=== PATIENT | female | born 1960 | race Two or more races ===

== ENCOUNTER 2020-03-11 09:07 | Outpatient (REF) | payer OTHER, SELFPAY | END 2020-03-11 09:08 | disposition home or self-care (01) | LOC: HO.XRAY 09:07 | PROVIDERS: Visit Provider Internal Medicine Gastroenterology | DX: Z13.89 Encounter for screening for other disorder (principal) ==

== ENCOUNTER 2020-03-11 10:00 | Outpatient (REF) | payer OTHER, SELFPAY | END 2020-03-11 10:01 | disposition home or self-care (01) | LOC: HO.XRAY 10:00 | PROVIDERS: Visit Provider Internal Medicine Gastroenterology | DX: Z13.89 Encounter for screening for other disorder (principal) ==

== ENCOUNTER 2020-03-17 07:59 | Outpatient (REF) | payer OTHER, SELFPAY ==
--- NOTE | 2020-03-17 08:08 | FL_ITS ---
EXAMINATION: XR UPPER GI SERIES WITH SMALL BOWEL CLINICAL INFORMATION: Abdominal pain. COMPARISON: None. TECHNIQUE: A single mate first view of the abdomen was obtained. Subsequently, thick barium and effervescent granules were administered orally in upright view and images were obtained. Patient was placed in supine and prone position and imaging of stomach and small bowel loops was obtained up to 20 minutes. Spot imaging was obtained subsequently through the abdomen. FINDINGS: Following oral administration of thick barium and effervescent granules, there is normal antegrade flow of barium from the oral cavity through the pharynx and esophagus into the stomach without any evidence of obstruction, narrowing. Spot images obtained through the abdomen reveal normal course, caliber and peristalsis in the stomach, the duodenum and the sweep. No gastroesophageal reflux. Sequential images obtained through the abdomen reveal a normal small bowel transit time of less than 20 minutes. Spot images of the ileocecal junction and the small bowel reveal no focal narrowing or mucosal irregularity. The rectum is unremarkable, as well. FLUOROSCOPY TIME: 2.5 minutes DOSE AREA PRODUCT: 27.205 uGy-m2 (microgray-meter squared) IMPRESSION: Unremarkable upper GI air-contrast study. Normal small bowel transit time. Normal-appearing small bowel loops.
== END 2020-03-17 08:00 | disposition home or self-care (01) ==
LOC: HO.XRAY 07:59
PROVIDERS: Visit Provider Internal Medicine Gastroenterology
DX: R10.9 Unspecified abdominal pain (principal)
CPT/HCPCS: 74240; 74248

== ENCOUNTER → 2020-03-25 09:44 | Outpatient (BNVA) | payer OTHER, SELFPAY | PROVIDERS: PCP Family Medicine; Visit Provider Urology | DX: N30.10 Interstitial cystitis (chronic) without hematuria (principal); R35.1 Nocturia | CPT/HCPCS: 99212 ==

== ENCOUNTER 2020-06-29 09:52 | Outpatient (REF) | payer OTHER, SELFPAY | END 2020-06-29 09:53 | disposition home or self-care (01) | LOC: HO.LAB 09:52 | PROVIDERS: Visit Provider Internal Medicine | DX: Z20.822 Contact with and (suspected) exposure to COVID-19 (principal) | CPT/HCPCS: 36415; C9803; U0003; U0005 ==

== ENCOUNTER 2020-07-09 13:46 | Outpatient (REF) | payer OTHER, SELFPAY ==
--- NOTE | ~2020-07-09 | MM_ITS ---
EXAMINATION: MM DIAGNOSTIC DIGITAL BREAST TOMOSYNTHESIS, BILATERAL TARGETED LEFT BREAST ULTRASOUND CLINICAL INFORMATION: Left breast mass at 3 to 5 o'clock. The lifetime risk of breast cancer based on the Tyrer-Cuzick Model is 5.3%. COMPARISON: Mammography: 08/06/2019 and studies dating back to 06/06/2013. TECHNIQUE: Digital breast tomosynthesis is performed in both the craniocaudal and mediolateral oblique views along with computer-aided detection (CAD). Synthesized 2D images are generated from the tomosynthesis. FINDINGS: The breasts are heterogeneously dense, which may obscure small masses (ACR BI-RADS breast composition Category c). There are no significant masses, abnormal calcifications, or other abnormalities. Targeted breast ultrasound about the lateral aspect of the left breast performed. No abnormal cystic or solid mass identified. No region of abnormal distal sound shadowing. No edema within the tissue planes identified. Results are provided to the patient at time of visit by the technologist. MM/MM tomosynthesis diagnostic BI IMPRESSION: There are no significant changes from prior study. ASSESSMENT: BI-RADS 1: Negative. RECOMMENDATION: Routine annual mammography screening due in 12 months. Clinical followup for palpable abnormality. This patient's information was entered into a reminder system with a target due date for their next mammogram.
--- NOTE | ~2020-07-09 | US_ITS ---
EXAMINATION: US DIAGNOSTIC ULTRASOUND BREAST, LEFT CLINICAL INFORMATION: Palpable abnormality upper outer aspect left breast. COMPARISON: Mammography of same day as well as studies dating back to June 06, 2013. TECHNIQUE: Ultrasound of the breast is performed with real-time schuster scale imaging and color Doppler. FINDINGS: There is no focal suspicious finding. There is no solid mass, architectural abnormality, duct ectasia, or edema in the soft tissue planes. Results are discussed with the patient at time of visit. US/US breast LT limited IMPRESSION: No specific ultrasound findings to suggest malignancy of the left breast. ASSESSMENT: BI-RADS 1: Negative RECOMMENDATION: Routine annual mammography screening due in 12 months. Clinical follow-up for palpable abnormality not imaged with ultrasound or mammography. This patient's information was entered into a reminder system with a target due date for their next mammogram.
== END 2020-07-09 13:47 | disposition home or self-care (01) ==
LOC: HO.MAMMO 13:46
PROVIDERS: Visit Provider Family Medicine
DX: N63.23 Unspecified lump in the left breast, lower outer quadrant (principal)
CPT/HCPCS: 76642; 77062; 77066

== ENCOUNTER → 2020-07-21 12:50 | Outpatient (BNVA) | payer OTHER, SELFPAY | PROVIDERS: PCP Family Medicine; Visit Provider Urology | DX: R35.1 Nocturia (principal); N30.10 Interstitial cystitis (chronic) without hematuria | CPT/HCPCS: 51798; 81002; 99212 ==

== ENCOUNTER → 2020-08-27 09:46 | Outpatient (BNVA) | payer OTHER, SELFPAY | PROVIDERS: PCP Family Medicine; Referring Provider Family Medicine; Visit Provider Student in an Organized Health Care Education/Training Program | DX: M89.49 Other hypertrophic osteoarthropathy, multiple sites (principal) | CPT/HCPCS: 99212 ==

== ENCOUNTER 2020-09-02 06:53 | Outpatient (REF) | payer OTHER, SELFPAY ==
[2020-09-02 08:28] LABS: Alanine Aminotransferase 19 U/L (0-31); Albumin Level 4.5 g/dL (3.5-5.0); Alkaline Phosphatase 89 U/L (39-117); Anion Gap 13 (12-20); Aspartate Amino Transferase 21 U/L (5-31); Bilirubin Total 0.5 mg/dL (0.0-1.0); Blood Urea Nitrogen 23 mg/dL (9-16); Calcium 9.8 mg/dL (8.4-10.2); Carbon Dioxide 28 mmol/L (22-29); Chloride 104 mmol/L (96-108); Cholesterol 197 mg/dL; Estimated Glomerular Filt Rate > 60; Glucose Fasting 101 mg/dL (60-99); HDL Cholesterol 62 mg/dL; LDL Cholesterol Calculated 117 mg/dl; Potassium 3.9 mmol/L (3.3-5.1); Sodium 141 mmol/L (135-145); Total Protein 7.9 g/dL (6.5-8.0); Triglycerides 90 mg/dL
[2020-09-02 08:29] LABS: Creatinine Urine 102.57 mg/dL; Microalbum/Creatinine Ratio Ur 17.5 ug/mg cr
[2020-09-02 08:52] LABS: Estimated Average Glucose 114 mg/dL; Hemoglobin A1c % 5.6 %; TSH reflex Free T4 1.44 uIU/mL (0.32-4.0)
== END 2020-09-02 06:54 | disposition home or self-care (01) ==
LOC: HO.LAB 06:53
PROVIDERS: PCP Family Medicine; Visit Provider Family Medicine
DX: Z00.00 Encounter for general adult medical examination without abnormal findings (principal); R73.03 Prediabetes; I10 Essential (primary) hypertension
CPT/HCPCS: 36415; 80053; 80061; 82043; 83036; 84443

== ENCOUNTER 2020-10-13 07:16 | Outpatient (REF) | payer OTHER, SELFPAY ==
[2020-10-13 08:49] LABS: Blood Urea Nitrogen 22 mg/dL (9-16); Estimated Glomerular Filt Rate > 60
== END 2020-10-13 07:17 | disposition home or self-care (01) ==
LOC: HO.LAB 07:16
PROVIDERS: PCP Family Medicine; Visit Provider Internal Medicine Gastroenterology
DX: R10.84 Generalized abdominal pain (principal)
CPT/HCPCS: 36415; 82565; 84520

== ENCOUNTER 2020-10-15 07:52 | Outpatient (REF) | payer OTHER, SELFPAY ==
--- NOTE | ~2020-10-15 | CT_ITS ---
EXAMINATION: CT ABDOMEN AND PELVIS WITH CONTRAST CLINICAL INFORMATION: Abdominal pain COMPARISON: Previous abdominal ultrasound May 2019 TECHNIQUE: Multidetector volumetric images were obtained from the superior aspect of the liver through the pubic symphysis following administration 85 mL of Omnipaque 350 intravenous contrast. Sagittal and coronal reformatted images were obtained on the technologist's workstation. Oral contrast: Yes This CT examination was performed using dose optimization techniques as appropriate, variously including the following: *Automated exposure control *Adjustment of mA and/or kV according to patient size (this includes techniques or standardized protocols for targeted exams where dose is matched to indication/reason for exam; i.e. extremities or head) *Use of iterative reconstruction technique DLP: 85 mGy-cm FINDINGS: LUNG BASES: The visualized lung bases are unremarkable. LIVER, GALLBLADDER, AND BILIARY TREE: The liver is low in attenuation suggestive of fatty infiltration. There is a small 5 mm low-attenuation lesion high in the right lobe of the liver axial image 11 series 3 probably representing a cyst. The gallbladder is unremarkable. There is no biliary duct dilatation. PANCREAS: Unremarkable. SPLEEN: Unremarkable. ADRENAL GLANDS: Unremarkable. KIDNEYS AND URETERS: The kidneys are normal in size, shape, and attenuation. No hydronephrosis, hydroureter, or calculi seen. No perinephric stranding. BLADDER: Unremarkable. GASTROINTESTINAL TRACT: There is stool throughout the colon suggestive of constipation. The small and large bowel are otherwise unremarkable. The appendix is is not seen. No inflammatory changes are seen in the right lower quadrant. ABDOMINAL WALL: No significant hernia is appreciated. LYMPH NODES: Normal. VASCULAR: Unremarkable. PELVIC VISCERA: Unremarkable. OSSEOUS STRUCTURES: Unremarkable. CT/CT abdomen pelvis w con IMPRESSION: Stool throughout the colon suggestive of constipation. Fatty liver. Probable small liver cyst.
[2020-10-15] MEDS: iohexoL 350 MG/ML 100 ML INFUS..BTL 85 ML IV (11:12)
== END 2020-10-15 07:53 | disposition home or self-care (01) ==
LOC: HO.CT 07:52
PROVIDERS: Visit Provider Internal Medicine Gastroenterology
DX: R10.84 Generalized abdominal pain (principal)
CPT/HCPCS: 74177; Q9967

== ENCOUNTER 2020-12-23 14:09 | Outpatient (REF) | payer OTHER, SELFPAY ==
--- NOTE | ~2020-12-23 | FL_ITS ---
EXAMINATION: XR BARIUM SWALLOW CLINICAL INFORMATION: Difficulty swallowing. COMPARISON: None TECHNIQUE: Modified barium swallow was performed lateral projection is a speech therapist. FINDINGS: Under lateral fluoroscopy various consistency food was administered by the speech therapist. The exam was performed on 12/15/2020. The exact findings are not very collectible at this time. Correlate with speech therapy results. FLUOROSCOPY TIME: 0.9 minutes DOSE AREA PRODUCT: 0.656 uGy-m2 (microgray-meter squared) FL/FL barium swallow modified IMPRESSION: Modified barium swallow was performed under fluoroscopy in presence of speech therapist. Correlate with speech therapy report.
--- NOTE | 2020-12-24 13:40 | MHC.SL.IMP ---
Date of Plan of Treatment: 12/23/20 Onset of Symptoms/Illness: 12/02/20 Date Treatment Started: 12/23/20 Admitting Diagnosis: Acute pain left knee Osteoarthritis Overactive bladder Urinary urgency Weak urinary stream Primary Speech & Language Diagnosis: R13.12 Oropharyngeal Phase Dysphagia Reason for Today's Visit: 96440 Modified Barium Swallow Study Pre-evaluation Dietary Consistencies: Regular Pre-evaluation Liquid Consistency: Thin Pre-evaluation Medication Administration: Whole with Liquid Medical History: Modified Barium Swallow Study Fluoroscopic Evaluation of Swallowing Function CPT Code 40913 Evaluation Year: 2020 Reason for Study: Patient reports globus sensation. Referring Physician: Cesar Driscoll M.D. Evaluating Clinician: Kat Buckley M.A., CCC-CREW CALLER Study Number: 1 Patient Name: Lakia Benson Status: Outpatient, Ambulatory Age: 60 Gender: Female MEDICAL HISTORY: Year of Onset or Diagnosis: 2020 Comorbidities: Acute pain left knee Osteoarthritis Overactive bladder Urinary urgency Weak urinary stream Current (pre-evaluation) Intake/Diet: Route: PO Diet Grade: Regular Liquid Consistencies: Thin Pre-Study Functional Oral Intake Scale (FOIS): 7- Total oral intake with no restrictions Pain: Currently present reported at time of study, Throat, rated 0 on scale 0-10 Oral Motor Exam Facial Symmetry: Symmetrical Mouth Occlusion: Normal Oral-Facial Teeth Characteristics: Intact/Normal Tongue Size: Normal Tongue Frenum Length: Normal Tongue Excursion Description: Normal Tongue Range of Movement Description: Normal Tongue Speed of Movement Description: Normal Tongue Strength of Movement (against opposing pressure): Normal Is patient able to manage secretions?: Yes Food and Liquid Trials: Oral Impairment: Lip Closure: Did not test Oral Impairment: Tongue Control During Bolus Hold: 0=Cohesive bolus between tongue to palatal seal Oral Impairment: Bolus Preparation/Mastication: 1=Slow prolonged chewing/mashing with complete re-collection Oral Impairment: Bolus Transport/Lingual Motion: 0=Brisk tongue motion Oral Impairment: Oral Residue: 1=Trace residue lining oral structures Oral Impairment:Initiation of Pharyngeal Swallow: 3=Bolus head in pyriforms Pharyngeal Impairment: Soft Palate Elevation: 0=No bolus between soft palate (SP)/pharyngeal wall (PW) Pharyngeal Impairment: Laryngeal Elevation: 1=Partial thyroid cartilage/arytenoids to epiglottic petiole movement Pharyngeal Impairment: Anterior Hyoid Excursion: 1=Partial anterior movement Pharyngeal Impairment: Epiglottic Movement: 0=Complete inversion Pharyngeal Impairment: Laryngeal Vestibular Closure:: 0=Complete: no air/contrast in laryngeal vestibule Pharyngeal Impairment: Pharyngeal Stripping Wave: 0=Present: complete Pharyngeal Impairment: Pharyngeal Contraction: Did not test Pharyngeal Impairment: Pharyngoesophageal Segment Openin=Complete distension and complete duration: no obstruction of flow Pharyngeal Impairment: Tongue Base (TB) Retraction: 2=Narrow column of contrast/air between TB and posterior PW Pharyngeal Impairment: Pharyngeal Residue: 1=Trace residue within or on pharyngeal structures Pharyngeal Impairment: Esophageal Clearance Upright Position: Did not test Impressions and Recommendations Clinical Observations: OBJECTIVE: Time-out: performed at 02:45 Evaluation Start: 02:30; Stop: 02:40 Patient Positioning: Seated 70-90 degrees Viewing Planes: LATERAL ONLY Contrast: MBSImP? Standardized Protocol using commercially prepared, standardized Barium viscosities, including: Varibar? THIN LIQUID (40% w/v, <15 cps) , 1/2 Shortbread Cookie (1 x1 x.25 ) MBSImP ID: [id number] MBSImP Results: Lip closure for intraoral bolus containment could not be assessed due to logistical reasons not related to physiologic impairment. Tongue control during bolus hold maintained a cohesive bolus held between tongue to palate seal. Bolus preparation and mastication resulted in slow, prolonged chewing/mashing but with complete re-collection. Bolus transport/lingual motion was with brisk tongue motion. Oral residue was a trace, lining oral structures. Initiation of the pharyngeal swallow occurred when the bolus head was in the pyriform sinuses. Soft palate elevation resulted in no bolus between the soft palate and the pharyngeal wall. Laryngeal elevation was decreased, with partial superior movement of the thyroid cartilage/partial approximation of the arytenoids to the epiglottic petiole. Anterior hyoid excursion demonstrated partial anterior movement. Epiglottic movement resulted in complete inversion. Laryngeal vestibular closure was complete, as indicated by no air or contrast within the laryngeal vestibule at the height of the swallow. Pharyngeal stripping wave was present and complete. Pharyngeal contraction could not be determined due to logistical reasons not related to physiologic impairment. Pharyngoesophageal segment opening was completely distended for complete duration with no obstruction of bolus flow. Tongue base retraction allowed a narrow column of contrast or air between the retracted tongue base and the posterior pharyngeal wall. Pharyngeal residue was a trace within or on pharyngeal structures. Esophageal clearance in the upright position could not be assessed due to logistical reasons not related to physiologic impairment. Oral Impairment Score: 4 (absence of score, component 1) Pharyngeal Impairment Score: 4 (absence of score, component 13) Esophageal Impairment Score: --- (absence of score, component 17) Laryngeal Penetration and Aspiration: Neither penetration nor aspiration was observed in today's study with Cookie, Thin. ASSESSMENT: Clinician Assessment: This exam was conducted by radiologist and speech language pathologist with patient seated upright at 90 degree angle in chair for lateral view only. Patient trialed the following solid and liquid consistencies: -applesauce mixed with barium paste (pureed solid) -chicken salad mixed with barium paste (ground solid) -Kely Doone cookie coated with barium paste (regular solid) -5 mL thin liquid barium -cup sip thin liquid barium No evidence of aspiration or penetration during this exam. Patient reported globus sensation after food and liquid trials. However, visualized good oral and pharyngeal clearance. Swallow function deemed within functional limits based on observations made during this exam. Recommend consult with G.I. and/or ENT for reports of throat pain, throat dryness, and ongoing globus sensation. Liquid Intake Recommendation: Thin Liquid Intake Strategies: Unrestricted Dietary Recommendations: Regular Medication Administration: Whole with Liquid Compensatory Strategies Recommended: Sitting Upright (90 deg) Small Bites and Sips Rate of Ingestion Change Supervision during eating and or drinking: None Needed Recommendation for Speech Therapy: NA:Typical Evaluation Text Comment: No evidence of aspiration or penetration during this exam. Patient reported globus sensation after food and liquid trials. However, visualized good oral and pharyngeal clearance. Swallow function deemed within functional limits based on observations made during this exam. Recommend consult with G.I. and/or ENT for reports of throat pain, throat dryness, and ongoing globus sensation. Brand Activation Manager Clinician/Clinical Fellow: No Supervisory Statement: N/A Speech Language Pathologist: Kat Buckley M.A., CCC-CREW CALLER
== END 2020-12-23 14:10 | disposition home or self-care (01) ==
LOC: HO.XRAY 14:09
PROVIDERS: Visit Provider Family Medicine
DX: R09.89 Other specified symptoms and signs involving the circulatory and respiratory systems (principal)
CPT/HCPCS: 74230; 92611

== ENCOUNTER 2021-04-28 11:36 | Outpatient (REF) | payer OTHER, SELFPAY ==
[2021-04-28 13:48] LABS: Estimated Average Glucose 117 mg/dL; Hemoglobin A1c % 5.7 %
== END 2021-04-28 11:37 | disposition home or self-care (01) ==
LOC: HO.WFDLDS 11:36
PROVIDERS: Visit Provider Family Medicine
DX: R73.01 Impaired fasting glucose (principal)
CPT/HCPCS: 36415; 83036

== ENCOUNTER → 2021-05-19 15:47 | Outpatient (BNVA) | payer OTHER, SELFPAY | PROVIDERS: PCP Family Medicine; Referring Provider Family Medicine; Visit Provider Surgery | DX: N64.4 Mastodynia (principal); Z80.41 Family history of malignant neoplasm of ovary | CPT/HCPCS: 99202 ==

== ENCOUNTER 2021-06-14 14:00 | Outpatient (REF) | payer OTHER, SELFPAY ==
--- NOTE | ~2021-06-14 | MM_ITS ---
EXAMINATION: MM DIAGNOSTIC DIGITAL BREAST TOMOSYNTHESIS, BILATERAL US DIAGNOSTIC ULTRASOUND BREAST, LEFT CLINICAL INFORMATION: Pain left breast upper outer quadrant with question of palpable fullness. No known family history breast cancer. The lifetime risk of breast cancer based on the Tyrer-Cuzick Model is 5%. COMPARISON: Mammography: 07/09/2020, 08/06/2019, 07/13/2018, 07/31/2018 TECHNIQUE: Digital breast tomosynthesis is performed in both the craniocaudal and mediolateral oblique views along with computer-aided detection (CAD). Synthesized 2D images are generated from the tomosynthesis. Ultrasound left breast is targeted to the areas of clinical concern 1:00 through 5:00 position. Grayscale imaging and color Doppler are performed without and with harmonics. FINDINGS: The breasts are heterogeneously dense, which may obscure small masses (ACR BI-RADS breast composition Category c). There are no significant masses, abnormal calcifications, or other abnormalities. Parenchymal pattern is similar to prior studies. There is no developing density or architectural abnormality. There is no skin thickening or coarsening of the Gabino's ligaments. The axilla and skin contours are unremarkable. No significant changes. Ultrasound demonstrates no cystic or solid mass or architectural abnormality. No focal duct ectasia. No skin thickening or edema tracking in soft tissue planes. Results are discussed with the patient at time of visit, using an oracle fusion middleware developer. MM/MM tomosynthesis diagnostic BI IMPRESSION: No mammographic evidence of malignancy or inflammatory changes. Unremarkable left breast ultrasound. ASSESSMENT: BI-RADS 1: Negative RECOMMENDATION: 1. Patient should be managed based on the clinical impression. If clinically indicated, further evaluation may be considered with surgical consult. Decision to proceed with biopsy should be based on clinical grounds and degree of clinical concern. 2. Otherwise, routine annual screening mammography. This patient's information was entered into a reminder system with a target due date for their next mammogram.
== END 2021-06-14 14:01 | disposition home or self-care (01) ==
LOC: HO.MAMMO 14:00
PROVIDERS: Visit Provider Surgery
DX: N64.4 Mastodynia (principal)
CPT/HCPCS: 76642; 77062; 77066

== ENCOUNTER → 2021-06-17 14:19 | Outpatient (BNVA) | payer OTHER, SELFPAY | PROVIDERS: PCP Family Medicine; Referring Provider Family Medicine; Visit Provider Surgery | DX: N64.4 Mastodynia (principal); Z80.41 Family history of malignant neoplasm of ovary | CPT/HCPCS: 99212 ==

== ENCOUNTER → 2021-07-29 08:55 | Outpatient (BNVA) | payer OTHER, SELFPAY | PROVIDERS: PCP Family Medicine; Referring Provider Family Medicine; Visit Provider Surgery | DX: Z80.41 Family history of malignant neoplasm of ovary (principal) | CPT/HCPCS: 99212 ==

== ENCOUNTER 2021-10-19 10:09 | Outpatient (REF) | payer OTHER, SELFPAY ==
[2021-10-19 12:33] LABS: Alanine Aminotransferase 23 U/L (0-31); Albumin Level 4.5 g/dL (3.5-5.0); Alkaline Phosphatase 87 U/L (39-117); Anion Gap 13 (12-20); Aspartate Amino Transferase 22 U/L (5-31); Bilirubin Total 0.2 mg/dL (0.0-1.0); Blood Urea Nitrogen 20 mg/dL (9-16); Calcium 10.5 mg/dL (8.4-10.2); Carbon Dioxide 26 mmol/L (22-29); Chloride 105 mmol/L (96-108); Estimated Glomerular Filt Rate > 60; Glucose Random 90 mg/dL (60-115); Sodium 140 mmol/L (135-145)
== END 2021-10-19 10:10 | disposition home or self-care (01) ==
LOC: HO.LAB 10:09
PROVIDERS: PCP Family Medicine; Visit Provider Nurse Practitioner Family
DX: M89.49 Other hypertrophic osteoarthropathy, multiple sites (principal)
CPT/HCPCS: 36415; 80053; 99212

== ENCOUNTER 2021-10-21 11:55 | Outpatient (REF) | payer OTHER, SELFPAY ==
[2021-10-21 12:53] LABS: Alanine Aminotransferase 25 U/L (0-31); Albumin Level 4.5 g/dL (3.5-5.0); Alkaline Phosphatase 89 U/L (39-117); Anion Gap 15 (12-20); Aspartate Amino Transferase 22 U/L (5-31); Bilirubin Total 0.5 mg/dL (0.0-1.0); Blood Urea Nitrogen 18 mg/dL (9-16); Calcium 10.4 mg/dL (8.4-10.2); Carbon Dioxide 24 mmol/L (22-29); Chloride 103 mmol/L (96-108); Estimated Glomerular Filt Rate > 60; Glucose Random 85 mg/dL (60-115); Potassium 4.2 mmol/L (3.3-5.1); Sodium 138 mmol/L (135-145); Total Protein 8.2 g/dL (6.5-8.0)
[2021-10-22 14:21] LABS: Calcium (PTHI) 10.3 mg/dL (8.6-10.4); PTHI 55 pg/mL (16-77)
== END 2021-10-21 11:56 | disposition home or self-care (01) ==
LOC: HO.LAB 11:55
PROVIDERS: PCP Family Medicine; Visit Provider Nurse Practitioner Family
DX: E83.52 Hypercalcemia (principal)
CPT/HCPCS: 36415; 80053; 83970

== ENCOUNTER 2022-05-25 07:04 | Outpatient (REF) | payer OTHER, SELFPAY ==
[2022-05-25 08:35] LABS: Alanine Aminotransferase 18 U/L (0-31); Albumin Level 4.4 g/dL (3.5-5.0); Alkaline Phosphatase 89 U/L (39-117); Anion Gap 13 (12-20); Aspartate Amino Transferase 18 U/L (5-31); Bilirubin Total 0.3 mg/dL (0.0-1.0); Blood Urea Nitrogen 21 mg/dL (9-16); Calcium 10.2 mg/dL (8.4-10.2); Carbon Dioxide 27 mmol/L (22-29); Chloride 104 mmol/L (96-108); Cholesterol 197 mg/dL; Estimated Glomerular Filt Rate > 60; Glucose Fasting 142 mg/dL (60-99); HDL Cholesterol 53 mg/dL; LDL Cholesterol Calculated 121 mg/dl; Potassium 3.8 mmol/L (3.3-5.1); Sodium 140 mmol/L (135-145); TSH reflex Free T4 1.28 uIU/mL (0.32-4.0); Total Protein 7.9 g/dL (6.5-8.0); Triglycerides 119 mg/dL
[2022-05-25 09:24] LABS: Appearance Urine Clear; Color Urine Yellow; Glucose Urine UA Negative (Negative); Leukocyte Esterase Urine Small (1+) (Negative); Nitrite Urine Negative (Negative); PH 5.5 (5.0-9.0); Specific Gravity - Urine >= 1.030 (1.005-1.025); UMIC TRIGGER UA YES; Urine Blood Negative (Negative); Urine Ketones Negative (Negative); Urine Protein Trace mg/dL (Neg-Trace)
[2022-05-25 10:00] LABS: Creatinine Urine 214.16 mg/dL; Microalbum/Creatinine Ratio Ur 28.4 ug/mg cr
[2022-05-25 10:01] LABS: Bacteria Urine None Seen (None Seen); Calcium Oxalate Crystals Urine Present; Hyaline Casts Urine 0-2 /LPF (0-2); RBC Urine 0-2 /HPF (0-2); WBC Urine 0-5 /HPF (0-5)
== END 2022-05-25 07:05 | disposition home or self-care (01) ==
LOC: HO.LAB 07:04
PROVIDERS: PCP Family Medicine; Visit Provider Family Medicine
DX: Z00.00 Encounter for general adult medical examination without abnormal findings (principal); I10 Essential (primary) hypertension
CPT/HCPCS: 36415; 80053; 80061; 81001; 82043; 84443

== ENCOUNTER 2022-06-15 08:47 | Outpatient (REF) | payer OTHER, SELFPAY ==
--- NOTE | ~2022-06-15 | MM_ITS ---
EXAMINATION: MM SCREENING DIGITAL BREAST TOMOSYNTHESIS, BILATERAL CLINICAL INFORMATION: Screening. Asymptomatic. The lifetime risk of breast cancer based on the Tyrer-Cuzick Model is 6%. COMPARISON: Mammography: June 14, 2021 and studies dating back to July 28, 2015 TECHNIQUE: Digital breast tomosynthesis is performed in both the craniocaudal and mediolateral oblique views along with computer-aided detection (CAD). Synthesized 2D images are generated from the tomosynthesis. FINDINGS: The breasts are heterogeneously dense, which may obscure small masses (ACR BI-RADS breast composition Category c). There are no significant masses, abnormal calcifications, or other abnormalities. MM/MM tomosynthesis screening BI IMPRESSION: No significant changes ASSESSMENT: BI-RADS 1: Negative RECOMMENDATION: Routine annual mammography screening. This patient's information was entered into a reminder system with a target due date for their next mammogram.
== END 2022-06-15 08:48 | disposition home or self-care (01) ==
LOC: HO.MAMMO 08:47
PROVIDERS: PCP Family Medicine; Visit Provider Family Medicine
DX: Z12.31 Encounter for screening mammogram for malignant neoplasm of breast (principal)
CPT/HCPCS: 77063; 77067

== ENCOUNTER 2022-06-28 10:53 | Day surgery (SDC) | payer OTHER, SELFPAY ==
[2022-06-28 11:16] VITALS: BMI 28.3
[2022-06-28 11:24] VITALS: BP 136/79; PULSE 76; RESP 15; TEMP 36.5; O2SAT 97
[2022-06-28] MEDS: Lactated Ringers 1,000 ML 50 ML IVCONT (11:36)
[2022-06-28 11:51] LABS: Glucose, Whole Blood 121 mg/dL (60-115)
--- NOTE | 2022-06-28 11:59 | HO.ANESPROP2 ---
[facility] Active Problems Active Problems: All Active Problems (Updated 06/28/22 @ 11:15 by Dorina Rios RN) Interstitial cystitis (Acute) Nocturia more than twice per night (Acute) Breast cancer screening by mammogram (Acute) Pre-diabetes (Acute) Abdominal pain (Acute) Laboratory examination ordered as part of a routine general medical examination (Acute) Left breast mass (Acute) Primary osteoarthritis involving multiple joints (Acute) Globus sensation (Acute) Hypertension (Acute) Breast pain, left (Acute) Diabetes mellitus type 2, controlled, without complications (Acute) Encounter for general adult medical examination without abnormal findings (Acute) Screening for cervical cancer (Acute) Screening for colon cancer (Acute) OA (osteoarthritis) (Acute) Family history of ovarian cancer (Acute) Past Medical History Medical History Acute pain of left knee Diabetes Family history of ovarian cancer GERD (gastroesophageal reflux disease) HTN (hypertension) OA (osteoarthritis) Overactive bladder Primary osteoarthritis, right hand Urinary urgency Weak urinary stream Functional capacity: independent ambulation Patient : No Family History Family History Father No problems noted. Mother Colon cancer Brother No problems noted. Brother No problems noted. Brother No problems noted. Sister Ovarian cancer Sister Breast cancer Sister No problems noted. Sister No problems noted. Daughter No problems noted. Daughter No problems noted. Surgical History Surgical History History of bladder suspension procedure History of tubal ligation Hx of colonoscopy Hx of esophagogastroduodenoscopy History of Problems with Anesthesia: No Social History Social History Household Members: None Housing: Apartment Are you a primary care management associate to a significant other at home: No Do you presently have visiting nurse or other home services: No Alcohol intake: never Patient Tobacco Use Status: Never used Tobacco e-Cigarette/Vaping Use: Never Used Second Hand Smoke Exposure: No Use of substances other than those prescribed or required for medical reasons: No Are you DNR?: No Advance Directives: Yes Advance Directives on File: Yes Advance Directives Date on File: 03/11/20 Patient : No service: No Current occupational status: retired 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 Current occupational exposures/hazards: No Gender identity: Female Cognitive needs: No Hearing needs: No Vision needs: Yes (Glasses) Meds Allergies Allergy/AdvReac Type Severity Reaction Status Date / Time No Known Allergies Allergy Verified 06/01/22 09:09 Active Medications: Current Medications Lactated Ringer's (Lr) 1,000 mls @ 50 mls/hr IVCONT .Q20H BAYLEE Last Admin: 06/28/22 11:36 Dose: 50 mls/hr Home Medications Medication Instructions Recorded Confirmed Last Taken Type pantoprazole 40 mg tablet,delayed 40 mg PO DAILY 09/16/20 07/29/21 Unknown History release Exam Exam Date and Time: June 28, 2022 1159 Height,Weight and Vital Signs: Height 5 ft Weight 65.771 kg Last Vital Signs Temp 97.7 F 06/28/22 11:24 Pulse 76 06/28/22 11:24 Resp 15 06/28/22 11:24 BP 136/79 06/28/22 11:24 Pulse Ox 97 06/28/22 11:24 O2 Del Method 06/28/22 11:24 Pertinent Lab Results Pertinent Lab Results: Laboratory Tests 06/28/22 11:45 POC Glucose 121 H Airway Mallampati Class: II TM Dist: >3cm Neck ROM: Full Heart: RRR Lungs: CTA Assessment and Plan Final Anesthetic Review History of Problems with Anesthesia: No ASA Class: II Final Preanesthetic Review: Meds/Allgs Chart Reviewed, Consent Obtained/Reviewed and Anes Risks/Benef Reviewed Patient Risk: Low Procedure Risk: Low Anesthetic Plan Anesthetic Plan: MAC: Disposition: Standard PACU
--- NOTE | 2022-06-28 12:11 | MHC.SHP ---
Pre-Procedural Eval Section A Date of Service: 06/28/22 The patient is an INPATIENT: No Changes since office visit: No Cold of Flu in the past 2 weeks, No New Medical Problems, No Changes in Medication and No Patient answered all questions The History & Physical has been completed within 30 days and I have reviewed it.: Yes Section B Chief Complaint: screening,Dysphagia, unspecified Allergies: Allergies Allergy/AdvReac Type Severity Reaction Status Date / Time No Known Allergies Allergy Verified 06/01/22 09:09 Plan I have reviewed the history and physical and performed a pertinent physical examination on my patient. No changes have occurred unless specified. Time Spent With Patient Time: Total time managing care of this patient today ____ minutes.
--- NOTE | 2022-06-28 13:06 | P.BOP_ITS ---
Brief Operative Note Date of Service: 06/28/22 Pre-op diagnosis: dysphagia screening Post-op diagnosis: same Procedure: egd colon Surgeon: Ayo Esteban Anesthesia: MAC Was an Health Service Worker used for this Procedure?: No Estimated blood loss (mL): 2 Pathology: other Condition: stable Disposition: PACU
[2022-06-28 13:07] VITALS: BP 95/58; PULSE 86; RESP 16; TEMP 36.2; O2SAT 98
--- NOTE | 2022-06-28 13:15 | HO.POSTANES ---
Post Anesthesia Evaluation Post Anesthesia Evaluation Vital Signs: Vital Signs Temp Pulse Resp BP Pulse Ox O2 Del Method 06/28/22 13:07 97.2 F 86 16 95/58 L 98 Room Air 06/28/22 11:24 97.7 F 76 15 136/79 97 Room Air Anesthesia: Monitored Mental Status: Awake Pain Control: Satisfactory Nausea/Vomiting: None Hydration: Adequate Anesthesia-Related Issues: No Anes. Related Issues
[2022-06-28 13:22] VITALS: BP 122/74; PULSE 74; RESP 16; TEMP 36.1; O2SAT 98
--- NOTE | 2022-06-28 23:07 | OP_ITS ---
SURGEON: Ayo Esteban MD INDICATIONS: 1. Dysphagia. 2. Colon cancer screening. PREOPERATIVE DIAGNOSIS: POSTOPERATIVE DIAGNOSIS: PROCEDURE PERFORMED: Upper endoscopy with biopsy, colonoscopy to the terminal ileum with snare polypectomy. ESTIMATED BLOOD LOSS: COMPLICATIONS: ANESTHESIA: Monitored anesthesia care. ASSISTANTS: SPECIMENS: DESCRIPTION OF PROCEDURE: Date: 06/28/22. A history and physical was performed. The risks and benefits of the procedure were explained to the patient. Informed consent was obtained. The patient was placed in the left lateral decubitus position. The Olympus video gastroscope was introduced into the esophagus, stomach, and duodenum. Examination was performed, and the scope was removed. She was repositioned for colonoscopy. A digital rectal exam was performed and was found to be normal. The Olympus pediatric video colonoscope was introduced into the rectum and advanced to the cecum without difficulty. The cecum was identified by translumination, palpation, and identification of the ileocecal valve. Examination was performed. The scope was removed. She tolerated both procedures well and was returned to the recovery area in stable condition. FINDINGS: Upper endoscopy: 1. Esophagus: The esophagus was normal. There is a 1 cm area above the EG junction, suspicious for possible underlying Flores esophagus. Biopsies were obtained from the mucosa. There were no raised lesions or ulcerated areas, and there was no esophagitis. 2. Stomach: The stomach was normal. The enteral biopsies were obtained to evaluate for H pylori. 3. Duodenum: The bulb and second portion were normal. Colonoscopy: The terminal ileum was normal. The quality of the prep was good. The visualized colonic mucosa was within normal limits. There was 1 polyp that was removed with a cold snare measuring approximately 6 mm. This was located at 60 cm. No other polyps were identified. Retroflexed examination was normal. IMPRESSION: 1. Dysphagia. 2. Normal EGD, r/o Barretts. 3. Colon polyp. RECOMMENDATIONS: Follow up the biopsy results. MD MARK Sousa/ORI / [id number] MTDD
== END 2022-06-28 14:08 | disposition home or self-care (01) ==
PROVIDERS: PCP Family Medicine; Visit Provider Internal Medicine Gastroenterology
PROC: (CPT 45385; principal; 2022-06-28 12:10)
DX: Z12.11 Encounter for screening for malignant neoplasm of colon (principal); Z86.010 Personal history of colon polyps; D12.4 Benign neoplasm of descending colon; R13.10 Dysphagia, unspecified; K21.9 Gastro-esophageal reflux disease without esophagitis; I10 Essential (primary) hypertension; R73.03 Prediabetes; Z79.899 Other long term (current) drug therapy; Z79.84 Long term (current) use of oral hypoglycemic drugs
CPT/HCPCS: 45385; 43239; 82947; 88305; 88342

== ENCOUNTER 2022-10-19 16:21 | Outpatient (REF) | payer OTHER, SELFPAY ==
--- NOTE | ~2022-10-19 | MR_ITS ---
EXAMINATION: MR ABDOMEN WITHOUT AND WITH CONTRAST CLINICAL INFORMATION: Abdominal pain, question pancreatic cancer COMPARISON: CT abdomen pelvis 10/15/2020 TECHNIQUE: MRI of the abdomen before and after the IV administration of 6.5 mL of Gadavist was obtained using routine sequences. Heavily T2 weighted MRCP sequences were also obtained. FINDINGS: LUNG BASES: The visualized lung bases are unremarkable. KIDNEYS AND URETERS: Unremarkable. GALLBLADDER: Unremarkable. LIVER AND BILIARY TREE: Loss of signal on opposed phase imaging compatible with hepatic steatosis. Subcentimeter simple cysts in the right hepatic lobe. No suspicious liver lesion. No intra or extrahepatic biliary duct dilatation. PANCREAS: There is a 2.7 x 1.7 cm hypoattenuating mass centered in the pancreatic body. Pancreatic duct is dilated in the pancreatic tail to 4 mm. Distal to the mass Few small cysts in the pancreas for example measuring 8 mm in the pancreatic head, 4:19. Thick slice single planar post contrast MR sequences limits assessment of the relationship of the hepatic mass to the vasculature, however there does not appear to be contact with the SMA, celiac axis or common hepatic artery. There is no contact with the portal vein and there is no definite contact with the superior mesenteric vein as the fat planes appear preserved. No tumor or bland thrombus or dilated venous collaterals. SPLEEN: Unremarkable ADRENAL GLANDS: Unremarkable GASTROINTESTINAL TRACT: Unremarkable. LYMPH NODES: No lymphadenopathy. No peritoneal or omental nodules or free fluid. VASCULAR: Conventional hepatic arterial anatomy. ABDOMINAL WALL: Unremarkable. OSSEOUS STRUCTURES: Unremarkable. MR/MR abdomen wo/w con IMPRESSION: A 2.7 cm hypoattenuating mass centered in the pancreatic body suspicious for pancreatic adenocarcinoma with resultant distal pancreatic duct dilatation to 4 mm. Thick slice single planar post contrast sequences limits assessment of the relationship to the vasculature however there does not appear to be any definite vascular contact. A dedicated CT pancreas protocol could be obtained for more accurate staging if warranted. No evidence of metastatic disease in the abdomen. The findings and recommendations were discussed with Cesar Driscoll MDby telephone at 10/20/2022 11:17 AM and it was ascertained that the content and urgency of the report was understood at the time of direct communication.
== END 2022-10-19 16:22 | disposition home or self-care (01) ==
LOC: HO.MRI 16:21
PROVIDERS: PCP Family Medicine; Visit Provider Nurse Practitioner Family
DX: Z12.89 Encounter for screening for malignant neoplasm of other sites (principal); R10.9 Unspecified abdominal pain
CPT/HCPCS: 74183; A9585

== ENCOUNTER → 2022-10-25 12:19 | Outpatient (BNV) | payer OTHER, SELFPAY | PROVIDERS: PCP Family Medicine; Visit Provider Internal Medicine | DX: C25.9 Malignant neoplasm of pancreas, unspecified (principal); C78.7 Secondary malignant neoplasm of liver and intrahepatic bile duct; Z90.411 Acquired partial absence of pancreas; Z90.81 Acquired absence of spleen | CPT/HCPCS: 99204; 99213; 99214; 99215; G2211 ==

== ENCOUNTER → 2022-11-14 09:31 | Outpatient (REF) | payer OTHER, SELFPAY ==
--- NOTE | ~2022-11-14 | NM_ITS ---
EXAMINATION: NM BONE SCAN OF THE WHOLE BODY CLINICAL INFORMATION: Staging pancreatic cancer. COMPARISON: MRI of the abdomen and CT of the abdomen done on 10/19/2022 and 10/13/2022. TECHNIQUE: Multiple gamma scintillation camera images of the whole body were performed 3 hours following the intravenous administration of 22.0 mCi Tc-99m MDP. The radiotracer was injected through right hand superficial vein without complications. FINDINGS: In the head, no suspicious focal lesion. In the thoracic cage and upper extremities, no suspicious focal lesion. In the spine, no suspicious focal lesion. In the pelvis, no suspicious focal lesion. In the lower extremities, curvilinear extra osseous radiotracer activity is noted within the posterior left proximal medial thigh, seen only on the posterior projection, likely represent artifact/urinary contamination. No other definite bony abnormalities are noted. The urinary bladder and faint visualization of both kidneys are noted. NM/NM bone scan whole body IMPRESSION: No definite scintigraphic evidence of osseous metastasis. Extraosseous curvilinear radioactivity seen within the posterior upper medial of the left thigh likely represent artifact/urinary contamination.
== END ==
LOC: HO.NUCMED 09:31
PROVIDERS: PCP Family Medicine; Visit Provider Internal Medicine
DX: K86.89 Other specified diseases of pancreas (principal)
CPT/HCPCS: 78306; A9503

== ENCOUNTER 2022-11-22 08:16 | Outpatient (REF) | payer OTHER, SELFPAY ==
--- NOTE | ~2022-11-22 | CT_ITS ---
EXAMINATION: CT CHEST WITH CONTRAST CLINICAL INFORMATION: Staging pancreatic cancer COMPARISON: MR abdomen 10/19/2022 TECHNIQUE: Multidetector volumetric CT imaging of the chest was obtained after the administration of 65 mL of Omnipaque 350 intravenous contrast without immediate adverse reactions. Axial MIP volume rendering provided. Sagittal and coronal reformatted images were obtained. This CT examination was performed using dose optimization techniques as appropriate, variously including the following: *Automated exposure control *Adjustment of mA and/or kV according to patient size (this includes techniques or standardized protocols for targeted exams where dose is matched to indication/reason for exam; i.e. extremities or head) *Use of iterative reconstruction technique DLP: 115 mGy-cm FINDINGS: CHEST WALL/AXILLA: No axillary lymphadenopathy. LUNGS: No suspicious pulmonary nodule. Mild biapical pleural-parenchymal scarring. Minimal subsegmental atelectasis in the right lung base. MEDIASTINUM: Heart is normal in size. No mediastinal lymphadenopathy. No hilar lymphadenopathy. CORONARY ARTERY CALCIFICATION: No significant coronary artery calcification appreciated on this exam. PLEURA: There is no pleural effusion. UPPER ABDOMEN: Hypoattenuating hepatic parenchyma suggestive of hepatic steatosis. A 2.6 cm hypoattenuating mass centered in the pancreatic neck/body suboptimally evaluated on this single phase not convincingly changed in size from prior previously 2.6 cm with increased pancreatic duct dilatation to 6 mm, previously 4 mm OSSEOUS STRUCTURES: Unremarkable. CT/CT chest w IV con IMPRESSION: 1. A 2.6 cm hypoattenuating mass centered in the pancreatic neck/body suboptimally evaluated on this single phase not convincingly changed in size from prior with increased pancreatic duct dilatation to 6 mm, and remains suspicious for pancreatic adenocarcinoma. 2. No evidence of metastatic disease in the chest. 3. Hepatic steatosis.
[2022-11-22] MEDS: iohexoL 350 MG/ML 100 ML INFUS..BTL 65 ML IV (08:48)
== END 2022-11-22 08:17 | disposition home or self-care (01) ==
LOC: HO.CT 08:16
PROVIDERS: Visit Provider Internal Medicine
DX: K86.89 Other specified diseases of pancreas (principal)
CPT/HCPCS: 71260; Q9967

== ENCOUNTER → 2022-11-30 10:19 | Outpatient (BNVA) | payer OTHER, SELFPAY | PROVIDERS: PCP Family Medicine; Referring Provider Internal Medicine; Visit Provider Surgery | DX: C25.9 Malignant neoplasm of pancreas, unspecified (principal) | CPT/HCPCS: 99202 ==

== ENCOUNTER 2022-12-05 06:04 | Day surgery (SDC) | payer OTHER, SELFPAY ==
--- NOTE | 2022-12-02 10:58 | MHC.SHP ---
Pre-Procedural Eval Section A Date of Service: 12/02/22 The patient is an INPATIENT: No Changes since office visit: No Cold of Flu in the past 2 weeks, No New Medical Problems, No Changes in Medication and No Patient answered all questions The History & Physical has been completed within 30 days and I have reviewed it.: Yes Section B Chief Complaint: Malignant neoplasm of pancreas, unspecified Allergies: Allergies Allergy/AdvReac Type Severity Reaction Status Date / Time No Known Allergies Allergy Verified 11/30/22 10:25 Plan I have reviewed the history and physical and performed a pertinent physical examination on my patient. No changes have occurred unless specified. Time Spent With Patient Time: Total time managing care of this patient today ____ minutes.
--- NOTE | ~2022-12-05 | FL_ITS ---
EXAMINATION: XR FLUOROSCOPY WITH IMAGES CLINICAL INFORMATION: Port insertion COMPARISON: None available. TECHNIQUE: Fluoroscopy Supervised By: Dr. Loja. Fluoroscopy Time: 20 seconds. Cumulative Dose: 2.46 mGy. DAP: Not available. Images: 1. FINDINGS: Limited imaging demonstrates's Port-A-Cath in place with its tip overlying the SVC. Limited detail. FL/FL guidance in OR IMPRESSION: Fluoroscopy for Port-A-Cath placement.
[2022-12-05 06:08] VITALS: BMI 27.1
[2022-12-05 06:31] VITALS: BP 128/86; PULSE 73; RESP 18; TEMP 36.7; O2SAT 97
--- NOTE | 2022-12-05 07:20 | HO.ANESPROP2 ---
Documented by User: Christine Adamson NP 12/02/22 08:42 HPI - Anesthesia Eval Consult details Narrative: 61yo F for Port-a-Cath Insertion, fluoroscopy, doppler Ultrasound Pancreatic CA s/p EGD and [place] 05/2022 with TIVA PMFSH Active Problems Active Problems: All Active Problems (Updated 10/25/22 @ 13:57 by Geno Jones MD) Pancreatic adenocarcinoma (Acute) Mass of pancreas (Acute) Anxiety (Acute) Abnormal MRI (Acute) Encounter for screening for malignant neoplasm of other sites (Acute) Hypercholesterolemia (Acute) Interstitial cystitis (Acute) Nocturia more than twice per night (Acute) Breast cancer screening by mammogram (Acute) Pre-diabetes (Acute) Abdominal pain (Acute) Laboratory examination ordered as part of a routine general medical examination (Acute) Left breast mass (Acute) Primary osteoarthritis involving multiple joints (Acute) Globus sensation (Acute) Hypertension (Acute) Breast pain, left (Acute) Diabetes mellitus type 2, controlled, without complications (Acute) Encounter for general adult medical examination without abnormal findings (Acute) Screening for cervical cancer (Acute) Screening for colon cancer (Acute) OA (osteoarthritis) (Acute) Family history of ovarian cancer (Acute) Past Medical History Medical History Acute pain of left knee Diabetes Family history of ovarian cancer GERD (gastroesophageal reflux disease) HTN (hypertension) OA (osteoarthritis) Overactive bladder Primary osteoarthritis, right hand Urinary urgency Weak urinary stream Family History Family History Father No problems noted. Mother Colon cancer Brother No problems noted. Brother No problems noted. Brother No problems noted. Sister Ovarian cancer Sister Breast cancer Sister No problems noted. Sister No problems noted. Daughter No problems noted. Daughter No problems noted. Surgical History Surgical History History of bladder suspension procedure History of tubal ligation Hx of colonoscopy Hx of esophagogastroduodenoscopy History of Problems with Anesthesia: No Social History Social History Household Members: None Housing: Apartment Are you a primary technical healthcare consultant to a significant other at home: No Do you presently have visiting nurse or other home services: No Alcohol intake: never Patient Tobacco Use Status: Never used Tobacco e-Cigarette/Vaping Use: Never Used Second Hand Smoke Exposure: No Are you DNR?: No Advance Directives: No Advance Directives Information Provided: Yes Advance Directives Date on File: 03/11/20 Nutrition Risks: No Nutritional Risk service: No Current occupational status: retired 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 Current occupational exposures/hazards: No Gender identity: Female Cognitive needs: No Hearing needs: No Vision needs: Yes (Glasses) Meds Allergies Allergy/AdvReac Type Severity Reaction Status Date / Time No Known Allergies Allergy Verified 12/05/22 06:33 Exam Exam Date and Time: December 02, 2022 0841 Pertinent Lab Results Pertinent Lab Results: Laboratory Tests 10/25/22 10/25/22 13:13 13:13 WBC 7.7 Hgb 11.9 L Hct 35.0 L Plt Count 317 Sodium 142 Potassium 4.5 Chloride 108 Carbon Dioxide 24 BUN 23 H Creatinine 0.71 Assessment and Plan Assessment Anesthesia Assessment: Chart Reviewed Final Anesthetic Review History of Problems with Anesthesia: No Documented by User: Dorina Santana DO 12/05/22 07:25 PMFSH Past Medical History Medical History Acute pain of left knee Diabetes Family history of ovarian cancer GERD (gastroesophageal reflux disease) HTN (hypertension) OA (osteoarthritis) Overactive bladder Primary osteoarthritis, right hand Urinary urgency Weak urinary stream Family History Family History Father No problems noted. Mother Colon cancer Brother No problems noted. Brother No problems noted. Brother No problems noted. Sister Ovarian cancer Sister Breast cancer Sister No problems noted. Sister No problems noted. Daughter No problems noted. Daughter No problems noted. Surgical History Surgical History History of bladder suspension procedure History of tubal ligation Hx of colonoscopy Hx of esophagogastroduodenoscopy History of Problems with Anesthesia: No Social History Social History Household Members: None Housing: Apartment Are you a primary technical healthcare consultant to a significant other at home: No Do you presently have visiting nurse or other home services: No Alcohol intake: never Patient Tobacco Use Status: Never used Tobacco e-Cigarette/Vaping Use: Never Used Second Hand Smoke Exposure: No Are you DNR?: No Advance Directives: No Advance Directives Information Provided: Yes Advance Directives Date on File: 03/11/20 Nutrition Risks: No Nutritional Risk service: No Current occupational status: retired 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 Current occupational exposures/hazards: No Gender identity: Female Cognitive needs: No Hearing needs: No Vision needs: Yes (Glasses) Meds Allergies Allergy/AdvReac Type Severity Reaction Status Date / Time No Known Allergies Allergy Verified 12/05/22 06:33 Exam Exam Date and Time: December 05, 2022 0720 Height,Weight and Vital Signs: Height 5 ft Weight 63.049 kg Vital Signs Temperature 98.1 F 12/05/22 06:31 Pulse Rate 73 12/05/22 06:31 Respiratory Rate 18 12/05/22 06:31 Blood Pressure 128/86 12/05/22 06:31 Pulse Oximetry 97 12/05/22 06:31 Oxygen Delivery Method Room Air 12/05/22 06:31 Temperature 98.1 F 12/05/22 06:31 Pulse Rate 73 12/05/22 06:31 Respiratory Rate 18 12/05/22 06:31 Blood Pressure 128/86 12/05/22 06:31 Pulse Oximetry 97 12/05/22 06:31 Oxygen Delivery Method Room Air 12/05/22 06:31 Airway Mallampati Class: II TM Dist: >3cm Neck ROM: Full Partial: Upper Loose/Missing/Broken Teeth: No Heart: S1S2 Lungs: CTAB Assessment and Plan Assessment Anesthesia Assessment: Anesthesia Plan Discussed and Chart Reviewed Final Anesthetic Review History of Problems with Anesthesia: No NPO: Yes ASA Class: III Final Preanesthetic Review: No Changes in Pt Med Stat, Meds/Allgs Chart Reviewed, Consent Obtained/Reviewed (horologist apprentice at bedside for translation) and Anes Risks/Benef Reviewed Patient Risk: Low Procedure Risk: Low Anesthetic Plan Anesthetic Plan: MAC: and Agree w/ Assess. and Plan Disposition: Standard PACU
--- NOTE | 2022-12-05 08:27 | W.PM.OPN ---
Operative Note Operative Note Date of Service: 12/05/22 Narrative: Preoperative diagnosis: [] IV access for chemotherapy Postop diagnosis: [] Save Procedure [] right internal jugular vein Port-A-Cath placement with Doppler ultrasound guidance and fluoroscopy Surgeon: [] Freedom Ski Lift Mechanic: [] KYLEE Hernandez Type of Anesthesia: [] Mass Indication for surgery: [] Chemotherapy Findings: [] Patient brought to the operating room, placed on the operative table supine position, after adequate level of MAC anesthesia was induced, patient had the right neck and chest prepped and draped in usual sterile fashion. Patient was then placed in reverse Trendelenburg position. Using Doppler ultrasound guidance, the right internal jugular vein was identified and cannulated using Seldinger technique. A wire was advanced to the level of superior vena cava under fluoroscopic guidance. A pocket was fashioned approximately 3 finger breaths below the cannulation site and tunneled to the wire. Catheter was placed in the subcutaneous tunnel, connected to a poor, and the port secured to the pocket using 3-0 Vicryl sutures. Dilating sheath was then placed over the wire again under fluoroscopic guidance and wire retrieved. Pre hep- Flushed catheter was advanced to level of the superior vena cava under fluoroscopic guidance. Antegrade and retrograde flow were established easily. Peel-away sheath was removed without incident. Wounds were irrigated, secured hemostasis, and closed using interrupted inverted dermal 3-0 Vicryl sutures followed by Steri-Strips and sterile dressings. Intraop postprocedure film demonstrated catheter in good position with no pneumothorax. Sponge, needle, and instrument counts reported to be correct. Patient tolerated the procedure well and emerged anesthesia in stable condition. EBL minimal
[2022-12-05 08:31] VITALS: BP 120/64; PULSE 70; RESP 16; TEMP 36.1; O2SAT 100
[2022-12-05 08:46] VITALS: BP 127/63; PULSE 63; RESP 16; O2SAT 99
[2022-12-05 09:01] VITALS: BP 130/65; PULSE 65; RESP 16; TEMP 36.5; O2SAT 97
== END 2022-12-05 09:40 | disposition home or self-care (01) ==
PROVIDERS: PCP Family Medicine; Visit Provider Surgery
PROC: (CPT 36561; principal; 2022-12-05 07:30)
DX: Z45.2 Encounter for adjustment and management of vascular access device (principal); C25.9 Malignant neoplasm of pancreas, unspecified; E11.9 Type 2 diabetes mellitus without complications; I10 Essential (primary) hypertension
CPT/HCPCS: 36561; 82947; C1788; J0690; J1643; J2250; J2370; J2371; J3010

== ENCOUNTER 2022-12-27 09:22 | Outpatient (AMB) | payer OTHER, SELFPAY ==
--- NOTE | 2022-12-27 10:01 | A.OFFPC_ITS ---
Vital Signs 12/27/22 10:02 Weight 131 lb 6 oz BP 118/76 Blood Pressure Location Lt brachial Position Sitting Respiration 14 Pulse 76 Pulse Source Pulse Oximeter Temp 97.5 F Temp Source Skin Pulse Oximetry (%) 98 Oxygen Delivery Method Room Air Intake Visit Reasons: F/U Abdominal Pain/ Chronic Conditions Public Relations Assistant Required: Yes Math Tutor: Present Accompanied by: Daughter Allergies No Known Allergies Allergy (Verified 12/05/22 06:33) Medication List - Last Reconciled 12/27/22 by Cesar Driscoll MD blood sugar diagnostic (FreeStyle Lite Strips) DX: E11.9, test blood sugar 2 times a day, 90 days blood-glucose meter (FreeStyle Lite Meter kit) DX: E11.9, test blood sugar 2 times a day, duration 999 days dexamethasone 4 mg PO BID hydrochlorothiazide 12.5 mg PO QAM hydrocodone-acetaminophen 5-325 mg 1 tab PO Q4-6H PRN hydrocodone-acetaminophen 5-325 mg 1 tab PO BID PRN 28 days lancets (FreeStyle Lancets) As directed magnesium 200 mg PO DAILY metformin 250 mg (1/2 x 500 mg) PO BID 30 days ondansetron 8 mg PO Q8H PRN vitamin B complex 1 cap PO DAILY Tobacco use date assessed: 06/01/22 HPI F/U Abdominal Pain/ Chronic Conditions HPI Details 62 y/o female presents to f/u chronic conditions. They had referred her to a surgical consult for her pancreatic mass. They report they are waiting for further work-up to plan for surgery. They report they plan to remove the mass. They report they had started chemotherapy - last week was her second round. She has ongoing discomfort such as nausea/diarrhea. A1c today 12/27/22 is 7.0%. She is on metformin 250mg b.i.d. Blood pressure today is 118/76. [facility] Medical History Acute pain of left knee Diabetes Family history of ovarian cancer GERD (gastroesophageal reflux disease) HTN (hypertension) OA (osteoarthritis) Overactive bladder Primary osteoarthritis, right hand Urinary urgency Weak urinary stream Surgical History History of bladder suspension procedure History of tubal ligation Hx of colonoscopy Hx of esophagogastroduodenoscopy Family History Father No problems noted. Mother Colon cancer Brother No problems noted. Brother No problems noted. Brother No problems noted. Sister Ovarian cancer Sister Breast cancer Sister No problems noted. Sister No problems noted. Daughter No problems noted. Daughter No problems noted. 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 1. Little interest or pleasure in doing things: not at all 2. Feeling down, depressed, or hopeless: several days 3. Trouble falling or staying asleep, or sleeping too much: several days 4. Feeling tired or having little energy: several days 5. Poor appetite or overeating: not at all 6. Feeling bad about yourself - or that you are a failure or have let yourself or your family down: not at all 7. Trouble concentrating on things, such as reading the newspaper or watching television: not at all 8. Moving or speaking so slowly that other people could have noticed. Or the opposite - being so fidgety or restless that you have been moving around a lot more than usual: not at all 9. Thoughts that you would be better off or of hurting yourself in some way: not at all Total score: 3 Depression Screening Interpretation: Negative Source: Developed by Drs. Bryce Sanches, [place] Moyer, Darnell Ruiz and colleagues, with an educational perlita from [email or web address]. Thrive Questionnaire Date Thrive assessed: 06/01/22 ALFREDO-7 AMB Questionnaire ALFREDO-7 Date ALFREDO - 7 assessed: 06/01/22 Source: Developed by Drs. Bryce Sanches, [place] Moyer, Darnell Ruiz and colleagues, with an educational perlita from [email or web address]. Physical exam (Primary Care) Vital Signs: Last Vital Signs Temp 97.5 F 12/27/22 10:02 Tobacco/Smoking Status: Tobacco use Status Tobacco use date assessed 06/01/22 12/27/22 10:05 Patient Tobacco Use Status Never used Tobacco 12/27/22 10:05 e-Cigarette/Vaping Use Never Used 12/27/22 10:05 Depression Screening Interpretation: Negative Thrive Assessment: Date of Thrive Assessment Date Thrive assessed 06/01/22 12/27/22 10:05 Assessment and Plan Assessment & Plan (1) Pancreatic adenocarcinoma: Code(s): C25.9 - Malignant neoplasm of pancreas, unspecified Plan: Now and a going chemotherapy and having some difficulty with nausea and abdominal discomfort. Taking ondansetron and hydrocodone-and acetaminophen for these. Continue current regimen and follow-up with Hematology-Oncology as well as the surgical team from [facility] (2) Diabetes mellitus type 2, controlled, without complications: Code(s): E11.9 - Type 2 diabetes mellitus without complications Plan: A1c 7.0% which is essentially at goal Continue current medication regimen Will continue to follow as this may change with future pancreatic surgery (3) Hypertension: Code(s): I10 - Essential (primary) hypertension Plan: Blood pressures have been higher lately Today blood pressure is 118/76; well controlled. Goal is less than 140/90 Continue current medication regimen Medications: Refilled metformin 250 mg (1/2 x 500 mg) PO BID 30 days 30 tabs 2RF Coding Level of Care Code Est Pt Level 4 (86698) Diagnoses Pancreatic adenocarcinoma C25.9 Diabetes mellitus type 2, controlled, without complications E11.9 Hypertension I10
[2022-12-27 10:02] VITALS: BP 118/76; PULSE 76; RESP 14; TEMP 36.4; O2SAT 98
== END 2022-12-27 10:31 | disposition home or self-care (01) ==
PROVIDERS: PCP Family Medicine; Visit Provider Family Medicine
DX: C25.9 Malignant neoplasm of pancreas, unspecified (principal); E11.9 Type 2 diabetes mellitus without complications; I10 Essential (primary) hypertension; R73.03 Prediabetes
CPT/HCPCS: 83036; 99214

== ENCOUNTER 2023-01-03 12:16 | Outpatient (REF) | payer OTHER, SELFPAY ==
--- NOTE | ~2023-01-03 | PE_ITS ---
EXAMINATION: Fluorine-18 FDG PET/CT Scan CLINICAL INDICATION: Initial treatment management. Pancreatic adenocarcinoma staging. PROCEDURE: 65 minutes following the intravenous administration of 16.8 mCi of fluorine 18 FDG, images from the base of the skull to the mid thighs were obtained using a combined PET/CT scanner with CT scan based attenuation correction. No oral contrast was administered. No intravenous contrast was administered. Transverse, coronal, sagittal, and volume reconstruction projections were obtained. The patient's blood glucose as determined by a finger stick, was 116 mg/dl immediately prior to injection. Total CT exam dose-length product 515.20 mGy-cm * These CT images were obtained using dose optimization techniques as appropriate, variously including the following: Automated exposure control * Adjustment of mA and/or kV according to patient size (this includes techniques or standardized protocols for targeted exams where dose is matched to indication/reason for exam; i.e. extremities or head) * Use of iterative reconstruction technique COMPARISON: No previous PET/CT scan is available for comparison. CT scan of the chest dated 11/12/2022, MRI of the abdomen dated 10/19/[address] scan of the abdomen dated 10/13/2022 are available for comparison. FINDINGS: NECK AND VISUALIZED HEAD: There is mild asymmetry in the FDG activity in the palatine tonsil regions with more intense activity on the left, but no corresponding CT abnormality. This is probably physiological. No other foci of abnormal FDG activity are suggested in the neck or visualized head. All the other activity appears physiological. THORAX: There are no foci of abnormal FDG activity. No pulmonary nodules are visualized. There is mild biapical scarring with no associated abnormal FDG activity, unchanged from 11/22/2022. There is no pleural or pericardial fluid or pneumothorax. There is no mediastinal, supraclavicular, or axillary lymphadenopathy. A right-sided chest port with internal jugular catheter terminating in the superior vena cava is noted, and this was not present on 11/22/2022. ABDOMEN AND PELVIS: There is mild FDG activity associated with the previously visualized pancreatic mass, SUVmax 4.7, slice 131/267. This appears to be approximately the same size on these FDG PET images as on the prior 10/19/2022 MRI of the abdomen, but other than some soft tissue swelling of the pancreatic body in this region on the CT images, it is not well delineated. There are no additional foci of abnormal FDG activity present in the abdomen or pelvis. The liver, gallbladder, spleen comment kidneys, and adrenal glands are unremarkable. The pelvic organs are unremarkable. There is no retroperitoneal, mesenteric, pelvic or inguinal lymphadenopathy. MUSCULOSKELETAL: There is a mild diffuse increase in activity in the axial skeleton, predominantly in the spine and pelvis, with no focal component. There are degenerative changes in the spine, most prominently in the mid and lower thoracic spine. No suspicious sclerotic or lytic lesions are visualized. VASCULAR: Vascular calcifications including coronary are noted. PET/PET CT fusion skull to thigh IMPRESSION: 1. There is mild FDG activity in the known pancreatic mass consistent with the known diagnosis of adenocarcinoma. This mass is not well visualized on these nondiagnostic CT images, but the FDG activity described above corresponds well to the location and size of the mass on the 10/19/2022 MRI. 2. No additional abnormalities suspicious for metastatic or other malignant lesions are noted. 3. Vascular calcifications including coronary.
== END 2023-01-03 12:17 | disposition home or self-care (01) ==
LOC: HO.PET 12:16
PROVIDERS: PCP Family Medicine; Visit Provider Internal Medicine
DX: Z13.89 Encounter for screening for other disorder (principal)

== ENCOUNTER 2023-02-13 08:27 | Outpatient (AMB) | payer OTHER, SELFPAY ==
--- NOTE | 2023-02-13 08:32 | MHC.OFFVIS ---
Intake Vital Signs 02/13/23 08:33 Height 5 ft Weight 128 lb 8.472 oz BMI 25.1 BP 120/70 Blood Pressure Location Lt brachial Position Sitting Pulse 95 Pulse Source Pulse Oximeter Temp 97.9 F Temp Source Skin Pulse Oximetry (%) 97 Oxygen Delivery Method Room Air Intake Visit Reasons: OA Intake Note: Patient here for OA follow up. Machine Maintenance Technician Required: Yes Machine Maintenance Technician Language: Diamond Sizer [employer] Sorter Name: Hayley Salvador180 Information Interpreted: clinical only Accompanied by: Self / Same As Patient Allergies No Known Allergies Allergy (Verified 02/13/23 08:44) HPI HPI Comments History of Present Illness Details Patient returns for evaluation of her osteoarthritis in her hands and knees. She was last seen a year ago. She was on acetaminophen at that time. In the interim, she developed abdominal pain and was found to have an adenocarcinoma of the pancreas. That was diagnosed earlier in the spring of this year. Since then she has been receiving some chemotherapy. Apparently no signs of metastatic disease are seen and she may have surgery this fall. She has an appointment to be evaluated by the surgeon again on the 07 of March. She is on some Vicodin currently for the abdominal pains. She notes some pain in the right shoulder that developed only week ago. This was not a result of any injury or specific activity. [facility] Medical History (Updated 02/13/23 @ 09:06 by Ilia Perez MD) HTN (hypertension) Diabetes GERD (gastroesophageal reflux disease) Family history of ovarian cancer Weak urinary stream Overactive bladder Urinary urgency Primary osteoarthritis, right hand Acute pain of left knee OA (osteoarthritis) Surgical History Hx of colonoscopy Hx of esophagogastroduodenoscopy History of bladder suspension procedure History of tubal ligation Family History Father No problems noted. Mother Colon cancer Brother No problems noted. Brother No problems noted. Brother No problems noted. Sister Ovarian cancer Sister Breast cancer Sister No problems noted. Sister No problems noted. Daughter No problems noted. Daughter No problems noted. 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 Negative for, fever, chills, malaise and fatigue Eyes Details: Negative for vision change, dry eyes,headaches and dizziness GI Details: Intermittent mid abdominal pains. Negative indigestion/heartburn, nausea, bowel changes, diarrhea, constipation and bloody stool. Skin/Breast Details: Negative for itching, rash, hives, Raynaud's symptoms, sun sensitivity, and skin cancer Endo Details: Negative for polyuria and polydypsia Parth/Lymph Details: Negative for excessive bruising or bleeding. Physical Exam Vital Signs: Last Vital Signs Temp 97.9 F 02/13/23 08:33 Pulse 95 02/13/23 08:33 BP 120/70 02/13/23 08:33 Pulse Ox 97 02/13/23 08:33 Oxygen Delivery Method Room Air 02/13/23 08:33 BMI result Body Mass Index 25.1 APPEARANCE: Patient in no acute distress EXTREMITIES: No edema, no calf tenderness, normal peripheral pulses. JOINT EXAM: Cervical Spine:? Full range of motion without pain; no tenderness. Thoracic Spine:? No scoliosis.? No tenderness on palpation. Lumbar Spine:? Alignment normal.? Full range of motion without pain, no tenderness. Hands: No pain with range of motion. There is some flexion deformity slightly at the PIP joints. All the PIP and the distal IP joints have some mild bony enlargement without tenderness. There is more bony enlargement evident at the 2nd, 3rd and 5th D IP joint bilaterally. There is no thenar atrophy or sensory loss. Wrists: Normal pain-free range of motion without tenderness, swelling, increased warmth or erythema. Elbows: Normal pain-free range of motion without tenderness, swelling, increased warmth or erythema. Shoulders:?? Right: Mild pain with abduction 110 degrees or with extremes of normal internal or external rotation. There is some slight anterior and subacromial tenderness without swelling, abductor weakness or adenopathy. Left: Full range of motion without pain. No tenderness, weakness, swelling, increased warmth or erythema. Hips:? Full range of motion without pain. Hip bursa:? No tenderness. Knees:?? Normal pain-free range of motion with mild patellofemoral crepitus but no effusion, tenderness, swelling, increased warmth or erythema.? Ankles:? Normal pain-free range of motion without tenderness, swelling, increased warmth or erythema. Feet: Mild 1st MTP bony enlargement bilaterally but they are not tender. Elsewhere the joints have normal pain-free range of motion without tenderness, swelling, increased warmth or erythema. Assessment & Plan Assessment & Plan (1) Pancreatic adenocarcinoma: Comment: 10/2022:FNA of pancreatic mass showed adenocarcinoma, Chemo started, surgery planned Code(s): C25.9 - Malignant neoplasm of pancreas, unspecified (2) Osteoarthritis of hands, bilateral: Code(s): M19.041 - Primary osteoarthritis, right hand; M19.042 - Primary osteoarthritis, left hand (3) Osteoarthritis of knees, bilateral: Code(s): M17.0 - Bilateral primary osteoarthritis of knee (4) Shoulder pain: Code(s): M25.519 - Pain in unspecified shoulder Plan The patient has findings of osteoarthritis in the knees and the hands. Most symptomatic in recent years have been the hands. She seems to not notice that much now that she is on some hydrocodone apparently for the pancreatic carcinoma. There is some painful range of motion in the right shoulder. This has only been for about a week so it could be just some rotator cuff tendinitis. I instructed her in some gentle [id number] exercises. I told her if symptoms continued into next month she should present to x-ray as I have ordered a shoulder film. We will get back to her if there is a shoulder finding. Otherwise I do not think she needs to schedule Rheumatology follow-up at this point. Orders: Orders XR shoulder RT min 2V Today C25.9 - Malignant neoplasm of pancreas, unspecified, M25.519 - Pain in unspecified shoulder Coding Level of Care Code Est Pt Level 3 (70188) Diagnoses Pancreatic adenocarcinoma C25.9 Osteoarthritis of hands, bilateral M19.041; M19.042 Osteoarthritis of knees, bilateral M17.0 Shoulder pain M25.519
[2023-02-13 08:33] VITALS: BP 120/70; PULSE 95; TEMP 36.6; O2SAT 97; BMI 25.1
== END 2023-02-13 08:57 | disposition home or self-care (01) ==
PROVIDERS: Visit Provider Internal Medicine Rheumatology
DX: C25.9 Malignant neoplasm of pancreas, unspecified (principal); M19.041 Primary osteoarthritis, right hand; M19.042 Primary osteoarthritis, left hand; M17.0 Bilateral primary osteoarthritis of knee; M25.519 Pain in unspecified shoulder
CPT/HCPCS: 99213

== ENCOUNTER → 2023-02-13 08:27 | Outpatient (BNVA) | payer OTHER, SELFPAY | PROVIDERS: Visit Provider Internal Medicine Rheumatology | DX: M17.0 Bilateral primary osteoarthritis of knee (principal); M19.041 Primary osteoarthritis, right hand; M19.042 Primary osteoarthritis, left hand; M25.519 Pain in unspecified shoulder; C25.9 Malignant neoplasm of pancreas, unspecified | CPT/HCPCS: 99212 ==

== ENCOUNTER 2023-02-21 12:33 | Outpatient (REF) | payer OTHER, SELFPAY ==
--- NOTE | ~2023-02-21 | XR_ITS ---
EXAMINATION: XR SHOULDER, RIGHT CLINICAL INFORMATION: Pain in unspecified shoulder COMPARISON: None available. TECHNIQUE: AP external rotation, Grashey, scapular Y, and axillary views of the right shoulder. FINDINGS: The bones are intact no fracture. Glenohumeral and acromioclavicular alignment is anatomic with normal joint space. No abnormal soft tissue calcifications. Partial visualization of right central line with tip in the region of the right subclavian vein. This may be in incorrect position. XR/XR shoulder RT min 2V IMPRESSION: 1. Normal right shoulder. 2. Partial visualization of right central line with tip in the region of the right subclavian vein. This may be in incorrect position. Chest radiograph could be performed for further evaluation.
== END 2023-02-21 12:34 | disposition home or self-care (01) ==
LOC: HO.XRAY 12:33
PROVIDERS: PCP Family Medicine; Visit Provider Internal Medicine Rheumatology
DX: M25.511 Pain in right shoulder (principal); C25.9 Malignant neoplasm of pancreas, unspecified
CPT/HCPCS: 73030

== ENCOUNTER 2023-02-28 09:12 | Outpatient (AMB) | payer OTHER, SELFPAY ==
--- NOTE | 2023-02-28 09:17 | A.OFFPC_ITS ---
Vital Signs 02/28/23 09:18 Height 5 ft Weight 128 lb 2 oz BMI 25.0 BP 138/72 Blood Pressure Location Lt brachial Position Sitting Pulse 80 Pulse Source Pulse Oximeter Pulse Oximetry (%) 95 Oxygen Delivery Method Room Air Intake Visit Reasons: f/u chronic conditions Intake Note: Patient is here to follow up on chronic conditions. She is concerned about a bump on the back of the right side of her head. Accompanied by: Daughter Allergies No Known Allergies Allergy (Verified 02/13/23 08:44) Medication List - Last Reconciled 02/28/23 by Cesar Driscoll MD blood sugar diagnostic (FreeStyle Lite Strips) DX: E11.9, test blood sugar 2 times a day, 90 days blood-glucose meter (FreeStyle Lite Meter kit) DX: E11.9, test blood sugar 2 times a day, duration 999 days dexamethasone 4 mg PO BID dicyclomine 10 mg PO Q6H PRN hydrochlorothiazide 12.5 mg PO QAM lancets (FreeStyle Lancets) As directed magnesium 200 mg PO DAILY metformin 250 mg (1/2 x 500 mg) PO BID 30 days ondansetron 8 mg PO Q8H PRN vitamin B complex 1 cap PO DAILY Tobacco use date assessed: 02/28/23 Dental Screening Dental Screen Date: 02/28/23 Did you have a dental visit in the last 12 months?: No Did you have a dental problem in the last 6 months where you did not have access to dental care?: No Was dental information given to patient?: Patient has dentist HPI f/u chronic conditions HPI Details 62 y/o female presents to f/u chronic co nditions such as f/u on adenocarcinoma of the pancreas, hypertension and diabetes. Blood pressure today 138/72. She is on hydrochlorothiazide 12.5mg. She continues to follow-up with [facility] for her pancreatic mass. They report morning blood sugars in the 100s to 120s. Her last A1c was 7.0%. HPI Comments History of Present Illness Details Documentation assistance for Cesar Driscoll MD, was provided by Ibrahima Lebron,?Route Sales Associate on 02/28/2023 9:31 AM EST. I, Dr. Driscoll, have read, observed, and verified documentation.? [facility] Medical History (Updated 02/28/23 @ 09:55 by Ibrahima Lebron) HTN (hypertension) Diabetes GERD (gastroesophageal reflux disease) Family history of ovarian cancer Weak urinary stream Overactive bladder Urinary urgency Primary osteoarthritis, right hand Acute pain of left knee OA (osteoarthritis) Surgical History Hx of colonoscopy Hx of esophagogastroduodenoscopy History of bladder suspension procedure History of tubal ligation Family History Father No problems noted. Mother Colon cancer Brother No problems noted. Brother No problems noted. Brother No problems noted. Sister Ovarian cancer Sister Breast cancer Sister No problems noted. Sister No problems noted. Daughter No problems noted. Daughter No problems noted. 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 Bryce Sanches, [place] Moyer, Darnell Ruiz and colleagues, with an educational perlita from [employer]. Physical exam (Primary Care) Vital Signs: Last Vital Signs Pulse 80 02/28/23 09:18 BP 138/72 02/28/23 09:18 Pulse Ox 95 02/28/23 09:18 Oxygen Delivery Method Room Air 02/28/23 09:18 BMI result Body Mass Index 25.0 Tobacco/Smoking Status: Tobacco use Status Tobacco use date assessed 02/28/23 02/28/23 09:22 Patient Tobacco Use Status Never used Tobacco 02/28/23 09:19 e-Cigarette/Vaping Use Never Used 02/28/23 09:19 Thrive Assessment: Date of Thrive Assessment Date Thrive assessed 06/01/22 02/28/23 09:19 Assessment and Plan Assessment & Plan (1) Pancreatic adenocarcinoma: Comment: 10/2022:FNA of pancreatic mass showed adenocarcinoma, Chemo started, surgery plan brandon Code(s): C25.9 - Malignant neoplasm of pancreas, unspecified Plan: Patient?is?followed?by?Endocrine ?and?surgery.??She?will?be?undergoing?a?distal?pancreatectomy?with?splenectomy. (2) Hypertension: Code(s): I10 - Essential (primary) hypertension Plan: Blood?pressure?today?is?fairly?well?controlled?on?hydrochlorothiazide.??However? she?spikes?in?blood?pressures?periodically.??Her?daughter ?says?this?is?when?she?is?anxious. She?can?trial?clonidine?p.r.n.?anxiety?or?high?blood?pressures. (3) Diabetes mellitus type 2, controlled, without complications: Code(s): E11.9 - Type 2 diabetes mellitus without complications Plan: A1c?was?7.0%?at?her?last?check. Blood?sugars?at?home?range?between?low?100s?and?128 Fairly?good?control. Continue?current?medication?regimen (4) Anxiety: Code(s): F41.9 - Anxiety disorder, unspecified Plan: As?above (5) Lump of skin: Code(s): R22.9 - Localized swelling, mass and lump, unspecified Plan: She?has?a?small?lump?on?the?back?right?aspect?of?her?neck?and?scalp.??Likely?mus cular?scar?or?calcification.??Possible?muscle?spasm. Less?likely?lymph?node. Advised?heat?and?gentle?stretching.??If?not?improving?or?if?worsens,?will?check? an?ultrasound (6) Weight loss: Code(s): R63.4 - Abnormal weight loss Plan: Ongoing?weight?loss?and?decreased?appetite. Provide?appetite?easing?foods?with?plenty?of?sauces?gravies?etc t o?increase?caloric?intake Use?Glucerna?once?per?day?with?a?meal Medications: New clonidine HCl 1/2-1 tab orally 2 times a day PRN; 30 tabs 0RF Anxiety or HTN; SBP>140 nut.tx.gluc.intol,lac-free,soy (Glucerna oral liquid) 1 ea PO DAILY 7,110 mL 2RF 30 days C25.9 - Malignant neoplasm of pancreas, unspecified, E11.9 - Type 2 diabetes mellitus without complications, R63.4 - Abnormal weight loss Coding Level of Care Code Est Pt Level 4 (77934) Diagnoses Pancreatic adenocarcinoma C25.9 Hypertension I10 Diabetes mellitus type 2, controlled, without complications E11.9 Anxiety F41.9 Lump of skin R22.9 Weight loss R63.4
[2023-02-28 09:18] VITALS: BP 138/72; PULSE 80; O2SAT 95; BMI 25.0
== END 2023-02-28 09:55 | disposition home or self-care (01) ==
PROVIDERS: PCP Family Medicine; Visit Provider Family Medicine
DX: C25.9 Malignant neoplasm of pancreas, unspecified (principal); I10 Essential (primary) hypertension; E11.9 Type 2 diabetes mellitus without complications; F41.9 Anxiety disorder, unspecified; R22.9 Localized swelling, mass and lump, unspecified; R63.4 Abnormal weight loss
CPT/HCPCS: 99214

== ENCOUNTER 2023-03-02 08:46 | Outpatient (REF) | payer OTHER, SELFPAY | END 2023-03-02 08:47 | disposition home or self-care (01) | LOC: HO.MRI 08:46 | PROVIDERS: PCP Family Medicine; Visit Provider Internal Medicine | DX: C25.9 Malignant neoplasm of pancreas, unspecified (principal) | CPT/HCPCS: 74183; A9585 ==

== ENCOUNTER 2023-04-04 08:09 | Outpatient (AMB) | payer OTHER, SELFPAY ==
[2023-04-04 08:11] VITALS: BP 144/71; PULSE 87; BMI 26.0
--- NOTE | 2023-04-04 08:11 | MHC.OFFVIS ---
Intake Vital Signs 04/04/23 08:11 Height 5 ft Weight 133 lb BMI 26.0 BP 144/71 H Blood Pressure Location Rt brachial Position Sitting Pulse 87 Intake Visit Reasons: Portacath removal Intake Note: Patient here to discuss port a cath removal. Will eventually need it replaced to continue with chemo txt. 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 Required: No Accompanied by: daughter Alda Allergies No Known Allergies Allergy (Verified 04/04/23 08:16) Medication List - Last Reconciled 04/04/23 by Wellington Loja MD blood sugar diagnostic (FreeStyle Lite Strips) DX: E11.9, test blood sugar 2 times a day, 90 days blood-glucose meter (FreeStyle Lite Meter kit) DX: E11.9, test blood sugar 2 times a day, duration 999 days clonidine HCl 1/2-1 tab orally 2 times a day PRN; hydrochlorothiazide 12.5 mg PO QAM hydrocodone-acetaminophen 5-325 mg 1 tab PO BID PRN lancets (FreeStyle Lancets) As directed magnesium 200 mg PO DAILY metformin 250 mg (1/2 x 500 mg) PO BID 30 days vitamin B complex 1 cap PO DAILY HPI HPI Comments History of Present Illness Details Patient presents with her daughter for evaluation of a Port-A-Cath. Patient had this placed several months ago. She has been undergoing chemotherapy and blood draw so this uneventfully over the last few months. Patient is being evaluated for a possible pancreatectomy at [facility]. She had a staging CT scan which demonstrated question at the Port-A-Cath was malposition. As noted above, the port had been working uneventfully. I reviewed the patient's chest x-ray from her port original port placement which demonstrated the catheter in good position. [facility] Medical History HTN (hypertension) Diabetes GERD (gastroesophageal reflux disease) Family history of ovarian cancer Weak urinary stream Overactive bladder Urinary urgency Primary osteoarthritis, right hand Acute pain of left knee OA (osteoarthritis) Surgical History Hx of colonoscopy Hx of esophagogastroduodenoscopy History of bladder suspension procedure History of tubal ligation Family History Father No problems noted. Mother Colon cancer Brother No problems noted. Brother No problems noted. Brother No problems noted. Sister Ovarian cancer Sister Breast cancer Sister No problems noted. Sister No problems noted. Daughter No problems noted. Daughter No problems noted. 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 No evidence of any infection or edema. Patient has no facial swelling. Assessment & Plan Assessment & Plan (1) Encounter for care related to Port-a-Cath: Code(s): Z45.2 - Encounter for adjustment and management of vascular access device Plan: Having reviewed the [facility] CT scan, the current plan is to arrange for a fluoroscopically guided port check for today and direct further interventions and studies based on these results. All questions were answered. I have the daughter's phone number and will contact her with results once I have them. Orders: Orders IR fluoroscopy <1hr Today Z45.2 - Encounter for adjustment and management of vascular access device Coding Level of Care Code Est Pt Level 4 (12832) Diagnoses Encounter for care related to Port-a-Cath Z45.2
== END 2023-04-04 08:41 | disposition home or self-care (01) ==
PROVIDERS: PCP Family Medicine; Visit Provider Surgery
DX: Z45.2 Encounter for adjustment and management of vascular access device (principal)
CPT/HCPCS: 99214

== ENCOUNTER → 2023-04-04 08:09 | Outpatient (BNVA) | payer OTHER, SELFPAY | PROVIDERS: PCP Family Medicine; Visit Provider Surgery ==

== ENCOUNTER 2023-04-04 08:44 | Outpatient (REF) | payer OTHER, SELFPAY ==
--- NOTE | ~2023-04-04 | FL_ITS ---
EXAMINATION: XR FLUOROSCOPY CLINICAL INFORMATION: Port malfunction. Surgery requests contrast injection through the port to demonstrate intravascular position of the catheter tip COMPARISON: Right shoulder x-ray 02/21/2023 TECHNIQUE: A limited spot film of the chest was performed and demonstrates the port and catheter tip positioned. The right chest wall port was accessed per sterile protocol. 20 mL of 50% saline/50% Omnipaque 300 was injected through the port and multiple spot images were obtained FINDINGS: A single lumen port is present in the right chest. The port catheter is retracted and positioned in the proximal right subclavian vein. A high-grade stenosis is present in the proximal right subclavian vein just abutting the tip of the port catheter. There are large collateral veins present in the right neck that are draining distal to the obstruction into the junction of the right subclavian vein and right internal jugular vein. FLUOROSCOPY TIME: 20 seconds DOSE AREA PRODUCT: 170 uGy-m2 (microgray-meter squared) FL/FL fluoroscopy <1hr IMPRESSION: 1.Right port catheter has retracted into the proximal subclavian vein. 2. 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 Dr. Loja was notified of these findings. This procedure was performed by Joaquin Hsieh PA-C, supervised by Dr. Bailey
== END 2023-04-04 08:45 | disposition home or self-care (01) ==
LOC: HO.XRAY 08:44
PROVIDERS: PCP Family Medicine; Visit Provider Surgery
DX: Z45.2 Encounter for adjustment and management of vascular access device (principal); Z79.899 Other long term (current) drug therapy
CPT/HCPCS: 76000; 99212

== ENCOUNTER → 2023-04-04 08:58 | Outpatient (BNV) | payer OTHER, SELFPAY | PROVIDERS: PCP Family Medicine; Visit Provider Radiology Diagnostic Radiology | DX: T82.594A Other mechanical complication of infusion catheter, initial encounter (principal) | CPT/HCPCS: 76000 ==

== ENCOUNTER 2023-04-07 05:53 | Day surgery (SDC) | payer OTHER, SELFPAY ==
--- NOTE | 2023-04-06 09:29 | HO.ANESPROP2 ---
HPI - Anesthesia Eval Consult details Narrative: 62yo F for Port-a-Cath REVISION s/p Insertion 11/2022 with MAC Pancreatic CA PMFSH Active Problems Active Problems: All Active Problems (Updated 03/22/23 @ 11:04 by Geno Jones MD) Encounter for care related to Port-a-Cath (Acute) Weight loss (Acute) Lump of skin (Acute) Osteoarthritis of knees, bilateral (Acute) Osteoarthritis of hands, bilateral (Acute) Shoulder pain (Acute) Pancreatic adenocarcinoma (Acute) Anxiety (Acute) Hypercholesterolemia (Acute) Interstitial cystitis (Acute) Nocturia more than twice per night (Acute) Pre-diabetes (Acute) Left breast mass (Acute) Globus sensation (Acute) Hypertension (Acute) Diabetes mellitus type 2, controlled, without complications (Acute) Family history of ovarian cancer (Acute) Past Medical History Medical History HTN (hypertension) Diabetes GERD (gastroesophageal reflux disease) Family history of ovarian cancer Weak urinary stream Overactive bladder Urinary urgency Primary osteoarthritis, right hand Acute pain of left knee OA (osteoarthritis) Family History Family History Father No problems noted. Mother Colon cancer Brother No problems noted. Brother No problems noted. Brother No problems noted. Sister Ovarian cancer Sister Breast cancer Sister No problems noted. Sister No problems noted. Daughter No problems noted. Daughter No problems noted. Surgical History Surgical History Hx of colonoscopy Hx of esophagogastroduodenoscopy History of bladder suspension procedure History of tubal ligation History of Problems with Anesthesia: No Social History Social History Household Members: None Housing: Apartment Are you a primary career services director to a significant other at home: No Do you presently have visiting nurse or other home services: No Alcohol intake: never Patient Tobacco Use Status: Never used Tobacco e-Cigarette/Vaping Use: Never Used Second Hand Smoke Exposure: No Advance Directives Date on File: 03/11/20 service: No Current occupational status: retired 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 Current occupational exposures/hazards: No Gender identity: Female Cognitive needs: No Hearing needs: No Vision needs: Yes (Glasses) Meds Allergies Allergy/AdvReac Type Severity Reaction Status Date / Time No Known Allergies Allergy Verified 04/12/23 08:24 Home Medications Medication Instructions Recorded Confirmed Last Taken Type magnesium 200 mg tablet 200 mg PO DAILY 12/07/22 04/07/23 Unknown History vitamin B complex 1 cap PO DAILY 12/07/22 04/07/23 Unknown History clonidine HCl 0.1 mg tablet mg PO NEEDED 04/07/23 04/07/23 Unknown History Exam Exam Date and Time: April 06, [id number] Pertinent Lab Results Pertinent Lab Results: Laboratory Tests 02/14/23 12:40 WBC 12.8 H Hgb 10.1 L Hct 29.4 L Plt Count 122 L Sodium 140 Potassium 3.3 Chloride 106 Carbon Dioxide 25 BUN 23 H Creatinine 0.66 Assessment and Plan Assessment Anesthesia Assessment: Chart Reviewed Final Anesthetic Review History of Problems with Anesthesia: No
--- NOTE | 2023-04-06 11:21 | MHC.SHP ---
Pre-Procedural Eval Section A Date of Service: 04/06/23 The patient is an INPATIENT: No Changes since office visit: No Cold of Flu in the past 2 weeks, No New Medical Problems, No Changes in Medication and No Patient answered all questions The History & Physical has been completed within 30 days and I have reviewed it.: Yes Section B Chief Complaint: Encounter for adjustment and management of vascula Allergies: Allergies Allergy/AdvReac Type Severity Reaction Status Date / Time No Known Allergies Allergy Verified 04/04/23 08:16 Plan I have reviewed the history and physical and performed a pertinent physical examination on my patient. No changes have occurred unless specified. Time Spent With Patient Time: Total time managing care of this patient today ____ minutes.
--- NOTE | ~2023-04-07 | FL_ITS ---
EXAMINATION: XR FLUOROSCOPY WITH IMAGES CLINICAL INFORMATION: Port-A-Cath revision. COMPARISON: Previous exams most recent 04/04/2023 TECHNIQUE: Fluoroscopy Supervised By: Dr. Wellington Loja. Fluoroscopy Time: 19.1 seconds. Cumulative Dose: 7.70 mGy. DAP: Not available on C-arm. Images: 1. FINDINGS: Fluoroscopy guidance provided for Port-A-Cath revision. Image demonstrates Port-A-Cath with tip projecting over the SVC. FL/FL guidance in OR IMPRESSION: Fluoroscopy guidance for Port-A-Cath revision
[2023-04-07 06:18] VITALS: BMI 26.0
[2023-04-07] MEDS: Lactated Ringers 1,000 ML 100 ML IVCONT (06:18)
[2023-04-07 06:30] LABS: Glucose, Whole Blood 131 mg/dL (60-115)
[2023-04-07 06:36] VITALS: BP 121/73; PULSE 78; RESP 18; TEMP 36.4; O2SAT 96
--- NOTE | 2023-04-07 07:22 | P.CONAN_ITS ---
FORM[facility] Active Problems Active Problems: All Active Problems (Updated 03/22/23 @ 11:04 by Geno Jones MD) Encounter for care related to Port-a-Cath (Acute) Weight loss (Acute) Lump of skin (Acute) Osteoarthritis of knees, bilateral (Acute) Osteoarthritis of hands, bilateral (Acute) Shoulder pain (Acute) Pancreatic adenocarcinoma (Acute) Anxiety (Acute) Hypercholesterolemia (Acute) Interstitial cystitis (Acute) Nocturia more than twice per night (Acute) Pre-diabetes (Acute) Left breast mass (Acute) Globus sensation (Acute) Hypertension (Acute) Diabetes mellitus type 2, controlled, without complications (Acute) Family history of ovarian cancer (Acute) Past Medical History Medical History HTN (hypertension) Diabetes GERD (gastroesophageal reflux disease) Family history of ovarian cancer Weak urinary stream Overactive bladder Urinary urgency Primary osteoarthritis, right hand Acute pain of left knee OA (osteoarthritis) Functional capacity: independent ambulation Family History Family History Father No problems noted. Mother Colon cancer Brother No problems noted. Brother No problems noted. Brother No problems noted. Sister Ovarian cancer Sister Breast cancer Sister No problems noted. Sister No problems noted. Daughter No problems noted. Daughter No problems noted. Family history of problems with anesthesia: No Surgical History Surgical History Hx of colonoscopy Hx of esophagogastroduodenoscopy History of bladder suspension procedure History of tubal ligation History of Problems with Anesthesia: No Social History Social History Household Members: None Housing: Apartment Are you a primary medicare compliance auditor to a significant other at home: No Do you presently have visiting nurse or other home services: No Alcohol intake: never Patient Tobacco Use Status: Never used Tobacco e-Cigarette/Vaping Use: Never Used Second Hand Smoke Exposure: No Are you DNR?: No Advance Directives: No Advance Directives Information Provided: Yes Advance Directives Date on File: 03/11/20 Nutrition Risks: No Nutritional Risk service: No Current occupational status: retired 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 Current occupational exposures/hazards: No Gender identity: Female Cognitive needs: No Hearing needs: No Vision needs: Yes (Glasses) Meds Allergies Allergy/AdvReac Type Severity Reaction Status Date / Time No Known Allergies Allergy Verified 04/07/23 06:38 Active Medications: Current Medications Lactated Ringer's (Lr) 1,000 mls @ 100 mls/hr IVCONT .Q10H BAYLEE Last Admin: 04/07/23 06:18 Dose: 100 mls/hr Home Medications Medication Instructions Recorded Confirmed Last Taken Type magnesium 200 mg tablet 200 mg PO DAILY 12/07/22 04/07/23 Unknown History vitamin B complex 1 cap PO DAILY 12/07/22 04/07/23 Unknown History clonidine HCl 0.1 mg tablet mg PO NEEDED 04/07/23 04/07/23 Unknown History Exam Exam Date and Time: April 07, 2023 0722 Height,Weight and Vital Signs: Height 5 ft Weight 60.328 kg Last Vital Signs Temp 97.6 F 04/07/23 06:36 Pulse 78 04/07/23 06:36 Resp 18 04/07/23 06:36 BP 121/73 04/07/23 06:36 Pulse Ox 96 04/07/23 06:36 O2 Del Method Room Air 04/07/23 06:36 Pertinent Lab Results Pertinent Lab Results: Laboratory Tests 04/07/23 06:26 POC Glucose 131 H Airway Mallampati Class: Patient Non-Cooperative TM Dist: >3cm Heart: RRR Lungs: CTA Assessment and Plan Assessment Anesthesia Assessment: Anesthesia Plan Discussed Final Anesthetic Review Family History of Problems with Anesthesia: No History of Problems with Anesthesia: No NPO: Yes ASA Class: III Final Preanesthetic Review: Meds/Allgs Chart Reviewed, Consent Obtained/Reviewed and Anes Risks/Benef Reviewed Patient Risk: Low Procedure Risk: Low Anesthetic Plan Anesthetic Plan: MAC: Disposition: Standard PACU
[2023-04-07 08:15] VITALS: BP 129/68; PULSE 90; RESP 16; TEMP 37.1; O2SAT 95
[2023-04-07 08:30] VITALS: BP 139/84; PULSE 91; RESP 16; TEMP 37.1; O2SAT 97
--- NOTE | 2023-04-07 09:19 | HO.POSTANES ---
Post Anesthesia Evaluation Post Anesthesia Evaluation Date of Service: 04/07/23 Vital Signs: Vital Signs Temp Pulse Resp BP Pulse Ox O2 Del Method 04/07/23 08:30 98.8 F 91 16 139/84 97 Room Air 04/07/23 08:15 98.8 F 90 16 129/68 95 Room Air 04/07/23 06:36 97.6 F 78 18 121/73 96 Room Air Anesthesia: Monitored Mental Status: Awake Pain Control: Satisfactory Nausea/Vomiting: None Hydration: Adequate Anesthesia-Related Issues: No Anes. Related Issues
--- NOTE | 2023-04-07 10:50 | P.OP_ITS ---
Operative Note Operative Note Date of Service: 04/07/23 Narrative: Preoperative diagnosis: [] Migration of right internal jugular vein Port-A-Cath tip Postop diagnosis: [] same Procedure [] attempted revision, removal of port and conversion to placement of a new right internal jugular vein Port-A-Cath placement with Doppler ultrasound guidance and fluoroscopy Surgeon: [] Freedom Supervisor Finish End: [ David] Type of Anesthesia: [] MAC Indication for surgery: nonfunctioning Port-A-Cath Findings: [] patient is brought to the operating room, placed on operative table in supine position, after adequate level of MAC anesthesia was induced, right and left neck and chest areas were prepped and draped in usual sterile fashion. The port site was infiltrated with 0.5% Marcaine / 1% lidocaine, and using incision from the previous port placement, this carried down through skin, subcu taneous tissue, where a port pocket was encountered. This was entered and the Port-A-Cath identified. Using fluoroscopic guidance, the port was mobilized more distally and there was limited movement of the port tip. Attempted aspiration demonstrated limited blood return. It was then decided to remove this port, and place a new port. Original port was uneventfully removed. Using Doppler ultrasound guidance, the right internal jugular vein was identified and a wire passed into the superior vena cava using Seldinger technique under fluoroscopic guidance. The catheter was placed to subcutaneous tunnel, connected to a port, and the port secured to the original pocket using interrupted 3-0 Vicryl sutures. Dilating sheath was then placed over the wire again under fluoroscopic guidance and a wire retrieved. Pre hep flush catheter was advanced into the distal superior vena cava under fluoroscopic guidance. Peel-away sheath was removed without incident. Antegrade and retrograde flow were easily established. Wounds were irrigated, secured hemostasis, and closed using interrupted inverted dermal 3-0 Vicryl sutures followed by Steri-Strips and sterile dressings. Postprocedure film in the operating room demonstrated catheter in good position with no pneumothorax. EBL minimal. Patient tolerated the procedure well and emerged from anesthesia in stable condition.
== END 2023-04-07 08:58 | disposition home or self-care (01) ==
PROVIDERS: PCP Family Medicine; Visit Provider Surgery
PROC: (CPT 36582; principal; 2023-04-07 07:30)
DX: T82.898A Other specified complication of vascular prosthetic devices, implants and grafts, initial encounter (principal); Y82.8 Other medical devices associated with adverse incidents; Z45.2 Encounter for adjustment and management of vascular access device; Z79.899 Other long term (current) drug therapy; Z79.84 Long term (current) use of oral hypoglycemic drugs; E11.9 Type 2 diabetes mellitus without complications; I10 Essential (primary) hypertension
CPT/HCPCS: 36582; 82947; C1788; J0665; J0690; J1644; J2250; J2704; J3010

== ENCOUNTER → 2023-04-07 05:53 | Outpatient (BNV) | payer OTHER, SELFPAY | PROVIDERS: PCP Family Medicine; Visit Provider Surgery | DX: T82.594A Other mechanical complication of infusion catheter, initial encounter (principal); Z45.2 Encounter for adjustment and management of vascular access device | CPT/HCPCS: 36582; 76937; 77001 ==

== ENCOUNTER 2023-04-12 08:13 | Outpatient (AMB) | payer OTHER, SELFPAY ==
--- NOTE | 2023-04-12 08:18 | MHC.PC.OV ---
Vital Signs 04/12/23 08:19 Height 5 ft Weight 132 lb 6 oz BMI 25.8 BP 122/74 Blood Pressure Location Rt brachial Position Sitting Respiration 13 Pulse 86 Pulse Source Pulse Oximeter Pulse Oximetry (%) 98 Oxygen Delivery Method Room Air Intake Visit Reasons: f/u diabetes and chronic conditions Intake Note: Patient reports she is here for her A1C check. Patient states she has no concerns. Financial Services Assistant Required: Yes Financial Services Assistant Name: Daughter Ness Accompanied by: Daughter Allergies No Known Allergies Allergy (Verified 04/12/23 08:24) Tobacco use date assessed: 02/28/23 HPI f/u diabetes and chronic conditions HPI Details 62 y/o female presents to f/u diabetes and chronic conditions. A1c today 04/12/23 is 6.3%, which had improved from 7.0%. She is on metformin 250mg b.i.d. Blood pressure today 122/74. She is on HCTZ 12.5mg. Had been diagnosed with pancreatic adenocarcinoma. She reports she has a surgery scheduled later this month at the but they report she recently lost her son in law and had to change it to the . HPI Comments History of Present Illness Details Documentation assistance for Cesar Driscoll MD, was provided by Ibrahima Lebron, Yoker on 04/12/2023 9:04 AM SUSAN. I, Dr. Driscoll, have read, observed, and verified documentation. COUNTS INCLUDE 234 BEDS AT THE [facility] Medical History HTN (hypertension) Diabetes GERD (gastroesophageal reflux disease) Family history of ovarian cancer Weak urinary stream Overactive bladder Urinary urgency Primary osteoarthritis, right hand Acute pain of left knee OA (osteoarthritis) Surgical History Hx of colonoscopy Hx of esophagogastroduodenoscopy History of bladder suspension procedure History of tubal ligation Family History Father No problems noted. Mother Colon cancer Brother No problems noted. Brother No problems noted. Brother No problems noted. Sister Ovarian cancer Sister Breast cancer Sister No problems noted. Sister No problems noted. Daughter No problems noted. Daughter No problems noted. 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 Bryce Sanches, [place] Moyer, Darnell Ruiz and colleagues, with an educational perlita from [employer]. Review of Systems Const Denies chills, Denies fatigue, Denies fever(s), Denies headache(s) and Denies weakness ENT Denies dizziness and Denies headache(s) Card Denies dyspnea Resp Denies cough, Denies dyspnea, Denies wheezing and Denies other (shortness of breath) Musc Denies numbness and Denies tingling Neuro Denies dizziness, Denies headache(s), Denies numbness, Denies tingling and Denies weakness Psych Denies anxiety and Denies depression Endo Denies fatigue Aller/Immun Denies wheezing Physical exam (Primary Care) Vital Signs: Last Vital Signs Pulse 86 04/12/23 08:19 Resp 13 04/12/23 08:19 BP 122/74 04/12/23 08:19 Pulse Ox 98 04/12/23 08:19 Oxygen Delivery Method Room Air 04/12/23 08:19 BMI result Body Mass Index 25.8 Tobacco/Smoking Status: Tobacco use Status Tobacco use date assessed 02/28/23 04/12/23 08:24 Patient Tobacco Use Status Never used Tobacco 04/12/23 08:24 e-Cigarette/Vaping Use Never Used 04/12/23 08:24 Thrive Assessment: Date of Thrive Assessment Date Thrive assessed 06/01/22 04/12/23 08:24 Const General: well developed; No acute distress Nutritional Appearance: well nourished Orientation/consciousness: patient oriented x3 HENTN Head: Yes normocephalic and Yes atraumatic Eyes General: appearance normal, both eyes and all related structures Pupils: Equal, round and reactive pupils present EOM: EOMs intact bilaterally Resp Effort & Inspection: normal respiratory effort Auscultation: clear to auscultation bilaterally Cardio Rate: regular rate Rhythm: regular rhythm Heart sounds: S1 normal heart sound present, S2 normal heart sound present, no gallops, no murmurs and no rubs Neuro General: patient oriented x3 and gait normal Cranial nerves: Yes Equal, round and reactive pupils present Psych Affect: normal affect Results AMB Hemoglobin A1c AMB Hemoglobin A1c 6.3 % Last Edit by Susan Odell CMA on 04/12/23 08:35 Results Reviewed Results Reviewed: Laboratory Last Values Hgb A1c (Clinic) 6.3 % (4.0-6.0) H 04/12/23 08:30 Assessment and Plan Assessment & Plan (1) Diabetes mellitus type 2, controlled, without complications: Code(s): E11.9 - Type 2 diabetes mellitus without complications Plan: She?is?6.3%.??Goal?is?less?than?7.0% Continue?current?medication?regimen We?discussed?that?after?her?pancreatic?surgery?she?will?likely?need?additional?medications. (2) Hypertension: Code(s): I10 - Essential (primary) hypertension Plan: Blood?pressure?is?controlled.??Goal?is?less?than?140/90 Continue?current?medication?regimen (3) Pancreatic adenocarcinoma: Comment: 10/2022:FNA of pancreatic mass showed adenocarcinoma, Chemo started, surgery planned Code(s): C25.9 - Malignant neoplasm of pancreas, unspecified Plan: Patient?is?scheduled?for?surgery?on?March?. Patient?and?daughter?were?upset?regarding?dislodgement?of?Port-A-Cath?tip?which?has?already?been?revised. Follow-up?with?Hematology-Oncology?and?surgery Orders: Orders AMB Hemoglobin A1c Today Z13.9 - Encounter for screening, unspecified Coding Level of Care Code Est Pt Level 4 (59053) Diagnoses Diabetes mellitus type 2, controlled, without complications E11.9 Hypertension I10 Pancreatic adenocarcinoma C25.9
[2023-04-12 08:19] VITALS: BP 122/74; PULSE 86; RESP 13; O2SAT 98; BMI 25.8
== END 2023-04-12 09:10 | disposition home or self-care (01) ==
PROVIDERS: PCP Family Medicine; Visit Provider Family Medicine
DX: E11.9 Type 2 diabetes mellitus without complications (principal); I10 Essential (primary) hypertension; C25.9 Malignant neoplasm of pancreas, unspecified
CPT/HCPCS: 83036; 99214

== ENCOUNTER 2023-04-17 08:40 | Outpatient (REF) | payer OTHER, SELFPAY ==
--- NOTE | ~2023-04-17 | XR_ITS ---
EXAMINATION: XR CHEST CLINICAL INFORMATION: Port placement check COMPARISON: Fluoroscopy images of 04/04/[address] chest 11/22/2022 TECHNIQUE: Frontal view of the chest was obtained. FINDINGS: Redemonstration of right port catheter overlying the SVC. There is no gross pneumothorax. Heart size is normal. Asymmetric elevation of the right lung base is redemonstrated. Mild right basilar opacities may represent atelectasis and/or pneumonia. Possible trace right pleural effusion. XR/XR chest 1V IMPRESSION: Redemonstration of right port catheter overlying the SVC. There is no gross pneumothorax. Mild right basilar opacities may represent atelectasis and/or pneumonia.
== END 2023-04-17 08:41 | disposition home or self-care (01) ==
LOC: HO.XRAY 08:40
PROVIDERS: PCP Family Medicine; Visit Provider Internal Medicine
DX: C25.9 Malignant neoplasm of pancreas, unspecified (principal)
CPT/HCPCS: 71045

== ENCOUNTER 2023-05-30 10:02 | Outpatient (REF) | payer OTHER, SELFPAY ==
--- NOTE | ~2023-05-30 | PE_ITS ---
EXAMINATION: FLUORINE-18 FDG PET/CT SCAN CLINICAL INFORMATION: Subsequent treatment management. Restaging of malignant neoplasm of pancreas. TECHNIQUE: 65 minutes following the intravenous administration of 14.47 mCi of fluorine 18 FDG, images from the base of skull to mid-thigh were obtained using a combined PET/CT scanner with CT scan based attenuation correction. No intravenous contrast was administered. Transverse, coronal, sagittal, and volume reconstruction projections were obtained. The patient's blood glucose as determined by a finger stick, was 175 mg/dL immediately prior to injection. The radiotracer was injected intravenously through the right antecubital superficial vein, without any complications. Total CT exam dose-length product 373.75 mGy-cm. * These CT images were obtained using dose optimization techniques as appropriate, variously including the following: Automated exposure control * Adjustment of mA and/or kV according to patient size (this includes techniques or standardized protocols for targeted exams where dose is matched to indication/reason for exam; i.e. extremities or head) * Use of iterative reconstruction technique COMPARISON: Most recent prior PET CT study done on 01/03/2023. MRI of the abdomen done on 03/02/2023 and 10/19/2022 and whole-body bone scan done on 11/14/2022. FINDINGS: SUV max REFERENCE: Blood: 1.69 (current); 2.28 (baseline). Liver: 3.1 (current).; 2.37 (baseline). HEAD AND NECK: No abnormal radiotracer uptake. No large intracranial hemorrhage, acute territorial infarct or significant shift of midline structures. CHEST: Ports and Devices: Right-sided Port-A-Cath is noted with its tip seen at the cavoatrial junction. Lungs: Persistent stable linear pleuroparenchymal opacities are noted at posterior superior part of the right upper lobe including both lung apices without any tracer avidity, unchanged since 01/03/2023, presumed pleuroparenchymal scar. Pleura: No significant pleural effusion. Lymph Nodes: No tracer-avid mediastinal, hilar or internal mammary or axillary lymphadenopathy. Mediastinum: There is no significant pericardial effusion/thickening. Breasts/Chest Wall: No abnormal radiotracer uptake. ABDOMEN/PELVIS: Liver/Biliary System: No focal tracer-avid liver lesion. The gallbladder appears unremarkable. Incidental note is made of mild diffuse hepatic steatosis on the corresponding noncontrast CT study. Pancreas: Interval postsurgical changes of partial pancreatectomy is noted with nonvisualization of the tumor containing body of the pancreas as well as the spleen since the prior study. No evidence of any tracer avid disease to suspect residual or local disease recurrence. Spleen: Surgically absent, new finding since the prior study. Adrenal Glands: No abnormal radiotracer uptake. Kidneys: No hydronephrosis, hydroureter or renal calculi bilaterally. Bowel: There is no significant bowel dilatation to suggest obstruction. No discrete focal tracer avid disease. Lymph Nodes: No tracer avid retroperitoneal, mesenteric or pelvic and/or groin lymphadenopathy. Pelvic Organs: The urinary bladder is underdistended. MUSCULOSKELETAL: No suspicious focal osseous disease. VASCULAR: Calcific atherosclerotic disease of the aorta and mild coronary arterial calcifications. No evidence of aneurysm formation. THE SITE(S) OF MOST INTENSE FDG AVIDITY AND SUV MAX: None. PET/PET CT fusion skull to thigh IMPRESSION: 1. Status post interval partial pancreatectomy and splenectomy since the prior PET CT study done on 01/03/2023. 2. No evidence of tracer avid residual and/or recurrent disease at the surgical bed or evidence of metastases. 3. Stable hepatic steatosis. Template
== END 2023-05-30 10:03 | disposition home or self-care (01) ==
LOC: HO.PET 10:02
PROVIDERS: PCP Family Medicine; Visit Provider Internal Medicine
DX: Z13.89 Encounter for screening for other disorder (principal)

== ENCOUNTER 2023-06-02 08:34 | Outpatient (AMB) | payer OTHER, SELFPAY ==
--- NOTE | 2023-06-02 08:36 | MHC.PC.OV ---
Vital Signs 06/02/23 08:46 Height 5 ft Weight 128 lb 4 oz BMI 25.0 BP 108/60 Blood Pressure Location Rt brachial Position Sitting Respiration 12 Pulse 84 Pulse Source Pulse Oximeter Temp 98.4 F Temp Source Oral Pulse Oximetry (%) 96 Oxygen Delivery Method Room Air Intake Visit Reasons: f/u surgery Intake Note: Patient is accompanied by her daughter who is assisting with translation for the patient. Patient presents with status post pancreatic mass removal. Daughter reports the surgery went well. Daughter reports patient informed her of a small bump where the incision is and would like to have this checked. Daughter reports patient has not been sleeping well and she will sleep for 1-2 hours and then be awake several hours and this repeats. Business Management Professor Required: Yes Business Management Professor Language: Human Resources Hr Representative Name: Daughter Accompanied by: Daughter Allergies No Known Allergies Allergy (Verified 06/02/23 08:50) Tobacco use date assessed: 02/28/23 HPI f/u surgery HPI Details 62 y/o female presents to f/u robotic distal pancreatectomy for treatment of a pancreatic adenocarcinoma. Had f/u with Oncology 05/09/23 and had done well per note and recovering well. Daughter reports patient has not been sleeping well and she will sleep for 1-2 hours and then be awake several hours and this repeats. They report she has been taking magnesium and melatonin with no relief. A1c today 06/02/23 8.4%. They report blood sugars have been in the 180s. She has been taking metformin 500mg b.i.d. as prescribed. [facility] Medical History HTN (hypertension) Diabetes GERD (gastroesophageal reflux disease) Family history of ovarian cancer Weak urinary stream Overactive bladder Urinary urgency Primary osteoarthritis, right hand Acute pain of left knee OA (osteoarthritis) Surgical History Hx of colonoscopy Hx of esophagogastroduodenoscopy History of bladder suspension procedure History of tubal ligation Family History Father No problems noted. Mother Colon cancer Brother No problems noted. Brother No problems noted. Brother No problems noted. Sister Ovarian cancer Sister Breast cancer Sister No problems noted. Sister No problems noted. Daughter No problems noted. Daughter No problems noted. 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 Bryce Sanches, [place] Moyer, Darnell Ruiz and colleagues, with an educational perlita from [employer]. Review of Systems Const Denies chills, Denies fatigue, Denies fever(s), Denies headache(s) and Denies weakness ENT Denies dizziness and Denies headache(s) Card Denies dyspnea Resp Denies cough, Denies dyspnea, Denies wheezing and Denies other (shortness of breath) Musc Denies numbness and Denies tingling Neuro Denies dizziness, Denies headache(s), Denies numbness, Denies tingling and Denies weakness Psych Denies anxiety and Denies depression Endo Denies fatigue Aller/Immun Denies wheezing Physical exam (Primary Care) Vital Signs: Last Vital Signs Temp 98.4 F 06/02/23 08:46 Pulse 84 06/02/23 08:46 Resp 12 06/02/23 08:46 BP 108/60 06/02/23 08:46 Pulse Ox 96 06/02/23 08:46 Oxygen Delivery Method Room Air 06/02/23 08:46 BMI result Body Mass Index 25.0 Tobacco/Smoking Status: Tobacco use Status Tobacco use date assessed 02/28/23 06/02/23 08:36 Patient Tobacco Use Status Never used Tobacco 06/02/23 08:36 e-Cigarette/Vaping Use Never Used 06/02/23 08:36 Thrive Assessment: Date of Thrive Assessment Date Thrive assessed 06/01/22 06/02/23 08:36 Const General: well developed; No acute distress Nutritional Appearance: well nourished Orientation/consciousness: patient oriented x3 HENMT Head: Yes normocephalic and Yes atraumatic Eyes General: appearance normal, both eyes and all related structures Pupils: Equal, round and reactive pupils present EOM: EOMs intact bilaterally Resp Effort & Inspection: normal respiratory effort Neuro General: patient oriented x3 and gait normal Cranial nerves: Yes Equal, round and reactive pupils present Psych Affect: normal affect Results AMB Hemoglobin A1c AMB Hemoglobin A1c 8.4 % Last Edit by Susan Odell CMA on 06/02/23 09:22 Results Reviewed Results Reviewed: Laboratory Last Values Hgb A1c (Clinic) 8.4 % (4.0-6.0) H 06/02/23 09:21 Assessment and Plan Assessment & Plan (1) Diabetes mellitus type 2, controlled, without complications: Code(s): E11.9 - Type 2 diabetes mellitus without complications Plan: Now?s/p?partial?pancreatectomy. A1c?has?increased?from?6.3%?to?8.4% Continue?metformin Will?add?a?low?dose?of?Lantus; 8?units?q.h.s. Encouraged?regular?meals Continue?to?check?blood?sugars?b.i.d. Will?follow-up?in?1?month (2) Pancreatic adenocarcinoma: Code(s): C25.9 - Malignant neoplasm of pancreas, unspecified Plan: As?above,?now?s/p?distal?pancreatectomy Doing?well (3) History of partial pancreatectomy: Code(s): Z90.411 - Acquired partial absence of pancreas Plan: As?above (4) Difficulty sleeping: Code(s): G47.9 - Sleep disorder, unspecified Plan: Trial?trazodone Orders: Orders AMB Hemoglobin A1c Today E11.9 - Type 2 diabetes mellitus without complications Medications: New trazodone 50 mg PO BEDTIME PRN 30 tabs 0RF sleep 30 days insulin glargine (Lantus Solostar U-100 Insulin) 8 units (0.08 mL) subcut QPM 2.4 mL 3RF 30 days Refilled blood sugar diagnostic (FreeStyle Lite Strips) DX: E11.9, test blood sugar 2 times a day, 90 days 200 ea 4RF E11.9 - Type 2 diabetes mellitus without complications Coding Level of Care Code Est Pt Level 3 (83989) Diagnoses Diabetes mellitus type 2, controlled, without complications E11.9 Pancreatic adenocarcinoma C25.9 History of partial pancreatectomy Z90.411 Difficulty sleeping G47.9
[2023-06-02 08:46] VITALS: BP 108/60; PULSE 84; RESP 12; TEMP 36.9; O2SAT 96; BMI 25.0
== END 2023-06-02 09:37 | disposition home or self-care (01) ==
PROVIDERS: PCP Family Medicine; Visit Provider Family Medicine
DX: E11.9 Type 2 diabetes mellitus without complications (principal); C25.9 Malignant neoplasm of pancreas, unspecified; Z90.411 Acquired partial absence of pancreas; G47.9 Sleep disorder, unspecified
CPT/HCPCS: 83036; 99213

== ENCOUNTER 2023-06-22 10:06 | Outpatient (REF) | payer OTHER, SELFPAY ==
--- NOTE | ~2023-06-22 | MM_ITS ---
EXAMINATION: MM SCREENING DIGITAL BREAST TOMOSYNTHESIS, BILATERAL CLINICAL INFORMATION: Screening. Asymptomatic. COMPARISON: Mammography: This study is compared with prior exams dating back to 2020. TECHNIQUE: Digital breast tomosynthesis is performed in both the craniocaudal and mediolateral oblique views along with computer-aided detection (CAD). Synthesized 2D images are generated from the tomosynthesis. FINDINGS: The breasts are heterogeneously dense, which may obscure small masses (ACR BI-RADS breast composition Category c). There are no significant masses, abnormal calcifications, or other abnormalities. MM/MM tomosynthesis screening BI IMPRESSION: No mammographic evidence of malignancy. ASSESSMENT: BI-RADS BI-RADS 1 - Negative RECOMMENDATION: Routine annual mammography screening. 1 year F/U This examination should not preclude the clinical evaluation of a suspicious palpable abnormality. This patient's information was entered into a reminder system with a target due date for their next mammogram.
== END 2023-06-22 10:07 | disposition home or self-care (01) ==
LOC: HO.MAMMO 10:06
PROVIDERS: PCP Family Medicine; Visit Provider Family Medicine
DX: Z12.31 Encounter for screening mammogram for malignant neoplasm of breast (principal)
CPT/HCPCS: 77063; 77067

== ENCOUNTER → 2023-06-22 10:30 | Outpatient (BNV) | payer OTHER, SELFPAY | PROVIDERS: PCP Family Medicine; Visit Provider Radiology Diagnostic Radiology | DX: Z12.31 Encounter for screening mammogram for malignant neoplasm of breast (principal) | CPT/HCPCS: 77063; 77067 ==

== ENCOUNTER 2023-08-19 07:15 | Outpatient (REF) | payer OTHER, SELFPAY ==
[2023-08-19 07:34] LABS: MANUAL DIFF FLAG NO
[2023-08-19 07:49] LABS: Basophils Absolute Auto 0.1 X10*3/uL (0.0-0.2); Basophils Percent Auto 0.8 % (0-2); Eosinophils Absolute Auto 0.2 X10*3/uL (0.0-0.4); Eosinophils Percent Auto 2.2 % (0-4); Hematocrit 30.3 % (37.0-47.0); Hemoglobin 10.3 g/dl (12.0-16.0); Imm Gran Abs Auto 0.02 X10*3/uL (0.00-0.03); Imm Gran Pct Auto 0.3 % (0.0-0.4); Lymphocytes Absolute Auto 3.3 X10*3/uL (1.2-4.9); Lymphocytes Percent Auto 42.7 % (20-40); Mean Corpuscular Hemoglobin 30.6 pg (27.0-33.0); Mean Corpuscular Volume 89.9 fL (80.0-98.0); Mean Platelet Volume 9.3 fL (9.4-12.3); Monocytes Absolute Auto 1.4 X10*3/uL (0.1-1.2); Monocytes Percent Auto 17.7 % (2-11); Neutrophils Absolute Auto 2.8 x10*3/uL (2.0-8.3); Neutrophils Percent Auto 36.3 % (45-73); Platelet Count 293 X10*3/uL (160-400); Red Blood Count 3.37 X10*6/uL (4.20-5.50); White Blood Count 7.8 X10*3/uL (4.8-10.8)
[2023-08-19 08:04] LABS: Alanine Aminotransferase 18 U/L (0-31); Albumin Level 4.2 g/dL (3.5-5.0); Alkaline Phosphatase 102 U/L (39-117); Anion Gap 13 (12-20); Aspartate Amino Transferase 16 U/L (5-31); Bilirubin Total 0.4 mg/dL (0.0-1.0); Blood Urea Nitrogen 16 mg/dL (9-16); Calcium 10.1 mg/dL (8.4-10.2); Carbon Dioxide 28 mmol/L (22-29); Chloride 104 mmol/L (96-108); Estimated Glomerular Filt Rate > 60; Glucose Random 238 mg/dL (60-115); Potassium 4.1 mmol/L (3.3-5.1); Sodium 141 mmol/L (135-145); Total Protein 7.7 g/dL (6.5-8.0)
== END 2023-08-19 07:16 | disposition home or self-care (01) ==
LOC: HO.LAB 07:15
PROVIDERS: Visit Provider Internal Medicine
DX: C25.9 Malignant neoplasm of pancreas, unspecified (principal)
CPT/HCPCS: 36415; 80053; 85025

== ENCOUNTER 2023-09-16 07:53 | Outpatient (REF) | payer OTHER, SELFPAY ==
[2023-09-16 08:28] LABS: MANUAL DIFF FLAG NO
[2023-09-16 09:00] LABS: Basophils Absolute Auto 0.1 X10*3/uL (0.0-0.2); Basophils Percent Auto 0.6 % (0-2); Eosinophils Absolute Auto 0.1 X10*3/uL (0.0-0.4); Eosinophils Percent Auto 1.7 % (0-4); Hematocrit 28.3 % (37.0-47.0); Hemoglobin 9.4 g/dl (12.0-16.0); Imm Gran Abs Auto 0.03 X10*3/uL (0.00-0.03); Imm Gran Pct Auto 0.4 % (0.0-0.4); Lymphocytes Absolute Auto 2.8 X10*3/uL (1.2-4.9); Lymphocytes Percent Auto 33.7 % (20-40); Mean Corpuscular HGB Conc 33.2 g/dl (31.0-35.0); Mean Corpuscular Hemoglobin 30.4 pg (27.0-33.0); Mean Corpuscular Volume 91.6 fL (80.0-98.0); Mean Platelet Volume 10.3 fL (9.4-12.3); Monocytes Absolute Auto 1.3 X10*3/uL (0.1-1.2); Neutrophils Absolute Auto 4.1 x10*3/uL (2.0-8.3); Neutrophils Percent Auto 48.6 % (45-73); Platelet Count 290 X10*3/uL (160-400); Red Blood Count 3.09 X10*6/uL (4.20-5.50); White Blood Count 8.4 X10*3/uL (4.8-10.8)
[2023-09-16 09:42] LABS: Alanine Aminotransferase 20 U/L (0-31); Alkaline Phosphatase 96 U/L (39-117); Anion Gap 10 (12-20); Aspartate Amino Transferase 18 U/L (5-31); Bilirubin Total 0.2 mg/dL (0.0-1.0); Blood Urea Nitrogen 21 mg/dL (9-16); Calcium 9.7 mg/dL (8.4-10.2); Carbon Dioxide 26 mmol/L (22-29); Chloride 105 mmol/L (96-108); Estimated Glomerular Filt Rate > 60; Glucose Random 232 mg/dL (60-115); Sodium 137 mmol/L (135-145); Total Protein 7.1 g/dL (6.5-8.0)
== END 2023-09-16 07:54 | disposition home or self-care (01) ==
LOC: HO.LAB 07:53
PROVIDERS: Visit Provider Internal Medicine
DX: C25.9 Malignant neoplasm of pancreas, unspecified (principal)
CPT/HCPCS: 36415; 80053; 85025

== ENCOUNTER 2023-09-29 11:15 | Outpatient (AMB) | payer OTHER, SELFPAY ==
--- NOTE | 2023-09-29 11:38 | A.OFFPC_ITS ---
Vital Signs 09/29/23 11:39 Height 5 ft Weight 126 lb 8 oz BMI 24.7 BP 119/66 Blood Pressure Location Lt brachial Pulse 67 Pulse Source Pulse Oximeter Pulse Oximetry (%) 98 Oxygen Delivery Method Room Air Intake Visit Reasons: 2 month follow up Intake Note: Patient is here for follow up on diabetes, her daughter has a question about waiting for A1C to be done, due to chemo bringing her sugars up. Allergies No Known Allergies Allergy (Verified 09/29/23 11:42) Medication List - Last Reconciled 09/29/23 by Cesar Driscoll MD blood sugar diagnostic (FreeStyle Lite Strips) DX: E11.9, test blood sugar 2 times a day, 90 days blood-glucose meter (FreeStyle Lite Meter kit) DX: E11.9, test blood sugar 2 times a day, duration 999 days hydrochlorothiazide 12.5 mg PO QAM insulin glargine (Lantus Solostar U-100 Insulin) 8 units (0.08 mL) subcut QPM 30 days lancets (FreeStyle Lancets) As directed magnesium 200 mg PO DAILY metformin 500 mg PO DAILY@1700 metformin 500 mg PO DAILY 90 days nut.tx.gluc.intol,lac-free,soy (Glucerna Advance oral liquid) 1 ea PO DAILY 30 days pen needle, diabetic (BD Ultra-Fine Micro Pen Needle) To Treat blood sugar one x / day, 90 days vitamin B complex 1 cap PO DAILY Tobacco use date assessed: 07/17/23 Dental Screening Dental Screen Date: 02/28/23 HPI 2 month follow up 2 HPI Details Patient?presents?to?follow-up?diabetes. A1c?today?is?8.7% Her?daughter?notes?that?her?morning?blood?sugars?are?going?up?into?the?500s on?the?4?days?after?her?chemo?treatment. She?receives?chemo?twice?a?month?on?Mondays?and?her?blood?sugars?are?high?until? . On?the?weeks?that?she?does?not?receive?chemo?her?mo rning?blood?sugars?are?running?between?175?and?220, so?still?rather?high. Taking?Lantus?8?units?daily?and?metformin?as?prescribed Also?patient?has?freestyle?meter?has?never?worked?properly.??And?th e?lancets?were?not?going?to?be?covered?by?her?insurance?so?would?cost?her?100s?o f?dollars. She?will?need?a?script?for?a?new?monitoring?system. [facility] Medical History (Updated 09/29/23 @ 12:30 by Cesar Driscoll MD) HTN (hypertension) Diabetes GERD (gastroesophageal reflux disease) Family history of ovarian cancer Weak urinary stream Overactive bladder Urinary urgency Primary osteoarthritis, right hand Acute pain of left knee OA (osteoarthritis) Surgical History Hx of colonoscopy Hx of esophagogastroduodenoscopy History of bladder suspension procedure History of tubal ligation Family History Father No problems noted. Mother Colon cancer Brother No problems noted. Brother No problems noted. Brother No problems noted. Sister Ovarian cancer Sister Breast cancer Sister No problems noted. Sister No problems noted. Daughter No problems noted. Daughter No problems noted. 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 Bryce Sanches, [place] Moyer, Darnell Ruiz and colleagues, with an educational perlita from [employer]. Review of Systems Const Denies chills, Denies fatigue, Denies fever(s), Denies headache(s) and Denies weakness ENT Denies dizziness and Denies headache(s) Card Denies chest pain, Denies lightheadedness, Denies dyspnea and Denies other (Palpitations) Resp Denies cough, Denies dyspnea, Denies wheezing and Denies other ( shortness of breath) Musc Denies numbness and Denies tingling Neuro Denies dizziness, Denies headache(s), Denies numbness, Denies tingling, Denies paresthesias and Denies weakness Psych Denies anxiety and Denies depression Endo Denies fatigue Aller/Immun Denies wheezing Physical exam (Primary Care) Vital Signs: Last Vital Signs Pulse 67 09/29/23 11:39 BP 119/66 09/29/23 11:39 Pulse Ox 98 09/29/23 11:39 Oxygen Delivery Method Room Air 09/29/23 11:39 BMI result Body Mass Index 24.7 Tobacco/Smoking Status: Tobacco use Status Tobacco use date assessed 07/17/23 09/29/23 11:39 Patient Tobacco Use Status Never used Tobacco 09/29/23 11:39 e-Cigarette/Vaping Use Never Used 09/29/23 11:39 Thrive Assessment: Date of Thrive Assessment Date Thrive assessed 06/01/22 09/29/23 11:39 Const General: no acute distress and well developed Nutritional Appearance: well nourished Orientation/consciousness: patient oriented x3 [facility] Head: Yes normocephalic and Yes atraumatic Eyes General: appearance normal, both eyes and all related structures Pupils: Equal, round and reactive pupils present EOM: EOMs intact bilaterally Resp Effort & Inspection: normal respiratory effort Auscultation: clear to auscultation bilaterally Cardio Rate: regular rate Rhythm: regular rhythm Heart sounds: S1 normal heart sound present, S2 normal heart sound present, no gallops, no murmurs and no rubs Neuro General: patient oriented x3 and gait normal Cranial nerves: Yes Equal, round and reactive pupils present Psych Affect: normal affect Results AMB Hemoglobin A1c AMB Hemoglobin A1c 8.7 % Last Edit by Opal Sanchez CMA on 09/29/23 12:45 Results Reviewed Results Reviewed: Laboratory Last Values Hgb A1c (Clinic) 8.7 % (4.0-6.0) H 09/29/23 12:41 Assessment and Plan Assessment & Plan (1) Diabetes: Code(s): E11.9 - Type 2 diabetes mellitus without complications Plan: Poorly?controlled?diabetes?and?her?blood?sugars?are?further?out?o f?control?with?her?chemo?treatments. She?will?increase?her?Lantus?from?8?units?to?10?units?daily.??If?her?morning?blo od?sugars?are?not?below?150,?they?will?increase?again?to?12?units?daily. On?the?week?when?she?gets?her?chemo, if?blood?sugars?are?rising?higher?than?400, they?will?add?an?additional?5?units?for?the?3?days?after?her?chemo. If?not?above?400,?they?will?continue?to?keep?a?log?and?I?w ill?follow-up?in?2-3?weeks. We?will?further?adjust?plan?for?the?weeks?when?she?is?getting?chemo. Will?send?a?new?script?for?a?different?glucose?monitor,?strips?and?lancets Watch?for?low?blood?sugars. Orders: Orders AMB Hemoglobin A1c Today Z13.9 - Encounter for screening, unspecified Coding Level of Care Code Est Pt Level 3 (04179) Diagnoses Diabetes E11.9
[2023-09-29 11:39] VITALS: BP 119/66; PULSE 67; O2SAT 98; BMI 24.7
== END 2023-09-29 12:45 | disposition home or self-care (01) ==
PROVIDERS: PCP Family Medicine; Visit Provider Family Medicine
DX: E11.9 Type 2 diabetes mellitus without complications (principal)
CPT/HCPCS: 83036; 99213

== ENCOUNTER 2023-09-30 08:52 | Outpatient (REF) | payer OTHER, SELFPAY ==
[2023-09-30 09:28] LABS: Basophils Absolute Auto 0.1 X10*3/uL (0.0-0.2); Basophils Percent Auto 0.7 % (0-2); Eosinophils Absolute Auto 0.1 X10*3/uL (0.0-0.4); Eosinophils Percent Auto 1.5 % (0-4); Hematocrit 30.7 % (37.0-47.0); Hemoglobin 10.2 g/dl (12.0-16.0); Imm Gran Abs Auto 0.04 X10*3/uL (0.00-0.03); Imm Gran Pct Auto 0.5 % (0.0-0.4); Lymphocytes Absolute Auto 3.2 X10*3/uL (1.2-4.9); Lymphocytes Percent Auto 37.6 % (20-40); Mean Corpuscular HGB Conc 33.2 g/dl (31.0-35.0); Mean Corpuscular Hemoglobin 30.2 pg (27.0-33.0); Mean Corpuscular Volume 90.8 fL (80.0-98.0); Mean Platelet Volume 9.6 fL (9.4-12.3); Monocytes Absolute Auto 1.5 X10*3/uL (0.1-1.2); Monocytes Percent Auto 17.7 % (2-11); Neutrophils Absolute Auto 3.6 x10*3/uL (2.0-8.3); Platelet Count 358 X10*3/uL (160-400); Red Blood Count 3.38 X10*6/uL (4.20-5.50); Red Cell Distribution Width 15.9 % (11.0-16.0); SCAN SMEAR FLAG 1; White Blood Count 8.6 X10*3/uL (4.8-10.8)
[2023-09-30 09:35] LABS: MANUAL DIFF FLAG NO
[2023-09-30 09:58] LABS: Alanine Aminotransferase 21 U/L (0-31); Albumin Level 4.3 g/dL (3.5-5.0); Alkaline Phosphatase 101 U/L (39-117); Anion Gap 14 (12-20); Aspartate Amino Transferase 22 U/L (5-31); Bilirubin Total 0.2 mg/dL (0.0-1.0); Blood Urea Nitrogen 17 mg/dL (9-16); Calcium 10.7 mg/dL (8.4-10.2); Carbon Dioxide 24 mmol/L (22-29); Chloride 103 mmol/L (96-108); Estimated Glomerular Filt Rate > 60; Glucose Random 233 mg/dL (60-115); Sodium 137 mmol/L (135-145)
== END 2023-09-30 08:53 | disposition home or self-care (01) ==
LOC: HO.LAB 08:52
PROVIDERS: PCP Family Medicine; Visit Provider Internal Medicine
DX: C25.9 Malignant neoplasm of pancreas, unspecified (principal)
CPT/HCPCS: 36415; 80053; 85025

== ENCOUNTER 2023-10-10 09:44 | Day surgery (SDC) | payer OTHER, SELFPAY ==
--- NOTE | 2023-10-09 08:56 | HO.ANESPROP2 ---
Documented by User: Christine Adamson NP 10/09/23 08:58 HPI - Anesthesia Eval Consult details Narrative: 62yo F for Colonoscopy PMFSH Active Problems Active Problems: All Active Problems Difficulty swallowing (Acute) Difficulty sleeping (Acute) History of partial pancreatectomy (Acute) Encounter for care related to Port-a-Cath (Acute) Weight loss (Acute) Lump of skin (Acute) Osteoarthritis of knees, bilateral (Acute) Osteoarthritis of hands, bilateral (Acute) Shoulder pain (Acute) Pancreatic adenocarcinoma (Acute) Anxiety (Acute) Hypercholesterolemia (Acute) Diabetes mellitus type 2, controlled, without complications (Acute) Hypertension (Acute) Globus sensation (Acute) Left breast mass (Acute) Pre-diabetes (Acute) Nocturia more than twice per night (Acute) Interstitial cystitis (Acute) Diabetes (Acute) Family history of ovarian cancer (Acute) Past Medical History Medical History (Updated 10/06/23 @ 15:35 by Shayla Riley RN) Pancreatic mass Arthritis Depression Migraines HTN (hypertension) Diabetes GERD (gastroesophageal reflux disease) Family history of ovarian cancer Weak urinary stream Overactive bladder Urinary urgency Primary osteoarthritis, right hand Acute pain of left knee OA (osteoarthritis) Family History Family History Father No problems noted. Mother Colon cancer Brother No problems noted. Brother No problems noted. Brother No problems noted. Sister Ovarian cancer Sister Breast cancer Sister No problems noted. Sister No problems noted. Daughter No problems noted. Daughter No problems noted. Family history of problems with anesthesia: No Surgical History Surgical History (Updated 10/06/23 @ 15:39 by Shayla Riley RN) History of pancreatectomy (~03/2023) Hx of colonoscopy Hx of esophagogastroduodenoscopy History of bladder suspension procedure History of tubal ligation History of Problems with Anesthesia: No Social History Social History Household Members: None Housing: Apartment Are you a primary patient care associate to a significant other at home: No Do you presently have visiting nurse or other home services: No Alcohol intake: never Patient Tobacco Use Status: Never used Tobacco e-Cigarette/Vaping Use: Never Used Second Hand Smoke Exposure: No Are you DNR?: No Advance Directives: No Advance Directives Information Provided: Yes Advance Directives Date on File: 03/11/20 Nutrition Risks: No Nutritional Risk service: No Current occupational status: retired 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 Current occupational exposures/hazards: No Gender identity: Female Cognitive needs: No Hearing needs: No Vision needs: Yes (Glasses) Meds Allergies Allergy/AdvReac Type Severity Reaction Status Date / Time No Known Allergies Allergy Verified 09/29/23 11:42 Home Medications ?Medication ?Instructions ?Recorded ?Confirmed ?Last Taken ?Type magnesium 200 mg tablet 200 mg PO DAILY 12/07/22 09/29/23 Unknown History vitamin B complex 1 cap PO DAILY 12/07/22 09/29/23 Unknown History metformin 500 mg tablet 500 mg PO DAILY@1700 08/07/23 09/29/23 Unknown History pantoprazole 40 mg tablet,delayed 40 mg PO DAILY 10/06/23 10/06/23 Unknown History release Exam Pertinent Lab Results Pertinent Lab Results: Laboratory Tests 09/30/23 09:05 WBC 8.6 Hgb 10.2 L Hct 30.7 L Plt Count 358 Sodium 137 Potassium 4.0 Chloride 103 Carbon Dioxide 24 BUN 17 H Creatinine 0.77 Assessment and Plan Assessment Anesthesia Assessment: Chart Reviewed Final Anesthetic Review Family History of Problems with Anesthesia: No History of Problems with Anesthesia: No Documented by User: Merna Villegas MD 10/10/23 10:08 [facility] Past Medical History Medical History (Updated 10/06/23 @ 15:35 by Shayla Riley RN) Pancreatic mass Arthritis Depression Migraines HTN (hypertension) Diabetes GERD (gastroesophageal reflux disease) Family history of ovarian cancer Weak urinary stream Overactive bladder Urinary urgency Primary osteoarthritis, right hand Acute pain of left knee OA (osteoarthritis) Family History Family History Father No problems noted. Mother Colon cancer Brother No problems noted. Brother No problems noted. Brother No problems noted. Sister Ovarian cancer Sister Breast cancer Sister No problems noted. Sister No problems noted. Daughter No problems noted. Daughter No problems noted. Surgical History Surgical History (Updated 10/06/23 @ 15:39 by Shayla Riley RN) History of pancreatectomy (~03/2023) Hx of colonoscopy Hx of esophagogastroduodenoscopy History of bladder suspension procedure History of tubal ligation Social History Social History Household Members: None Housing: Apartment Are you a primary patient care associate to a significant other at home: No Do you presently have visiting nurse or other home services: No Alcohol intake: never Patient Tobacco Use Status: Never used Tobacco e-Cigarette/Vaping Use: Never Used Second Hand Smoke Exposure: No Are you DNR?: No Advance Directives: No Advance Directives Information Provided: Yes Advance Directives Date on File: 03/11/20 Nutrition Risks: No Nutritional Risk service: No Current occupational status: retired 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 Current occupational exposures/hazards: No Gender identity: Female Cognitive needs: No Hearing needs: No Vision needs: Yes (Glasses) Meds Allergies Allergy/AdvReac Type Severity Reaction Status Date / Time No Known Allergies Allergy Verified 09/29/23 11:42 Home Medications ?Medication ?Instructions ?Recorded ?Confirmed ?Last Taken ?Type magnesium 200 mg tablet 200 mg PO DAILY 12/07/22 09/29/23 Unknown History vitamin B complex 1 cap PO DAILY 12/07/22 09/29/23 Unknown History metformin 500 mg tablet 500 mg PO DAILY@1700 08/07/23 09/29/23 Unknown History pantoprazole 40 mg tablet,delayed 40 mg PO DAILY 10/06/23 10/06/23 Unknown History release Exam Airway Mallampati Class: II TM Dist: >3cm Neck ROM: Full Assessment and Plan Assessment Anesthesia Assessment: Anesthesia Plan Discussed Final Anesthetic Review NPO: Yes ASA Class: II Final Preanesthetic Review: No Changes in Pt Med Stat, Meds/Allgs Chart Reviewed, Consent Obtained/Reviewed and Anes Risks/Benef Reviewed Patient Risk: Low Procedure Risk: Low Anesthetic Plan Anesthetic Plan: TIVA Disposition: Standard PACU
[2023-10-10 09:46] VITALS: BP 148/79; PULSE 79; RESP 18; TEMP 36.2; O2SAT 95; BMI 24.4
[2023-10-10 10:07] LABS: Glucose, Whole Blood 158 mg/dL (60-115)
[2023-10-10] MEDS: Lactated Ringers 1,000 ML 100 ML IVCONT (10:09)
--- NOTE | 2023-10-10 10:24 | P.HPSUR_ITS ---
Pre-Procedural Eval Section A - 24 Hr Update-Section A only Date of Service: 10/10/23 Section B - Complete if H&P > 30 days Chief Complaint: Malignant neoplasm of pancreas, unspecified Details of Present Illness: see H&P no changes Relevant Family History (Specify if Yes): No Relevant Social History: None Present Medications: see Short Stay Collaborative assessment Medical History: No relevant PMH History of Previous Operations: No relevant previous surgery Allergies: Allergies Allergy/AdvReac Type Severity Reaction Status Date / Time No Known Allergies Allergy Verified 09/29/23 11:42 Review of Systems Sugical H&P ROS: Negative: Constitution, Cardiovascular, Respiratory, Neurological, Psychiatric, Hem-Onc, Allergic/Immunologic, Gastrointestinal, Genitourinary, Musculoskeletal, Integumentary, Endocrine and Eyes/Ears/Nose/Thr oat Exam Surgical H&P Exam: Normal: HEENT, Normal: Heart, Normal: Lungs, Normal: Extremities, Normal: Abdomen, Normal: Skin and Normal: Neurological Plan Diagnosis/Plan: Unchanged I have reviewed the history and physical and performed a pertinent physical examination on my patient. No changes have occurred unless specified. Time Spent With Patient Time: Total time managing care of this patient today ____ minutes.
[2023-10-10 11:04] VITALS: BP 95/55; PULSE 67; RESP 16; TEMP 36.2; O2SAT 99
--- NOTE | 2023-10-10 11:17 | OP_ITS ---
DATE OF SERVICE: 10/10/2023 SURGEON: Ayo Esteban MD INDICATIONS: Pancreatic adenocarcinoma with elevated tumor markers. PREOPERATIVE DIAGNOSIS: POSTOPERATIVE DIAGNOSIS: PROCEDURE PERFORMED: Colonoscopy to the terminal ileum with snare polypectomy. ESTIMATED BLOOD LOSS: COMPLICATIONS: ANESTHESIA: Monitored anesthesia care. ASSISTANTS: SPECIMENS: DESCRIPTION OF PROCEDURE: A history and physical was performed. The risks and benefits of the procedure were explained to the patient and informed consent was obtained. The patient was placed in the left lateral decubitus position. A digital rectal exam was performed and was found to be normal. The Olympus pediatric video colonoscope was introduced into the rectum and advanced to the cecum. The cecum was identified by transillumination, palpation, and identification of ileocecal valve. Examination was performed and the scope was removed. She tolerated the procedure well and was returned to recovery area in stable condition. FINDINGS: The terminal ileum was examined and appeared normal. The visualized colonic mucosa was normal. There was a moderate amount of liquid stool, mainly in the right colon and rectosigmoid. This was washed and suctioned, but limited the sensitivity examination for detection of small polyps. In the cecum, was a flat 8 x 10 mm polyp, which was removed with a snare and recovered via suction. The base of the polyp was cauterized. No other polyps were identified. Retroflexed examination showed small internal hemorrhoids. IMPRESSION: Colon polyp. RECOMMENDATION: Follow up the biopsy results. MD MARK Sousa/CORKYL / [id number]
[2023-10-10 11:19] VITALS: BP 137/39; PULSE 70; RESP 16; TEMP 36.1; O2SAT 98
== END 2023-10-10 12:06 | disposition home or self-care (01) ==
PROVIDERS: PCP Family Medicine; Visit Provider Internal Medicine Gastroenterology
PROC: 0DJD8ZZ Inspection of Lower Intestinal Tract, Via Natural or Artificial Opening Endoscopic (ICD-10-PCS; CPT 45378; principal; 2023-10-10 10:50)
DX: C25.9 Malignant neoplasm of pancreas, unspecified (principal); R97.8 Other abnormal tumor markers; D12.0 Benign neoplasm of cecum; K64.8 Other hemorrhoids; Z86.010 Personal history of colon polyps; Z80.0 Family history of malignant neoplasm of digestive organs; I10 Essential (primary) hypertension; R73.9 Hyperglycemia, unspecified; K21.9 Gastro-esophageal reflux disease without esophagitis; Z79.899 Other long term (current) drug therapy
CPT/HCPCS: 45385; 82947; 88305; J2704

== ENCOUNTER 2023-10-14 07:09 | Outpatient (REF) | payer OTHER, SELFPAY ==
[2023-10-14 07:56] LABS: Basophils Absolute Auto 0.1 X10*3/uL (0.0-0.2); Basophils Percent Auto 0.7 % (0-2); Eosinophils Absolute Auto 0.1 X10*3/uL (0.0-0.4); Eosinophils Percent Auto 1.8 % (0-4); Hemoglobin 10.4 g/dl (12.0-16.0); Imm Gran Abs Auto 0.02 X10*3/uL (0.00-0.03); Imm Gran Pct Auto 0.3 % (0.0-0.4); Lymphocytes Absolute Auto 2.3 X10*3/uL (1.2-4.9); Lymphocytes Percent Auto 33.4 % (20-40); MANUAL DIFF FLAG SCAN; Mean Corpuscular HGB Conc 33.5 g/dl (31.0-35.0); Mean Corpuscular Hemoglobin 30.3 pg (27.0-33.0); Mean Corpuscular Volume 90.4 fL (80.0-98.0); Monocytes Absolute Auto 1.4 X10*3/uL (0.1-1.2); Monocytes Percent Auto 20.9 % (2-11); Neutrophils Absolute Auto 2.9 x10*3/uL (2.0-8.3); Neutrophils Percent Auto 42.9 % (45-73); Platelet Count 253 X10*3/uL (160-400); Red Blood Count 3.43 X10*6/uL (4.20-5.50); Red Cell Distribution Width 16.1 % (11.0-16.0); SCAN SMEAR FLAG 1; White Blood Count 6.8 X10*3/uL (4.8-10.8)
[2023-10-14 08:52] LABS: Alanine Aminotransferase 20 U/L (0-31); Alkaline Phosphatase 95 U/L (39-117); Anion Gap 17 (12-20); Aspartate Amino Transferase 22 U/L (5-31); Bilirubin Total 0.3 mg/dL (0.0-1.0); Blood Urea Nitrogen 15 mg/dL (9-16); Calcium 9.6 mg/dL (8.4-10.2); Carbon Dioxide 22 mmol/L (22-29); Chloride 104 mmol/L (96-108); Estimated Glomerular Filt Rate > 60; Glucose Random 228 mg/dL (60-115); Potassium 3.9 mmol/L (3.3-5.1); Sodium 139 mmol/L (135-145); Total Protein 7.3 g/dL (6.5-8.0)
[2023-10-14 09:00] LABS: SLIDE REVIEW VERIFIED
== END 2023-10-14 07:10 | disposition home or self-care (01) ==
LOC: HO.LAB 07:09
PROVIDERS: PCP Family Medicine; Visit Provider Internal Medicine
DX: C25.9 Malignant neoplasm of pancreas, unspecified (principal)
CPT/HCPCS: 36415; 80053; 85025

== ENCOUNTER 2023-10-28 08:13 | Outpatient (REF) | payer OTHER, SELFPAY ==
[2023-10-28 08:27] LABS: MANUAL DIFF FLAG NO
[2023-10-28 08:40] LABS: Basophils Absolute Auto 0.1 X10*3/uL (0.0-0.2); Basophils Percent Auto 0.7 % (0-2); Eosinophils Absolute Auto 0.2 X10*3/uL (0.0-0.4); Eosinophils Percent Auto 1.8 % (0-4); Hematocrit 32.2 % (37.0-47.0); Hemoglobin 10.8 g/dl (12.0-16.0); Imm Gran Abs Auto 0.02 X10*3/uL (0.00-0.03); Imm Gran Pct Auto 0.2 % (0.0-0.4); Lymphocytes Absolute Auto 3.5 X10*3/uL (1.2-4.9); Lymphocytes Percent Auto 42.2 % (20-40); Mean Corpuscular HGB Conc 33.5 g/dl (31.0-35.0); Mean Corpuscular Hemoglobin 29.6 pg (27.0-33.0); Mean Corpuscular Volume 88.2 fL (80.0-98.0); Mean Platelet Volume 9.7 fL (9.4-12.3); Monocytes Absolute Auto 1.3 X10*3/uL (0.1-1.2); Monocytes Percent Auto 15.6 % (2-11); Neutrophils Absolute Auto 3.3 x10*3/uL (2.0-8.3); Neutrophils Percent Auto 39.5 % (45-73); Platelet Count 286 X10*3/uL (160-400); Red Blood Count 3.65 X10*6/uL (4.20-5.50); Red Cell Distribution Width 16.2 % (11.0-16.0); White Blood Count 8.3 X10*3/uL (4.8-10.8)
[2023-10-28 09:12] LABS: Alanine Aminotransferase 18 U/L (0-31); Albumin Level 4.3 g/dL (3.5-5.0); Alkaline Phosphatase 105 U/L (39-117); Anion Gap 15 (12-20); Aspartate Amino Transferase 24 U/L (5-31); Bilirubin Total 0.3 mg/dL (0.0-1.0); Blood Urea Nitrogen 15 mg/dL (9-16); Calcium 10.2 mg/dL (8.4-10.2); Carbon Dioxide 25 mmol/L (22-29); Chloride 104 mmol/L (96-108); Estimated Glomerular Filt Rate > 60; Glucose Random 207 mg/dL (60-115); Potassium 4.2 mmol/L (3.3-5.1); Sodium 140 mmol/L (135-145); Total Protein 8.1 g/dL (6.5-8.0)
[2023-11-02 11:48] LABS: Carbohydrate Antigen 19-9 21175 U/mL (<34)
== END 2023-10-28 08:14 | disposition home or self-care (01) ==
LOC: HO.LAB 08:13
PROVIDERS: PCP Family Medicine; Visit Provider Internal Medicine
DX: C25.9 Malignant neoplasm of pancreas, unspecified (principal)
CPT/HCPCS: 36415; 80053; 85025; 86301

== ENCOUNTER 2023-11-11 06:52 | Outpatient (REF) | payer OTHER, SELFPAY ==
[2023-11-11 07:45] LABS: Basophils Absolute Auto 0.1 X10*3/uL (0.0-0.2); Basophils Percent Auto 0.7 % (0-2); Eosinophils Absolute Auto 0.3 X10*3/uL (0.0-0.4); Eosinophils Percent Auto 3.2 % (0-4); Hematocrit 28.9 % (37.0-47.0); Hemoglobin 9.8 g/dl (12.0-16.0); Imm Gran Abs Auto 0.03 X10*3/uL (0.00-0.03); Imm Gran Pct Auto 0.4 % (0.0-0.4); Lymphocytes Absolute Auto 2.9 X10*3/uL (1.2-4.9); Lymphocytes Percent Auto 35.6 % (20-40); MANUAL DIFF FLAG SCAN; Mean Corpuscular HGB Conc 33.9 g/dl (31.0-35.0); Mean Corpuscular Hemoglobin 29.6 pg (27.0-33.0); Mean Corpuscular Volume 87.3 fL (80.0-98.0); Mean Platelet Volume 10.1 fL (9.4-12.3); Monocytes Absolute Auto 1.6 X10*3/uL (0.1-1.2); Neutrophils Absolute Auto 3.3 x10*3/uL (2.0-8.3); Neutrophils Percent Auto 40.1 % (45-73); Platelet Count 283 X10*3/uL (160-400); Red Blood Count 3.31 X10*6/uL (4.20-5.50); Red Cell Distribution Width 16.9 % (11.0-16.0); SCAN SMEAR FLAG 1; White Blood Count 8.2 X10*3/uL (4.8-10.8)
[2023-11-11 08:16] LABS: Alanine Aminotransferase 19 U/L (0-31); Alkaline Phosphatase 107 U/L (39-117); Anion Gap 15 (12-20); Aspartate Amino Transferase 19 U/L (5-31); Bilirubin Total 0.3 mg/dL (0.0-1.0); Blood Urea Nitrogen 15 mg/dL (9-16); Calcium 9.8 mg/dL (8.4-10.2); Carbon Dioxide 24 mmol/L (22-29); Chloride 105 mmol/L (96-108); Estimated Glomerular Filt Rate > 60; Glucose Random 216 mg/dL (60-115); Potassium 3.9 mmol/L (3.3-5.1); Sodium 140 mmol/L (135-145); Total Protein 7.3 g/dL (6.5-8.0)
[2023-11-11 08:24] LABS: SLIDE REVIEW VERIFIED
== END 2023-11-11 06:53 | disposition home or self-care (01) ==
LOC: HO.LAB 06:52
PROVIDERS: PCP Family Medicine; Visit Provider Internal Medicine
DX: C25.9 Malignant neoplasm of pancreas, unspecified (principal)
CPT/HCPCS: 36415; 80053; 85025

== ENCOUNTER 2023-11-24 11:38 | Outpatient (AMB) | payer OTHER, SELFPAY ==
--- NOTE | 2023-11-24 12:07 | A.OFFPC_ITS ---
Vital Signs 11/24/23 12:08 Height 5 ft Weight 124 lb 4 oz BMI 24.3 BP 112/62 Blood Pressure Location Rt brachial Pulse 70 Pulse Source Pulse Oximeter Pulse Oximetry (%) 98 Oxygen Delivery Method Room Air Intake Visit Reasons: F/U Diabetes Intake Note: Patient is here for follow up on diabetes today. Last round was on 11/13/2023. Patient requesting refill of HCTZ today. Allergies No Known Allergies Allergy (Verified 11/24/23 12:11) Medication List - Last Reconciled 11/24/23 by Cesar Driscoll MD blood sugar diagnostic (FreeStyle Lite Strips) DX: E11.9, test blood sugar 2 times a day, 90 days blood sugar diagnostic (OneTouch Ultra Test strips) To Test Blood Sugar 4 times a day, As directed, 90 days blood-glucose meter (FreeStyle Lite Meter kit) DX: E11.9, test blood sugar 2 times a day, duration 999 days blood-glucose meter (OneTouch Ultra2 Meter) To test Blood sugar As directed, 999 days hydrochlorothiazide 12.5 mg PO QAM insulin glargine (Lantus Solostar U-100 Insulin) 8 units (0.08 mL) subcut QPM 30 days lancets (FreeStyle Lancets) As directed lancets (OneTouch Delica Plus Lancet) To Test Blood Sugar 4 times a day, As directed. 90 days magnesium 200 mg PO DAILY metformin 500 mg PO DAILY@1700 metformin 500 mg PO DAILY 90 days nut.tx.gluc.intol,lac-free,soy (Glucerna Advance oral liquid) 1 ea PO DAILY 30 days pantoprazole 40 mg PO DAILY pen needle, diabetic (BD Ultra-Fine Micro Pen Needle) To Treat blood sugar one x / day, 90 days vitamin B complex 1 cap PO DAILY Tobacco use date assessed: 07/17/23 Dental Screening Dental Screen Date: 11/24/23 Did you have a dental visit in the last 12 months?: No Did you have a dental problem in the last 6 months where you did not have access to dental care?: No Was dental information given to patient?: Patient declined HPI F/U Diabetes HPI Details 62 y/o female presents to f/u diabetes. Last A1c 09/29/23 8.7%. Had increased her Lantus from 8 units to 10 units daily. If her morning blood sugars are not below 150, I recommended they increase again to 12 units daily. Blood pressure today 112/62. She is on hydrochlorothiazide 12.5mg. [facility] Medical History Pancreatic mass Arthritis Depression Migraines HTN (hypertension) Diabetes GERD (gastroesophageal reflux disease) Family history of ovarian cancer Weak urinary stream Overactive bladder Urinary urgency Primary osteoarthritis, right hand Acute pain of left knee OA (osteoarthritis) Surgical History History of pancreatectomy (~03/2023) Hx of colonoscopy Hx of esophagogastroduodenoscopy History of bladder suspension procedure History of tubal ligation Family History Father No problems noted. Mother Colon cancer Brother No problems noted. Brother No problems noted. Brother No problems noted. Sister Ovarian cancer Sister Breast cancer Sister No problems noted. Sister No problems noted. Daughter No problems noted. Daughter No problems noted. 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 Bryce Sanches, [place] Moyer, Darnell Ruiz and colleagues, with an educational perlita from [employer]. Review of Systems Const Denies chills, Denies fatigue, Denies fever(s), Denies headache(s) and Denies weakness ENT Denies dizziness and Denies headache(s) Card Denies dyspnea Resp Denies cough, Denies dyspnea, Denies wheezing and Denies other (shortness of breath) Musc Denies numbness and Denies tingling Neuro Denies dizziness, Denies headache(s), Denies numbness, Denies tingling and Denies weakness Psych Denies anxiety and Denies depression Endo Denies fatigue Aller/Immun Denies wheezing Physical exam (Primary Care) Vital Signs: Last Vital Signs Pulse 70 11/24/23 12:08 BP 112/62 11/24/23 12:08 Pulse Ox 98 11/24/23 12:08 Oxygen Delivery Method Room Air 11/24/23 12:08 BMI result Body Mass Index 24.3 Tobacco/Smoking Status: Tobacco use Status Tobacco use date assessed 07/17/23 11/24/23 12:08 Patient Tobacco Use Status Never used Tobacco 11/24/23 12:08 e-Cigarette/Vaping Use Never Used 11/24/23 12:08 Thrive Assessment: Date of Thrive Assessment Date Thrive assessed 06/01/22 11/24/23 12:08 Const General: well developed; No acute distress Nutritional Appearance: well nourished Orientation/consciousness: patient oriented x3 HENMT Head: Yes normocephalic and Yes atraumatic Eyes General: appearance normal, both eyes and all related structures Pupils: Equal, round and reactive pupils present EOM: EOMs intact bilaterally Resp Effort & Inspection: normal respiratory effort Neuro General: patient oriented x3 and gait normal Cranial nerves: Yes Equal, round and reactive pupils present Psych Affect: normal affect Assessment and Plan Assessment & Plan (1) Diabetes: Code(s): E11.9 - Type 2 diabetes mellitus without complications Plan: Morning?blood?sugars?have?shown?better?control?with?increasing?Lantus?to?10?unit s?daily?and?increasing?to?12?units?for?the?3?days?following?chemotherapy. Will?continue?this?strategy Patient?is?somewhat?frustrated?with?having?to?use?insulin?and?particularly?Lantu s. Referred?to?endocrinology?at?patient's?request (2) Hypertension: Code(s): I10 - Essential (primary) hypertension Plan: Blood?pressure?is?controlled.??Goal?is?less?than?140/90 No?changes?to?blood?pressure?regimen (3) Difficulty swallowing: Code(s): R13.10 - Dysphagia, unspecified Plan: Worsening?dysphagia Patient?had?MBS?and?consult?with?ENT?a?few?years?ago?but?symptoms?have?worsened. 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
[2023-11-24 12:08] VITALS: BP 112/62; PULSE 70; O2SAT 98; BMI 24.3
== END 2023-11-24 13:08 | disposition home or self-care (01) ==
PROVIDERS: PCP Family Medicine; Visit Provider Family Medicine
DX: E11.9 Type 2 diabetes mellitus without complications (principal); I10 Essential (primary) hypertension; R13.10 Dysphagia, unspecified
CPT/HCPCS: 99214

== ENCOUNTER 2023-11-27 12:55 | Outpatient (REF) | payer OTHER, SELFPAY ==
[2023-11-27 14:12] LABS: Blood Urea Nitrogen 17 mg/dL (9-16); Estimated Glomerular Filt Rate > 60
== END 2023-11-27 12:56 | disposition home or self-care (01) ==
LOC: HO.LAB 12:55
PROVIDERS: PCP Family Medicine; Visit Provider Internal Medicine
DX: C25.9 Malignant neoplasm of pancreas, unspecified (principal)
CPT/HCPCS: 36415; 82565; 84520

== ENCOUNTER 2023-12-01 09:50 | Outpatient (REF) | payer OTHER, SELFPAY ==
--- NOTE | ~2023-12-01 | CT_ITS ---
EXAMINATION: CT ABDOMEN AND PELVIS WITH CONTRAST CLINICAL INFORMATION: Rising tumor markers COMPARISON: Outside CT abdomen 10/13/2022. MRI of the abdomen dated 10/19/2022. TECHNIQUE: Multidetector volumetric images were obtained from the superior aspect of the liver through the pubic symphysis following administration 65 mL of Omnipaque 350 intravenous contrast. Sagittal and coronal reformatted images were obtained on the technologist's workstation. Oral contrast: No This CT examination was performed using dose optimization techniques as appropriate, variously including the following: *Automated exposure control *Adjustment of mA and/or kV according to patient size (this includes techniques or standardized protocols for targeted exams where dose is matched to indication/reason for exam; i.e. extremities or head) *Use of iterative reconstruction technique DLP: 247 mGy-cm FINDINGS: LUNG BASES: The visualized lung bases are unremarkable. LIVER, GALLBLADDER, AND BILIARY TREE: There is a heterogeneous low attenuation poorly marginated lesion in the dome of the liver anterior right lobe, 24 x 17 mm. There is a low-density 12 mm lesion in the dome of the right lobe of the liver. These lesions appear new from the prior outside CT dated 10/13/2022. There is a tiny lesion in the central right lobe at 4 mm, too small to characterize. No intrahepatic biliary dilatation. The gallbladder is unremarkable with no evidence of radiopaque gallstones, gallbladder wall thickening, or obvious pericholecystic inflammatory changes. PANCREAS: The pancreatic head and uncinate appear normal. The body and tail of the pancreas appears surgically absent. Previously seen mass on the 10/13/[address] is now not conspicuous. There may be surgical clips in this region. SPLEEN: The spleen is absent. ADRENAL GLANDS: There is a heterogeneous low density lesion in the left adrenal at 7 mm. This appears new from the prior study. The right adrenal is normal. KIDNEYS AND URETERS: The kidneys are normal in size, shape, and attenuation. No hydronephrosis, hydroureter, or calculi seen. No perinephric stranding. BLADDER: Unremarkable. GASTROINTESTINAL TRACT: There is no bowel obstruction or right or left lower quadrant inflammatory change. Moderate stool burden in the colon. Vermiform appendix is not clearly identified. ABDOMINAL WALL: No significant hernia is appreciated. LYMPH NODES: Normal. VASCULAR: Unremarkable. PELVIC VISCERA: The region of the cervix appears somewhat bulky and heterogeneous measuring up to 49 mm transverse. No change however from 10/13/2022. Uterus and adnexal structures unremarkable. Trace fluid in the cul-de-sac. OSSEOUS STRUCTURES: Minor spondylitic degenerative changes in the spine. No fracture. CT/CT abdomen pelvis w IV con IMPRESSION: Suspect metastases in the liver and left adrenal. Fleischner guidelines were followed.
[2023-12-01] MEDS: iohexoL 350 MG/ML 100 ML INFUS..BTL 85 ML IV (10:52)
== END 2023-12-01 09:51 | disposition home or self-care (01) ==
LOC: HO.CT 09:50
PROVIDERS: PCP Family Medicine; Visit Provider Internal Medicine
DX: C25.9 Malignant neoplasm of pancreas, unspecified (principal)
CPT/HCPCS: 74177; Q9967

== ENCOUNTER 2023-12-06 14:48 | Outpatient (AMB) | payer OTHER, SELFPAY ==
[2023-12-06 14:51] VITALS: BP 130/78; PULSE 85; BMI 23.7
--- NOTE | 2023-12-06 14:51 | A.OFFVIS_ITS ---
Vital Signs 12/06/23 14:51 Height 5 ft Weight 121 lb 4.068 oz BMI 23.7 BP 130/78 Blood Pressure Location Rt brachial Position Sitting Pulse 85 Pulse Source Pulse Oximeter Intake Visit Reasons: Type 2 DM/CONFIRMED Intake Note: NEW Patient presents today to established treatment for DM TYPE 2: Most recent Diabetic Eye Exam: 01/2023 Most recent Podiatry Exam: Has an appt next month Most recent HbA1c: 8.7%, 09/29/2023 Random Glucose- 246mg/dL, Today Residential Sales Associate Required: No Accompanied by: Daughter Allergies No Known Allergies Allergy (Verified 12/06/23 15:07) Medication List - Last Reconciled 12/07/23 by Anila Slade MD bitter melon extract 450 mg orally; blood sugar diagnostic (FreeStyle Lite Strips) DX: E11.9, test blood sugar 2 times a day, 90 days blood sugar diagnostic (OneTouch Ultra Test strips) To Test Blood Sugar 4 times a day, As directed, 90 days blood-glucose meter (FreeStyle Lite Meter kit) DX: E11.9, test blood sugar 2 times a day, duration 999 days blood-glucose meter (OneTouch Ultra2 Meter) To test Blood sugar As directed, 999 days insulin glargine (Lantus Solostar U-100 Insulin) 12 units (0.12 mL) subcut QPM 90 days lancets (FreeStyle Lancets) As directed lancets (OneTouch Delica Plus Lancet) To Test Blood Sugar 4 times a day, As directed. 90 days lisinopril 2.5 mg PO DAILY magnesium 200 mg PO DAILY nut.tx.gluc.intol,lac-free,soy (Glucerna Advance oral liquid) 1 ea PO DAILY 30 days pantoprazole 40 mg PO DAILY pen needle, diabetic (BD Ultra-Fine Micro Pen Needle) To Treat blood sugar one x / day, 90 days pravastatin 10 mg PO BEDTIME vitamin B complex 1 cap PO DAILY HPI Comments Details: The patient is a 62 year old female with a past medical history of type 2 diabetes, pancreatic ca s/p partial pancreatectomy presenting for diabetes management. Referred by PCP Dr Driscoll Prediabetes prior to partial pancreatectomy 03/2023 ([facility]). A1C increased thereafter. Glucose was high during recent chemotherapy. Completed chemotherapy. In recent 2-3 weeks notes fasting blood glucose 130-230, generally ~150 continues to improve. No recent low blood glucose. Last A1C 9.8% 11/11/2023. Current medications: Lantus 10 unit daily. Prescribed metformin 500mg daily but stopping the medication due to GI side effects decreased diet. Refuses meal time insulin. Refuses CGM. Has not brought myfab5 log-checks once daily and if not feeling well. Very hesitant to start any oral meds as well Denies neuropathy, retinopathy Notes eye exam UTD Has not seen agricultural extension educator ROS CONSTITUTIONAL: Denies weight loss, fever and chills. HEENT: Denies changes in vision and hearing. RESPIRATORY: Denies SOB and cough. CV: Denies palpitations and CP GI: Denies abdominal pain, nausea, vomiting and diarrhea. : Denies dysuria and urinary frequency. MSK: Denies new myalgia and joint pain. SKIN: Denies rash and pruritus. NEUROLOGICAL: Denies headache PSYCHIATRIC: Denies recent changes in mood. PHYSICAL EXAM: GENERAL: Alert and oriented x 3. NAD EYES: EOMI. Anicteric. HENT: Moist mucous membranes. No scleral icterus. No cervical lymphadenopathy. LUNGS: Clear to auscultation bilaterally. CARDIOVASCULAR: Regular rate and rhythm. No murmur. No JVD. ABDOMEN: Soft, non-tender +bs EXTREMITIES: No edema. Non-tender. SKIN: No rashes or lesions. Warm. NEUROLOGIC: No focal neurological deficits. CN II-XII grossly intact. Normal monofilament PSYCHIATRIC: Cooperative. Appropriate mood and affect [facility] Medical History Pancreatic mass Arthritis Depression Migraines HTN (hypertension) Diabetes GERD (gastroesophageal reflux disease) Family history of ovarian cancer Weak urinary stream Overactive bladder Urinary urgency Primary osteoarthritis, right hand Acute pain of left knee OA (osteoarthritis) Surgical History History of pancreatectomy (~03/2023) Hx of colonoscopy Hx of esophagogastroduodenoscopy History of bladder suspension procedure History of tubal ligation Family History Father No problems noted. Mother Colon cancer Brother No problems noted. Brother No problems noted. Brother No problems noted. Sister Ovarian cancer Sister Breast cancer Sister No problems noted. Sister No problems noted. Daughter No problems noted. Daughter No problems noted. 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 Current occupational exposures/hazards: No Gender identity: Female Cognitive needs: No Hearing needs: No Vision needs: Yes (Glasses) Female Reproductive History Menstrual Age of Menarche: 15 Physical Exam Vital Signs: Last Vital Signs Pulse 85 12/06/23 14:51 BP 130/78 12/06/23 14:51 BMI result Body Mass Index 23.7 Results Reviewed Results Reviewed: Laboratory Last Values Glucose (Clinic) 246 mg/dL (60-115) H 12/06/23 14:59 Assessment & Plan Assessment & Plan (1) History of partial pancreatectomy: Code(s): Z90.411 - Acquired partial absence of pancreas Category: Surgical Plan: with diabetes (2) Pancreatic adenocarcinoma: Code(s): C25.9 - Malignant neoplasm of pancreas, unspecified Category: Surgical Plan: continue follow up Dr Jones and Michael (3) Type 2 diabetes mellitus with hyperglycemia: Code(s): E11.65 - Type 2 diabetes mellitus with hyperglycemia Category: Medical Qualifiers: Diabetes mellitus [facility] insulin use: with oysterman use Qualified Code(s): E11.65 - Type 2 diabetes mellitus with hyperglycemia; 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 Discussed diabetic control in persons with history of partial pancreatectomy and preference for long and short acting insulin Discussed benefits of CGM, discussed pump, iLet She will meet with our agricultural extension educator and return to MD in 3 months or sooner if needed Discussed micro and macrovascular risks -accepted start lisopril, DC hctz, accepted start pravastatin. benefit and potential SE discussed Medications: New lisinopril 2.5 mg PO DAILY 90 tabs 3RF pravastatin 10 mg PO BEDTIME 90 tabs 3RF Changed From insulin glargine (Lantus Solostar U-100 Insulin) 8 units (0.08 mL) subcut QPM 30 days 2.4 mL 3RF To insulin glargine (Lantus Solostar U-100 Insulin) 12 units (0.12 mL) subcut QPM 90 days 10.8 mL 3RF Discontinued hydrochlorothiazide Discontinued Reason: Doctor's Order 12.5 mg PO QAM 90 tabs 3RF Coding Level of Care Code New Pt Level 4 (01592) Diagnoses History of partial pancreatectomy Z90.411 Pancreatic adenocarcinoma C25.9 Type 2 diabetes mellitus with hyperglycemia, with long-term current use of insulin E11.65; Z79.4 Diabetes mellitus oysterman insulin use: with [facility] use Time Spent (min) 55
[2023-12-06 15:03] LABS: Glucose, Whole Blood 246 mg/dL (60-115)
== END 2023-12-06 15:57 | disposition home or self-care (01) ==
PROVIDERS: PCP Family Medicine; Visit Provider Internal Medicine
DX: Z90.411 Acquired partial absence of pancreas (principal); C25.9 Malignant neoplasm of pancreas, unspecified; E11.65 Type 2 diabetes mellitus with hyperglycemia; Z79.4 Long term (current) use of insulin
CPT/HCPCS: 99204

== ENCOUNTER → 2023-12-06 14:48 | Outpatient (BNVA) | payer OTHER, SELFPAY | PROVIDERS: PCP Family Medicine; Visit Provider Internal Medicine | DX: E11.65 Type 2 diabetes mellitus with hyperglycemia (principal); C25.9 Malignant neoplasm of pancreas, unspecified; Z79.4 Long term (current) use of insulin; Z90.411 Acquired partial absence of pancreas | CPT/HCPCS: 82947; 99202 ==

== ENCOUNTER 2023-12-26 09:47 | Outpatient (AMB) | payer OTHER, SELFPAY ==
--- NOTE | 2023-12-26 10:27 | A.OFFVIS_ITS ---
Intake Intake Visit Reasons: Type 2 DM Mens Locker Room Attendant Required: Yes Mens Locker Room Attendant Language: Art Therapy Specialist Name: [place] [facility] [place]ompanied by: Self / Same As Patient Allergies No Known Allergies Allergy (Verified 12/15/23 13:46) HPI Comprehensive Diabetes Asmnt Most Recent Diabetes Results: Hemoglobin A1c 5.7 % 08/06/19 Microalb/Creat Ratio 28.4 ug/mg cr 05/25/22 Cholesterol 197 mg/dL 05/25/22 HDL Cholesterol 53 mg/dL 05/25/22 Triglycerides 119 mg/dL 05/25/22 Creatinine 0.74 mg/dL (0.5-1.4) 12/15/23 Blood Urea Nitrogen 18 mg/dL (9-16) H 12/15/23 Sodium 140 mmol/L (135-145) 12/15/23 Potassium 3.5 mmol/L (3.3-5.1) 12/15/23 Chloride 106 mmol/L (96-108) 12/15/23 Carbon Dioxide 23 mmol/L (22-29) 12/15/23 Calcium 10.0 mg/dL (8.4-10.2) 12/15/23 AST 19 U/L (5-31) 12/15/23 ALT 14 U/L (0-31) 12/15/23 Total Protein 7.6 g/dL (6.5-8.0) 12/15/23 Albumin 4.3 g/dL (3.5-5.0) 12/15/23 [facility] Medical History Pancreatic mass Arthritis Depression Migraines HTN (hypertension) Diabetes GERD (gastroesophageal reflux disease) Family history of ovarian cancer Weak urinary stream Overactive bladder Urinary urgency Primary osteoarthritis, right hand Acute pain of left knee OA (osteoarthritis) Surgical History History of pancreatectomy (~03/2023) Hx of colonoscopy Hx of esophagogastroduodenoscopy History of bladder suspension procedure History of tubal ligation Family History Father No problems noted. Mother Colon cancer Brother No problems noted. Brother No problems noted. Brother No problems noted. Sister Ovarian cancer Sister Breast cancer Sister No problems noted. Sister No problems noted. Daughter No problems noted. Daughter No problems noted. 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 Current occupational exposures/hazards: No Gender identity: Female Cognitive needs: No Hearing needs: No Vision needs: Yes (Glasses) Female Reproductive History Menstrual Age of Menarche: 15 Assessment & Plan Assessment & Plan (1) Type 2 diabetes mellitus with hyperglycemia: Code(s): E11.65 - Type 2 diabetes mellitus with hyperglycemia 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 The patient met all learning objectives and was able to verbalize understanding and provide teach back of education topics discussed . The patient was provided with the opportunity to ask questions and all questions were answered. Patient Assessment Assess patient education level/literacy/barriers Patient questions/concerns patient's last A1c 10/2023 9.8%, patient was diagnosed with diabetes because of partial pancreatectomy. What is Diabetes? Pathophysiology How the body produces and uses insulin Identify type of DM Risk factors Signs of Diabetes Brief overview of Diabetes Management Monitoring blood sugar Following a meal plan Regular exercise Maintaining a healthy weight Taking medication as needed Members of the care team (PCP, RN, MA, RD, CDE, manager pulmonary) Blood glucose monitoring When/how often to test Target blood sugar ranges Did not bring meter to today's visit Introduction to Nutrition Importance of healthy diet in managing DM Diet is personalized to individual preference Review patient?s regular diet/food preferences Who prepares meals/does food shopping/ Dining out?/ Barriers? How diet effects glucose Eating 3 balanced meals a day with small, healthy snacks between meals Review food groups Carbohydrates: What is a carbohydrate/Which food/food groups are considered carbohydrates Effect of carbohydrates on blood glucose Portion sizes Reading food labels Basic carb counting (if applicable per nursing assessment) Plate method Meal planning Recommendations: Follow plate method, consistent carbs and read nutritional labels. Smart Goal: patient will identify foods in her diet that contain carbohydrate Educational Materials: The patient was provided with the following written educational materials: Planning Healthy Meals Handout Patient Response to instructions: Comprehension of Instructions: Fair Readiness to make changes: Contemplation How confident they feel about making changes: Positive Portions of this note were created using voice recognition software, please excuse any words or phrases that may have been misinterpreted. Patient Instructions: Incluir actividad diaria regular. ADA recomienda 30 minutos de ejercicio 5 d?as a la semana. P?rdida de peso, hable con el PCP o el cardi?logo antes de comenzar un nuevo plan. Mida el nivel de az?car en la alexia seg?n las indicaciones; Ayuno y comida m?s dotty de 2hpp. Observe las tendencias en los resultados. Utilice los resultados y eval?e c?mo los alimentos, la actividad f?cierra y los medicamentos afectan los resultados de az?car en la alexia. Lleve el gluc?metro o CGM a la pr?xima visita. Conocer los medicamentos para la diabetes, luong acci?n, los efectos secundarios, la eficacia, la toxicidad, la dosis prescrita, el momento y la frecuencia de administraci?n apropiados, el efecto de las dosis olvidadas y retrasadas y las instrucciones de almacenamiento, viaje y seguridad. T?cnicas de resoluci?n de problemas para el seguimiento de episodios de hipo/hiperglucemia y tratamientos. Reducir los comportamientos de reducci?n de riesgos, dejar de fumar, ex?menes regulares de ojos, pies y dentales. 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
== END 2023-12-26 10:30 | disposition home or self-care (01) ==
PROVIDERS: PCP Family Medicine; Visit Provider Registered Nurse Diabetes Educator
DX: E11.65 Type 2 diabetes mellitus with hyperglycemia (principal); Z79.4 Long term (current) use of insulin

== ENCOUNTER → 2023-12-26 09:47 | Outpatient (BNVA) | payer OTHER, SELFPAY | PROVIDERS: PCP Family Medicine; Visit Provider Registered Nurse Diabetes Educator | DX: E11.65 Type 2 diabetes mellitus with hyperglycemia (principal); Z79.4 Long term (current) use of insulin | CPT/HCPCS: 99211 ==

== ENCOUNTER 2024-01-03 08:18 | Outpatient (AMB) | payer OTHER, SELFPAY ==
[2024-01-03 08:26] VITALS: BP 140/63; PULSE 68; O2SAT 96; BMI 24.0
--- NOTE | 2024-01-03 08:26 | A.OFFVIS_ITS ---
Vital Signs 01/03/24 08:26 Height 5 ft Weight 122 lb 12.76 oz BMI 24.0 BP 140/63 H Blood Pressure Location Rt brachial Position Sitting Pulse 68 Pulse Source Pulse Oximeter Pulse Oximetry (%) 96 Oxygen Delivery Method Room Air Intake Visit Reasons: OA Intake Note: Patient is here to follow up on OA, complains of right knee pain for a month. Biofuels Research Scientist Services: Biofuels Research Scientist Present Biofuels Research Scientist Name: Noel#[id number] Allergies No Known Allergies Allergy (Verified 01/03/24 08:28) Medication List - Last Reconciled 01/03/24 by Lalita Au MD bitter melon extract 450 mg orally; blood sugar diagnostic (FreeStyle Lite Strips) DX: E11.9, test blood sugar 2 times a day, 90 days blood sugar diagnostic (OneTouch Ultra Test strips) To Test Blood Sugar 4 times a day, As directed, 90 days blood-glucose meter (FreeStyle Lite Meter kit) DX: E11.9, test blood sugar 2 times a day, duration 999 days blood-glucose meter (OneTouch Ultra2 Meter) To test Blood sugar As directed, 999 days insulin glargine (Lantus Solostar U-100 Insulin) 12 units (0.12 mL) subcut QPM 90 days lancets (FreeStyle Lancets) As directed lancets (OneTouch Delica Plus Lancet) To Test Blood Sugar 4 times a day, As directed. 90 days lisinopril 2.5 mg PO DAILY magnesium 200 mg PO DAILY nut.tx.gluc.intol,lac-free,soy (Glucerna Advance oral liquid) 1 ea PO DAILY 30 days pantoprazole 40 mg PO DAILY pen needle, diabetic (BD Ultra-Fine Micro Pen Needle) To Treat blood sugar one x / day, 90 days pravastatin 10 mg PO BEDTIME vitamin B complex 1 cap PO DAILY HPI Comments Details: This is a 63-year-old female with osteoarthritis who presents for follow-up. She was last seen here by Dr. Perez 01/2023. She states that she has been hearing her right knee crack when walking over the last month. She does not recall any trauma or injury to the knee. She does not believe her knee locks, catches or gives out on her [facility] Medical History Pancreatic mass Arthritis Depression Migraines HTN (hypertension) Diabetes GERD (gastroesophageal reflux disease) Family history of ovarian cancer Weak urinary stream Overactive bladder Urinary urgency Primary osteoarthritis, right hand Acute pain of left knee OA (osteoarthritis) Surgical History History of pancreatectomy (~03/2023) Hx of colonoscopy Hx of esophagogastroduodenoscopy History of bladder suspension procedure History of tubal ligation Family History Father No problems noted. Mother Colon cancer Brother No problems noted. Brother No problems noted. Brother No problems noted. Sister Ovarian cancer Sister Breast cancer Sister No problems noted. Sister No problems noted. Daughter No problems noted. Daughter No problems noted. 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 Current occupational exposures/hazards: No Gender identity: Female Cognitive needs: No Hearing needs: No Vision needs: Yes (Glasses) Female Reproductive History Menstrual Age of Menarche: 15 Review of Systems Musc Reports arthralgias and Reports stiffness Physical Exam Vital Signs: Last Vital Signs Pulse 68 01/03/24 08:26 BP 140/63 H 01/03/24 08:26 Pulse Ox 96 01/03/24 08:26 Oxygen Delivery Method Room Air 01/03/24 08:26 BMI result Body Mass Index 24.0 Const General: cooperative, healthy appearing and comfortable Nutritional Appearance: average body habitus Limitations: no limitations HEENT Head: Yes normocephalic and Yes atraumatic Face and sinus: Yes normal transillumination of sinuses Resp Effort & Inspection: normal respiratory effort and able to speak in complete sentences Extrem Other: Osteoarthritic changes of both hands with no active synovitis Normal range of motion of shoulders Could not properly examine patient's knees, she was not cooperative with exam and stormed out of the office Assessment & Plan Assessment & Plan (1) Osteoarthritis of knees, bilateral: Code(s): M17.0 - Bilateral primary osteoarthritis of knee Category: Medical Qualifiers: Osteoarthritis type: primary Qualified Code(s): M17.0 - Bilateral primary osteoarthritis of knee Plan: This is a 63-year-old female with osteoarthritis presents for follow-up. She is complaining of one-month history of her right knee cracking with walking. She denied any injury. I started by examining her none symptomatic left knee, I tried doing the Hira's maneuver but patient clearly resisted any knee flexion and extension, I could not complete exam. And patient stormed out. If patient continues to have symptomatic right knee she can be referred to Orthopedics. No need For follow-up with me Plan I spent 15 minutes reviewing patient's chart, evaluating patient, counseling patient and documenting in the chart Coding Level of Care Code Est Pt Level 3 (81854) Diagnoses Primary osteoarthritis of both knees M17.0 Osteoarthritis type: primary
== END 2024-01-03 08:47 | disposition home or self-care (01) ==
PROVIDERS: PCP Family Medicine; Visit Provider Student in an Organized Health Care Education/Training Program
DX: M17.0 Bilateral primary osteoarthritis of knee (principal)
CPT/HCPCS: 99213

== ENCOUNTER → 2024-01-03 08:18 | Outpatient (BNVA) | payer OTHER, SELFPAY | PROVIDERS: PCP Family Medicine; Visit Provider Student in an Organized Health Care Education/Training Program | DX: M17.0 Bilateral primary osteoarthritis of knee (principal) | CPT/HCPCS: 99212 ==

== ENCOUNTER 2024-01-15 14:10 | Outpatient (REF) | payer OTHER, SELFPAY ==
--- NOTE | ~2024-01-15 | FL_ITS ---
EXAMINATION: Modified Barium Swallow CLINICAL INFORMATION: Dysphagia. COMPARISON: None. TECHNIQUE: Modified barium swallow was performed under lateral fluoroscopy with patient in standing position. Barium mixed with solids and liquids of different consistencies was administered by the speech pathologist. Examination was recorded in the fluoroscopy suite. FINDINGS: No laryngeal penetration or aspiration was observed during this examination. The patient swallowed the barium tablet without any difficulty. There was temporary stasis of the tablet in the mid esophagus at the level of the aortic arch that passed with subsequent sips of water. FLUOROSCOPY TIME: 1 minute 28 seconds Number of Spot Images: N/A DOSE AREA PRODUCT: 632.6 uGy-m2 (microgray-meter squared) FL/FL Modified Barium Swallow IMPRESSION: 1. No laryngeal penetration or aspiration was observed during this examination. 2. Temporary stasis of the barium tablet in the mid esophagus at the level of aortic arch that passed with subsequent sips of water. Refer to the speech therapy report for further clarification. This procedure was performed by Joaquin Hsieh PA-C, and supervised by Dr. Bailey Electronically signed by: Benny Bailey MD 01/19/2024 11:50 AM EDT
--- NOTE | 2024-01-16 16:53 | MHC.SL.IMP ---
Date of Plan of Treatment: 01/15/24 Onset of Symptoms/Illness: 12/02/20 Date Treatment Started: 01/15/24 Admitting Diagnosis: Dysphagia Primary Speech & Language Diagnosis: R13.12 Oropharyngeal Phase Dysphagia Reason for Today's Visit: 85973 Modified Barium Swallow Study Pre-evaluation Dietary Consistencies: Regular Pre-evaluation Liquid Consistency: Thin Pre-evaluation Medication Administration: Whole with Liquid Medical History: Modified Barium Swallow Study Fluoroscopic Evaluation of Swallowing Function CPT Code 65064 Evaluation Year: 2023 Reason for Study: Patient reporting difficulty swallowing. Referring Physician: Cesar Driscoll MD Evaluating Clinician: Kat Buckley MA, CCC-WAFER FAB OPERATOR Study Number: 1 Patient Name: Lakia Benson Status: Outpatient, Ambulatory Age: 63 Gender: Female Medical History Medical History Pancreatic mass Arthritis Depression Migraines HTN (hypertension) Diabetes GERD (gastroesophageal reflux disease) Family history of ovarian cancer Weak urinary stream Overactive bladder Urinary urgency Primary osteoarthritis, right hand Acute pain of left knee OA (osteoarthritis) Surgical History History of pancreatectomy (~03/2023) Hx of colonoscopy Hx of esophagogastroduodenoscopy History of bladder suspension procedure History of tubal ligation Current (pre-evaluation) Intake/Diet: Route: PO Diet Grade: Regular Liquid Consistencies: Thin Pre-Study Functional Oral Intake Scale (FOIS): 7- Total oral intake with no restrictions Pain: None reported at time of study SUBJECTIVE: Patient is a 63 year old female with history of GERD, pancreatic mass, and arthritis, referred for a modified barium swallow study by her primary care physician, Cesar Driscoll MD for evaluation of dysphagia after patient reported that her symptoms have worsened. Patient did have an MBSS done on 12/23/20 with primary complaints of globus sensation and pain after swallowing. Prior exam was overall unremarkable with no aspiration or penetration and good oral and pharyngeal clearance. Today patient reports that pills and hard foods get stuck in her throat and that she sometimes has pain when swallowing. She was also referred to an ENT by Dr. Driscoll. Food and Liquid Trials: Oral Impairment: Lip Closure: Did not test Oral Impairment: Tongue Control During Bolus Hold: Did not test Oral Impairment: Bolus Preparation/Mastication: 1=Slow prolonged chewing/mashing with complete re-collection Oral Impairment: Bolus Transport/Lingual Motion: 0=Brisk tongue motion Oral Impairment: Oral Residue: 1=Trace residue lining oral structures Oral Impairment:Initiation of Pharyngeal Swallow: 1=Bolus head in valleculae Pharyngeal Impairment: Soft Palate Elevation: 0=No bolus between soft palate (SP)/pharyngeal wall (PW) Pharyngeal Impairment: Laryngeal Elevation: 1=Partial thyroid cartilage/arytenoids to epiglottic petiole movement Pharyngeal Impairment: Anterior Hyoid Excursion: 1=Partial anterior movement Pharyngeal Impairment: Epiglottic Movement: 0=Complete inversion Pharyngeal Impairment: Laryngeal Vestibular Closure:: 1=Incomplete: narrow column air/contrast in laryngeal vestibule Pharyngeal Impairment: Pharyngeal Stripping Wave: 0=Present: complete Pharyngeal Impairment: Pharyngeal Contraction: Did not test Pharyngeal Impairment: Pharyngoesophageal Segment Openin=Complete distension and complete duration: no obstruction of flow Pharyngeal Impairment: Tongue Base (TB) Retraction: 0=No contrast between tongue base and posterior pharyngeal wall Pharyngeal Impairment: Pharyngeal Residue: 1=Trace residue within or on pharyngeal structures Pharyngeal Impairment: Esophageal Clearance Upright Position: Did not test Impressions and Recommendations Clinical Observations: OBJECTIVE: Time-out: performed at 15:00 Evaluation Start: 14:45; Stop: 14:50 Patient Positioning: Standing Viewing Planes: LAT & AP Contrast: MBSImP? Standardized Protocol using commercially prepared, standardized Barium viscosities, including: Varibar? THIN LIQUID (40% w/v, <15 cps) , 1/2 Shortbread Cookie (1 x1 x.25 ) MBSImP ID: [id number] [facility] Results: Lip closure for intraoral bolus containment could not be assessed due to logistical reasons not related to physiologic impairment. Tongue control during bolus hold could not be assessed due to logistical reasons not related to physiologic impairment. Bolus preparation and mastication resulted in slow, prolonged chewing/mashing but with complete re-collection. Bolus transport/lingual motion was with brisk tongue motion. Oral residue was a trace, lining oral structures. Initiation of the pharyngeal swallow occurred when the bolus head was in the valleculae. Soft palate elevation resulted in no bolus between the soft palate and the pharyngeal wall. Laryngeal elevation was decreased, with partial superior movement of the thyroid cartilage/partial approximation of the arytenoids to the epiglottic petiole. Anterior hyoid excursion demonstrated partial anterior movement. Epiglottic movement resulted in complete inversion. Laryngeal vestibular closure was incomplete, with a narrow column of air/contrast noted within the laryngeal vestibule at the height of the swallow. Pharyngeal stripping wave was present and complete. Pharyngeal contraction could not be determined due to logistical reasons not related to physiologic impairment. Pharyngoesophageal segment opening was completely distended for complete duration with no obstruction of bolus flow. Tongue base retraction allowed no contrast between the retracted tongue base and the posterior pharyngeal wall. Pharyngeal residue was a trace within or on pharyngeal structures. Esophageal clearance in the upright position could not be assessed due to logistical reasons not related to physiologic impairment. Oral Impairment Score: 2 (absence of score, component 1component 2) Pharyngeal Impairment Score: 3 (absence of score, component 13) Esophageal Impairment Score: --- (absence of score, component 17) Laryngeal Penetration and Aspiration: Penetration was observed in today's study. Thin Contrast entered the airway, remained above the vocal folds, and was ejected from the airway. ASSESSMENT: Clinician Assessment: This exam was conducted by the radiologist and the speech pathologist. Patient was standing for lateral and AP views. She was able to feed herself without difficulty and trialed thin, puree, and regular solid consistencies. She demonstrated mildly prolonged period of mastication, characterized by piece meal deglutition, with patient swallowing up to 3 times to clear the oral cavity of solid bolus. Brisk posterior lingual motion. Pharyngeal swallow trigger initiated when the bolus head was at the level of the valleculae. Post-swallow, there was just trace lingual residue. No evidence of nasopharyngeal reflux. Partial laryngeal elevation and partial laryngeal vestibular closure with trace flash penetration on trials of thin liquid. A trace amount of contrast entered the airway above the vocal folds and spontaneously ejected. No evidence of aspiration during this exam. There was trace retention on the tongue base, in the valleculae, and in the pyriform sinuses. Patient swallowed whole barium pill tablet with sips of water. The pill became stuck at the level of the aortic arch and cleared with additional, sequential sips of water. The following compensatory strategies have been used in therapy as well as in today's study and improved swallowing function: Additional Swallow(s) per Bolus eliminated Oral Residue, Pharyngeal Residue Liquid Intake Recommendation: Thin Liquid Intake Strategies: Small Sips Dietary Recommendations: Regular Medication Administration: Whole with Liquid Please contact the pharmacy regarding appropriate crushable or liquid drug formulations that are available whenever modified delivery is recommended. Compensatory Strategies Recommended: Sitting Upright (90 deg), Double Swallow, Small Bites and Sips, Alternate Liquids/Solids, Rate of Ingestion Change Supervision during eating and or drinking: None Needed Recommendation for Speech Therapy: NA:Typical Evaluation Text Comment: PLAN: Intake Recommendations: Route: PO Diet Grade: Regular Liquid Consistencies: Thin Post-Study Functional Oral Intake Scale (FOIS): 7- Total oral intake with no restrictions Trace penetration with thin liquid. No evidence of aspiration. Good oral and pharyngeal clearance. Whole barium pill became stuck in the esophagus and cleared with additional sips of water. Therapy Recommendations: Therapy will be discontinued- Further speech intervention is not indicated at this time. Patient is recommended unmodified textures, regular solids and thin liquids with strategies for suspected esophageal phase dysphagia: take small bites, chew food well, alternate bites with sips of liquid, upright 90 degree position during PO intake and for at least 30 minutes afterwards, take pills one at a time with liquid and take multiple sips afterwards. Patient may benefit from G.I. consult for ? esophageal phase dysphagia, hx GERD. Patient is recommended to continue monitoring her dysphagia. If there is any change or worsening of symptoms, she may benefit from a re-evaluation. Clinician - Supplemental, Miscellaneous Communication: It is important to note MBSS objective studies are snapshots in time and Patient function might vary with factors such as time of day or concomitant medical conditions. For this reason, the final treatment plan for this patient should rest with their medical care team. Additional recommendations should be considered with the totality of the Patient in mind. Thank for the opportunity to participate in the care of this patient. If you have any questions about the content of this report, please contact the [facility] at [facility]. Education: Education regarding findings from today's study and plans for therapy were provided to Patient only through Verbal Instruction. Understanding was expressed by the Patient only. Preparation Supervisor Freezing Clinician/Clinical Fellow: No Supervisory Statement: N/A Speech Language Pathologist: Kat Buckley M.A., [facility]-WAFER FAB OPERATOR
== END 2024-01-15 14:11 | disposition home or self-care (01) ==
LOC: HO.XRAY 14:10
PROVIDERS: PCP Family Medicine; Visit Provider Family Medicine
DX: R13.10 Dysphagia, unspecified (principal)
CPT/HCPCS: 74230; 92611

== ENCOUNTER → 2024-01-15 14:30 | Outpatient (BNV) | payer OTHER, SELFPAY | PROVIDERS: PCP Family Medicine; Visit Provider Radiology Diagnostic Radiology | DX: R13.10 Dysphagia, unspecified (principal) | CPT/HCPCS: 74230 ==

== ENCOUNTER 2024-01-30 10:53 | Outpatient (AMB) | payer OTHER, SELFPAY ==
--- NOTE | 2024-01-30 11:43 | A.OFFVIS_ITS ---
Intake Intake Visit Reasons: 60 Min Clinical Cytogenetics Director Required: Yes Clinical Cytogenetics Director Language: Telecom Analyst Name[place] [facility] [place] Interpreted: non-clinical & clinical Accompanied by: Daughter Allergies No Known Allergies Allergy (Verified 01/03/24 08:28) HPI Comprehensive Diabetes Asmnt Most Recent Diabetes Results: Creatinine 0.74 mg/dL (0.5-1.4) 12/15/23 Blood Urea Nitrogen 18 mg/dL (9-16) H 12/15/23 Sodium 140 mmol/L (135-145) 12/15/23 Potassium 3.5 mmol/L (3.3-5.1) 12/15/23 Chloride 106 mmol/L (96-108) 12/15/23 Carbon Dioxide 23 mmol/L (22-29) 12/15/23 Calcium 10.0 mg/dL (8.4-10.2) 12/15/23 AST 19 U/L (5-31) 12/15/23 ALT 14 U/L (0-31) 12/15/23 Total Protein 7.6 g/dL (6.5-8.0) 12/15/23 Albumin 4.3 g/dL (3.5-5.0) 12/15/23 PFSH Medical History Pancreatic mass Arthritis Depression Migraines HTN (hypertension) Diabetes GERD (gastroesophageal reflux disease) Family history of ovarian cancer Weak urinary stream Overactive bladder Urinary urgency Primary osteoarthritis, right hand Acute pain of left knee OA (osteoarthritis) Surgical History History of pancreatectomy (~03/2023) Hx of colonoscopy Hx of esophagogastroduodenoscopy History of bladder suspension procedure History of tubal ligation Family History Father No problems noted. Mother Colon cancer Brother No problems noted. Brother No problems noted. Brother No problems noted. Sister Ovarian cancer Sister Breast cancer Sister No problems noted. Sister No problems noted. Daughter No problems noted. Daughter No problems noted. 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 Current occupational exposures/hazards: No Gender identity: Female Cognitive needs: No Hearing needs: No Vision needs: Yes (Glasses) Female Reproductive History Menstrual Age of Menarche: 15 Assessment & Plan Assessment & Plan (1) Type 2 diabetes mellitus with hyperglycemia: Code(s): E11.65 - Type 2 diabetes mellitus with hyperglycemia Qualifiers: Diabetes mellitus nursing home insulin use: with trauma counsellor use Qualified Code(s): E11.65 - Type 2 diabetes mellitus with hyperglycemia; Z79.4 - 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 Assess patient education level/literacy/barriers Patient questions/concerns, patient is testing glucose once a day fasting Range from 102-202 mg/dL. Patient is currently taking Lantus 12 units at approximately 2-3 p.m. every day Reviewed with patient insulin action of Lantus, explained to patient that even if her glucose level in the morning is within target she still needs to administer Lantus 12 units Patient denies hypoglycemia Reviewed with patient foods that contain carbohydrate Discussed with patient the benefit of using CGM, to get a better picture a blood glucose pattern throughout the day. Patient reports she will consider CGM, will discuss at next visit The patient met all learning objectives and was able to verbalize understanding and provide teach back of education topics discussed . The patient was provided with the opportunity to ask questions and all questions were answered. Topics covered in today?s session included: Medications (If applicable) * Name of medication? * Dosing/administration instructions? * Mechanism of action? * Potential side effects? * Potential adverse reaction and appropriate treatment? * Review onset, peak, duration Assess for concerns re: insurance coverage, cost, barriers to compliance Insulin/Injectables (If applicable) * Storage/care of insulin?? * Injection sites? * Site rotation? * Onset, peak, duration * Drawing up insulin? * Injecting insulin/other injectables? * Sharps disposal Continuous blood glucose monitoring (if applicable) Hypoglycemia and Hyperglycemia * Signs and symptoms? * Causes?? * Treatment? * Preventing hypoglycemia? * When to seek medical attention Target Goals: * Blood glucose targets and how you feel when your blood glucose is in and out of your target ranges. * Monitoring and knowing your A1C. * What can make blood glucose go up and down and preventing high and low blood glucose. * Review of blood sugar targets in expected goal range and outside of expected goal range. * Problem solving and preventing hyper/hypoglycemia. * Sick day management of diabetes. * Using blood sugar results in decision making process in managing diabetes. ?Patient was receptive to information provided and participated in the discussion. Asked?appropriate questions and demonstrated good understanding of the topics discussed.? ? Educational Materials: The patient was provided with the following written educational materials: Target Goal handout Smart Goal Assessment:? Patient will identify foods in her diet that contain carbohydrate Pt met goal 50% New Smart Goal: Patient will very glucose checks, throughout the day to get a better picture for glucose numbers are other than fast Patient Response to instructions: Comprehension of Instructions: Readiness to make changes:? How confident they feel about making changes: Portions of this note were created using voice recognition software, please excuse any words or phrases that may have been misinterpreted. Coding Level of Care Code Est Pt Level 1 (82532) Diagnoses Type 2 diabetes mellitus with hyperglycemia, with long-term current use of insulin E11.65; Z79.4 Diabetes mellitus trauma counsellor insulin use: with trauma counsellor use
== END 2024-01-30 11:50 | disposition home or self-care (01) ==
PROVIDERS: PCP Family Medicine; Visit Provider Registered Nurse Diabetes Educator
DX: E11.65 Type 2 diabetes mellitus with hyperglycemia (principal); Z79.4 Long term (current) use of insulin

== ENCOUNTER → 2024-01-30 10:53 | Outpatient (BNVA) | payer OTHER, SELFPAY | PROVIDERS: PCP Family Medicine; Visit Provider Registered Nurse Diabetes Educator | DX: E11.65 Type 2 diabetes mellitus with hyperglycemia (principal); Z79.4 Long term (current) use of insulin | CPT/HCPCS: 99211 ==

== ENCOUNTER 2024-02-14 14:50 | Outpatient (AMB) | payer OTHER, SELFPAY ==
--- NOTE | 2024-02-14 14:57 | A.OFFVIS_ITS ---
Vital Signs 02/14/24 15:00 Height 5 ft Weight 116 lb 13.52 oz BMI 22.8 BP 100/60 Blood Pressure Location Rt brachial Position Sitting Pulse Source Pulse Oximeter Intake Visit Reasons: T2DM/Unable to lvm Intake Note: Patient presents today for a follow-up on Type 2 Diabetes Mellitus: Most recent Diabetic Eye Exam: 01/2023 Most recent Podiatry Exam: Has an appt coming up next month Most recent HbA1c: 9.4%, 02/14/2024 Random Glucose- 245mg/dL, Today Real Estate Office Supervisor Required: Yes Real Estate Office Supervisor Language: Tire Fabric Inspector Services: Real Estate Office Supervisor Offered & Declined Accompanied by: Daughter Allergies No Known Allergies Allergy (Verified 01/03/24 08:28) Medication List - Last Reconciled 02/14/24 by Anila Slade MD bitter melon extract 450 mg orally; blood sugar diagnostic (FreeStyle Lite Strips) DX: E11.9, test blood sugar 2 times a day, 90 days blood sugar diagnostic (OneTouch Ultra Test strips) To Test Blood Sugar 4 times a day, As directed, 90 days blood-glucose meter (FreeStyle Lite Meter kit) DX: E11.9, test blood sugar 2 times a day, duration 999 days blood-glucose meter (OneTouch Ultra2 Meter) To test Blood sugar As directed, 999 days insulin glargine (Lantus Solostar U-100 Insulin) 20 units subcut QPM lancets (FreeStyle Lancets) As directed lancets (OneTouch Delica Plus Lancet) To Test Blood Sugar 4 times a day, As directed. 90 days lisinopril 2.5 mg PO DAILY magnesium 200 mg PO DAILY metformin ER 500 mg PO DAILY nut.tx.gluc.intol,lac-free,soy (Glucerna Advance oral liquid) 1 ea PO DAILY 30 days pantoprazole 40 mg PO DAILY pen needle, diabetic (BD Ultra-Fine Micro Pen Needle) To Treat blood sugar one x / day, 90 days pravastatin 10 mg PO BEDTIME vitamin B complex 1 cap PO DAILY HPI Comments Details: The patient is a 62 year old female with a past medical history of type 2 diabetes, pancreatic ca s/p partial pancreatectomy presenting for diabetes management. Prediabetes prior to partial pancreatectomy 03/2023 ([facility]). A1C increased thereafter. Glucose was high during recent chemotherapy. Completed chemotherapy. In recent 2-3 weeks notes fasting blood glucose 130-230, generally ~150 continues to improve. No recent low blood glucose. Last A1C 9.4% today, down from 9.8% Current medications: Lantus 20 unit daily. This was recently (last week) increased from 12u due to elevated blood glucose-patient reports that glucose increased with the initiation of chemotherapy which she will be undergoing until Nov. Intolerable side effects from metformin. Refuses meal time insulin. Refuses CGM. Has not brought Freestyle log-checks once daily but hasnt been fasting. Yesterday fasting glucose 102. Denies neuropathy, retinopathy Notes eye exam UTD Has not seen school vocational educator ROS CONSTITUTIONAL: Denies weight loss, fever and chills. HEENT: Denies changes in vision and hearing. RESPIRATORY: Denies SOB and cough. CV: Denies palpitations and CP GI: Denies abdominal pain, nausea, vomiting and diarrhea. : Denies dysuria and urinary frequency. MSK: Denies new myalgia and joint pain. SKIN: Denies rash and pruritus. NEUROLOGICAL: Denies headache PSYCHIATRIC: Denies recent changes in mood. PHYSICAL EXAM: GENERAL: Alert and oriented x 3. NAD EYES: EOMI. Anicteric. HENT: Moist mucous membranes. No scleral icterus. No cervical lymphadenopathy. LUNGS: Clear to auscultation bilaterally. CARDIOVASCULAR: Regular rate and rhythm. No murmur. No JVD. ABDOMEN: Soft, non-tender +bs EXTREMITIES: No edema. Non-tender. SKIN: No rashes or lesions. Warm. NEUROLOGIC: No focal neurological deficits. CN II-XII grossly intact. Normal monofilament PSYCHIATRIC: Cooperative. Appropriate mood and affect [facility] Medical History Pancreatic mass Arthritis Depression Migraines HTN (hypertension) Diabetes GERD (gastroesophageal reflux disease) Family history of ovarian cancer Weak urinary stream Overactive bladder Urinary urgency Primary osteoarthritis, right hand Acute pain of left knee OA (osteoarthritis) Surgical History History of pancreatectomy (~03/2023) Hx of colonoscopy Hx of esophagogastroduodenoscopy History of bladder suspension procedure History of tubal ligation Family History Father No problems noted. Mother Colon cancer Brother No problems noted. Brother No problems noted. Brother No problems noted. Sister Ovarian cancer Sister Breast cancer Sister No problems noted. Sister No problems noted. Daughter No problems noted. Daughter No problems noted. 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 Current occupational exposures/hazards: No Gender identity: Female Cognitive needs: No Hearing needs: No Vision needs: Yes (Glasses) Female Reproductive History Menstrual Age of Menarche: 15 Physical Exam Vital Signs: Last Vital Signs BP 100/60 02/14/24 15:00 BMI result Body Mass Index 22.8 Results AMB Hemoglobin A1c AMB Hemoglobin A1c 9.4 % Last Edit by PATRICE Fontana on 02/14/24 15:17 Results Reviewed Results Reviewed: Laboratory Last Values Glucose (Clinic) 245 mg/dL (60-115) H 02/14/24 15:05 Hgb A1c (Clinic) 9.4 % (4.0-6.0) H 02/14/24 15:08 Assessment & Plan Assessment & Plan (1) Type 2 diabetes mellitus with hyperglycemia: Code(s): E11.65 - Type 2 diabetes mellitus with hyperglycemia Category: Medical Qualifiers: Diabetes 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 Need a week of fasting glucose readings in order to adjust insulin dosing. Continue 20u until more information. Orders: Orders AMB Hemoglobin A1c Today E11.65 - Type 2 diabetes mellitus with hyperglycemia, Z79.4 - intermodal truck driver (current) use of insulin Medications: Changed From insulin glargine (Lantus Solostar U-100 Insulin) 30 units (0.3 mL) subcut QPM 90 days 27 mL 3RF To insulin glargine (Lantus Solostar U-100 Insulin) 20 units subcut QPM Refilled lisinopril 2.5 mg PO DAILY 90 tabs 3RF Discontinued metformin ER Discontinued Reason: Doctor's Order 500 mg PO DAILY 90 tabs 3RF Patient Instructions: Please take fasting blood glucose daily for the next few days. Call Monday with readings and I will adjust the dose if needed. Coding Level of Care Code Est Pt Level 3 (28096) Diagnoses Type 2 diabetes mellitus with hyperglycemia, with long-term current use of insulin E11.65; Z79.4 Diabetes mellitus shelter insulin use: with intermodal owner operator truck driver use
[2024-02-14 15:00] VITALS: BP 100/60; BMI 22.8
[2024-02-14 15:10] LABS: Glucose, Whole Blood 245 mg/dL (60-115)
== END 2024-02-14 15:30 | disposition home or self-care (01) ==
PROVIDERS: PCP Family Medicine; Visit Provider Internal Medicine
DX: E11.65 Type 2 diabetes mellitus with hyperglycemia (principal); Z79.4 Long term (current) use of insulin

== ENCOUNTER → 2024-02-14 14:50 | Outpatient (BNVA) | payer OTHER, SELFPAY | PROVIDERS: PCP Family Medicine; Visit Provider Internal Medicine | DX: E11.65 Type 2 diabetes mellitus with hyperglycemia (principal); Z79.4 Long term (current) use of insulin | CPT/HCPCS: 82947; 83036; 99212 ==

== ENCOUNTER 2024-03-22 13:00 | Outpatient (RCR) | payer OTHER, SELFPAY ==
--- NOTE | 2022-10-25 12:36 | P.CNHO_ITS ---
Subjective - Subjective Chief complaint: Chronic abdominal pain Patient: new to practice Consult date: 10/25/22 Primary Care Provider: Cesar Driscoll MD HPI - Consult Narrative Reason for consult: Mass in pancreas Narrative: Lakia Benson is a 61 year old female referred for evaluation of recently diagnosis pancreatic mass. She has a history of chronic abdominal pain and has been seen by GI specialists over the years. A workup with both end oscopy/colonoscopy in previous imaging with CT abdomen/pelvis in 2019 in 2020 were negative. On 10/13/2022 she presented with [facility] with complaints of abdominal pain, CT abdomen/pelvis with contrast showed a 1.2 cm lesion in the body of the pancreas, bulky appearance of pancreatic body with mild peripancreatic stranding. Prominent pancreatic duct measuring up to 3 mm. No lymphadenopathy. MRI was suggested for further characterization. Patient has undergone this at [facility] and is here for further recommendations. She is accompanied by both her daughters. Patient reports that the abdominal pain is located in the right and left lower quadrants of the abdomen and associated with occasional mild constipation. She denies any loss of appetite or weight loss. No nausea, emesis or jaundice. Her sister was diagnosed with ovarian cancer in her 30s. She is alive. Her mother was treated for colon cancer. One of her other sisters was treated for breast cancer. She does not know details of the treatment or if they had genetic testing. Review of Systems - Constitutional Reports as per HPI, Denies anorexia, Denies night sweats, Denies poor appetite, Denies weight loss - Cardiovascular Reports no additional cardiovascular complaints - Respiratory Reports no additional respiratory complaints - Gastrointestinal Reports no additional gastrointestinal complaints, Denies black, tarry stools, Denies coffee ground vomit, Denies cramping, Denies diarrhea, Denies nausea - Musculoskeletal Reports no additional musculoskeletal complaints Oncology Screenings - ECOG Performance Status ECOG Performance Status: 1 [facility] Medical History: Medical History (Last Reviewed 10/25/22 @ 12:40 by Sherie Damian) Acute pain of left knee Diabetes Family history of ovarian cancer GERD (gastroesophageal reflux disease) HTN (hypertension) OA (osteoarthritis) Overactive bladder Primary osteoarthritis, right hand Urinary urgency Weak urinary stream Family History: Family History (Last Reviewed 10/25/22 @ 12:40 by Sherie Damian) Father No problems noted. Mother Colon cancer Brother No problems noted. Brother No problems noted. Brother No problems noted. Sister Ovarian cancer Sister Breast cancer Sister No problems noted. Sister No problems noted. Daughter No problems noted. Daughter No problems noted. Surgical History: Surgical History (Last Reviewed 10/25/22 @ 12:40 by Sherie Damian) History of bladder suspension procedure History of tubal ligation Hx of colonoscopy Hx of esophagogastroduodenoscopy Social History: Social History (Last Reviewed 10/25/22 @ 12:40 by Sherie Damian) Living Situation History: Household Members: None Housing: Apartment Are you a primary childcare aide to a significant other at home: No Do you presently have visiting nurse or other home services: No Tobacco History: Patient Tobacco Use Status: Never used Tobacco e-Cigarette/Vaping Use: Never Used Second Hand Smoke Exposure: No Advance Directives: Advance Directives Date on File: 03/11/20 Occupation Assessmet: service: No Current occupational status: retired 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 Current occupational exposures/hazards: No Sex/Gender Assessment: Gender identity: Female Home Medications and Allergies Allergies Allergy/AdvReac Type Severity Reaction Status Date / Time No Known Allergies Allergy Verified 10/21/22 15:27 Physical Exam Vital signs: Vital Signs (72 hours) 10/25/22 12:37 Temperature 97.6 F Pulse Rate 92 Respiratory Rate 14 Blood Pressure 150/74 H Pulse Oximetry 97 Oxygen Delivery Method Room Air - Constitutional Present: no acute distress - Routine HEENT Exam Head: Present: normal inspection Eye: Present: normal appearance, PERRL - Routine Neck Exam Present: supple. Absent: lymphadenopathy - Routine Respiratory Exam Absent: accessory muscle use - Routine Cardiovascular Exam Cardiovascular: Present: RRR, S1, S2 - Routine Abdominal Exam Present: soft, tenderness - Routine Extremities Exam Absent: pedal edema - Routine Skin Exam Present: intact - Routine Neurological Exam Present: alert, oriented X3 Hem/Onc Consult Result - Labs CBC & Chem 7: 10/25/22 13:13 10/25/22 13:13 Assessment and Plan Patient Active problem list reviewed?: Yes (1) Mass of pancreas Status: Acute Assessment and plan: 1. This is a 61-year-old woman presenting with mass in the body of pancreas suspicious for malignancy. She has a history of chronic abdominal pain, imaging with CT abdomen and subsequently MRI of abdomen with contrast on 10/19/2022 demonstrated a 2.7 x 1.7 cm hypoattenuating mass centered in the pancreatic body. Pancreatic duct facilitate it in the pancreatic tail to 4 mm. Distal to the mass few small cysts measuring up to 8 mm in the pancreatic head. No contact with the SMA, celiac axis or common hepatic artery. No contact with the portal vein or superior mesenteric vein. No tumor or bland thrombus or dilated venous collaterals. No lymphadenopathy or evidence of metastatic disease in the abdomen. I discussed above findings with patient and daughters, this raises concern for primary pancreatic malignancy. I have ordered CT chest and bone scan for staging. Blood work is pending. I discussed EUS/biopsy, she will be referred to tertiary centers for this. She will also need surgical evaluation. I discussed role of preoperative or neoadjuvant chemotherapy if he does have pancreatic cancer. Based on family history of both breast and ovarian cancer, she would be a c andidate for genetic testing once pathology is known. - Time Spent With Patient Time Spent with Patient (in minutes): 45
[2022-10-25 12:37] VITALS: BP 150/74; PULSE 92; RESP 14; TEMP 36.4; O2SAT 97; BMI 4011.0
[2022-10-25 13:48] LABS: MANUAL DIFF FLAG NO
[2022-10-25 13:51] LABS: Basophils Absolute Auto 0.1 X10*3/uL (0.0-0.2); Basophils Percent Auto 0.9 % (0-2); Eosinophils Absolute Auto 0.1 X10*3/uL (0.0-0.4); Hemoglobin 11.9 g/dl (12.0-16.0); Imm Gran Abs Auto 0.01 X10*3/uL (0.00-0.03); Imm Gran Pct Auto 0.1 % (0.0-0.4); Lymphocytes Absolute Auto 2.3 X10*3/uL (1.2-4.9); Lymphocytes Percent Auto 29.6 % (20-40); Mean Corpuscular Hemoglobin 30.5 pg (27.0-33.0); Mean Corpuscular Volume 89.7 fL (80.0-98.0); Mean Platelet Volume 9.7 fL (9.4-12.3); Monocytes Absolute Auto 0.7 X10*3/uL (0.1-1.2); Monocytes Percent Auto 8.4 % (2-11); Neutrophils Absolute Auto 4.6 x10*3/uL (2.0-8.3); Platelet Count 317 X10*3/uL (160-400); Red Cell Distribution Width 13.4 % (11.0-16.0); White Blood Count 7.7 X10*3/uL (4.8-10.8)
[2022-10-25 13:56] LABS: INTERNATIONAL NORM RATIO 0.9 (0.9-1.1); Prothrombin Time 10.4 SEC (10.0-13.1)
[2022-10-25 14:09] LABS: Alanine Aminotransferase 18 U/L (0-31); Albumin Level 4.3 g/dL (3.5-5.0); Alkaline Phosphatase 78 U/L (39-117); Anion Gap 15 (12-20); Aspartate Amino Transferase 17 U/L (5-31); Bilirubin Total 0.3 mg/dL (0.0-1.0); Blood Urea Nitrogen 23 mg/dL (9-16); Calcium 10.2 mg/dL (8.4-10.2); Carbon Dioxide 24 mmol/L (22-29); Chloride 108 mmol/L (96-108); Creatinine Clr Calc Pharmacy -30.2; Estimated Glomerular Filt Rate > 60; Glucose Random 114 mg/dL (60-115); Lactate Dehydrogenase 135 U/L (122-220); Potassium 4.5 mmol/L (3.3-5.1); Sodium 142 mmol/L (135-145); Total Protein 7.6 g/dL (6.5-8.0)
--- NOTE | 2022-10-25 16:43 | MHC.HEMONC ---
I met with pt and her two daughters following Consultation with Dr Jones for pancreatic mass. She has had weeks of abdominal pain and decreased intake. She said she has lost 20lbs or so in last 12 months. She will be scheduled for CT of chest and bone scan. I made referral to [facility] for enoscopic u/s. She and her dtrs are aware. She had labs drawn and she filled out HCP. F/U in 3 weeks.
--- NOTE | 2022-10-28 11:03 | HO.HEMONCPA ---
Addendum entered by Renetta Childs 10/31/22 10:47: PA for Nuclear medicine whole body bone scan approved. auth# [id number]. Dos- 10/28/22 TO 02/27/23. document scanned in the chart Original Note: PA for Nuclear medicine whole body bone scan requested. awaiting decision
[2022-10-29 10:18] LABS: Carbohydrate Antigen 19-9 549 U/mL (<34)
--- NOTE | 2022-11-01 08:31 | MHC.HEMONC ---
I informed Chelly that pt will be going to [facility] for ensocopy/bx on 11/24 and they will call and mail out details and also that [place] [facility] [place] 14 at 10 am.
[2022-11-30 09:21] VITALS: BP 128/76; PULSE 81; RESP 14; TEMP 36.4; O2SAT 97; BMI 3936.6
--- NOTE | 2022-11-30 09:24 | PM.HEMONCPN ---
Medical Summary - Medical Summary Date of Service: 11/30/22 Chief complaint: Follow-up Primary Care Provider: Cesar Driscoll MD Medical Summary: Diagnosis: Pancreatic adenocarcinoma 10/2022 She has a history of chronic abdominal pain and has been seen by GI specialists over the years. A workup with both endoscopy/colonoscopy in previous imaging with CT abdomen/pelvis in 2019 in 2020 were negative. On 10/13/2022 she presented with [facility] with complaints of abdominal pain, CT abdomen/pelvis with contrast showed a 1.2 cm lesion in the body of the pancreas, bulky appearance of pancreatic body with mild peripancreatic stranding. Prominent pancreatic duct measuring up to 3 mm. No lymphadenopathy. Interval History Interval history: Patient is here in follow-up. She is accompanied by her 2 daughters. She has had endoscopic ultrasound and biopsy at [facility]. The daughters have already seen the pathology report on Garcia which is positive for adenocarcinoma. They here to discuss further management. Her mother has no new complaints today. Review of Systems - Constitutional Reports as per HPI, Denies lack of energy, Denies malaise, Denies night sweats, Denies weight gain, Denies weight loss - Cardiovascular Reports no additional cardiovascular complaints - Respiratory Reports no additional respiratory complaints - Gastrointestinal Reports no additional gastrointestinal complaints [facility] [place] Medical History: Medical History (Last Reviewed 11/30/22 @ 10:25 by PATRICE Torres) Acute pain of left knee Diabetes Family history of ovarian cancer GERD (gastroesophageal reflux disease) HTN (hypertension) OA (osteoarthritis) Overactive bladder Primary osteoarthritis, right hand Urinary urgency Weak urinary stream Family History: Family History (Last Reviewed 11/30/22 @ 10:25 by PATRICE Torres) Father No problems noted. Mother Colon cancer Brother No problems noted. Brother No problems noted. Brother No problems noted. Sister Ovarian cancer Sister Breast cancer Sister No problems noted. Sister No problems noted. Daughter No problems noted. Daughter No problems noted. Surgical History: Surgical History (Last Reviewed 11/30/22 @ 10:25 by PATRICE Torres) History of bladder suspension procedure History of tubal ligation Hx of colonoscopy Hx of esophagogastroduodenoscopy Social History: Social History (Last Reviewed 11/30/22 @ 10:25 by PATRICE Torres) Living Situation History: Household Members: None Housing: Apartment Are you a primary healthcare interpreter to a significant other at home: No Do you presently have visiting nurse or other home services: No Tobacco History: Patient Tobacco Use Status: Never used Tobacco e-Cigarette/Vaping Use: Never Used Second Hand Smoke Exposure: No Advance Directives: Advance Directives Date on File: 03/11/20 Occupation Assessmet: service: No Current occupational status: retired 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 Current occupational exposures/hazards: No Sex/Gender Assessment: Gender identity: Female Home Medications and Allergies Allergies Allergy/AdvReac Type Severity Reaction Status Date / Time No Known Allergies Allergy Verified 11/30/22 10:25 Exam Vital signs: Vital Signs Temp 97.6 F 10/25/22 12:37 Pulse 92 10/25/22 12:37 Resp 14 10/25/22 12:37 BP 150/74 H 10/25/22 12:37 Pulse Ox 97 10/25/22 12:37 O2 Del Method Room Air 10/25/22 12:37 Weight 64.7 kg BMI result Body Mass Index 4011.0 - Constitutional Present: no acute distress - Routine HEENT Exam Head: Present: normal inspection - Routine Respiratory Exam Absent: accessory muscle use - Routine Cardiovascular Exam Cardiovascular: Present: RRR, S1, S2 - Routine Abdominal Exam Present: soft, tenderness - Routine Extremities Exam Absent: pedal edema - Routine Skin Exam Present: intact - Routine Neurological Exam Present: alert, oriented X3 Data - Labs CBC & Chem 7: 10/25/22 13:13 10/25/22 13:13 Labs: 10/25/22 13:13 CA 19-9 [Carbohydrate Antigen 19-9] Routine Complete Blood Count Auto Diff Stat Comprehensive Met. Panel Stat Lactate Dehydrogenase Routine Prothrombin Time INR Stat Laboratory Last Values WBC 7.7 X10*3/uL (4.8-10.8) 10/25/22 13:13 RBC 3.90 X10*6/uL (4.20-5.50) L 10/25/22 13:13 Hgb 11.9 g/dl (12.0-16.0) L 10/25/22 13:13 Hct 35.0 % (37.0-47.0) L 10/25/22 13:13 MCV 89.7 fL (80.0-98.0) 10/25/22 13:13 MCH 30.5 pg (27.0-33.0) 10/25/22 13:13 MCHC 34.0 g/dl (31.0-35.0) 10/25/22 13:13 RDW 13.4 % (11.0-16.0) 10/25/22 13:13 Plt Count 317 X10*3/uL (160-400) 10/25/22 13:13 MPV 9.7 fL (9.4-12.3) 10/25/22 13:13 Immature Gran % (Auto) 0.1 % (0.0-0.4) 10/25/22 13:13 Neut % (Auto) 60.0 % (45-73) 10/25/22 13:13 Lymph % (Auto) 29.6 % (20-40) 10/25/22 13:13 [place] % (Auto) 8.4 % (2-11) 10/25/22 13:13 Eos % (Auto) 1.0 % (0-4) 10/25/22 13:13 Baso % (Auto) 0.9 % (0-2) 10/25/22 13:13 Lymph # (Auto) 2.3 X10*3/uL (1.2-4.9) 10/25/22 13:13 [place] # (Auto) 0.7 X10*3/uL (0.1-1.2) 10/25/22 13:13 Eos # (Auto) 0.1 X10*3/uL (0.0-0.4) 10/25/22 13:13 Baso # (Auto) 0.1 X10*3/uL (0.0-0.2) 10/25/22 13:13 Abs Immat Gran (auto) 0.01 X10*3/uL (0.00-0.03) 10/25/22 13:13 Absolute Neuts (auto) 4.6 x10*3/uL (2.0-8.3) 10/25/22 13:13 Absolute Nucleated RBC 0.000 X10*3/uL (0.0-0.012) 10/25/22 13:13 Nucleated RBC % (auto) 0.0 /100WBC (0.0-0.2) 10/25/22 13:13 PT 10.4 SEC (10.0-13.1) 10/25/22 13:13 INR 0.9 (0.9-1.1) 10/25/22 13:13 Sodium 142 mmol/L (135-145) 10/25/22 13:13 Potassium 4.5 mmol/L (3.3-5.1) 10/25/22 13:13 Chloride 108 mmol/L (96-108) 10/25/22 13:13 Carbon Dioxide 24 mmol/L (22-29) 10/25/22 13:13 Anion Gap 15 (12-20) 10/25/22 13:13 BUN 23 mg/dL (9-16) H 10/25/22 13:13 Creatinine 0.71 mg/dL (0.5-1.4) 10/25/22 13:13 Estim Creat Clear Calc -30.2 10/25/22 13:13 Estimated GFR > 60 10/25/22 13:13 Random Glucose 114 mg/dL (60-115) 10/25/22 13:13 Calcium 10.2 mg/dL (8.4-10.2) 10/25/22 13:13 Total Bilirubin 0.3 mg/dL (0.0-1.0) 10/25/22 13:13 AST 17 U/L (5-31) 10/25/22 13:13 ALT 18 U/L (0-31) 10/25/22 13:13 Alkaline Phosphatase 78 U/L (39-117) 10/25/22 13:13 Lactate Dehydrogenase 135 U/L (122-220) 10/25/22 13:13 Total Protein 7.6 g/dL (6.5-8.0) 10/25/22 13:13 Albumin 4.3 g/dL (3.5-5.0) 10/25/22 13:13 CA 19-9 Antigen 549 U/mL (<34) H 10/25/22 13:13 Assessment and Plan Patient Active problem list reviewed?: Yes (1) Mass of pancreas Status: Acute Assessment and plan: 1. This is a 61-year-old woman presenting with pancreatic adenocarcinoma diagnosed in October 2022. A CT abdomen and subsequently MRI of abdomen with contrast on 10/19/2022 demonstrated a 2.7 x 1.7 cm hypoattenuating mass centered in the pancreatic body. Distal to the mass few small cysts measuring up to 8 mm in the pancreatic head. No contact with the SMA, celiac axis or common hepatic artery. No contact with the portal vein or superior mesenteric vein. No tumor or bland thrombus or dilated venous collaterals. No lymphadenopathy or evidence of metastatic disease in the abdomen. CA 19 9 elevated, over 500 unit/mL. Staging CT chest and [place] [facility] [place] for [place] disease. She underwent endoscopic ultrasound by Dr. Munoz on 11/24/2022 at [facility] which revealed brown mass in the pancreatic body, hypoechoic measuring 13 mm x 24 mm. Borders were well-defined. FNA cytology was adenocarcinoma. I discussed role of preoperative or neoadjuvant chemotherapy with FOLFIRINOX regimen. MediPort placement was discussed. She has been referred to see CT surgeon for placement. She will be referred to [facility] for surgical recommendations as well. We discussed possible side effects to chemotherapy such as GI side effects, neuropathy, risk of cytopenias and infection. They are willing to proceed with above recommendations. Genetic assessment for inherited cancer syndrome will be performed on the subsequent visit. Follow-up in 3 weeks. - Time Spent With Patient Time Spent with Patient (in minutes): 45
--- NOTE | 2022-11-30 10:41 | MHC.HEMONC ---
Addendum entered by Luis A Lovell RN 11/30/22 16:58: Nurse spoke w/ pt's dtr, Alda, booked appt for pt to come in for pre-chemo labs on 12/05/22 after port-a-cath insertion. Per Dr. Jones, nurse entered orders for CBC, CMP, Hep B profile. Nurse also booked chemoteach appt to coincide w/ first FOLFIRINOX tx on morning of 12/05/22. Original Note: I met with pt and her daughters following visit with Dr Jones. She received diagnosis of adenocarcinoma of pancreas. She will be starting FOLFIRINOX next Monday. Port to be placed by Dr Loja prior to that and she has Consult with him this morning. I gave Renetta information for PA and notified Pharmacy. I had the opportunity to give pt and daughters information on chemo, including plan and potential side effects. We reviewed how/when to call Clinic with problems. She will review and sign consent with Grease Man on c1d1.
--- NOTE | 2022-11-30 10:56 | MHC.HEMONCMA ---
Appt made with Dr. Loja for consult for 11/30/22 at 10:30, patient will go up after done in Oncology.
--- NOTE | 2022-11-30 10:56 | MHC.HEMONCMA ---
Christine called from Dr. Loja office, patient booked for port insertion for 12/05/22 in morning.
--- NOTE | 2022-11-30 12:38 | HO.HEMONCPA ---
Addendum entered by Renetta Childs 12/02/22 10:33: NO PA REQUIRED for Oxaliplatin,Irinotecan, leucovorin, & Flourouracil. DOCUMENT SCANNED IN THE CHART Cher Monahan PA APPROVED. AUTH# [id number]. DOS 12/05/22 to 12/04/23. DOCUMENT SCANNED IN THE CHART. Original Note: PA request for Oxaliplatin,Irinotecan, leucovorin, Flourouracil, Cher Monahan submitted. Awaiting decision.
--- NOTE | 2022-11-30 13:09 | MHC.HEMONC ---
Surgical Consult requested at [facility]. Fax number [phone]
--- NOTE | 2022-12-05 12:17 | MHC.HEMONC ---
I spoke with pt dtr. She is going to call back [facility] surgeon as they called her Monday to discuss the referral I sent. She will request an appt some time in December so that she could at least have a surgeon involved since she is going to start neoadjuvant chemo.
[2022-12-06 14:29] LABS: MANUAL DIFF FLAG NO
[2022-12-06 14:32] LABS: Basophils Absolute Auto 0.1 X10*3/uL (0.0-0.2); Basophils Percent Auto 0.7 % (0-2); Eosinophils Absolute Auto 0.2 X10*3/uL (0.0-0.4); Eosinophils Percent Auto 2.6 % (0-4); Hematocrit 34.8 % (37.0-47.0); Hemoglobin 11.9 g/dl (12.0-16.0); Imm Gran Abs Auto 0.02 X10*3/uL (0.00-0.03); Imm Gran Pct Auto 0.2 % (0.0-0.4); Lymphocytes Percent Auto 34.7 % (20-40); Mean Corpuscular HGB Conc 34.2 g/dl (31.0-35.0); Mean Corpuscular Hemoglobin 30.5 pg (27.0-33.0); Mean Corpuscular Volume 89.2 fL (80.0-98.0); Mean Platelet Volume 9.1 fL (9.4-12.3); Monocytes Absolute Auto 0.9 X10*3/uL (0.1-1.2); Neutrophils Absolute Auto 4.4 x10*3/uL (2.0-8.3); Neutrophils Percent Auto 51.8 % (45-73); Platelet Count 272 X10*3/uL (160-400); Red Cell Distribution Width 13.2 % (11.0-16.0); White Blood Count 8.5 X10*3/uL (4.8-10.8)
[2022-12-06 14:46] LABS: Alanine Aminotransferase 13 U/L (0-31); Albumin Level 4.2 g/dL (3.5-5.0); Alkaline Phosphatase 88 U/L (39-117); Anion Gap 12 (12-20); Aspartate Amino Transferase 16 U/L (5-31); Bilirubin Total 0.5 mg/dL (0.0-1.0); Blood Urea Nitrogen 13 mg/dL (9-16); Calcium 10.4 mg/dL (8.4-10.2); Carbon Dioxide 25 mmol/L (22-29); Chloride 105 mmol/L (96-108); Creatinine Clr Calc Pharmacy -32.6; Estimated Glomerular Filt Rate > 60; Glucose Random 102 mg/dL (60-115); Sodium 138 mmol/L (135-145); Total Protein 7.6 g/dL (6.5-8.0)
[2022-12-07 03:22] LABS: HBc Num1 0.16 S/CO (0.00-0.79); HBsAGNum1 0.29 S/CO (0.00-0.99); Hepatitis B Core Antibody Nonreactive (Nonreactive); Hepatitis B Surface Antigen Negative (Negative); ~Hepatitis B Surface Antibody NONREACTIVE (Nonreactive)
[2022-12-07 07:56] VITALS: BP 155/80; PULSE 83; RESP 18; TEMP 37; O2SAT 96; BMI 27.2
[2022-12-07] MEDS: diphenhydrAMINE HCL 25 MG CAPSULE PO (08:57)
[2022-12-07] MEDS: Acetaminophen 325 MG TABLET 650 MG PO (08:57)
[2022-12-07] MEDS: dexAMETHasone sod phosphate/NS 12 MG/50 ML PIGGYBACK 200 MG IV (08:58)
[2022-12-07] MEDS: Atropine Sulfate 1 MG/ML VIAL 0.5 MG SUBCUT (08:58)
[2022-12-07] MEDS: Famotidine/PF 20 MG/2 ML VIAL IVPUSH (08:58)
[2022-12-07] MEDS: Fosaprepitant Dimeglumine 150 MG in 0.9 % Sodium Chloride 145 ML 300 MG IV (09:24)
[2022-12-07] MEDS: OXALIplatin 100 MG, OXALIplatin 40 MG in Dextrose 5 % 500 ML 264 MG IV (10:11)
--- NOTE | 2022-12-07 11:24 | MHC.HEMONC ---
pt accompanied by daughter, fredo, chemo teach done with car shunter, consent signed. pt tolerated first treatment well, no s/sx of reaction. neulasta for pump take down per dr cervantes no need for lab draw on off week.
[2022-12-07] MEDS: LEUCOVORIN CALCIUM IV (12:19)
[2022-12-07] MEDS: DEXTROSE 5% IV ×2 (12:19→12:51)
[2022-12-07] MEDS: IRINOTECAN HCL IV (12:51)
[2022-12-07] MEDS: fluorouraciL 650 MG in Syringe 0 ML 156 MG IVPUSH (14:32)
[2022-12-07] MEDS: FLUOROURACIL IVCONT (14:33)
[2022-12-07] MEDS: SODIUM CHLORIDE 0.9% IVCONT (14:33)
--- NOTE | 2022-12-09 08:15 | MHC.HEMONC ---
Pt daughter, Fam called to say that they went to [facility] yesterday at [facility] and she was told that cancer has likely spread . They advised Dr Jones order CA125 and PET. Today pt will have lab drawn prior to 5FU takedown and PET order was given to Renetta.
--- NOTE | 2022-12-09 11:00 | HO.HEMONCPA ---
Addendum entered by Mariana Ruby 12/21/22 15:26: PET/CT APPROVED AUTH# [id number] DOS 12/19/22 - 04/11/23 SCANNED TO CHART SENT TO [facility] FOR SCHEDULING Addendum entered by Mariana Ruby 12/19/22 11:18: SENT REQUEST FOR FACILITY CHANGE TO [facility] WAITING FOR NEW CONFIRMATION NUMBER Addendum entered by Mariana Ruby 12/19/22 11:10: PA FOR PET/CT SCAN SKULL TO THIGH ([id number]) APPROVED AUTH # [id number] DOS 12/09/22 - 04/11/23 Original Note: PA FOR PET/CT SCAN SKULL TO THIGH ([id number]) PENDING AWAITING DECISION
--- NOTE | 2022-12-09 12:52 | HO.HEMONCPA ---
PA FOR FOSAPREPITANT/EMEND ([id number])- 26 VISITS AND PALONOSETRON/ALOXI ([id number]) - 26 VISITS AND PEGFILGRASTRIM/UDENYCA) ([id number]) - 26 VISITS APPROVED AUTH #[id number] DOS 12/05/22 - 12/04/23
[2022-12-09 14:28] VITALS: BP 124/74; PULSE 73; RESP 18; TEMP 36.3; O2SAT 96
[2022-12-09] MEDS: Heparin Sodium,Porcine Flush 500 UNIT/5 ML SYRINGE IVFLUSH (15:01)
--- NOTE | 2022-12-09 16:35 | MHC.HEMONC ---
Here for pump take down and neulasta. Her daughter states she did ok with treatment, except for one episode of sweating and dizziness yesterday, and some tiredness today. VSS. Port flushed with good blood return noted. CA-125 drawn as ordered. Port flushed with heparin 500units and de-accessed. Neulasta given right arm and tolerated well. Departed unit. Has calendar with next appointment.
[2022-12-12 17:37] LABS: CA-125 10 U/mL (<35)
--- NOTE | 2022-12-14 11:54 | HO.HEMONCSCH ---
Pt's dtr called, reported she would like to have pt come for pre-chemo labs next Mon, 12/19, instead of Mon, 12/20, for tx on 12/21. Nurse rescheduled pt's lab appt.
[2022-12-19 13:35] LABS: Hematocrit 32.5 % (37.0-47.0); Hemoglobin 11.3 g/dl (12.0-16.0); Mean Corpuscular HGB Conc 34.8 g/dl (31.0-35.0); Mean Corpuscular Hemoglobin 30.2 pg (27.0-33.0); Mean Corpuscular Volume 86.9 fL (80.0-98.0); Mean Platelet Volume 8.7 fL (9.4-12.3); Platelet Count 208 X10*3/uL (160-400); Red Blood Count 3.74 X10*6/uL (4.20-5.50)
[2022-12-19 13:55] LABS: Alanine Aminotransferase 21 U/L (0-31); Albumin Level 4.1 g/dL (3.5-5.0); Alkaline Phosphatase 128 U/L (39-117); Anion Gap 11 (12-20); Aspartate Amino Transferase 19 U/L (5-31); Bilirubin Total 0.2 mg/dL (0.0-1.0); Blood Urea Nitrogen 16 mg/dL (9-16); Carbon Dioxide 27 mmol/L (22-29); Chloride 104 mmol/L (96-108); Creatinine Clr Calc Pharmacy 72.1; Estimated Glomerular Filt Rate > 60; Glucose Random 135 mg/dL (60-115); Potassium 3.4 mmol/L (3.3-5.1); Sodium 139 mmol/L (135-145); Total Protein 7.3 g/dL (6.5-8.0); WBC ABN SCTR FOR CBC 1
[2022-12-19 14:40] LABS: Band Neutrophils Percent 15 % (3-5); Lymphocytes Percent Manual 18 % (20-40); Metamyelocytes Percent 1 %; Monocytes Percent Manual 5 % (2-11); Neutrophils Percent Manual 61 % (45-73)
[2022-12-19 14:43] LABS: Dohle Bodies PRESENT; Platelet Estimate NORMAL (NORMAL); Platelet Morphology Comment NORMAL; RBC Morphology NORMAL
[2022-12-19 14:44] LABS: Lymphocytes Absolute Manual 4.1 X10*3/uL (1.2-4.9); Metamyelocytes Absolute 0.2 X10*3/uL; Monocytes Absolute Manual 1.1 X10*3/uL (0.1-1.2); Neutrophils Absolute Manual 17.4 X10*3/uL (2.0-8.3); White Blood Count 22.9 X10*3/uL (4.8-10.8)
[2022-12-21 08:15] VITALS: BP 154/93; PULSE 85; RESP 18; TEMP 36.8; O2SAT 98; BMI 26.4
[2022-12-21 08:47] LABS: Hematocrit 31.8 % (37.0-47.0); Mean Corpuscular HGB Conc 34.6 g/dl (31.0-35.0); Mean Corpuscular Hemoglobin 30.6 pg (27.0-33.0); Mean Corpuscular Volume 88.6 fL (80.0-98.0); Mean Platelet Volume 9.2 fL (9.4-12.3); Platelet Count 230 X10*3/uL (160-400); Red Blood Count 3.59 X10*6/uL (4.20-5.50); Red Cell Distribution Width 13.3 % (11.0-16.0); White Blood Count 17.3 X10*3/uL (4.8-10.8)
[2022-12-21 09:00] LABS: Alanine Aminotransferase 23 U/L (0-31); Albumin Level 3.9 g/dL (3.5-5.0); Alkaline Phosphatase 125 U/L (39-117); Anion Gap 12 (12-20); Aspartate Amino Transferase 21 U/L (5-31); Bilirubin Total 0.1 mg/dL (0.0-1.0); Blood Urea Nitrogen 20 mg/dL (9-16); Calcium 9.7 mg/dL (8.4-10.2); Carbon Dioxide 27 mmol/L (22-29); Chloride 103 mmol/L (96-108); Creatinine Clr Calc Pharmacy 66.1; Estimated Glomerular Filt Rate > 60; Glucose Random 190 mg/dL (60-115); Potassium 3.2 mmol/L (3.3-5.1); Sodium 139 mmol/L (135-145)
[2022-12-21 09:17] LABS: Band Neutrophils Percent 17 % (3-5); Eosinophils Absolute Manual 0.3 X10*3/uL (0.0-0.4); Eosinophils Percent Manual 2 % (0-4); Lymphocytes Absolute Manual 4.7 X10*3/uL (1.2-4.9); Lymphocytes Percent Manual 27 % (20-40); Metamyelocytes Absolute 0.7 X10*3/uL; Metamyelocytes Percent 4 %; Monocytes Absolute Manual 0.5 X10*3/uL (0.1-1.2); Monocytes Percent Manual 3 % (2-11); Myelocytes Absolute 0.3 X10*/uL; Myelocytes Percent 2 %; Neutrophils Absolute Manual 10.7 X10*3/uL (2.0-8.3); Neutrophils Percent Manual 45 % (45-73); Nucleated Red Blood Cells 1 /100WBC (0-0)
[2022-12-21 09:19] LABS: Dohle Bodies PRESENT; Platelet Estimate NORMAL (NORMAL); Platelet Morphology Comment NORMAL; RBC Morphology NORMAL
[2022-12-21] MEDS: Famotidine/PF 20 MG/2 ML VIAL IVPUSH (09:32)
[2022-12-21] MEDS: diphenhydrAMINE HCL 25 MG CAPSULE PO (09:32)
[2022-12-21] MEDS: Acetaminophen 325 MG TABLET 650 MG PO (09:32)
[2022-12-21] MEDS: dexAMETHasone sod phosphate/NS 12 MG/50 ML PIGGYBACK 200 MG IV (09:33)
[2022-12-21] MEDS: Atropine Sulfate 1 MG/ML VIAL 0.5 MG SUBCUT (09:33)
[2022-12-21] MEDS: Fosaprepitant Dimeglumine 150 MG in 0.9 % Sodium Chloride 145 ML 300 MG IV (10:17)
[2022-12-21] MEDS: OXALIplatin 100 MG, OXALIplatin 40 MG in Dextrose 5 % 500 ML 264 MG IV (11:14)
--- NOTE | 2022-12-21 12:43 | MHC.HEMONC ---
pt report tolerating last treatment well, only complaint was diarrhea for 3 days x1 resolved on its own. wbc [address] cervantes aware will continue with neulasta
[2022-12-21] MEDS: Leucovorin Calcium 660 MG in Dextrose 5 % 250 ML 141.5 MG IV (13:22)
[2022-12-21] MEDS: IRINOTECAN HCL IV (14:00)
[2022-12-21] MEDS: DEXTROSE 5% IV (14:00)
--- NOTE | 2022-12-21 15:31 | HO.HEMONCSCH ---
Per pt's request, nurse called pt's PCP, asked to reschedule pt's upcoming PCP appt which was scheduled for tomorrow, 12/22, as pt says she is exhausted and can't make it. Nurse called Dr. Driscoll's office, was able to reschedule pt's appt for next 12/27/22 at 09:30 am. Pt was informed, was appreciative.
[2022-12-21] MEDS: fluorouraciL 650 MG in Syringe 0 ML 156 MG IVPUSH (15:36)
[2022-12-21] MEDS: FLUOROURACIL IVCONT (15:37)
[2022-12-21] MEDS: SODIUM CHLORIDE 0.9% IVCONT (15:37)
--- NOTE | 2022-12-22 12:08 | MHC.HEMONC ---
Pt's dtr called, said she is confused, since she was told pt will have 6 txs, but there is only one other chemo appt scheduled in 2 weeks. Nurse explained that the clinic nurses do not schedule numerous txs in advance, since tx schedule is tentative and will often be adjusted due to abnormal labs/scans, or pt intolerance of tx. Dtr was receptive to this. Nurse estimated that, if tx goes according to plan, her 6th FOLFIRINOX tx would be on 02/15/23, w/ pump takedown on 02/17/23.
[2022-12-23 11:51] VITALS: BP 151/70; PULSE 63; RESP 18; TEMP 36.6; O2SAT 97
[2022-12-23] MEDS: Heparin Sodium,Porcine Flush 500 UNIT/5 ML SYRINGE IVFLUSH (11:58)
--- NOTE | 2022-12-23 12:42 | MHC.HEMONC ---
Chemo pump disconnect: confirmed reservoir volume zero. No complaints at this time. VSS. Port flushed with Heparin and de-accessed. Patient declined discharge packet.
--- NOTE | 2022-12-26 12:11 | MHC.HEMONC ---
I spoke to pt daughter (Alda). Pt has appt at [facility] on March 07 to meet with Surgeon. She will need CT prior. Pt had MRI for [facility] yesterday.
--- NOTE | 2022-12-26 15:49 | HO.HEMONCSCH ---
PET/CT SKULL TO THIGH ([id number]) BOOKED WITH [facility] ON 01/04/24 AT 12:45 PM (GIVEN TO SARIAH)
--- NOTE | 2022-12-28 15:40 | MHC.HEMONC ---
[facility] Nurse Jumbo Operator # is [phone] [id number]
[2023-01-03 12:15] LABS: Hematocrit 31.4 % (37.0-47.0); Hemoglobin 11.1 g/dl (12.0-16.0); Mean Corpuscular HGB Conc 35.4 g/dl (31.0-35.0); Mean Corpuscular Hemoglobin 30.9 pg (27.0-33.0); Mean Corpuscular Volume 87.5 fL (80.0-98.0); Mean Platelet Volume 8.5 fL (9.4-12.3); NRBC Pct Auto 0.2 /100WBC (0.0-0.2); Platelet Count 216 X10*3/uL (160-400); Red Blood Count 3.59 X10*6/uL (4.20-5.50); Red Cell Distribution Width 14.7 % (11.0-16.0); White Blood Count 23.2 X10*3/uL (4.8-10.8)
[2023-01-03 12:32] LABS: Alanine Aminotransferase 54 U/L (0-31); Albumin Level 4.3 g/dL (3.5-5.0); Alkaline Phosphatase 166 U/L (39-117); Anion Gap 13 (12-20); Aspartate Amino Transferase 36 U/L (5-31); Bilirubin Total 0.2 mg/dL (0.0-1.0); Blood Urea Nitrogen 22 mg/dL (9-16); Calcium 9.7 mg/dL (8.4-10.2); Carbon Dioxide 27 mmol/L (22-29); Chloride 103 mmol/L (96-108); Estimated Glomerular Filt Rate > 60; Glucose Random 117 mg/dL (60-115); Sodium 140 mmol/L (135-145); Total Protein 7.7 g/dL (6.5-8.0)
[2023-01-03 12:39] LABS: Band Neutrophils Percent 6 % (3-5); Eosinophils Absolute Manual 0.2 X10*3/uL (0.0-0.4); Eosinophils Percent Manual 1 % (0-4); Lymphocytes Absolute Manual 4.6 X10*3/uL (1.2-4.9); Lymphocytes Percent Manual 20 % (20-40); Metamyelocytes Absolute 0.7 X10*3/uL; Metamyelocytes Percent 3 %; Monocytes Absolute Manual 1.4 X10*3/uL (0.1-1.2); Monocytes Percent Manual 6 % (2-11); Myelocytes Absolute 0.2 X10*/uL; Myelocytes Percent 1 %; Neutrophils Absolute Manual 15.8 X10*3/uL (2.0-8.3); Neutrophils Percent Manual 62 % (45-73); Promyelocytes Absolute 0.2 X10*3/uL; Promyelocytes Percent 1 %
[2023-01-03 12:43] LABS: Burr Cells 1+ (0-2) /OIF; Platelet Estimate NORMAL (NORMAL); Platelet Morphology Comment NORMAL; Polychromasia 1+ (0-2) /OIF; RBC Morphology NOTED
[2023-01-04 08:04] VITALS: BP 138/75; PULSE 89; RESP 18; TEMP 36.7; O2SAT 98; BMI 26.6
[2023-01-04] MEDS: Famotidine/PF 20 MG/2 ML VIAL IVPUSH (08:18)
[2023-01-04] MEDS: dexAMETHasone sod phosphate/NS 12 MG/50 ML PIGGYBACK 200 MG IV (08:18)
[2023-01-04] MEDS: Atropine Sulfate 1 MG/ML VIAL 0.5 MG SUBCUT (08:19)
[2023-01-04] MEDS: Acetaminophen 325 MG TABLET 650 MG PO (08:19)
[2023-01-04] MEDS: diphenhydrAMINE HCL 25 MG CAPSULE PO (08:19)
[2023-01-04] MEDS: Fosaprepitant Dimeglumine 150 MG in 0.9 % Sodium Chloride 145 ML 300 MG IV (09:00)
--- NOTE | 2023-01-04 09:20 | MHC.HEMONC ---
pt report feeling and doing very well, only complaint is having diarrhea everyday but its only once a day controlled with pepto bismol. potassium still slightly low pt will eat more potatoes, bananas and drink coconut water. pt also request a letter for refund for travel, [employer]. pt went to [facility] in november will return mar 07 to talk about surgery plan
[2023-01-04] MEDS: OXALIplatin 100 MG, OXALIplatin 40 MG in Dextrose 5 % 500 ML 264 MG IV (09:43)
[2023-01-04] MEDS: Leucovorin Calcium 640 MG in Dextrose 5 % 250 ML 141 MG IV (11:51)
[2023-01-04] MEDS: DEXTROSE 5% IV (12:23)
[2023-01-04] MEDS: IRINOTECAN HCL IV (12:23)
[2023-01-04] MEDS: FLUOROURACIL 150 MG IVPUSH (14:01)
[2023-01-04] MEDS: SODIUM CHLORIDE 0.9% IVCONT (14:02)
[2023-01-04] MEDS: FLUOROURACIL IVCONT (14:02)
[2023-01-06 11:42] VITALS: BP 149/81; PULSE 72; RESP 18; TEMP 37.1; O2SAT 98; BMI 26.6
[2023-01-06] MEDS: Heparin Sodium,Porcine Flush 500 UNIT/5 ML SYRINGE IVFLUSH (12:00)
--- NOTE | 2023-01-06 12:13 | MHC.HEMONC ---
Pt here for chemo pump take down. Port flushed with heparin and de accessed. Neulasta SC given in left arm-tolerated well (PA good till 12/04/23) Pt and daughter aware of next appointment
--- NOTE | 2023-01-17 08:41 | HE.ONCSEC ---
LVM reminding pt of appt on 01/18/23
[2023-01-17 14:31] LABS: Hematocrit 32.1 % (37.0-47.0); Hemoglobin 11.3 g/dl (12.0-16.0); Mean Corpuscular HGB Conc 35.2 g/dl (31.0-35.0); Mean Corpuscular Volume 88.2 fL (80.0-98.0); NRBC Pct Auto 0.1 /100WBC (0.0-0.2); Platelet Count 210 X10*3/uL (160-400); Red Blood Count 3.64 X10*6/uL (4.20-5.50); White Blood Count 19.9 X10*3/uL (4.8-10.8)
[2023-01-17 14:43] LABS: Alanine Aminotransferase 46 U/L (0-31); Albumin Level 4.3 g/dL (3.5-5.0); Alkaline Phosphatase 177 U/L (39-117); Anion Gap 15 (12-20); Aspartate Amino Transferase 34 U/L (5-31); Bilirubin Total 0.2 mg/dL (0.0-1.0); Blood Urea Nitrogen 16 mg/dL (9-16); Calcium 10.3 mg/dL (8.4-10.2); Carbon Dioxide 24 mmol/L (22-29); Chloride 103 mmol/L (96-108); Creatinine Clr Calc Pharmacy 69.3; Estimated Glomerular Filt Rate > 60; Glucose Random 155 mg/dL (60-115); Potassium 3.1 mmol/L (3.3-5.1); Sodium 139 mmol/L (135-145); Total Protein 7.9 g/dL (6.5-8.0)
[2023-01-17 16:06] LABS: Band Neutrophils Percent 17 % (3-5); Lymphocytes Percent Manual 25 % (20-40); Metamyelocytes Absolute 0.2 X10*3/uL; Metamyelocytes Percent 1 %; Monocytes Absolute Manual 0.6 X10*3/uL (0.1-1.2); Monocytes Percent Manual 3 % (2-11); Myelocytes Absolute 0.4 X10*/uL; Myelocytes Percent 2 %; Neutrophils Absolute Manual 13.7 X10*3/uL (2.0-8.3); Neutrophils Percent Manual 52 % (45-73)
[2023-01-17 16:09] LABS: Platelet Estimate NORMAL (NORMAL); Platelet Morphology Comment NORMAL; Polychromasia 1+ (0-2) /OIF; RBC Morphology NOTED
--- NOTE | 2023-01-18 08:07 | P.PNHO-ONC_ITS ---
Medical Summary - Medical Summary Date of Service: 01/18/23 Chief complaint: Follow-up and scheduled treatment Primary Care Provider: Cesar Driscoll MD Medical Summary: Diagnosis: Pancreatic adenocarcinoma 10/2022 She has a history of chronic abdominal pain and has been seen by GI specialists over the years. A workup with both endoscopy/colonoscopy in previous imaging with CT abdomen/pelvis in 2019 in 2020 were negative. On 10/13/2022 she presented with [facility] with complaints of abdominal pain, CT abdomen/pelvis with contrast showed a 1.2 cm lesion in the body of the pancreas, bulky appearance of pancreatic body with mild peripancreatic stranding. Prominent pancreatic duct measuring up to 3 mm. No lymphadenopathy. Interval History Interval history: Patient is here in follow-up scheduled treatment. She is here for cycle 4 chemotherapy. She is doing quite well, tolerating treatment without any problems. Denies any significant nausea, she had 1 or 2 episodes of diarrhea that resolved with Imodium. She denies any fever or chills. Her abdominal pain/discomfort has resolved completely. Review of Systems - Constitutional Reports as per HPI, Denies fatigue, Denies lack of energy, Denies malaise, Denies weight loss - Cardiovascular Reports no additional cardiovascular complaints - Respiratory Reports no additional respiratory complaints - Gastrointestinal Reports no additional gastrointestinal complaints [facility] Medical History: Medical History (Last Reviewed 12/05/22 @ 07:22 by Dorina Santana DO) Acute pain of left knee Diabetes Family history of ovarian cancer GERD (gastroesophageal reflux disease) HTN (hypertension) OA (osteoarthritis) Overactive bladder Primary osteoarthritis, right hand Urinary urgency Weak urinary stream Family History: Family History (Last Reviewed 12/05/22 @ 07:22 by Dorina Santana DO) Father No problems noted. Mother Colon cancer Brother No problems noted. Brother No problems noted. Brother No problems noted. Sister Ovarian cancer Sister Breast cancer Sister No problems noted. Sister No problems noted. Daughter No problems noted. Daughter No problems noted. Surgical History: Surgical History (Last Reviewed 12/05/22 @ 07:22 by Dorina Santana DO) History of bladder suspension procedure History of tubal ligation Hx of colonoscopy Hx of esophagogastroduodenoscopy Social History: Social History (Last Reviewed 12/05/22 @ 07:22 by Dorina Santana DO) Living Situation History: Household Members: None Housing: Apartment Are you a primary care connector to a significant other at home: No Do you presently have visiting nurse or other home services: No Tobacco History: Patient Tobacco Use Status: Never used Tobacco e-Cigarette/Vaping Use: Never Used Second Hand Smoke Exposure: No Advance Directives: Advance Directives Date on File: 03/11/20 Occupation Assessmet: service: No Current occupational status: retired 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 Current occupational exposures/hazards: No Sex/Gender Assessment: Gender identity: Female Home Medications and Allergies Current Medications: Current Medications Acetaminophen (Acetaminophen 325 Mg Tablet) 650 mg PO ONCE BAYLEE Stop: 01/18/23 23:59 Atropine Sulfate (Atropine Sulfate 1 Mg/Ml Vial) 0.5 mg SUBCUT ONCE BAYLEE Stop: 01/18/23 23:59 Diphenhydramine HCl (Diphenhydramine Hcl 25 Mg Capsule) 25 mg PO ONCE BAYLEE Stop: 01/18/23 23:59 Famotidine (Famotidine/Pf 20 Mg/2 Ml Vial) 20 mg IVPUSH ONCE BAYLEE Stop: 01/18/23 23:59 Dexamethasone Sodium Phosphate (Decadron) 12 mg in 50 mls @ 200 mls/hr IV ONCE BAYLEE Stop: 01/18/23 23:59 Fosaprepitant 150 mg/ Sodium (Chloride) 150 mls @ 300 mls/hr IV ONCE BAYLEE Stop: 01/18/23 23:59 Palonosetron (Palonosetron 0.25 Mg/5 Ml Vial) 0.25 mg IVPUSH ONCE BAYLEE Stop: 01/18/23 23:59 Home Medications Medication Instructions Recorded Confirmed Type magnesium 200 mg tablet 200 mg PO DAILY 12/07/22 12/27/22 History vitamin B complex 1 cap PO DAILY 12/07/22 12/27/22 History Allergies Allergy/AdvReac Type Severity Reaction Status Date / Time No Known Allergies Allergy Verified 12/05/22 06:33 Exam Vital signs: Vital Signs Temp 98.7 F 01/06/23 11:42 Pulse 72 01/06/23 11:42 Resp 18 01/06/23 11:42 BP 149/81 H 01/06/23 11:42 Pulse Ox 98 01/06/23 11:42 O2 Del Method Room Air 01/06/23 11:42 Weight 61.8 kg BMI result Body Mass Index 26.6 - Constitutional Present: no acute distress - Routine HEENT Exam Head: Present: normal inspection - Routine Respiratory Exam Absent: accessory muscle use - Routine Cardiovascular Exam Cardiovascular: Present: RRR, S1, S2 - Routine Abdominal Exam Present: soft, tenderness - Routine Extremities Exam Absent: pedal edema - Routine Skin Exam Present: intact - Routine Neurological Exam Present: alert, oriented X3 Data - Labs CBC & Chem 7: 01/17/23 14:08 01/17/23 14:08 Assessment and Plan Patient Active problem list reviewed?: Yes (1) Mass of pancreas Status: Acute Assessment and plan: 1. This is a 62-year-old woman presenting with pancreatic adenocarcinoma diagnosed in October 2022. A CT abdomen and subsequently MRI of abdomen with contrast on 10/19/2022 demonstrated a 2.7 x 1.7 cm hypoattenuating mass centered in the pancreatic body. Distal to the mass few small cysts measuring up to 8 mm in the pancreatic head. No contact with the SMA, celiac axis or common hepatic artery. No contact with the portal vein or superior mesenteric vein. No tumor or bland thrombus or dilated venous collaterals. No lymphadenopathy or evidence of metastatic disease in the abdomen. CA 19 9 elevated, over 500 unit/mL. Staging CT chest and bone scan performed at [facility] was negative for metastatic disease. She underwent endoscopic ultrasound by Dr. Munoz on 11/24/2022 at [facility] which revealed brown mass in the pancreatic body, hypoechoic measuring 13 mm x 24 mm. Borders were well-defined. FNA cytology was adenocarcinoma. She started preoperative/ neoadjuvant chemotherapy with FOLFIRINOX regimen in October, today is cycle 4. She had a PET-CT 01/03/2023 which revealed mild FDG activity associated with pancreatic mass, SUV 4.7 no additional foci of abnormal activity in the abdomen, chest or bones. No yymphadenopathy. She was seen at [place] for surgical recommendations as well. Genetic assessment for inherited cancer syndrome will be performed after she completes neoadjuvant chemotherapy. Follow-up in 3 weeks. - Time Spent With Patient Time Spent with Patient (in minutes): 15
[2023-01-18] MEDS: diphenhydrAMINE HCL 25 MG CAPSULE PO (08:23)
[2023-01-18] MEDS: dexAMETHasone sod phosphate/NS 12 MG/50 ML PIGGYBACK 200 MG IV (08:23)
[2023-01-18] MEDS: Famotidine/PF 20 MG/2 ML VIAL IVPUSH (08:23)
[2023-01-18] MEDS: Atropine Sulfate 1 MG/ML VIAL 0.5 MG SUBCUT (08:23)
[2023-01-18] MEDS: Acetaminophen 325 MG TABLET 650 MG PO (08:24)
[2023-01-18 08:30] VITALS: BP 185/90; PULSE 86; RESP 18; TEMP 36.4; O2SAT 99; BMI 25.7
[2023-01-18] MEDS: Alteplase Cath Clear 2 MG/2 ML VIAL INTRACATH (09:32)
[2023-01-18] MEDS: Fosaprepitant Dimeglumine 150 MG in 0.9 % Sodium Chloride 145 ML 300 MG IV (10:23)
[2023-01-18 10:24] VITALS: BP 125/65
--- NOTE | 2023-01-18 10:27 | MHC.HEMONC ---
atp needed, blood return after 37 min, ok to use port. [facility] gi report received. pt offered no new complaints
[2023-01-18] MEDS: OXALIplatin 100 MG, OXALIplatin 40 MG in Dextrose 5 % 500 ML 264 MG IV (11:46)
[2023-01-18] MEDS: LEUCOVORIN CALCIUM IV (13:52)
[2023-01-18] MEDS: DEXTROSE 5% IV ×2 (13:52→14:29)
[2023-01-18] MEDS: IRINOTECAN HCL IV (14:29)
[2023-01-18] MEDS: fluorouraciL 650 MG in Syringe 0 ML 156 MG IVPUSH (16:09)
[2023-01-18] MEDS: FLUOROURACIL IVCONT (16:10)
[2023-01-18] MEDS: SODIUM CHLORIDE 0.9% IVCONT (16:10)
[2023-01-20 08:58] LABS: Carbohydrate Antigen 19-9 495 U/mL (<34)
[2023-01-20] MEDS: Heparin Sodium,Porcine Flush 500 UNIT/5 ML SYRINGE IVFLUSH (13:27)
[2023-01-31 12:29] LABS: Hematocrit 30.3 % (37.0-47.0); Hemoglobin 10.3 g/dl (12.0-16.0); Mean Corpuscular Hemoglobin 31.1 pg (27.0-33.0); Mean Corpuscular Volume 91.5 fL (80.0-98.0); NRBC Pct Auto 0.2 /100WBC (0.0-0.2); Red Blood Count 3.31 X10*6/uL (4.20-5.50); White Blood Count 13.1 X10*3/uL (4.8-10.8)
[2023-01-31 12:45] LABS: Alanine Aminotransferase 56 U/L (0-31); Alkaline Phosphatase 171 U/L (39-117); Anion Gap 13 (12-20); Aspartate Amino Transferase 39 U/L (5-31); Bilirubin Total 0.3 mg/dL (0.0-1.0); Blood Urea Nitrogen 12 mg/dL (9-16); Calcium 10.7 mg/dL (8.4-10.2); Carbon Dioxide 22 mmol/L (22-29); Chloride 108 mmol/L (96-108); Creatinine Clr Calc Pharmacy 65.3; Estimated Glomerular Filt Rate > 60; Glucose Random 160 mg/dL (60-115); Potassium 3.3 mmol/L (3.3-5.1); Sodium 140 mmol/L (135-145)
[2023-01-31 12:53] LABS: Mean Platelet Volume 9.1 fL (9.4-12.3); Platelet Count 120 X10*3/uL (160-400)
[2023-01-31 13:00] LABS: Band Neutrophils Percent 5 % (3-5); Basophils Abs Manual 0.1 X10*3/uL (0.0-0.2); Basophils Percent Manual 1 % (0-2); Lymphocytes Percent Manual 23 % (20-40); Monocytes Absolute Manual 0.9 X10*3/uL (0.1-1.2); Monocytes Percent Manual 7 % (2-11); Neutrophils Percent Manual 64 % (45-73)
[2023-01-31 13:04] LABS: RBC Morphology NOTED
[2023-01-31 13:05] LABS: Platelet Estimate SLIGHTLY DECREASED (NORMAL); Platelet Morphology Comment NORMAL; Polychromasia 1+ (0-2) /OIF; Tear Drop Cells 1+ (0-2) /OIF
[2023-01-31 13:07] LABS: Dohle Bodies PRESENT
[2023-02-01 08:11] VITALS: BP 151/76; PULSE 89; RESP 18; TEMP 36.7; O2SAT 99; BMI 25.9
[2023-02-01] MEDS: Acetaminophen 325 MG TABLET 650 MG PO (08:37)
[2023-02-01] MEDS: Famotidine/PF 20 MG/2 ML VIAL IVPUSH (08:38)
[2023-02-01] MEDS: diphenhydrAMINE HCL 25 MG CAPSULE PO (08:38)
[2023-02-01] MEDS: Atropine Sulfate 1 MG/ML VIAL 0.5 MG SUBCUT (08:38)
[2023-02-01] MEDS: dexAMETHasone sod phosphate/NS 12 MG/50 ML PIGGYBACK 200 MG IV (08:38)
[2023-02-01] MEDS: Fosaprepitant Dimeglumine 150 MG in 0.9 % Sodium Chloride 145 ML 300 MG IV (10:14)
[2023-02-01] MEDS: OXALIplatin 100 MG, OXALIplatin 40 MG in Dextrose 5 % 500 ML 264 MG IV (10:50)
[2023-02-01] MEDS: Leucovorin Calcium 640 MG in Dextrose 5 % 250 ML 141 MG IV (13:01)
[2023-02-01] MEDS: DEXTROSE 5% IV (13:33)
[2023-02-01] MEDS: IRINOTECAN HCL IV (13:33)
[2023-02-01] MEDS: FLUOROURACIL 150 MG IVPUSH (15:37)
[2023-02-01] MEDS: FLUOROURACIL IVCONT (15:38)
[2023-02-01] MEDS: SODIUM CHLORIDE 0.9% IVCONT (15:38)
[2023-02-03] MEDS: Heparin Sodium,Porcine Flush 500 UNIT/5 ML SYRINGE IVFLUSH (14:16)
--- NOTE | 2023-02-03 15:52 | MHC.HEMONC ---
Here for pump take down. Tolerated treatment well. Port flushed with heparin 500units and de-accessed. Neulasta 6mg sc given left arm and tolerated well. Next treatment in 2 weeks. Departed unit.
--- NOTE | 2023-02-14 08:53 | HE.ONCSEC ---
LVM reminding pt of appt on 02/15/23
[2023-02-14 12:41] LABS: MANUAL DIFF FLAG NO
[2023-02-14 12:45] LABS: Basophils Absolute Auto 0.1 X10*3/uL (0.0-0.2); Basophils Percent Auto 0.5 % (0-2); Eosinophils Absolute Auto 0.1 X10*3/uL (0.0-0.4); Eosinophils Percent Auto 0.4 % (0-4); Hematocrit 29.4 % (37.0-47.0); Hemoglobin 10.1 g/dl (12.0-16.0); Imm Gran Abs Auto 0.35 X10*3/uL (0.00-0.03); Imm Gran Pct Auto 2.7 % (0.0-0.4); Lymphocytes Absolute Auto 2.8 X10*3/uL (1.2-4.9); Lymphocytes Percent Auto 21.4 % (20-40); Mean Corpuscular HGB Conc 34.4 g/dl (31.0-35.0); Mean Corpuscular Hemoglobin 32.2 pg (27.0-33.0); Mean Corpuscular Volume 93.6 fL (80.0-98.0); Mean Platelet Volume 8.5 fL (9.4-12.3); Monocytes Absolute Auto 1.4 X10*3/uL (0.1-1.2); Neutrophils Absolute Auto 8.2 x10*3/uL (2.0-8.3); Platelet Count 122 X10*3/uL (160-400); Red Blood Count 3.14 X10*6/uL (4.20-5.50); Red Cell Distribution Width 20.4 % (11.0-16.0); White Blood Count 12.8 X10*3/uL (4.8-10.8)
[2023-02-14 12:59] LABS: Alanine Aminotransferase 42 U/L (0-31); Albumin Level 3.9 g/dL (3.5-5.0); Alkaline Phosphatase 165 U/L (39-117); Anion Gap 12 (12-20); Aspartate Amino Transferase 37 U/L (5-31); Bilirubin Total 0.2 mg/dL (0.0-1.0); Blood Urea Nitrogen 23 mg/dL (9-16); Calcium 9.9 mg/dL (8.4-10.2); Carbon Dioxide 25 mmol/L (22-29); Chloride 106 mmol/L (96-108); Creatinine Clr Calc Pharmacy 72.6; Estimated Glomerular Filt Rate > 60; Glucose Random 158 mg/dL (60-115); Potassium 3.3 mmol/L (3.3-5.1); Sodium 140 mmol/L (135-145); Total Protein 7.1 g/dL (6.5-8.0)
[2023-02-15 08:12] VITALS: BP 178/70; PULSE 79; RESP 18; TEMP 36.9; O2SAT 100; BMI 25.6
[2023-02-15] MEDS: Famotidine/PF 20 MG/2 ML VIAL IVPUSH (08:42)
[2023-02-15] MEDS: Acetaminophen 325 MG TABLET 650 MG PO (08:42)
[2023-02-15] MEDS: dexAMETHasone sod phosphate/NS 12 MG/50 ML PIGGYBACK 200 MG IV (08:42)
[2023-02-15] MEDS: diphenhydrAMINE HCL 25 MG CAPSULE PO (08:42)
[2023-02-15] MEDS: Atropine Sulfate 1 MG/ML VIAL 0.5 MG SUBCUT (08:43)
[2023-02-15] MEDS: Fosaprepitant Dimeglumine 150 MG in 0.9 % Sodium Chloride 145 ML 300 MG IV (09:30)
[2023-02-15] MEDS: OXALIPLATIN IV (10:07)
[2023-02-15] MEDS: DEXTROSE 5% IV ×3 (10:07→12:41)
--- NOTE | 2023-02-15 10:27 | MHC.HEMONC ---
Addendum entered by Sera Alvares RN 02/15/23 13:00: daughter arrived to clarify that [facility] is requesting a PET scan. pt had PET in december. pt and family made aware that dr cervantes will enter order however insurance may deny to do being to close to last scan. will keep mri order just incase Original Note: last treatment today. pt has appointment 03/07 at [facility] for surgery. mri to be done before this date with results faxed to [facility]. follow up and port flush next month
[2023-02-15] MEDS: LEUCOVORIN CALCIUM IV (12:07)
[2023-02-15] MEDS: IRINOTECAN HCL IV (12:41)
[2023-02-15] MEDS: FLUOROURACIL 150 MG IVPUSH (14:13)
[2023-02-15] MEDS: SODIUM CHLORIDE 0.9% IVCONT (14:14)
[2023-02-15] MEDS: FLUOROURACIL IVCONT (14:14)
[2023-02-17] MEDS: Heparin Sodium,Porcine Flush 500 UNIT/5 ML SYRINGE IVFLUSH (12:47)
--- NOTE | 2023-02-17 17:24 | MHC.HEMONC ---
Pump take down- confirmed reservoir volume zero. Port flushed with Heparin and de-accessed. Neulasta 6mg administered and well tolerated.
[2023-03-22 10:58] VITALS: BP 147/77; PULSE 74; O2SAT 97
--- NOTE | 2023-03-22 11:02 | P.PNHO-ONC_ITS ---
Medical Summary - Medical Summary Date of Service: 03/22/23 Chief complaint: Follow-up Primary Care Provider: Cesar Driscoll MD Medical Summary: Diagnosis: Pancreatic adenocarcinoma 10/2022 She has a history of chronic abdominal pain and has been seen by GI specialists over the years. A workup with both endoscopy/colonoscopy in previous imaging with CT abdomen/pelvis in 2019 in 2020 were negative. On 10/13/2022 she presented with [facility] with complaints of abdominal pain, CT abdomen/pelvis with contrast showed a 1.2 cm lesion in the body of the pancreas, bulky appearance of pancreatic body with mild peripancreatic stranding. Prominent pancreatic duct measuring up to 3 mm. No lymphadenopathy. Interval History Interval history: Patient is here in follow-up. She is accompanied by her daughter today. She is doing quite well, tolerating treatment without any problems. She has undergone abdominal MRI. She is scheduled to undergo surgery in March at [facility]. She is being scheduled for a CT chest and blood work at [facility] [place] next week. She has no complaints at this time. Review of Systems - Constitutional Reports as per HPI, Denies fatigue, Denies lack of energy, Denies malaise, Denies poor appetite, Denies weight loss - Cardiovascular Reports no additional cardiovascular complaints - Respiratory Reports no additional respiratory complaints - Gastrointestinal Reports no additional gastrointestinal complaints [facility] Medical History: Medical History (Last Reviewed 03/22/23 @ 10:58 by Toshia Drake) Acute pain of left knee Diabetes Family history of ovarian cancer GERD (gastroesophageal reflux disease) HTN (hypertension) OA (osteoarthritis) Overactive bladder Primary osteoarthritis, right hand Urinary urgency Weak urinary stream Family History: Family History (Last Reviewed 03/22/23 @ 10:58 by Toshia Drake) Father No problems noted. Mother Colon cancer Brother No problems noted. Brother No problems noted. Brother No problems noted. Sister Ovarian cancer Sister Breast cancer Sister No problems noted. Sister No problems noted. Daughter No problems noted. Daughter No problems noted. Surgical History: Surgical History (Last Reviewed 03/22/23 @ 10:58 by Toshia Drake) History of bladder suspension procedure History of tubal ligation Hx of colonoscopy Hx of esophagogastroduodenoscopy Social History: Social History (Last Reviewed 03/22/23 @ 10:58 by Toshia Drake) Living Situation History: Household Members: None Housing: Apartment Are you a primary attending ambulatory care to a significant other at home: No Do you presently have visiting nurse or other home services: No Tobacco History: Patient Tobacco Use Status: Never used Tobacco e-Cigarette/Vaping Use: Never Used Second Hand Smoke Exposure: No Advance Directives: Advance Directives Date on File: 03/11/20 Occupation Assessmet: service: No Current occupational status: retired 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 Current occupational exposures/hazards: No Sex/Gender Assessment: Gender identity: Female Home Medications and Allergies Current Medications: Current Medications Irinotecan HCl 280 mg/ (Dextrose) 514 mls @ 342.667 mls/hr IV ONCE BAYLEE Last Infusion: 02/15/23 14:11 Dose: Infused Home Medications Medication Instructions Recorded Confirmed Type magnesium 200 mg tablet 200 mg PO DAILY 12/07/22 03/22/23 History vitamin B complex 1 cap PO DAILY 12/07/22 03/22/23 History Allergies Allergy/AdvReac Type Severity Reaction Status Date / Time No Known Allergies Allergy Verified 03/22/23 10:58 Exam Vital signs: Vital Signs Temp 98.5 F 02/15/23 08:12 Pulse 74 03/22/23 10:58 Resp 18 02/15/23 08:12 BP 147/77 H 03/22/23 10:58 Pulse Ox 97 03/22/23 10:58 O2 Del Method Room Air 03/22/23 10:58 Weight 59.5 kg BMI result Body Mass Index 25.6 - Constitutional Present: no acute distress - Routine HEENT Exam Head: Present: normal inspection - Routine Respiratory Exam Absent: accessory muscle use - Routine Cardiovascular Exam Cardiovascular: Present: RRR, S1, S2 - Routine Abdominal Exam Present: soft, tenderness - Routine Extremities Exam Absent: pedal edema - Routine Skin Exam Present: intact - Routine Neurological Exam Present: alert, oriented X3 Data - Labs CBC & Chem 7: 02/14/23 12:40 02/14/23 12:40 Assessment and Plan Patient Active problem list reviewed?: Yes (1) Mass of pancreas Status: Resolved Assessment and plan: 1. This is a 62-year-old woman presenting with pancreatic adenocarcinoma diagnosed in October 2022. A CT abdomen and subsequently MRI of abdomen with contrast on 10/19/2022 demonstrated a 2.7 x 1.7 cm hypoattenuating mass centered in the pancreatic body. Distal to the mass few small cysts measuring up to 8 mm in the pancreatic head. No contact with the SMA, celiac axis or common hepatic artery. No contact with the portal vein or superior mesenteric vein. No tumor or bland thrombus or dilated venous collaterals. No lymphadenopathy or evidence of metastatic disease in the abdomen. CA 19 9 elevated, over 500 unit/mL. Staging CT chest and bone scan performed at [facility] was negative for metastatic disease. She underwent endoscopic ultrasound by Dr. Munoz on 11/24/2022 at [facility] which revealed brown mass in the pancreatic body, hypoechoic measuring 13 mm x 24 mm. Borders were well-defined. FNA cytology was adenocarcinoma. She started preoperative/ neoadjuvant chemotherapy with FOLFIRINOX regimen in October 2022. She had a PET-CT 01/03/2023 which revealed mild FDG activity associated with pancreatic mass, SUV 4.7 no additional foci of abnormal activity in the abdomen, chest or bones. No yymphadenopathy. She received her last cycle of FOLFIRINOX, cycle 6 on 02/15/2023. She is scheduled to undergo surgery for pancreatic cancer at [facility] in March 2023. MRI abdomen performed 03/02/2023 shows decrease in size of mass in pancreatic body, now measures 1.7 cm previously measured 2.3 cm. No lymphadenopathy. Genetic assessment for inherited cancer syndrome was submitted to Nathan today. She will now follow up after her surgery. Follow-up in 6 weeks. - Time Spent With Patient Time Spent with Patient (in minutes): 25
--- NOTE | 2023-03-22 12:58 | MHC.HEMONC ---
follow up with dr cervantes and port flush today. gentic testing done. no blood return noted via port dr cervantes aware flushed with heparin. surgery plan for being of nov and then more chemo after stable.
--- NOTE | 2023-03-23 15:19 | MHC.HEMONC ---
Triage - returned call pt's daughter regarding a Rx refill. Per daughter, Grisel BROOKS was going to give Dr Jones the msg
--- NOTE | 2023-03-24 13:02 | MHC.HEMONC ---
Dr Jones refilled pain rx Vicodin for pt and I called her dtr and informed her.
--- NOTE | 2023-03-28 12:55 | MHC.HEMONC ---
Pt dtr called to say that her mom had an appointment at [facility] yesterday and they did a CT of chest. It showed port tip to be in subclavian vein and should be repositioned. Otherwise, chest was clear and pt will have surgery mid March. I discussed with Dr Jones, port to be removed here (order to be put in and pt to be scheduled) and she will have one reinserted after surgery at [facility]. Pt daughter is aware of plan.
--- NOTE | 2023-04-03 10:32 | MHC.HEMONC ---
Pt has appt tomorrow morning with Dr Loja to schedule port removal. Dr Jones aware.
--- NOTE | 2023-04-14 10:34 | MHC.HEMONC ---
Call left for pt dtr to inform her that Dr Jones has ordered a CXR to ascertain placement.
--- NOTE | 2023-05-02 15:41 | MHC.HEMONC ---
Pt's dtr called, said her mother has port flush appt tomorrow, but apparently Dr. Loja removed and replaced her R chest implanted port on 04/07/23, so dtr asked if she would still need it flushed. Nurse replied that a port that is not being regularly used is generally recommended flushed every 6 or 8 weeks, so it doesn't need to be flushed yet, however nurse also reminded dtr that pt has Onc f/u appt tomorrow as well, on 05/03/23 at 13:20. Dtr confirmed pt will be coming, also since pt is expected to resume chemo, nurse cancelled port flush appt, did not reschedule. Dtr also requested that labs not be drawn from pt's port at this time, per pt's request, prefers to have them drawn from her arm.
--- NOTE | 2023-05-03 13:18 | P.PNHO-ONC_ITS ---
Medical Summary - Medical Summary Date of Service: 05/03/23 Chief complaint: Follow-up Primary Care Provider: Cesar Driscoll MD Medical Summary: Diagnosis: Pancreatic adenocarcinoma 10/2022 She has a history of chronic abdominal pain and has been seen by GI specialists over the years. A workup with both endoscopy/colonoscopy in previous imaging with CT abdomen/pelvis in 2019 in 2020 were negative. On 10/13/2022 she presented with [facility] with complaints of abdominal pain, CT abdomen/pelvis with contrast showed a 1.2 cm lesion in the body of the pancreas, bulky appearance of pancreatic body with mild peripancreatic stranding. Prominent pancreatic duct measuring up to 3 mm. No lymphadenopathy. A CT abdomen and subsequently MRI of abdomen with contrast on 10/19/2022 demonstrated a 2.7 x 1.7 cm hypoattenuating mass centered in the pancreatic body. Distal to the mass few small cysts measuring up to 8 mm in the pancreatic head. No contact with the SMA, celiac axis or common hepatic artery. No contact with the portal vein or superior mesenteric vein. No tumor or bland thrombus or dilated venous collaterals. No lymphadenopathy or evidence of metastatic disease in the abdomen. CA 19 9 elevated, over 500 unit/mL. Staging CT chest and bone scan performed at [facility] [place] was negative for metastatic disease. She underwent endoscopic ultrasound by Dr. Munoz on 11/24/2022 at [facility] which revealed brown mass in the pancreatic body, hypoechoic measuring 13 mm x 24 mm. Borders were well-defined. FNA cytology was adenocarcinoma. She started preoperative/ neoadjuvant chemotherapy with FOLFIRINOX regimen in October 2022. She had a PET-CT 01/03/2023 which revealed mild FDG activity associated with pancreatic mass, SUV 4.7 no additional foci of abnormal activity in the abdomen, chest or bones. No yymphadenopathy. She received her last cycle of FOLFIRINOX, cycle 6 on 02/15/2023. Right MediPort was removed by Dr. Loja because of malpositioning and reinserted in March 2023. Interval History Interval history: Patient is here in follow-up. She is accompanied by her daughter today. She underwent laparoscopic pancreatectomy at [facility] on 04/19/2023. She tolerated surgery well. She is here to discuss further management. She has a follow-up with her surgeon in the upcoming days. She denies any significant abdominal pain, no nausea or emesis. Her appetite is still rather poor. She denies any chest pain or shortness of breath. No fever or chills. Review of Systems - Constitutional Reports as per HPI, Reports malaise, Reports poor appetite - Cardiovascular Reports no additional cardiovascular complaints - Respiratory Reports no additional respiratory complaints - Gastrointestinal Reports no additional gastrointestinal complaints [facility] Medical History: Medical History (Last Reviewed 05/03/23 @ 13:35 by Toshia Drake) Acute pain of left knee Diabetes Family history of ovarian cancer GERD (gastroesophageal reflux disease) HTN (hypertension) OA (osteoarthritis) Overactive bladder Primary osteoarthritis, right hand Urinary urgency Weak urinary stream Family History: Family History (Last Reviewed 05/03/23 @ 13:35 by Toshia Drake) Father No problems noted. Mother Colon cancer Brother No problems noted. Brother No problems noted. Brother No problems noted. Sister Ovarian cancer Sister Breast cancer Sister No problems noted. Sister No problems noted. Daughter No problems noted. Daughter No problems noted. Surgical History: Surgical History (Last Reviewed 05/03/23 @ 13:35 by Toshia Drake) History of bladder suspension procedure History of tubal ligation Hx of colonoscopy Hx of esophagogastroduodenoscopy Social History: Social History (Last Reviewed 05/03/23 @ 13:35 by Toshia Drake) Living Situation History: Household Members: None Housing: Apartment Are you a primary career transition specialist to a significant other at home: No Do you presently have visiting nurse or other home services: No Tobacco History: Patient Tobacco Use Status: Never used Tobacco e-Cigarette/Vaping Use: Never Used Second Hand Smoke Exposure: No Advance Directives: Advance Directives Date on File: 03/11/20 Occupation Assessmet: service: No Current occupational status: retired 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 Current occupational exposures/hazards: No Sex/Gender Assessment: Gender identity: Female Home Medications and Allergies Current Medications: Current Medications Irinotecan HCl 280 mg/ (Dextrose) 514 mls @ 342.667 mls/hr IV ONCE BAYLEE Last Infusion: 02/15/23 14:11 Dose: Infused Home Medications Medication Instructions Recorded Confirmed Type magnesium 200 mg tablet 200 mg PO DAILY 12/07/22 05/03/23 History vitamin B complex 1 cap PO DAILY 12/07/22 05/03/23 History clonidine HCl 0.1 mg tablet 0.1 mg PO NEEDED 04/07/23 05/03/23 History Allergies Allergy/AdvReac Type Severity Reaction Status Date / Time No Known Allergies Allergy Verified 05/03/23 13:35 Exam Vital signs: Vital Signs Temp 98.5 F 02/15/23 08:12 Pulse 74 03/22/23 10:58 Resp 18 02/15/23 08:12 BP 147/77 H 03/22/23 10:58 Pulse Ox 97 03/22/23 10:58 O2 Del Method Room Air 03/22/23 10:58 Weight 59.5 kg BMI result Body Mass Index 25.6 - Constitutional Present: no acute distress - Routine HEENT Exam Head: Present: normal inspection - Routine Neck Exam Absent: lymphadenopathy - Routine Respiratory Exam Absent: accessory muscle use - Routine Cardiovascular Exam Cardiovascular: Present: RRR, S1, S2 - Routine Abdominal Exam Present: soft, tenderness - Routine Extremities Exam Absent: pedal edema - Routine Skin Exam Present: intact - Routine Neurological Exam Present: alert, oriented X3 Data - Labs CBC & Chem 7: 05/03/23 13:28 05/03/23 13:28 Assessment and Plan Patient Active problem list reviewed?: Yes (1) Mass of pancreas Status: Resolved Assessment and plan: 1. This is a 62-year-old woman presenting with pancreatic adenocarcinoma diagnosed in October 2022. A CT abdomen and subsequently MRI of abdomen with contrast on 10/19/2022 demonstrated a 2.7 x 1.7 cm hypoattenuating mass centered in the pancreatic body. No lymphadenopathy or evidence of metastatic disease in the abdomen. CA 19 9 elevated, over 500 unit/mL. Staging CT chest and bone scan performed at [facility] [place] was negative for metastatic disease. She underwent endoscopic ultrasound by Dr. Munoz on 11/24/2022 at [facility] which revealed brown mass in the pancreatic body, hypoechoic measuring 13 mm x 24 mm. Borders were well-defined. FNA cytology was adenocarcinoma. She started preoperative/ neoadjuvant chemotherapy with FOLFIRINOX from October to january 2023. She had a PET-CT 01/03/2023 which revealed mild FDG activity associated with pancreatic mass, SUV 4.7 no additional foci of abnormal activity in the abdomen, chest or bones. No lymphadenopathy. MRI abdomen performed 03/02/2023 showed decrease in size of mass in pancreatic body, now measures 1.7 cm previously measured 2.3 cm. No lymphadenopathy. Restaging CT chest performed at [facility] was negative for metastatic disease. Genetic assessment for inherited cancer syndrome submitted to [facility], 40 gene panel was negative. On 04/19/2023 patient underwent robotic assisted pancreatectomy with splenectomy at [facility] performed by Dr. Ilia Gunn. Pathology revealed residual pancreatic ductal adenocarcinoma, moderately differentiated. Pathological stage AJCC: [id number]. (8/27 LN pos) positive for vascular and perineural invasion. Anterior surface is focally involved by carcinoma, resection margins are negative for carcinoma. Eight of 27 lymph nodes positive for carcinoma. Tumor size 3.7 x 2.5 x 1.7 cm. Tumor extension confined to pancreas, pancreatic surface, anterior surface involved. Treatment effect- absent with extensive residual carcinoma and no evident tumor regression poor or no response score 3. All margins negative, carcinoma is 1 mm to the closest posterior surface. CA 19 9 remains elevated, over 400 unit/mL. I will repeat PET-CT in a few weeks. If she has no evidence of metastatic disease, adjuvant treatment with gemcitabine/capecitabine will be offered as she has had no response to neoadjuvant chemotherapy with FOLFIRINOX. She will also be referred to recommendations about adjuvant radiation therapy if there is no evidence of metastatic disease. Follow-up in 3 weeks. - Time Spent With Patient Time Spent with Patient (in minutes): 25
[2023-05-03 13:30] LABS: MANUAL DIFF FLAG NO
[2023-05-03 13:35] VITALS: BP 134/83; PULSE 92; O2SAT 95; BMI 24.4
[2023-05-03 13:37] LABS: Basophils Absolute Auto 0.1 X10*3/uL (0.0-0.2); Basophils Percent Auto 0.6 % (0-2); Eosinophils Absolute Auto 0.1 X10*3/uL (0.0-0.4); Eosinophils Percent Auto 0.7 % (0-4); Hematocrit 38.2 % (37.0-47.0); Hemoglobin 12.9 g/dl (12.0-16.0); Imm Gran Abs Auto 0.02 X10*3/uL (0.00-0.03); Imm Gran Pct Auto 0.2 % (0.0-0.4); Lymphocytes Absolute Auto 2.3 X10*3/uL (1.2-4.9); Lymphocytes Percent Auto 23.9 % (20-40); Mean Corpuscular HGB Conc 33.8 g/dl (31.0-35.0); Mean Corpuscular Hemoglobin 31.9 pg (27.0-33.0); Mean Corpuscular Volume 94.6 fL (80.0-98.0); Mean Platelet Volume 8.9 fL (9.4-12.3); Monocytes Absolute Auto 1.3 X10*3/uL (0.1-1.2); Monocytes Percent Auto 13.3 % (2-11); Neutrophils Absolute Auto 5.9 x10*3/uL (2.0-8.3); Neutrophils Percent Auto 61.3 % (45-73); Platelet Count 563 X10*3/uL (160-400); Red Blood Count 4.04 X10*6/uL (4.20-5.50); Red Cell Distribution Width 12.6 % (11.0-16.0); White Blood Count 9.7 X10*3/uL (4.8-10.8)
[2023-05-03 13:50] LABS: Alanine Aminotransferase 21 U/L (0-31); Albumin Level 4.5 g/dL (3.5-5.0); Alkaline Phosphatase 111 U/L (39-117); Anion Gap 16 (12-20); Aspartate Amino Transferase 25 U/L (5-31); Bilirubin Total 0.3 mg/dL (0.0-1.0); Blood Urea Nitrogen 22 mg/dL (9-16); Calcium 10.9 mg/dL (8.4-10.2); Carbon Dioxide 26 mmol/L (22-29); Chloride 99 mmol/L (96-108); Creatinine Clr Calc Pharmacy 69.4; Estimated Glomerular Filt Rate > 60; Glucose Random 209 mg/dL (60-115); Potassium 3.5 mmol/L (3.3-5.1); Sodium 137 mmol/L (135-145); Total Protein 8.8 g/dL (6.5-8.0)
--- NOTE | 2023-05-03 14:13 | MHC.HEMONC ---
Per provider's order, nurse accessed pt's newly replaced R chest implanted port in sterile procedure, flushed w/ NS, found positive blood return, then flushed w/ heparin 500 units. Nurse de-accessed port, all was well-tolerated.
[2023-05-04 10:22] LABS: Carbohydrate Antigen 19-9 456 U/mL (<34)
--- NOTE | 2023-05-05 10:10 | MHC.HEMONC ---
I requested Path from [facility] per request of Dr Jones.
--- NOTE | 2023-05-05 11:30 | MHC.HEMONC ---
PET order given to Mariana
--- NOTE | 2023-05-15 14:12 | MHC.HEMONC ---
per pt dtr who called me: pt is not to get RT per [facility] and she will start chemo here 8 weeks after her surgery (around 06/19/23)
--- NOTE | 2023-05-16 16:10 | HO.HEMONCPA ---
KYLEE APPROVED FOR PET/CT 35715 SKULL TO THIGH AUTH # [id number] DOS 05/23/23 - 09/22/23 SENT TO [facility] FOR SCHEDULING
--- NOTE | 2023-05-17 11:59 | MHC.HEMONC ---
Triage call- Alda Daughter called stating someone from Dr Jones's office called about an appointment and her mom does not speak italian. Also stated all calls regarding her mom must go through her because of the language barrier. This nurse was unable to determine who called. Reviewed Next appointments with Daughter. Will make note of this conversation.
--- NOTE | 2023-05-18 14:17 | HO.HEMONCSCH ---
Addendum entered by Mariana Ruby 05/19/23 08:00: Patient is scheduled for PET/CT Scan Skull to Thigh [id number] with [facility] on 05/30/23 at 10:15 am Original Note: [facility] patient to schedule appointment and she was confused because she is going for surgery and does not know why Pet/CT was ordered. was notified and she stated she will call and speak with the patient.
--- NOTE | 2023-05-18 15:19 | MHC.HEMONCMA ---
patient aware of needing pet scan, aware its not urgent, its just to make sure nothing has spread. pt will have her daughter call PET scan to schedule it. number given to book appt was [phone]
--- NOTE | 2023-05-19 13:50 | MHC.HEMONC ---
Pt dtr called to say that she made her mom's PET appt here at [facility] on May 30, 2023 at 10:15. She is aware of her mom's f/u here later that week.
[2023-06-07 08:35] VITALS: BP 142/73; PULSE 73; RESP 16; O2SAT 96; BMI 24.6
--- NOTE | 2023-06-07 09:49 | P.PNHO-ONC_ITS ---
Medical Summary - Medical Summary Date of Service: 06/07/23 Chief complaint: Follow-up Primary Care Provider: Cesar Driscoll MD Medical Summary: Diagnosis: Pancreatic adenocarcinoma 10/2022 She has a history of chronic abdominal pain and has been seen by GI specialists over the years. A workup with both endoscopy/colonoscopy in previous imaging with CT abdomen/pelvis in 2019 in 2020 were negative. On 10/13/2022 she presented with [facility] with complaints of abdominal pain, CT abdomen/pelvis with contrast showed a 1.2 cm lesion in the body of the pancreas, bulky appearance of pancreatic body with mild peripancreatic stranding. Prominent pancreatic duct measuring up to 3 mm. No lymphadenopathy. A CT abdomen and subsequently MRI of abdomen with contrast on 10/19/2022 demonstrated a 2.7 x 1.7 cm hypoattenuating mass centered in the pancreatic body. Distal to the mass few small cysts measuring up to 8 mm in the pancreatic head. No contact with the SMA, celiac axis or common hepatic artery. No contact with the portal vein or superior mesenteric vein. No tumor or bland thrombus or dilated venous collaterals. No lymphadenopathy or evidence of metastatic disease in the abdomen. CA 19 9 elevated, over 500 unit/mL. Staging CT chest and bone scan performed at [facility] was negative for metastatic disease. She underwent endoscopic ultrasound by Dr. Munoz on 11/24/2022 at [facility] which revealed brown mass in the pancreatic body, hypoechoic measuring 13 mm x 24 mm. Borders were well-defined. FNA cytology was adenocarcinoma. She started preoperative/ neoadjuvant chemotherapy with FOLFIRINOX regimen in October 2022. She had a PET-CT 01/03/2023 which revealed mild FDG activity associated with pancreatic mass, SUV 4.7 no additional foci of abnormal activity in the abdomen, chest or bones. No yymphadenopathy. She received her last cycle of FOLFIRINOX, cycle 6 on 02/15/2023. Right MediPort was removed by Dr. Loja because of malpositioning and reinserted in March 2023. She underwent laparoscopic pancreatectomy at [facility] on 04/19/2023. Interval History Interval history: Patient is here in follow-up. She is accompanied by her daughter today. She is here to discuss results of imaging and further treatment. She is healing well and has no complaints. She denies any chest pain or shortness of breath. No fever or chills. Review of Systems - Constitutional Reports as per HPI, Denies fatigue, Denies lack of energy, Denies poor appetite, Denies weight loss - Cardiovascular Reports no additional cardiovascular complaints - Respiratory Reports no additional respiratory complaints - Gastrointestinal Reports no additional gastrointestinal complaints [facility] Medical History: Medical History (Last Reviewed 05/03/23 @ 13:35 by Toshia Drake) Acute pain of left knee Diabetes Family history of ovarian cancer GERD (gastroesophageal reflux disease) HTN (hypertension) OA (osteoarthritis) Overactive bladder Primary osteoarthritis, right hand Urinary urgency Weak urinary stream Family History: Family History (Last Reviewed 05/03/23 @ 13:35 by Toshia Drake) Father No problems noted. Mother Colon cancer Brother No problems noted. Brother No problems noted. Brother No problems noted. Sister Ovarian cancer Sister Breast cancer Sister No problems noted. Sister No problems noted. Daughter No problems noted. Daughter No problems noted. Surgical History: Surgical History (Last Reviewed 05/03/23 @ 13:35 by Toshia Drake) History of bladder suspension procedure History of tubal ligation Hx of colonoscopy Hx of esophagogastroduodenoscopy Social History: Social History (Last Reviewed 05/03/23 @ 13:35 by Toshia Drake) Living Situation History: Household Members: None Housing: Apartment Are you a primary hourly caregiver to a significant other at home: No Do you presently have visiting nurse or other home services: No Tobacco History: Patient Tobacco Use Status: Never used Tobacco e-Cigarette/Vaping Use: Never Used Second Hand Smoke Exposure: No Advance Directives: Advance Directives Date on File: 03/11/20 Occupation Assessmet: service: No Current occupational status: retired 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 Current occupational exposures/hazards: No Sex/Gender Assessment: Gender identity: Female Home Medications and Allergies Home Medications Medication Instructions Recorded Confirmed Type magnesium 200 mg tablet 200 mg PO DAILY 12/07/22 06/07/23 History vitamin B complex 1 cap PO DAILY 12/07/22 06/07/23 History metformin 500 mg tablet 250 mg PO DAILY@1700 06/07/23 06/07/23 History metformin 500 mg tablet 500 mg PO DAILY 06/07/23 06/07/23 History Allergies Allergy/AdvReac Type Severity Reaction Status Date / Time No Known Allergies Allergy Verified 06/02/23 08:50 Exam Vital signs: Vital Signs Temp 98.5 F 02/15/23 08:12 Pulse 73 06/07/23 08:35 Resp 16 06/07/23 08:35 BP 142/73 H 06/07/23 08:35 Pulse Ox 96 06/07/23 08:35 O2 Del Method Room Air 06/07/23 08:35 Intake & Output 06/06/23 06/07/23 06/07/23 18:59 06:59 18:59 Other: Weight 57.2 kg Balsam Weight in Grams 33147 Weight 57.2 kg BMI result Body Mass Index 24.6 - Constitutional Present: no acute distress - Routine HEENT Exam Head: Present: normal inspection - Routine Neck Exam Absent: lymphadenopathy - Routine Respiratory Exam Absent: accessory muscle use - Routine Cardiovascular Exam Cardiovascular: Present: RRR, S1, S2 - Routine Abdominal Exam Present: soft, tenderness - Routine Extremities Exam Absent: pedal edema - Routine Skin Exam Present: intact - Routine Neurological Exam Present: alert, oriented X3 Data - Labs CBC & Chem 7: 05/03/23 13:28 05/03/23 13:28 Assessment and Plan Patient Active problem list reviewed?: Yes (1) Mass of pancreas Status: Resolved Assessment and plan: 1. This is a 62-year-old woman presenting with pancreatic adenocarcinoma diagnosed in October 2022. A CT abdomen and subsequently MRI of abdomen with contrast on 10/19/2022 demonstrated a 2.7 x 1.7 cm hypoattenuating mass centered in the pancreatic body. No lymphadenopathy or evidence of metastatic disease in the abdomen. CA 19 9 elevated, over 500 unit/mL. Staging CT chest and bone scan performed at [facility] was negative for metastatic disease. She underwent endoscopic ultrasound by Dr. Munoz on 11/24/2022 at [facility] which revealed brown mass in the pancreatic body, hypoechoic measuring 13 mm x 24 mm. Borders were well-defined. FNA cytology was adenocarcinoma. She started preoperative/ neoadjuvant chemotherapy with FOLFIRINOX from October to january 2023. She had a PET-CT 01/03/2023 which revealed mild FDG activity associated with pancreatic mass, SUV 4.7 no additional foci of abnormal activity in the abdomen, chest or bones. No lymphadenopathy. MRI abdomen performed 03/02/2023 showed decrease in size of mass in pancreatic body, now measures 1.7 cm previously measured 2.3 cm. No lymphadenopathy. Restaging CT chest performed at [facility] was negative for metastatic disease. Genetic assessment for inherited cancer syndrome submitted to [facility], 40 gene panel was negative. On 04/19/2023 patient underwent robotic assisted pancreatectomy with splenectomy at [facility] performed by Dr. Ilia Gunn. Pathology revealed residual pancreatic ductal adenocarcinoma, moderately differentiated. Pathological stage AJCC: YpT2N2. (8/27 LN pos) positive for vascular and perineural invasion. Anterior surface is focally involved by carcinoma, resection margins are negative for carcinoma. Eight of 27 lymph nodes positive for carcinoma. Tumor size 3.7 x 2.5 x 1.7 cm. Tumor extension confined to pancreas, pancreatic surface, anterior surface involved. Treatment effect- absent with extensive residual carcinoma and no evident tumor regression poor or no response score 3. All margins negative, carcinoma is 1 mm to the closest posterior surface. CA 19 9 remains elevated, over 400 unit/mL. Repeat PET-CT performed on 05/30/23 showed no evidence of residual or recurrent disease. Stable hepatic steatosis and interval partial pancreatectomy and splenectomy since prior PET scan dated December 2022. As she has not had any response to neoadjuvant therapy with FOLFIRINOX, she is being treated with gemcitabine/Abraxane (Nab paclitaxel) for locally advanced pancreatic cancer in the adjuvant setting for 6 months. I have requested NGS profiling for pancreatic cancer at [facility]. As she does not have any positive margins, she was advised against radiation referral by her surgeon at [facility]. She is being scheduled to start chemotherapy on 06/12/2023. Follow-up in 3 weeks. - Time Spent With Patient Time Spent with Patient (in minutes): 25
--- NOTE | 2023-06-07 10:55 | HO.HEMONCPA ---
Addendum entered by Mariana Ruby 06/09/23 15:58: PA APPROVED FOR ALBUMIN-BOUND PAXLITACEL [id number] AUTH [id number] DOS 06/12/23 - 06/12/24 FOR 12 VISITS PA APPROVED FOR EMEND J1453 AND NEULASTA J2506 AUTH # [id number] DOS 06/12/23 - 06/11/24 FOR 12 VISITS NO PA NEEDED FOR GEMCITABINE J9201 Addendum entered by Mariana Ruby 06/08/23 15:04: PA PENDING FOR ALBUMIN-BOUND PAXLITACEL J9259 AWAITING DECISION FROM [facility] Addendum entered by Mariana Ruby 06/08/23 14:48: PA APPROVED FOR EMEND J1453 AND NEULASTA J2506 AUTH # [id number] DOS 06/12/23 - 06/11/24 FOR 12 VISITS Addendum entered by Mariana Ruby 06/08/23 12:03: NO PA NEEDED FOR PACLITACEL J9267, GEMCITABINE J9201 Original Note: PA PENDING FOR FOSAPREPITANT/EMEND J1453, PACLITACEL J9267, GEMCITABINE J9201 AND PEGFILGRASTIM/NEULASTA J2506 AWAITING DECISION FROM [facility]
[2023-06-12 10:12] VITALS: BP 156/89; PULSE 79; RESP 18; TEMP 36.7; O2SAT 96; BMI 24.8
[2023-06-12 10:51] LABS: MANUAL DIFF FLAG NO
[2023-06-12 10:53] LABS: Basophils Absolute Auto 0.1 X10*3/uL (0.0-0.2); Basophils Percent Auto 0.9 % (0-2); Eosinophils Absolute Auto 0.2 X10*3/uL (0.0-0.4); Eosinophils Percent Auto 1.6 % (0-4); Hematocrit 33.5 % (37.0-47.0); Hemoglobin 11.5 g/dl (12.0-16.0); Imm Gran Abs Auto 0.05 X10*3/uL (0.00-0.03); Imm Gran Pct Auto 0.4 % (0.0-0.4); Lymphocytes Absolute Auto 2.9 X10*3/uL (1.2-4.9); Lymphocytes Percent Auto 25.9 % (20-40); Mean Corpuscular HGB Conc 34.3 g/dl (31.0-35.0); Mean Corpuscular Hemoglobin 31.3 pg (27.0-33.0); Mean Corpuscular Volume 91.3 fL (80.0-98.0); Mean Platelet Volume 10.1 fL (9.4-12.3); Monocytes Absolute Auto 1.4 X10*3/uL (0.1-1.2); Monocytes Percent Auto 12.5 % (2-11); Neutrophils Absolute Auto 6.6 x10*3/uL (2.0-8.3); Neutrophils Percent Auto 58.7 % (45-73); Platelet Count 337 X10*3/uL (160-400); Red Blood Count 3.67 X10*6/uL (4.20-5.50); Red Cell Distribution Width 13.1 % (11.0-16.0); White Blood Count 11.3 X10*3/uL (4.8-10.8)
[2023-06-12 11:07] LABS: Alanine Aminotransferase 20 U/L (0-31); Albumin Level 4.2 g/dL (3.5-5.0); Alkaline Phosphatase 108 U/L (39-117); Anion Gap 12 (12-20); Aspartate Amino Transferase 18 U/L (5-31); Bilirubin Total 0.3 mg/dL (0.0-1.0); Blood Urea Nitrogen 17 mg/dL (9-16); Calcium 10.1 mg/dL (8.4-10.2); Carbon Dioxide 26 mmol/L (22-29); Chloride 103 mmol/L (96-108); Estimated Glomerular Filt Rate > 60; Glucose Random 260 mg/dL (60-115); Potassium 3.6 mmol/L (3.3-5.1); Sodium 137 mmol/L (135-145); Total Protein 7.8 g/dL (6.5-8.0)
[2023-06-12] MEDS: diphenhydrAMINE HCL 25 MG CAPSULE PO (11:17)
[2023-06-12] MEDS: Ondansetron ODT 8 MG TAB.RAPDIS TRANSLINGU (11:18)
[2023-06-12] MEDS: Acetaminophen 325 MG TABLET 650 MG PO (11:18)
[2023-06-12] MEDS: Famotidine/PF 20 MG/2 ML VIAL IVPUSH (11:19)
[2023-06-12] MEDS: dexAMETHasone sod phosphate/NS 12 MG/50 ML PIGGYBACK 200 MG IV (11:19)
[2023-06-12] MEDS: PACLitaxeL protein-bound 200 MG in Container,Empty 0 ML 80 MG IV (12:36)
[2023-06-12] MEDS: SODIUM CHLORIDE 0.9% IV (13:17)
[2023-06-12] MEDS: GEMCITABINE HCL IV (13:17)
--- NOTE | 2023-06-12 13:26 | MHC.HEMONC ---
Addendum entered by Eleanor Price RN 06/12/23 14:48: Pt tolerated treatment well. Port de accessed with heparin. D/c summary given with neext treatment in 2 weeks. Note: Pt will only do day 1 and day [address] Jones. Original Note: Pt here for C1D1 Abraxane/Gemzar. Pt here with daughter Chelly. They declined flight radio officer, Form signed. Teaching done and consent for treatment signed and placed into scanning. Port to right chest accessed. Labs drawn and reviewed. Ok to treat. Pre meds explained and given. Treatment started.
--- NOTE | 2023-06-14 10:41 | MHC.HEMONC ---
valve machine operator's phone- Pt's daughter Chelly JACKMAN requesting a letter for the patient 's parking spot designation. Letter generated, and signed by the Provider. Daughter will pick letter up tomorrow.
--- NOTE | 2023-06-16 11:09 | MHC.HEMONC ---
Pt's dtr, Alda, called, said her mother had been in on Mon, 06/12, began her first tx of Gemzar/Abraxane, which she tolerated well at first. Pt says that, the day after, on morning, she developed a terrible 7-8/10 aching pain throughout her entire abdomen, which has persisted for the last 3 days, not improving or worsening, also denied any Nausea/Vomiting/Diarrhea, or any other symptoms. Covering provider, Dr. Villela, was updated, called pt's dtr, advised she go to the ER, but pt said she wants to see if it improves first. Dr. Villela also sent pt scrip for PRN oxycodone.
[2023-06-26 10:20] LABS: MANUAL DIFF FLAG NO
[2023-06-26 10:21] LABS: Basophils Percent Auto 0.6 % (0-2); Eosinophils Absolute Auto 0.2 X10*3/uL (0.0-0.4); Eosinophils Percent Auto 2.5 % (0-4); Hematocrit 31.7 % (37.0-47.0); Lymphocytes Absolute Auto 2.7 X10*3/uL (1.2-4.9); Lymphocytes Percent Auto 41.9 % (20-40); Mean Corpuscular HGB Conc 34.7 g/dl (31.0-35.0); Mean Corpuscular Volume 89.3 fL (80.0-98.0); Mean Platelet Volume 9.2 fL (9.4-12.3); Monocytes Absolute Auto 0.9 X10*3/uL (0.1-1.2); Monocytes Percent Auto 14.6 % (2-11); Neutrophils Absolute Auto 2.6 x10*3/uL (2.0-8.3); Neutrophils Percent Auto 40.4 % (45-73); Platelet Count 416 X10*3/uL (160-400); Red Blood Count 3.55 X10*6/uL (4.20-5.50); Red Cell Distribution Width 13.5 % (11.0-16.0); White Blood Count 6.4 X10*3/uL (4.8-10.8)
[2023-06-26 10:23] VITALS: BP 155/74; PULSE 82; RESP 18; TEMP 36.8; O2SAT 97; BMI 24.5
[2023-06-26 10:38] LABS: Alanine Aminotransferase 23 U/L (0-31); Albumin Level 4.2 g/dL (3.5-5.0); Alkaline Phosphatase 121 U/L (39-117); Anion Gap 15 (12-20); Aspartate Amino Transferase 22 U/L (5-31); Bilirubin Total 0.3 mg/dL (0.0-1.0); Blood Urea Nitrogen 16 mg/dL (9-16); Carbon Dioxide 23 mmol/L (22-29); Chloride 105 mmol/L (96-108); Creatinine Clr Calc Pharmacy 66.7; Estimated Glomerular Filt Rate > 60; Glucose Random 194 mg/dL (60-115); Potassium 3.5 mmol/L (3.3-5.1); Sodium 139 mmol/L (135-145); Total Protein 7.8 g/dL (6.5-8.0)
[2023-06-26] MEDS: Acetaminophen 325 MG TABLET 650 MG PO (10:45)
[2023-06-26] MEDS: Ondansetron ODT 8 MG TAB.RAPDIS TRANSLINGU (10:46)
[2023-06-26] MEDS: diphenhydrAMINE HCL 25 MG CAPSULE PO (10:46)
[2023-06-26] MEDS: dexAMETHasone sod phosphate/NS 12 MG/50 ML PIGGYBACK 200 MG IV (10:47)
[2023-06-26] MEDS: Famotidine/PF 20 MG/2 ML VIAL IVPUSH (10:47)
[2023-06-26] MEDS: PACLitaxeL protein-bound 200 MG in Container,Empty 0 ML 80 MG IV (11:42)
[2023-06-26] MEDS: SODIUM CHLORIDE 0.9% IV (12:25)
[2023-06-26] MEDS: GEMCITABINE HCL IV (12:25)
--- NOTE | 2023-06-26 16:03 | MHC.HEMONC ---
Pt was in today for C1D15 Paclitaxel (Protein-bound)/Gemcitabine, VSS, reports feeling well today. Pt had reported constant abd pain 2 weeks ago, which she said began the day after her 1st tx, declined covering provider Dr. Villela's suggestion to be evaluated at the ER, was also sent PRN oxycodone scrip. Pt thankfully reports that the pain subsided on its own, and she only needed to take the oxycodone for 2-3 days, and hasn't taken it or needed it since. Nurse accessed pt's R chest implanted port in sterile procedure, flushed w/ NS, found positive blood return, blood specimens were collected and sent to lab. Nurse admin pre-meds: PO tylenol, PO benadryl, PO zofran, IV pepcid, and IV dexamethasone, then pt received IV Abraxane over 30 min, followed by IV Gemcitabine over 30 minutes, both tolerated well. Pt's port was flushed w/ NS and heparin 500 units, then de-accessed. Pt to return in 2 weeks, on 07/10/23 for C2D1.
--- NOTE | 2023-07-05 09:24 | MHC.HEMONC ---
I spoke with Pathology at [facility] and they will now order NGS testing on pt tumor spec per request of Dr Jones. They expect report mid next week. I will inform Dr Jones.
--- NOTE | 2023-07-10 09:40 | PM.HEMONCPN ---
Medical Summary - Medical Summary Date of Service: 07/10/23 Chief complaint: Follow-up and scheduled treatment Primary Care Provider: Cesar Driscoll MD Medical Summary: Diagnosis: Pancreatic adenocarcinoma 10/2022 She has a history of chronic abdominal pain and has been seen by GI specialists over the years. A workup with both endoscopy/colonoscopy in previous imaging with CT abdomen/pelvis in 2019 in 2020 were negative. On 10/13/2022 she presented with [facility] with complaints of abdominal pain, CT abdomen/pelvis with contrast showed a 1.2 cm lesion in the body of the pancreas, bulky appearance of pancreatic body with mild peripancreatic stranding. Prominent pancreatic duct measuring up to 3 mm. No lymphadenopathy. A CT abdomen and subsequently MRI of abdomen with contrast on 10/19/2022 demonstrated a 2.7 x 1.7 cm hypoattenuating mass centered in the pancreatic body. Distal to the mass few small cysts measuring up to 8 mm in the pancreatic head. No contact with the SMA, celiac axis or common hepatic artery. No contact with the portal vein or superior mesenteric vein. No tumor or bland thrombus or dilated venous collaterals. No lymphadenopathy or evidence of metastatic disease in the abdomen. CA 19 9 elevated, over 500 unit/mL. Staging CT chest and bone scan performed at [facility] was negative for metastatic disease. She underwent endoscopic ultrasound by Dr. Munoz on 11/24/2022 at [facility] which revealed brown mass in the pancreatic body, hypoechoic measuring 13 mm x 24 mm. Borders were well-defined. FNA cytology was adenocarcinoma. She started preoperative/ neoadjuvant chemotherapy with FOLFIRINOX regimen in October 2022. She had a PET-CT 01/03/2023 which revealed mild FDG activity associated with pancreatic mass, SUV 4.7 no additional foci of abnormal activity in the abdomen, chest or bones. No yymphadenopathy. She received her last cycle of FOLFIRINOX, cycle 6 on 02/15/2023. Right MediPort was removed by Dr. Loja because of malpositioning and reinserted in March 2023. She underwent laparoscopic pancreatectomy at [facility] on 04/19/2023. Interval History Interval history: Patient is here in follow-up. Today is her 3rd cycle, she has tolerated her treatments quite well so far. She denies any nausea, abdominal discomfort, diarrhea, leg swelling, cough, fever or chills. Review of Systems - Constitutional Reports as per HPI, Denies lack of energy, Denies malaise, Denies night sweats [facility] Medical History: Medical History (Last Reviewed 06/26/23 @ 16:13 by Luis A Lovell RN) Acute pain of left knee Diabetes Family history of ovarian cancer GERD (gastroesophageal reflux disease) HTN (hypertension) OA (osteoarthritis) Overactive bladder Primary osteoarthritis, right hand Urinary urgency Weak urinary stream Family History: Family History (Last Reviewed 06/26/23 @ 16:13 by Luis A Lovell RN) Father No problems noted. Mother Colon cancer Brother No problems noted. Brother No problems noted. Brother No problems noted. Sister Ovarian cancer Sister Breast cancer Sister No problems noted. Sister No problems noted. Daughter No problems noted. Daughter No problems noted. Surgical History: Surgical History (Last Reviewed 06/26/23 @ 16:13 by Luis A Lovell RN) History of bladder suspension procedure History of tubal ligation Hx of colonoscopy Hx of esophagogastroduodenoscopy Social History: Social History (Last Reviewed 06/26/23 @ 16:13 by Luis A Lovell RN) Living Situation History: Household Members: None Housing: Apartment Are you a primary healthcare financial analyst to a significant other at home: No Do you presently have visiting nurse or other home services: No Tobacco History: Patient Tobacco Use Status: Never used Tobacco e-Cigarette/Vaping Use: Never Used Second Hand Smoke Exposure: No Advance Directives: Advance Directives Date on File: 03/11/20 Occupation Assessmet: service: No Current occupational status: retired 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 Current occupational exposures/hazards: No Sex/Gender Assessment: Gender identity: Female Home Medications and Allergies Current Medications: Current Medications Acetaminophen (Acetaminophen 325 Mg Tablet) 650 mg PO ONCE BAYLEE Stop: 07/10/23 23:59 Diphenhydramine HCl (Diphenhydramine Hcl 25 Mg Capsule) 25 mg PO ONCE BAYLEE Stop: 07/10/23 23:59 Famotidine (Famotidine 20 Mg Tablet) 20 mg PO ONCE BAYLEE Stop: 07/10/23 23:59 Heparin Sodium (Porcine) (Heparin Sodium,Porcine Flush 500 Unit/5 Ml Syringe) 500 unit IVFLUSH ONCE BAYLEE Stop: 07/10/23 23:59 Dexamethasone Sodium Phosphate (Decadron) 12 mg in 50 mls @ 200 mls/hr IV ONCE BAYLEE Stop: 07/10/23 23:59 Ondansetron HCl (Ondansetron Odt 8 Mg Tab.Rapdis) 8 mg TRANSLINGU ONCE BAYLEE Stop: 07/10/23 23:59 Home Medications Medication Instructions Recorded Confirmed Type magnesium 200 mg tablet 200 mg PO DAILY 12/07/22 06/26/23 History vitamin B complex 1 cap PO DAILY 12/07/22 06/26/23 History Allergies Allergy/AdvReac Type Severity Reaction Status Date / Time No Known Allergies Allergy Verified 06/26/23 16:14 Exam Vital signs: Vital Signs Temp 98.2 F 06/26/23 10:23 Pulse 82 06/26/23 10:23 Resp 18 06/26/23 10:23 BP 155/74 H 06/26/23 10:23 Pulse Ox 97 06/26/23 10:23 O2 Del Method Room Air 06/26/23 10:23 Weight 57 kg BMI result Body Mass Index 24.5 - Constitutional Present: no acute distress - Routine HEENT Exam Head: Present: normal inspection - Routine Neck Exam Absent: lymphadenopathy - Routine Respiratory Exam Absent: accessory muscle use - Routine Cardiovascular Exam Cardiovascular: Present: RRR, S1, S2 - Routine Abdominal Exam Present: soft, tenderness - Routine Extremities Exam Absent: pedal edema - Routine Skin Exam Present: intact - Routine Neurological Exam Present: alert, oriented X3 Data - Labs CBC & Chem 7: 07/10/23 10:00 07/10/23 10:00 Assessment and Plan Patient Active problem list reviewed?: Yes (1) Mass of pancreas Status: Resolved Assessment and plan: 1. This is a 62-year-old woman presenting with pancreatic adenocarcinoma diagnosed in October 2022. A CT abdomen and subsequently MRI of abdomen with contrast on 10/19/2022 demonstrated a 2.7 x 1.7 cm hypoattenuating mass centered in the pancreatic body. No lymphadenopathy or evidence of metastatic disease in the abdomen. CA 19 9 elevated, over 500 unit/mL. Staging CT chest and bone scan performed at [facility] was negative for metastatic disease. She underwent endoscopic ultrasound by Dr. Munoz on 11/24/2022 at [facility] which revealed brown mass in the pancreatic body, hypoechoic measuring 13 mm x 24 mm. Borders were well-defined. FNA cytology was adenocarcinoma. She started preoperative/ neoadjuvant chemotherapy with FOLFIRINOX from October to january 2023. She had a PET-CT 01/03/2023 which revealed mild FDG activity associated with pancreatic mass, SUV 4.7 no additional foci of abnormal activity in the abdomen, chest or bones. No lymphadenopathy. MRI abdomen performed 03/02/2023 showed decrease in size of mass in pancreatic body, now measures 1.7 cm previously measured 2.3 cm. No lymphadenopathy. Restaging CT chest performed at [facility] was negative for metastatic disease. Genetic assessment for inherited cancer syndrome submitted to [facility], 40 gene panel was negative. On 04/19/2023 patient underwent robotic assisted pancreatectomy with splenectomy at [facility] performed by Dr. Ilia Gunn. Pathology revealed residual pancreatic ductal adenocarcinoma, moderately differentiated. Pathological stage AJCC: YpT2N2. (01/22 LN pos) positive for vascular and perineural invasion. Anterior surface is focally involved by carcinoma, resection margins are negative for carcinoma. Eight of 27 lymph nodes positive for carcinoma. Tumor size 3.7 x 2.5 x 1.7 cm. Tumor extension confined to pancreas, pancreatic surface, anterior surface involved. Treatment effect-absent with extensive residual carcinoma and no evident tumor regression poor or no response score 3. All margins negative, carcinoma is 1 mm to the closest posterior surface. CA 19 9 remains elevated, over 400 unit/mL. Repeat PET-CT performed on 05/30/23 showed no evidence of residual or recurrent disease. Stable hepatic steatosis and interval partial pancreatectomy and splenectomy since prior PET scan dated December 2022. She started gemcitabine/Abraxane (Nab paclitaxel) for locally advanced pancreatic cancer in the adjuvant setting for 6 months. This was started on 06/12/2023. She is tolerating it well. I have requested NGS profiling for pancreatic cancer at [facility]. As she does not have any positive margins, she was advised against radiation referral by her surgeon at [facility]. She is doing well proceed with treatment today. Follow-up in 4 weeks. - Time Spent With Patient Time Spent with Patient (in minutes): 15
[2023-07-10 10:01] VITALS: BP 132/63; PULSE 68; RESP 19; TEMP 36.3; O2SAT 99; BMI 24.4
[2023-07-10 10:24] LABS: MANUAL DIFF FLAG NO
[2023-07-10 10:26] LABS: Basophils Absolute Auto 0.1 X10*3/uL (0.0-0.2); Basophils Percent Auto 0.9 % (0-2); Eosinophils Absolute Auto 0.1 X10*3/uL (0.0-0.4); Eosinophils Percent Auto 1.7 % (0-4); Hematocrit 31.1 % (37.0-47.0); Hemoglobin 10.7 g/dl (12.0-16.0); Imm Gran Abs Auto 0.02 X10*3/uL (0.00-0.03); Imm Gran Pct Auto 0.3 % (0.0-0.4); Lymphocytes Absolute Auto 2.3 X10*3/uL (1.2-4.9); Lymphocytes Percent Auto 40.1 % (20-40); Mean Corpuscular HGB Conc 34.4 g/dl (31.0-35.0); Mean Corpuscular Hemoglobin 30.7 pg (27.0-33.0); Mean Corpuscular Volume 89.1 fL (80.0-98.0); Mean Platelet Volume 9.5 fL (9.4-12.3); Monocytes Absolute Auto 1.1 X10*3/uL (0.1-1.2); Monocytes Percent Auto 18.2 % (2-11); Neutrophils Absolute Auto 2.3 x10*3/uL (2.0-8.3); Neutrophils Percent Auto 38.8 % (45-73); Platelet Count 233 X10*3/uL (160-400); Red Blood Count 3.49 X10*6/uL (4.20-5.50); Red Cell Distribution Width 14.4 % (11.0-16.0); White Blood Count 5.8 X10*3/uL (4.8-10.8)
[2023-07-10 10:43] LABS: Alanine Aminotransferase 26 U/L (0-31); Albumin Level 4.2 g/dL (3.5-5.0); Alkaline Phosphatase 121 U/L (39-117); Anion Gap 11 (12-20); Aspartate Amino Transferase 21 U/L (5-31); Bilirubin Total 0.3 mg/dL (0.0-1.0); Blood Urea Nitrogen 16 mg/dL (9-16); Calcium 9.8 mg/dL (8.4-10.2); Carbon Dioxide 25 mmol/L (22-29); Chloride 105 mmol/L (96-108); Creatinine Clr Calc Pharmacy 67.5; Estimated Glomerular Filt Rate > 60; Glucose Random 279 mg/dL (60-115); Potassium 3.7 mmol/L (3.3-5.1); Sodium 137 mmol/L (135-145); Total Protein 7.6 g/dL (6.5-8.0)
[2023-07-10] MEDS: Ondansetron ODT 8 MG TAB.RAPDIS TRANSLINGU (11:07)
[2023-07-10] MEDS: Acetaminophen 325 MG TABLET 650 MG PO (11:07)
[2023-07-10] MEDS: Famotidine 20 MG TABLET PO (11:07)
[2023-07-10] MEDS: diphenhydrAMINE HCL 25 MG CAPSULE PO (11:07)
[2023-07-10] MEDS: dexAMETHasone sod phosphate/NS 12 MG/50 ML PIGGYBACK 200 MG IV (11:08)
[2023-07-10] MEDS: Heparin Sodium,Porcine Flush 500 UNIT/5 ML SYRINGE IVFLUSH (11:11)
--- NOTE | 2023-07-10 11:32 | HE.PHANOTE ---
CHEMOTHERAPY C2D1 07/10/23 RN called asking about treatment plan. Patient ordered for days 1,8 and 15 but is only getting days 1 and 15[address] Jones that patient is getting ONLY day 1 and 15 x 6 months. Treatment plan adjusted to reflect chemo schedule. Old treatment plan was stopped and new treatment plan entered starting at cycle 2.
[2023-07-10] MEDS: PACLITAXEL PROTEIN BOUND IV (12:23)
[2023-07-10] MEDS: CONTAINER EMPTY IV (12:23)
[2023-07-10] MEDS: GEMCITABINE HCL IV (13:07)
[2023-07-10] MEDS: SODIUM CHLORIDE 0.9% IV (13:07)
--- NOTE | 2023-07-10 17:24 | MHC.HEMONC ---
Pt was in for her C2D1 Paclitaxel (Protein-bound)/Gemcitabine, also Onc f/u appt, VSS, weight stable, reports feeling fine today, denies any abd pain. Nurse accessed pt's R chest implanted port in sterile procedure, flushed w/ NS, found positive blood return, blood specimens were collected and sent to lab. Dr. Jones met w/ pt. [facility] educational interpreter Ibrahima arrived for Bangladeshi-language translation. Nurse admin pre-meds: PO tylenol, PO benadryl, PO zofran, PO pepcid, and IV dexamethasone, then pt received IV Abraxane over 30 min, followed by IV Gemcitabine over 30 minutes, both tolerated well. Pt's port was flushed w/ NS and heparin 500 units, then de-accessed. Pt was given d/c packet, to return on 07/24 for C2D15.
[2023-07-12 15:39] LABS: Carbohydrate Antigen 19-9 5576 U/mL (<34)
[2023-07-24 09:55] VITALS: BP 147/67; PULSE 77; RESP 18; TEMP 36.4; O2SAT 99; BMI 24.7
[2023-07-24 10:14] LABS: MANUAL DIFF FLAG NO
[2023-07-24 10:15] LABS: Basophils Absolute Auto 0.1 X10*3/uL (0.0-0.2); Basophils Percent Auto 0.7 % (0-2); Eosinophils Absolute Auto 0.2 X10*3/uL (0.0-0.4); Eosinophils Percent Auto 2.4 % (0-4); Hematocrit 29.9 % (37.0-47.0); Hemoglobin 10.5 g/dl (12.0-16.0); Imm Gran Abs Auto 0.01 X10*3/uL (0.00-0.03); Imm Gran Pct Auto 0.1 % (0.0-0.4); Lymphocytes Absolute Auto 2.8 X10*3/uL (1.2-4.9); Lymphocytes Percent Auto 39.7 % (20-40); Mean Corpuscular HGB Conc 35.1 g/dl (31.0-35.0); Mean Corpuscular Hemoglobin 31.2 pg (27.0-33.0); Mean Corpuscular Volume 88.7 fL (80.0-98.0); Mean Platelet Volume 9.4 fL (9.4-12.3); Monocytes Absolute Auto 1.2 X10*3/uL (0.1-1.2); Monocytes Percent Auto 16.1 % (2-11); Neutrophils Absolute Auto 2.9 x10*3/uL (2.0-8.3); Platelet Count 386 X10*3/uL (160-400); Red Blood Count 3.37 X10*6/uL (4.20-5.50); Red Cell Distribution Width 15.5 % (11.0-16.0); White Blood Count 7.2 X10*3/uL (4.8-10.8)
[2023-07-24 11:09] LABS: Alanine Aminotransferase 26 U/L (0-31); Albumin Level 4.2 g/dL (3.5-5.0); Alkaline Phosphatase 109 U/L (39-117); Anion Gap 12 (12-20); Aspartate Amino Transferase 22 U/L (5-31); Bilirubin Total 0.3 mg/dL (0.0-1.0); Blood Urea Nitrogen 19 mg/dL (9-16); Calcium 9.8 mg/dL (8.4-10.2); Carbon Dioxide 23 mmol/L (22-29); Chloride 105 mmol/L (96-108); Creatinine Clr Calc Pharmacy 64.2; Estimated Glomerular Filt Rate > 60; Glucose Random 290 mg/dL (60-115); Potassium 3.8 mmol/L (3.3-5.1); Sodium 136 mmol/L (135-145); Total Protein 7.5 g/dL (6.5-8.0)
[2023-07-24] MEDS: Acetaminophen 325 MG TABLET 650 MG PO (11:20)
[2023-07-24] MEDS: Ondansetron ODT 8 MG TAB.RAPDIS TRANSLINGU (11:21)
[2023-07-24] MEDS: Heparin Sodium,Porcine Flush 500 UNIT/5 ML SYRINGE IVFLUSH (11:21)
[2023-07-24] MEDS: Famotidine 20 MG TABLET PO (11:21)
[2023-07-24] MEDS: diphenhydrAMINE HCL 25 MG CAPSULE PO (11:21)
[2023-07-24] MEDS: dexAMETHasone sod phosphate/NS 12 MG/50 ML PIGGYBACK 200 MG IV (11:21)
[2023-07-24] MEDS: CONTAINER EMPTY IV (13:03)
[2023-07-24] MEDS: PACLITAXEL PROTEIN BOUND IV (13:03)
[2023-07-24] MEDS: SODIUM CHLORIDE 0.9% IV (13:53)
[2023-07-24] MEDS: GEMCITABINE HCL IV (13:53)
--- NOTE | 2023-07-24 15:18 | MHC.HEMONC ---
C2D15: Paclitaxel (Albumin bound)+ Gemzar. Port to right upper chest accessed without difficulty- positive blood return. Labs obtained and reviewed. Patient reports feeling well, denies side effects. Pre-medicated Tylenol 650mg PO, Benadryl 25mg PO, Pepcid 20mg PO, Zofran PO, and Dexamethasone 12mg IV. Chemo infusions well tolerated. Port flushed with Heparin and de-accessed. Discharge packet provided.
--- NOTE | 2023-08-07 10:06 | P.PNHO-ONC_ITS ---
Medical Summary - Medical Summary Date of Service: 08/07/23 Chief complaint: Follow-up and scheduled treatment Primary Care Provider: Cesar Driscoll MD Medical Summary: Diagnosis: Pancreatic adenocarcinoma 10/2022 She has a history of chronic abdominal pain and has been seen by GI specialists over the years. A workup with both endoscopy/colonoscopy in previous imaging with CT abdomen/pelvis in 2019 in 2020 were negative. On 10/13/2022 she presented with [facility] with complaints of abdominal pain, CT abdomen/pelvis with contrast showed a 1.2 cm lesion in the body of the pancreas, bulky appearance of pancreatic body with mild peripancreatic stranding. Prominent pancreatic duct measuring up to 3 mm. No lymphadenopathy. A CT abdomen and subsequently MRI of abdomen with contrast on 10/19/2022 demonstrated a 2.7 x 1.7 cm hypoattenuating mass centered in the pancreatic body. Distal to the mass few small cysts measuring up to 8 mm in the pancreatic head. No contact with the SMA, celiac axis or common hepatic artery. No contact with the portal vein or superior mesenteric vein. No tumor or bland thrombus or dilated venous collaterals. No lymphadenopathy or evidence of metastatic disease in the abdomen. CA 19 9 elevated, over 500 unit/mL. Staging CT chest and bone scan performed at [facility] was negative for metastatic disease. She underwent endoscopic ultrasound by Dr. Munoz on 11/24/2022 at [facility] which revealed brown mass in the pancreatic body, hypoechoic measuring 13 mm x 24 mm. Borders were well-defined. FNA cytology was adenocarcinoma. She started preoperative/ neoadjuvant chemotherapy with FOLFIRINOX regimen in October 2022. She had a PET-CT 01/03/2023 which revealed mild FDG activity associated with pancreatic mass, SUV 4.7 no additional foci of abnormal activity in the abdomen, chest or bones. No yymphadenopathy. She received her last cycle of FOLFIRINOX, cycle 6 on 02/15/2023. Right MediPort was removed by Dr. Loja because of malpositioning and reinserted in March 2023. She underwent laparoscopic pancreatectomy at [facility] on 04/19/2023. Interval History Interval history: Patient is here in follow-up and scheduled treatment. She is doing well and has no complaints today. She is tolerating treatment very well. She denies any nausea, abdominal discomfort, diarrhea, leg swelling, cough, fever or chills. Her weight is stable. Review of Systems - Constitutional Denies malaise, Denies night sweats, Denies weakness - Cardiovascular Denies chest pain with activity - Respiratory Denies cough PMFSH Medical History: Medical History (Last Updated 07/17/23 @ 16:49 by Ibrahima Lebron) Acute pain of left knee Diabetes Family history of ovarian cancer GERD (gastroesophageal reflux disease) HTN (hypertension) OA (osteoarthritis) Overactive bladder Primary osteoarthritis, right hand Urinary urgency Weak urinary stream Family History: Family History (Last Reviewed 07/17/23 @ 16:20 by Opal Sanchez [facility]) Father No problems noted. Mother Colon cancer Brother No problems noted. Brother No problems noted. Brother No problems noted. Sister Ovarian cancer Sister Breast cancer Sister No problems noted. Sister No problems noted. Daughter No problems noted. Daughter No problems noted. Surgical History: Surgical History (Last Reviewed 07/17/23 @ 16:20 by Opal Sanchez CMA) History of bladder suspension procedure History of tubal ligation Hx of colonoscopy Hx of esophagogastroduodenoscopy Social History: Social History (Last Reviewed 07/17/23 @ 16:20 by Opal Sanchez [facility]) Living Situation History: Household Members: None Housing: Apartment Are you a primary special needs child caregiver to a significant other at home: No Do you presently have visiting nurse or other home services: No Tobacco History: Patient Tobacco Use Status: Never used Tobacco e-Cigarette/Vaping Use: Never Used Second Hand Smoke Exposure: No Advance Directives: Advance Directives Date on File: 03/11/20 Occupation Assessmet: service: No Current occupational status: retired 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 Current occupational exposures/hazards: No Sex/Gender Assessment: Gender identity: Female Home Medications and Allergies Current Medications: Current Medications Acetaminophen (Acetaminophen 325 Mg Tablet) 650 mg PO ONCE BAYLEE Stop: 08/07/23 23:59 Diphenhydramine HCl (Diphenhydramine Hcl 25 Mg Capsule) 25 mg PO ONCE BAYLEE Stop: 08/07/23 23:59 Famotidine (Famotidine 20 Mg Tablet) 20 mg PO ONCE BAYLEE Stop: 08/07/23 23:59 Heparin Sodium (Porcine) (Heparin Sodium,Porcine Flush 500 Unit/5 Ml Syringe) 500 unit IVFLUSH ONCE BAYLEE Stop: 08/07/23 23:59 Dexamethasone Sodium Phosphate (Decadron) 12 mg in 50 mls @ 200 mls/hr IV ONCE BAYLEE Stop: 08/07/23 23:59 Ondansetron HCl (Ondansetron Odt 8 Mg Tab.Rapdis) 8 mg TRANSLINGU ONCE BAYLEE Stop: 08/07/23 23:59 Home Medications Medication Instructions Recorded Confirmed Type magnesium 200 mg tablet 200 mg PO DAILY 12/07/22 08/07/23 History vitamin B complex 1 cap PO DAILY 12/07/22 08/07/23 History metformin 500 mg tablet 500 mg PO DAILY@1700 08/07/23 08/07/23 History Allergies Allergy/AdvReac Type Severity Reaction Status Date / Time No Known Allergies Allergy Verified 07/17/23 16:19 Exam Vital signs: Vital Signs Temp 97.6 F 07/24/23 09:55 Pulse 77 07/24/23 09:55 Resp 18 07/24/23 09:55 BP 147/67 H 07/24/23 09:55 Pulse Ox 99 07/24/23 09:55 O2 Del Method Room Air 07/24/23 09:55 Weight 57.4 kg BMI result Body Mass Index 24.7 - Constitutional Present: no acute distress - Routine HEENT Exam Head: Present: normal inspection - Routine Neck Exam Absent: lymphadenopathy - Routine Respiratory Exam Absent: accessory muscle use - Routine Cardiovascular Exam Cardiovascular: Present: RRR, S1, S2 - Routine Abdominal Exam Present: soft, tenderness - Routine Extremities Exam Absent: pedal edema - Routine Skin Exam Present: intact - Routine Neurological Exam Present: alert, oriented X3 Data - Labs CBC & Chem 7: 08/07/23 10:02 08/07/23 10:02 Assessment and Plan Patient Active problem list reviewed?: Yes (1) Mass of pancreas Status: Resolved Assessment and plan: 1. This is a 62-year-old woman presenting with pancreatic adenocarcinoma diagnosed in October 2022. A CT abdomen and subsequently MRI of abdomen with contrast on 10/19/2022 demonstrated a 2.7 x 1.7 cm hypoattenuating mass centered in the pancreatic body. No lymphadenopathy or evidence of metastatic disease in the abdomen. CA 19 9 elevated, over 500 unit/mL. Staging CT chest and bone scan performed at [facility] was negative for metastatic disease. She underwent endoscopic ultrasound by Dr. Munoz on 11/24/2022 at [facility] which revealed brown mass in the pancreatic body, hypoechoic measuring 13 mm x 24 mm. Borders were well-defined. FNA cytology was adenocarcinoma. She started preoperative/ neoadjuvant chemotherapy with FOLFIRINOX from October to january 2023. She had a PET-CT 01/03/2023 which revealed mild FDG activity associated with pancreatic mass, SUV 4.7 no additional foci of abnormal activity in the abdomen, chest or bones. No lymphadenopathy. MRI abdomen performed 03/02/2023 showed decrease in size of mass in pancreatic body, now measures 1.7 cm previously measured 2.3 cm. No lymphadenopathy. Restaging CT chest performed at [facility] was negative for metastatic disease. Genetic assessment for inherited cancer syndrome submitted to [facility], 40 gene panel was negative. On 04/19/2023 patient underwent robotic assisted pancreatectomy with splenectomy at [facility] performed by Dr. Ilia Gunn. Pathology revealed residual pancreatic ductal adenocarcinoma, moderately differentiated. Pathological stage AJCC: YpT2N2. (8/27 LN pos) positive for vascular and perineural invasion. Anterior surface is focally involved by carcinoma, resection margins are negative for carcinoma. Eight of 27 lymph nodes positive for carcinoma. Tumor size 3.7 x 2.5 x 1.7 cm. Tumor extension confined to pancreas, pancreatic surface, anterior surface involved. Treatment effect- absent with extensive residual carcinoma and no evident tumor regression poor or no response score 3. All margins negative, carcinoma is 1 mm to the closest posterior surface. Repeat PET-CT performed on 05/30/23 showed no evidence of residual or recurrent disease. Stable hepatic steatosis and interval partial pancreatectomy and splenectomy since prior PET scan dated December 2022. CA 19 9 remains elevated, over 5000 unit/mL. She started gemcitabine/Abraxane (Nab paclitaxel) for locally advanced pancreatic cancer on 06/12/2023. She is tolerating it well. I have requested NGS profiling for pancreatic cancer at [facility]. As she does not have any positive margins, she was advised against radiation referral by her surgeon at [facility]. She is doing well proceed with treatment today. Repeat CT abdomen/pelvis with contrast will be scheduled for August 2023. Follow-up in 4 weeks. - Time Spent With Patient Time Spent with Patient (in minutes): 15
[2023-08-07 10:09] LABS: MANUAL DIFF FLAG NO
[2023-08-07 10:16] LABS: Basophils Percent Auto 0.6 % (0-2); Eosinophils Absolute Auto 0.2 X10*3/uL (0.0-0.4); Eosinophils Percent Auto 2.9 % (0-4); Hematocrit 29.8 % (37.0-47.0); Hemoglobin 10.1 g/dl (12.0-16.0); Imm Gran Abs Auto 0.02 X10*3/uL (0.00-0.03); Imm Gran Pct Auto 0.3 % (0.0-0.4); Lymphocytes Percent Auto 44.8 % (20-40); Mean Corpuscular HGB Conc 33.9 g/dl (31.0-35.0); Mean Corpuscular Hemoglobin 30.4 pg (27.0-33.0); Mean Corpuscular Volume 89.8 fL (80.0-98.0); Monocytes Absolute Auto 0.9 X10*3/uL (0.1-1.2); Monocytes Percent Auto 13.1 % (2-11); Neutrophils Absolute Auto 2.5 x10*3/uL (2.0-8.3); Neutrophils Percent Auto 38.3 % (45-73); Red Blood Count 3.32 X10*6/uL (4.20-5.50); Red Cell Distribution Width 15.9 % (11.0-16.0); White Blood Count 6.6 X10*3/uL (4.8-10.8)
[2023-08-07 10:20] VITALS: BP 124/68; PULSE 73; RESP 18; TEMP 36.3; O2SAT 98
[2023-08-07 10:27] LABS: Mean Platelet Volume 6.6 fL (9.4-12.3); Platelet Count 281 X10*3/uL (160-400)
[2023-08-07 10:28] LABS: Alanine Aminotransferase 20 U/L (0-31); Albumin Level 4.1 g/dL (3.5-5.0); Alkaline Phosphatase 102 U/L (39-117); Anion Gap 13 (12-20); Aspartate Amino Transferase 18 U/L (5-31); Bilirubin Total 0.3 mg/dL (0.0-1.0); Blood Urea Nitrogen 18 mg/dL (9-16); Calcium 9.9 mg/dL (8.4-10.2); Carbon Dioxide 24 mmol/L (22-29); Chloride 104 mmol/L (96-108); Creatinine Clr Calc Pharmacy 62.5; Estimated Glomerular Filt Rate > 60; Glucose Random 262 mg/dL (60-115); Potassium 3.7 mmol/L (3.3-5.1); Sodium 137 mmol/L (135-145); Total Protein 7.6 g/dL (6.5-8.0)
[2023-08-07] MEDS: Famotidine 20 MG TABLET PO (10:47)
[2023-08-07] MEDS: Acetaminophen 325 MG TABLET 650 MG PO (10:47)
[2023-08-07] MEDS: Ondansetron ODT 8 MG TAB.RAPDIS TRANSLINGU (10:47)
[2023-08-07] MEDS: diphenhydrAMINE HCL 25 MG CAPSULE PO (10:47)
[2023-08-07] MEDS: Heparin Sodium,Porcine Flush 500 UNIT/5 ML SYRINGE IVFLUSH (10:48)
[2023-08-07] MEDS: dexAMETHasone sod phosphate/NS 12 MG/50 ML PIGGYBACK 200 MG IV (10:48)
[2023-08-07] MEDS: PACLitaxeL protein-bound 200 MG in Container,Empty 0 ML 80 MG IV (11:42)
[2023-08-07] MEDS: SODIUM CHLORIDE 0.9% IV (12:19)
[2023-08-07] MEDS: GEMCITABINE HCL IV (12:19)
[2023-08-07 15:32] VITALS: BMI 24.8
--- NOTE | 2023-08-07 15:35 | MHC.HEMONC ---
C3D1: GEMZAR/ABRAXANE. Port to right chest wall accessed without difficulty- positive blood return. Labs obtained and reviewed. Patient reports feeling well. Denies side effects. VSS. Pre-medicated with Zofran 8mg PO, Pepcid 20mg PO, Benadryl 25mg PO, and Dexamethasone 12mg IV. Chemo infusions well tolerated. Follow up with Dr. Jones today. Plan for scans in August. Assistant Manager [employer] Ibrahima present during follow up. Port flushed with Heparin and de-accessed. Calender provided with next appts.
[2023-08-21 10:01] VITALS: BMI 24.5
[2023-08-21 10:14] VITALS: BP 131/64; PULSE 78; RESP 18; TEMP 36.7; O2SAT 100
[2023-08-21] MEDS: Famotidine 20 MG TABLET PO (11:02)
[2023-08-21] MEDS: diphenhydrAMINE HCL 25 MG CAPSULE PO (11:02)
[2023-08-21] MEDS: Acetaminophen 325 MG TABLET 650 MG PO (11:02)
[2023-08-21] MEDS: Ondansetron ODT 8 MG TAB.RAPDIS TRANSLINGU (11:02)
[2023-08-21] MEDS: dexAMETHasone sod phosphate/NS 12 MG/50 ML PIGGYBACK 200 MG IV (11:03)
[2023-08-21] MEDS: Heparin Sodium,Porcine Flush 500 UNIT/5 ML SYRINGE IVFLUSH (11:05)
[2023-08-21] MEDS: PACLitaxeL protein-bound 200 MG in Container,Empty 0 ML 80 MG IV (11:36)
[2023-08-21] MEDS: SODIUM CHLORIDE 0.9% IV (12:20)
[2023-08-21] MEDS: GEMCITABINE HCL IV (12:20)
--- NOTE | 2023-08-21 17:11 | MHC.HEMONC ---
Pt was in for her C3D15 Paclitaxel (Protein-bound)/Gemcitabine, VSS, weight stable, reports feeling well, pt had her blood drawn on Sat morning at main lab, was agreeable to nurse booking appts and enetering lab orders to have blood drawn the Sat before every tx. Nurse accessed pt's R chest implanted port in sterile procedure, flushed w/ NS, found positive blood return. Nurse admin pre-meds: PO tylenol, PO benadryl, PO zofran, PO pepcid, and IV dexamethasone, then pt received IV Abraxane over 30 min, followed by IV Gemcitabine over 30 minutes, both tolerated well. Pt's port was flushed w/ NS and heparin 500 units, then de-accessed. Pt stated she has CT of abd/pelvis booked at [facility] on 09/04/23, but [facility] has her booked for the same scan on 09/27/23. Nurse checked w/ Dr. Jones, who said pt should attend the one at [facility], so nurse called central scheduling and cancelled the CT booked for 09/26 at [facility]. Nurse rescheduled pt's chemo from 09/03 to 09/04. Dr. Jones also agreed pt may have CA 19-9 drawn next week, by pt's request, for her team at [facility]. Pt was given d/c packet, to return on 09/04 for C4D1, to have blood drawn on the Sat preceding.
[2023-09-01 11:05] LABS: MANUAL DIFF FLAG NO
[2023-09-01 11:11] LABS: Basophils Absolute Auto 0.1 X10*3/uL (0.0-0.2); Basophils Percent Auto 0.6 % (0-2); Eosinophils Absolute Auto 0.2 X10*3/uL (0.0-0.4); Eosinophils Percent Auto 1.9 % (0-4); Hematocrit 30.3 % (37.0-47.0); Hemoglobin 10.2 g/dl (12.0-16.0); Imm Gran Abs Auto 0.03 X10*3/uL (0.00-0.03); Imm Gran Pct Auto 0.4 % (0.0-0.4); Lymphocytes Absolute Auto 3.5 X10*3/uL (1.2-4.9); Lymphocytes Percent Auto 42.7 % (20-40); Mean Corpuscular HGB Conc 33.7 g/dl (31.0-35.0); Mean Corpuscular Hemoglobin 30.5 pg (27.0-33.0); Mean Corpuscular Volume 90.7 fL (80.0-98.0); Mean Platelet Volume 9.6 fL (9.4-12.3); Monocytes Absolute Auto 1.3 X10*3/uL (0.1-1.2); Monocytes Percent Auto 15.4 % (2-11); Neutrophils Absolute Auto 3.2 x10*3/uL (2.0-8.3); Platelet Count 306 X10*3/uL (160-400); Red Blood Count 3.34 X10*6/uL (4.20-5.50); Red Cell Distribution Width 15.9 % (11.0-16.0); White Blood Count 8.1 X10*3/uL (4.8-10.8)
[2023-09-01 11:25] LABS: Alanine Aminotransferase 22 U/L (0-31); Albumin Level 4.3 g/dL (3.5-5.0); Alkaline Phosphatase 101 U/L (39-117); Anion Gap 12 (12-20); Aspartate Amino Transferase 21 U/L (5-31); Bilirubin Total 0.2 mg/dL (0.0-1.0); Blood Urea Nitrogen 15 mg/dL (9-16); Calcium 10.1 mg/dL (8.4-10.2); Carbon Dioxide 27 mmol/L (22-29); Chloride 104 mmol/L (96-108); Creatinine Clr Calc Pharmacy 69.7; Estimated Glomerular Filt Rate > 60; Glucose Random 206 mg/dL (60-115); Potassium 3.7 mmol/L (3.3-5.1); Sodium 139 mmol/L (135-145)
[2023-09-01 15:43] LABS: Carbohydrate Antigen 19-9 5851 U/mL (<34)
--- NOTE | 2023-09-01 17:05 | MHC.HEMONC ---
Pre chemo labs done and reviewed. Pt also asking for results of CA 19-9 to bring to appointment in [place] for Monday. Results still pending when pt was here in office, now resulted. Will call pt on Sunday 09/03 to picker and sorter load and unload copy of results prior to her appointment in [place].
[2023-09-05 09:53] VITALS: BP 162/62; PULSE 83; RESP 18; TEMP 36.6; O2SAT 98; BMI 24.4
[2023-09-05] MEDS: diphenhydrAMINE HCL 25 MG CAPSULE PO (10:23)
[2023-09-05] MEDS: Famotidine 20 MG TABLET PO (10:23)
[2023-09-05] MEDS: Acetaminophen 325 MG TABLET 650 MG PO (10:23)
[2023-09-05] MEDS: Ondansetron ODT 8 MG TAB.RAPDIS TRANSLINGU (10:23)
[2023-09-05] MEDS: Heparin Sodium,Porcine Flush 500 UNIT/5 ML SYRINGE IVFLUSH (10:24)
[2023-09-05] MEDS: dexAMETHasone sod phosphate/NS 12 MG/50 ML PIGGYBACK 200 MG IV (10:24)
[2023-09-05] MEDS: CONTAINER EMPTY IV (11:29)
[2023-09-05] MEDS: PACLITAXEL PROTEIN BOUND IV (11:29)
[2023-09-05] MEDS: GEMCITABINE HCL IV (12:20)
[2023-09-05] MEDS: SODIUM CHLORIDE 0.9% IV (12:20)
--- NOTE | 2023-09-06 09:31 | MHC.HEMONC ---
LATE ENTRY FOR 09/05/2023: Pt was in TODAY for C4D1 Paclitaxel (Protein-bound)/Gemcitabine, herVSS, weight stable, she reports feeling well, pt had her blood drawn on Sat morning in advance of today's appt, also had CT scan at [facility] yesterday, Dr. Jones was notified, HANG Dorina was asked to request report of CT scan result. Nurse accessed pt's R chest implanted port in sterile procedure, flushed w/ NS, found positive blood return. Nurse admin pre-meds: PO tylenol, PO benadryl, PO zofran, PO pepcid, and IV dexamethasone, then pt received IV Abraxane over 30 min, followed by IV Gemcitabine over 30 minutes, both tolerated well. Pt's port was flushed w/ NS and heparin 500 units, then de-accessed. Pt was given d/c packet, to return in two weeks for C4D15.
[2023-09-18 10:02] VITALS: BP 133/74; PULSE 83; RESP 18; TEMP 36.5; O2SAT 99; BMI 24.5
[2023-09-18] MEDS: Acetaminophen 325 MG TABLET 650 MG PO (10:34)
[2023-09-18] MEDS: diphenhydrAMINE HCL 25 MG CAPSULE PO (10:34)
[2023-09-18] MEDS: Heparin Sodium,Porcine Flush 500 UNIT/5 ML SYRINGE IVFLUSH (10:35)
[2023-09-18] MEDS: Famotidine 20 MG TABLET PO (10:35)
[2023-09-18] MEDS: Ondansetron ODT 8 MG TAB.RAPDIS TRANSLINGU (10:35)
[2023-09-18] MEDS: dexAMETHasone sod phosphate/NS 12 MG/50 ML PIGGYBACK 200 MG IV (10:41)
[2023-09-18] MEDS: CONTAINER EMPTY IV (11:57)
[2023-09-18] MEDS: PACLITAXEL PROTEIN BOUND IV (11:57)
--- NOTE | 2023-09-18 12:38 | P.PNHO-ONC_ITS ---
Medical Summary - Medical Summary Date of Service: 09/18/23 Chief complaint: Follow-up Primary Care Provider: Cesar Driscoll MD Medical Summary: Diagnosis: Pancreatic adenocarcinoma 10/2022 She has a history of chronic abdominal pain and has been seen by GI specialists over the years. A workup with both endoscopy/colonoscopy in previous imaging with CT abdomen/pelvis in 2019 in 2020 were negative. On 10/13/2022 she presented with [facility] with complaints of abdominal pain, CT abdomen/pelvis with contrast showed a 1.2 cm lesion in the body of the pancreas, bulky appearance of pancreatic body with mild peripancreatic stranding. Prominent pancreatic duct measuring up to 3 mm. No lymphadenopathy. A CT abdomen and subsequently MRI of abdomen with contrast on 10/19/2022 demonstrated a 2.7 x 1.7 cm hypoattenuating mass centered in the pancreatic body. Distal to the mass few small cysts measuring up to 8 mm in the pancreatic head. No contact with the SMA, celiac axis or common hepatic artery. No contact with the portal vein or superior mesenteric vein. No tumor or bland thrombus or dilated venous collaterals. No lymphadenopathy or evidence of metastatic disease in the abdomen. CA 19 9 elevated, over 500 unit/mL. Staging CT chest and bone scan performed at [facility] [place] was negative for metastatic disease. She underwent endoscopic ultrasound by Dr. Munoz on 11/24/2022 at [facility] which revealed brown mass in the pancreatic body, hypoechoic measuring 13 mm x 24 mm. Borders were well-defined. FNA cytology was adenocarcinoma. She started preoperative/ neoadjuvant chemotherapy with FOLFIRINOX regimen in October 2022. She had a PET-CT 01/03/2023 which revealed mild FDG activity associated with pancreatic mass, SUV 4.7 no additional foci of abnormal activity in the abdomen, chest or bones. No yymphadenopathy. She received her last cycle of FOLFIRINOX, cycle 6 on 02/15/2023. Right MediPort was removed by Dr. Loja because of malpositioning and reinserted in March 2023. She underwent laparoscopic pancreatectomy at [facility] on 04/19/2023. Interval History Interval history: Patient is here in follow-up and scheduled treatment. She is doing well and has no complaints today. She is tolerating treatment very well. She denies any nausea, abdominal discomfort, diarrhea, leg swelling, cough, fever or chills. Her weight is stable. She has had CT abdomen with contrast at [facility] earlier this month. Review of Systems - Constitutional Reports as per HPI - Neurologic Denies weakness [facility] Medical History: Medical History (Last Updated 07/17/23 @ 16:49 by Ibrahima Lebron) Acute pain of left knee Diabetes Family history of ovarian cancer GERD (gastroesophageal reflux disease) HTN (hypertension) OA (osteoarthritis) Overactive bladder Primary osteoarthritis, right hand Urinary urgency Weak urinary stream Family History: Family History (Last Reviewed 07/17/23 @ 16:20 by Opal Sanchez HAT BRAIDER) Father No problems noted. Mother Colon cancer Brother No problems noted. Brother No problems noted. Brother No problems noted. Sister Ovarian cancer Sister Breast cancer Sister No problems noted. Sister No problems noted. Daughter No problems noted. Daughter No problems noted. Surgical History: Surgical History (Last Reviewed 07/17/23 @ 16:20 by Opal Sanchez CMA) History of bladder suspension procedure History of tubal ligation Hx of colonoscopy Hx of esophagogastroduodenoscopy Social History: Social History (Last Reviewed 07/17/23 @ 16:20 by Opal Sanchez CMA) Living Situation History: Household Members: None Housing: Apartment Are you a primary care management assistant to a significant other at home: No Do you presently have visiting nurse or other home services: No Tobacco History: Patient Tobacco Use Status: Never used Tobacco e-Cigarette/Vaping Use: Never Used Second Hand Smoke Exposure: No Advance Directives: Advance Directives Date on File: 03/11/20 Occupation Assessmet: service: No Current occupational status: retired 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 Current occupational exposures/hazards: No Sex/Gender Assessment: Gender identity: Female Home Medications and Allergies Current Medications: Current Medications Acetaminophen (Acetaminophen 325 Mg Tablet) 650 mg PO ONCE BAYLEE Stop: 09/18/23 23:59 Last Admin: 09/18/23 10:34 Dose: 650 mg Diphenhydramine HCl (Diphenhydramine Hcl 25 Mg Capsule) 25 mg PO ONCE BAYLEE Stop: 09/18/23 23:59 Last Admin: 09/18/23 10:34 Dose: 25 mg Famotidine (Famotidine 20 Mg Tablet) 20 mg PO ONCE BAYLEE Stop: 09/18/23 23:59 Last Admin: 09/18/23 10:35 Dose: 20 mg Heparin Sodium (Porcine) (Heparin Sodium,Porcine Flush 500 Unit/5 Ml Syringe) 500 unit IVFLUSH ONCE BAYLEE Stop: 09/18/23 23:59 Last Admin: 09/18/23 10:35 Dose: 500 unit Gemcitabine HCl 1,500 mg/ (Sodium Chloride) 289.474 mls @ 578.947 mls/hr IV ONCE BAYLEE Last Infusion: 08/21/23 12:50 Dose: Infused Dexamethasone Sodium Phosphate (Decadron) 12 mg in 50 mls @ 200 mls/hr IV ONCE BAYLEE Stop: 09/18/23 23:59 Last Admin: 09/18/23 10:41 Dose: 200 mls/hr Paclitaxel/Albumin ( Nanoparticle) 190 mg/ IV Miscellaneous Supplies 38 mls @ 76 mls/hr IV ONCE BAYLEE Stop: 09/18/23 23:59 Last Admin: 09/18/23 11:57 Dose: 76 mls/hr Gemcitabine HCl 1,000 mg/Gemcitabine HCl 500 mg/ Sodium Chloride 289.4735 mls @ 578.947 mls/hr IV ONCE BAYLEE Stop: 09/18/23 23:59 Ondansetron HCl (Ondansetron Odt 8 Mg Tab.Rapdis) 8 mg TRANSLINGU ONCE BAYLEE Stop: 09/18/23 23:59 Last Admin: 09/18/23 10:35 Dose: 8 mg Home Medications ?Medication ?Instructions ?Recorded ?Confirmed ?Type magnesium 200 mg tablet 200 mg PO DAILY 12/07/22 08/07/23 History vitamin B complex 1 cap PO DAILY 12/07/22 08/07/23 History metformin 500 mg tablet 500 mg PO DAILY@1700 08/07/23 08/07/23 History Allergies Allergy/AdvReac Type Severity Reaction Status Date / Time No Known Allergies Allergy Verified 07/17/23 16:19 Exam Vital signs: Vital Signs Temp 97.7 F 09/18/23 10:02 Pulse 83 09/18/23 10:02 Resp 18 09/18/23 10:02 BP 133/74 09/18/23 10:02 Pulse Ox 99 09/18/23 10:02 O2 Del Method Room Air 09/18/23 10:02 Intake & Output 04/21/24 04/22/24 04/22/24 18:59 06:59 18:59 Other: Weight 57 kg [place] Weight in Grams 42899 Weight 57 kg BMI result Body Mass Index 24.5 - Constitutional Present: no acute distress - Routine HEENT Exam Head: Present: normal inspection - Routine Neck Exam Absent: lymphadenopathy - Routine Respiratory Exam Absent: accessory muscle use - Routine Cardiovascular Exam Cardiovascular: Present: RRR, S1, S2 - Routine Abdominal Exam Present: soft, tenderness - Routine Extremities Exam Absent: pedal edema - Routine Skin Exam Present: intact - Routine Neurological Exam Present: alert, oriented X3 Data - Labs CBC & Chem 7: 09/01/23 11:04 09/01/23 11:04 Assessment and Plan Patient Active problem list reviewed?: Yes (1) Mass of pancreas Status: Resolved Assessment and plan: 1. This is a 62-year-old woman presenting with pancreatic adenocarcinoma diagnosed in October 2022. A CT abdomen and subsequently MRI of abdomen with contrast on 10/19/2022 demonstrated a 2.7 x 1.7 cm hypoattenuating mass centered in the pancreatic body. No lymphadenopathy or evidence of metastatic disease in the abdomen. CA 19 9 elevated, over 500 unit/mL. She started preoperative/ neoadjuvant chemotherapy with FOLFIRINOX from October to january 2023. She had a PET-CT 01/03/2023 which revealed mild FDG activity associated with pancreatic mass, SUV 4.7 no additional foci of abnormal activity in the abdomen, chest or bones. No lymphadenopathy. MRI abdomen performed 03/02/2023 showed decrease in size of mass in pancreatic body, now measures 1.7 cm previously measured 2.3 cm. No lymphadenopathy. Restaging CT chest performed at [facility] was negative for metastatic disease. Genetic assessment for inherited cancer syndrome submitted to [facility], 40 gene panel was negative. On 04/19/2023 patient underwent robotic assisted pancreatectomy with splenectomy at [facility] performed by Dr. Ilia Gunn. Pathology revealed residual pancreatic ductal adenocarcinoma, moderately differentiated. Pathological stage AJCC: [id number]. (8/27 LN pos) positive for vascular and perineural invasion. Anterior surface is focally involved by carcinoma, resection margins are negative for carcinoma. Eight of 27 lymph nodes positive for carcinoma. Tumor size 3.7 x 2.5 x 1.7 cm. Tumor extension confined to pancreas, pancreatic surface, anterior surface involved. Treatment effect- absent with extensive residual carcinoma and no evident tumor regression poor or no response score 3. All margins negative, carcinoma is 1 mm to the closest posterior surface. As she does not have any positive margins, she was advised against radiation referral by her surgeon at [facility]. 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 Negative for BRAF, GNAS, PIK3CA and VHL mutations. Repeat PET-CT performed on 05/30/23 showed no evidence of residual or recurrent disease. Stable hepatic steatosis and interval partial pancreatectomy and splenectomy since prior PET scan dated December 2022. She started gemcitabine/Abraxane (Nab paclitaxel) for locally advanced pancreatic cancer on 06/12/2023. She is tolerating it well. CA 19 9 remains elevated, over 5000 unit/mL since June 2023. Repeat CT abdomen[facility] showed sequelae of prior distal pancreatectomy and splenectomy with several nonspecific subcentimeter hepatic lesions, too small to characterize. Subcentimeter perigastric lymph node likely reactive. She is tolerating treatment well. Monitor CA 19- 9 level. Consider repeat scan in 3 months. Follow-up in 4 weeks. - Time Spent With Patient Time Spent with Patient (in minutes): 20
[2023-09-18] MEDS: GEMCITABINE HCL IV (12:48)
[2023-09-18] MEDS: SODIUM CHLORIDE 0.9% IV (12:48)
--- NOTE | 2023-09-18 14:57 | MHC.HEMONC ---
C4D15: GEMZAR/ABRAXANE. Port to right chest wall accessed without difficulty- positive blood return. Labs completed the Monday prior and reviewed. Patient reports feeling well. Denies side effects. VSS. Pre-medicated with Zofran 8mg PO, Pepcid 20mg PO, Benadryl 25mg PO, and Dexamethasone 12mg IV. Chemo infusions well tolerated. Follow up with Dr. Jones today. Port flushed with Heparin and de-accessed. Calender provided with next appts.
[2023-10-02] MEDS: diphenhydrAMINE HCL 25 MG CAPSULE PO (10:27)
[2023-10-02] MEDS: dexAMETHasone sod phosphate/NS 12 MG/50 ML PIGGYBACK 200 MG IV (10:27)
[2023-10-02] MEDS: Heparin Sodium,Porcine Flush 500 UNIT/5 ML SYRINGE IVFLUSH (10:27)
[2023-10-02] MEDS: Famotidine 20 MG TABLET PO (10:28)
[2023-10-02] MEDS: Acetaminophen 325 MG TABLET 650 MG PO (10:28)
[2023-10-02] MEDS: Ondansetron ODT 8 MG TAB.RAPDIS TRANSLINGU (10:28)
[2023-10-02] MEDS: PACLitaxeL protein-bound 200 MG in Container,Empty 0 ML 80 MG IV (11:29)
[2023-10-02] MEDS: SODIUM CHLORIDE 0.9% IV (12:11)
[2023-10-02] MEDS: GEMCITABINE HCL IV (12:11)
--- NOTE | 2023-10-02 15:15 | MHC.HEMONC ---
C5D1 Gemzar/Abraxane. Pt feeling well. appetite good. Labs drawn on 08/31 and reviewed. Ok to treat. Port to right chest accessed, good blood return. Premeds given Po Tylenol, benadryl, zofran, IV dex, pepcid. Abraxane and Gemzar infused. Pt tolerated it well. Port de accessed with heparin. Summary given with next appointment 2 weeks. Pt refused wheelchair. Pt escorted to entrance. Gait steady.
--- NOTE | 2023-10-13 10:47 | MHC.HEMONC ---
Nurse entered lab orders for pt's pre-chemo labs, in order for pt to have blood drawn at [facility] lab tomorrow morning, to prep for sched chemo on 10/16/23.
[2023-10-16 10:01] VITALS: BMI 24.3
[2023-10-16 10:09] VITALS: BP 136/79; PULSE 70; RESP 18; TEMP 36.3; O2SAT 98
[2023-10-16] MEDS: Acetaminophen 325 MG TABLET 650 MG PO (10:30)
[2023-10-16] MEDS: diphenhydrAMINE HCL 25 MG CAPSULE PO (10:30)
[2023-10-16] MEDS: Famotidine 20 MG TABLET PO (10:30)
[2023-10-16] MEDS: dexAMETHasone sod phosphate/NS 12 MG/50 ML PIGGYBACK 200 MG IV (10:31)
[2023-10-16] MEDS: Ondansetron ODT 8 MG TAB.RAPDIS TRANSLINGU (10:31)
[2023-10-16] MEDS: Heparin Sodium,Porcine Flush 500 UNIT/5 ML SYRINGE IVFLUSH (10:31)
[2023-10-16] MEDS: PACLitaxeL protein-bound 200 MG in Container,Empty 0 ML 80 MG IV (11:14)
--- NOTE | 2023-10-16 11:43 | PM.HEMONCPN ---
Medical Summary - Medical Summary Date of Service: 10/16/23 Chief complaint: Follow-up and scheduled treatment Primary Care Provider: Cesar Driscoll MD Medical Summary: Diagnosis: Pancreatic adenocarcinoma 10/2022 She has a history of chronic abdominal pain and has been seen by GI specialists over the years. A workup with both endoscopy/colonoscopy in previous imaging with CT abdomen/pelvis in 2019 in 2020 were negative. On 10/13/2022 she presented with [facility] with complaints of abdominal pain, CT abdomen/pelvis with contrast showed a 1.2 cm lesion in the body of the pancreas, bulky appearance of pancreatic body with mild peripancreatic stranding. Prominent pancreatic duct measuring up to 3 mm. No lymphadenopathy. A CT abdomen and subsequently MRI of abdomen with contrast on 10/19/2022 demonstrated a 2.7 x 1.7 cm hypoattenuating mass centered in the pancreatic body. Distal to the mass few small cysts measuring up to 8 mm in the pancreatic head. No contact with the SMA, celiac axis or common hepatic artery. No contact with the portal vein or superior mesenteric vein. No tumor or bland thrombus or dilated venous collaterals. No lymphadenopathy or evidence of metastatic disease in the abdomen. CA 19 9 elevated, over 500 unit/mL. Staging CT chest and bone scan performed at [facility] was negative for metastatic disease. She underwent endoscopic ultrasound by Dr. Munoz on 11/24/2022 at [facility] which revealed brown mass in the pancreatic body, hypoechoic measuring 13 mm x 24 mm. Borders were well-defined. FNA cytology was adenocarcinoma. She started preoperative/ neoadjuvant chemotherapy with FOLFIRINOX regimen in October 2022. She had a PET-CT 01/03/2023 which revealed mild FDG activity associated with pancreatic mass, SUV 4.7 no additional foci of abnormal activity in the abdomen, chest or bones. No yymphadenopathy. She received her last cycle of FOLFIRINOX, cycle 6 on 02/15/2023. Right MediPort was removed by Dr. Loja because of malpositioning and reinserted in March 2023. She underwent laparoscopic pancreatectomy at [facility] on 04/19/2023. Interval History Interval history: Patient is here in follow-up and scheduled treatment. She is doing well and has no complaints today. She is tolerating treatment very well. She denies any nausea, abdominal discomfort, diarrhea, leg swelling, cough, fever or chills. Her weight is stable. Review of Systems - Constitutional Reports as per HPI - Neurologic Denies weakness [facility] Medical History: Medical History (Last Updated 10/06/23 @ 15:35 by Shayla Riley RN) Acute pain of left knee Arthritis Depression Diabetes Family history of ovarian cancer GERD (gastroesophageal reflux disease) HTN (hypertension) Migraines OA (osteoarthritis) Overactive bladder Pancreatic mass Primary osteoarthritis, right hand Urinary urgency Weak urinary stream Family History: Family History (Last Reviewed 07/17/23 @ 16:20 by Opal Sanchez [facility]) Father No problems noted. Mother Colon cancer Brother No problems noted. Brother No problems noted. Brother No problems noted. Sister Ovarian cancer Sister Breast cancer Sister No problems noted. Sister No problems noted. Daughter No problems noted. Daughter No problems noted. Surgical History: Surgical History (Last Updated 10/06/23 @ 15:39 by Shayla Riley RN) History of bladder suspension procedure History of pancreatectomy Onset Date: ~03/2023 History of tubal ligation Hx of colonoscopy Hx of esophagogastroduodenoscopy Social History: Social History (Last Reviewed 07/17/23 @ 16:20 by Opal Sanchez CMA) Living Situation History: Household Members: None Housing: Apartment Are you a primary before and after school daycare worker to a significant other at home: No Do you presently have visiting nurse or other home services: No Tobacco History: Patient Tobacco Use Status: Never used Tobacco e-Cigarette/Vaping Use: Never Used Second Hand Smoke Exposure: No Advance Directives: Advance Directives Date on File: 03/11/20 Occupation Assessmet: service: No Current occupational status: retired 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 Current occupational exposures/hazards: No Sex/Gender Assessment: Gender identity: Female Home Medications and Allergies Current Medications: Current Medications Acetaminophen (Acetaminophen 325 Mg Tablet) 650 mg PO ONCE BAYLEE Stop: 10/16/23 23:59 Last Admin: 10/16/23 10:30 Dose: 650 mg Diphenhydramine HCl (Diphenhydramine Hcl 25 Mg Capsule) 25 mg PO ONCE BAYLEE Stop: 10/16/23 23:59 Last Admin: 10/16/23 10:30 Dose: 25 mg Famotidine (Famotidine 20 Mg Tablet) 20 mg PO ONCE BAYLEE Stop: 10/16/23 23:59 Last Admin: 10/16/23 10:30 Dose: 20 mg Heparin Sodium (Porcine) (Heparin Sodium,Porcine Flush 500 Unit/5 Ml Syringe) 500 unit IVFLUSH ONCE BAYELE Stop: 10/16/23 23:59 Last Admin: 10/16/23 10:31 Dose: 500 unit Gemcitabine HCl 1,500 mg/ (Sodium Chloride) 289.474 mls @ 578.947 mls/hr IV ONCE BAYLEE Last Infusion: 08/21/23 12:50 Dose: Infused Dexamethasone Sodium Phosphate (Decadron) 12 mg in 50 mls @ 200 mls/hr IV ONCE BAYLEE Stop: 10/16/23 23:59 Last Admin: 10/16/23 10:31 Dose: 200 mls/hr Paclitaxel/Albumin ( Nanoparticle) 200 mg/ IV Miscellaneous Supplies 40 mls @ 80 mls/hr IV ONCE BAYLEE Stop: 10/16/23 23:59 Last Admin: 10/16/23 11:14 Dose: 80 mls/hr Gemcitabine HCl 1,000 mg/Gemcitabine HCl 500 mg/ Sodium Chloride 289.4735 mls @ 578.947 mls/hr IV ONCE BAYLEE Stop: 10/16/23 23:59 Ondansetron HCl (Ondansetron Odt 8 Mg Tab.Rapdis) 8 mg TRANSLINGU ONCE BAYLEE Stop: 10/16/23 23:59 Last Admin: 10/16/23 10:31 Dose: 8 mg Home Medications ?Medication ?Instructions ?Recorded ?Confirmed ?Type magnesium 200 mg tablet 200 mg PO DAILY 12/07/22 09/29/23 History vitamin B complex 1 cap PO DAILY 12/07/22 09/29/23 History metformin 500 mg tablet 500 mg PO DAILY@1700 08/07/23 09/29/23 History pantoprazole 40 mg tablet,delayed 40 mg PO DAILY 10/06/23 10/06/23 History release Allergies Allergy/AdvReac Type Severity Reaction Status Date / Time No Known Allergies Allergy Verified 09/29/23 11:42 Exam Vital signs: Vital Signs Temp 97.3 F 10/16/23 10:09 Pulse 70 10/16/23 10:09 Resp 18 10/16/23 10:09 BP 136/79 10/16/23 10:09 Pulse Ox 98 10/16/23 10:09 O2 Del Method Room Air 10/16/23 10:09 Intake & Output 10/15/23 10/16/23 10/16/23 18:59 06:59 18:59 Other: Weight 56.5 kg Weight in Grams [id number] Weight 56.5 kg BMI result Body Mass Index 24.3 - Constitutional Present: no acute distress - Routine HEENT Exam Head: Present: normal inspection - Routine Neck Exam Absent: lymphadenopathy - Routine Respiratory Exam Absent: accessory muscle use - Routine Cardiovascular Exam Cardiovascular: Present: RRR, S1, S2 - Routine Abdominal Exam Present: soft, tenderness - Routine Extremities Exam Absent: pedal edema - Routine Skin Exam Present: intact - Routine Neurological Exam Present: alert, oriented X3 Data - Labs CBC & Chem 7: 09/01/23 11:04 09/01/23 11:04 Assessment and Plan Patient Active problem list reviewed?: Yes (1) Mass of pancreas Status: Resolved Assessment and plan: 1. This is a 62-year-old woman presenting with pancreatic adenocarcinoma diagnosed in October 2022. A CT abdomen and subsequently MRI of abdomen with contrast on 10/19/2022 demonstrated a 2.7 x 1.7 cm hypoattenuating mass centered in the pancreatic body. No lymphadenopathy or evidence of metastatic disease in the abdomen. CA 19 9 elevated, over 500 unit/mL. She started preoperative/ neoadjuvant chemotherapy with FOLFIRINOX from October to january 2023. She had a PET-CT 01/03/2023 which revealed mild FDG activity associated with pancreatic mass, SUV 4.7 no additional foci of abnormal activity in the abdomen, chest or bones. No lymphadenopathy. MRI abdomen performed 03/02/2023 showed decrease in size of mass in pancreatic body, now measures 1.7 cm previously measured 2.3 cm. No lymphadenopathy. Restaging CT chest performed at [facility] was negative for metastatic disease. Genetic assessment for inherited cancer syndrome submitted to [facility], 40 gene panel was negative. On 04/19/2023 patient underwent robotic assisted pancreatectomy with splenectomy at [facility] performed by Dr. Ilia Gunn. Pathology revealed residual pancreatic ductal adenocarcinoma, moderately differentiated. Pathological stage AJCC: [id number]. (8/27 LN pos) positive for vascular and perineural invasion. Anterior surface is focally involved by carcinoma, resection margins are negative for carcinoma. Eight of 27 lymph nodes positive for carcinoma. Tumor size 3.7 x 2.5 x 1.7 cm. Tumor extension confined to pancreas, pancreatic surface, anterior surface involved. Treatment effect-absent with extensive residual carcinoma and no evident tumor regression poor or no response score 3. All margins negative, carcinoma is 1 mm to the closest posterior surface. As she does not have any positive margins, she was advised against radiation referral by her surgeon at [facility]. 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 Negative for BRAF, GNAS, PIK3CA and VHL mutations. Repeat PET-CT performed on 05/30/23 showed no evidence of residual or recurrent disease. Stable hepatic steatosis and interval partial pancreatectomy and splenectomy since prior PET scan dated December 2022. She started gemcitabine/Abraxane (Nab paclitaxel) for locally advanced pancreatic cancer on 06/12/2023. She is tolerating it well. CA 19 9 remains elevated, over 5000 unit/mL since June 2023. Repeat CT abdomen/pelvis with contrastPer[facility] showed sequelae of prior distal pancreatectomy and splenectomy with several nonspecific subcentimeter hepatic lesions, too small to characterize. Subcentimeter perigastric lymph node likely reactive. She is tolerating treatment well. Monitor CA 19- 9 level. Consider repeat scan in 3 months. Follow-up in 4 weeks. - Time Spent With Patient Time Spent with Patient (in minutes): 15
[2023-10-16] MEDS: SODIUM CHLORIDE 0.9% IV (11:52)
[2023-10-16] MEDS: GEMCITABINE HCL IV (11:52)
--- NOTE | 2023-10-16 13:43 | MHC.HEMONC ---
Addendum entered by Ingrid Dwyer RN 10/16/23 13:47: Ca 19-9 will be checked not CEA. Original Note: C5D15: GEMZAR/ABRAXANE. Port to right chest wall accessed without difficulty- positive blood return. Labs completed Monday and reviewed. Patient reports feeling well. Denies side effects. VSS. Pre-medicated with Zofran 8mg PO, Pepcid 20mg PO, Benadryl 25mg PO, and Dexamethasone 12mg IV. Chemo infusions well tolerated. Follow up with Dr. Jones today. Silk Screener Kelli present during follow up. Port flushed with Heparin and de-accessed. Calender provided with next appts. Per Dr. Jones she will discontinue Dexamethasone as a pre-med due to elevated blood sugar and will recheck CEA next cycle.
[2023-10-30 10:18] VITALS: BP 118/62; PULSE 75; RESP 16; TEMP 36.4; O2SAT 95
[2023-10-30 10:19] VITALS: BMI 24.2
[2023-10-30] MEDS: diphenhydrAMINE HCL 25 MG CAPSULE PO (11:21)
[2023-10-30] MEDS: Heparin Sodium,Porcine Flush 500 UNIT/5 ML SYRINGE IVFLUSH (11:21)
[2023-10-30] MEDS: Famotidine 20 MG TABLET PO (11:22)
[2023-10-30] MEDS: Ondansetron ODT 8 MG TAB.RAPDIS TRANSLINGU (11:22)
[2023-10-30] MEDS: Acetaminophen 325 MG TABLET 650 MG PO (11:22)
[2023-10-30] MEDS: CONTAINER EMPTY IV (12:23)
[2023-10-30] MEDS: PACLITAXEL PROTEIN BOUND IV (12:23)
[2023-10-30] MEDS: SODIUM CHLORIDE 0.9% IV (13:07)
[2023-10-30] MEDS: GEMCITABINE HCL IV (13:07)
--- NOTE | 2023-10-30 14:43 | MHC.HEMONC ---
Pt arrived for C6D1 Paclitaxel (Protein-bound)/Gemcitabine, VSS, weight stable, reports feeling fine today. Pt had her blood drawn at main lab on Monday, results were reviewed. Nurse accessed pt's R chest implanted port, flushed w/ NS, found positive blood return. Nurse confirmed w/ Dr. Jones that pt was to no longer receive Dexamethasone as pre-med. Nurse admin pre-meds: PO tylenol, PO benadryl, PO zofran, PO pepcid, then pt received IV Abraxane over 30 min, followed by IV Gemcitabine over 30 minutes, both tolerated well. Pt's port was flushed w/ NS and heparin 500 units, then de-accessed. Pt was given d/c packet, to return on 11/12 for C6D15. Pt declined w/c for departure, was observed walking w/ even, steady gait.
--- NOTE | 2023-11-10 12:04 | MHC.HEMONC ---
Nurse entered lab orders for pt's pre-chemo labs, in order for pt to have blood drawn at [facility] lab tomorrow morning, to prep for sched chemo on 11/13/23.
[2023-11-13 10:09] VITALS: BP 166/70; PULSE 74; RESP 18; TEMP 36.5; O2SAT 98; BMI 24.4
[2023-11-13] MEDS: diphenhydrAMINE HCL 25 MG CAPSULE PO (11:01)
[2023-11-13] MEDS: Heparin Sodium,Porcine Flush 500 UNIT/5 ML SYRINGE IVFLUSH (11:01)
[2023-11-13] MEDS: Ondansetron ODT 8 MG TAB.RAPDIS TRANSLINGU (11:01)
[2023-11-13] MEDS: Famotidine 20 MG TABLET PO (11:01)
[2023-11-13] MEDS: Acetaminophen 325 MG TABLET 650 MG PO (11:01)
[2023-11-13] MEDS: CONTAINER EMPTY IV (11:36)
[2023-11-13] MEDS: PACLITAXEL PROTEIN BOUND IV (11:36)
--- NOTE | 2023-11-13 11:45 | PM.HEMONCPN ---
Medical Summary - Medical Summary Date of Service: 11/13/23 Chief complaint: Follow-up Primary Care Provider: Cesar Driscoll MD Medical Summary: Diagnosis: Pancreatic adenocarcinoma 10/2022 She has a history of chronic abdominal pain and has been seen by GI specialists over the years. A workup with both endoscopy/colonoscopy in previous imaging with CT abdomen/pelvis in 2019 in 2020 were negative. On 10/13/2022 she presented with [facility] with complaints of abdominal pain, CT abdomen/pelvis with contrast showed a 1.2 cm lesion in the body of the pancreas, bulky appearance of pancreatic body with mild peripancreatic stranding. Prominent pancreatic duct measuring up to 3 mm. No lymphadenopathy. A CT abdomen and subsequently MRI of abdomen with contrast on 10/19/2022 demonstrated a 2.7 x 1.7 cm hypoattenuating mass centered in the pancreatic body. Distal to the mass few small cysts measuring up to 8 mm in the pancreatic head. No contact with the SMA, celiac axis or common hepatic artery. No contact with the portal vein or superior mesenteric vein. No tumor or bland thrombus or dilated venous collaterals. No lymphadenopathy or evidence of metastatic disease in the abdomen. CA 19 9 elevated, over 500 unit/mL. Staging CT chest and bone [place] [facility] for [place] disease. She underwent endoscopic ultrasound by Dr. Munoz on 11/24/2022 at [facility] which revealed brown mass in the pancreatic body, hypoechoic measuring 13 mm x 24 mm. Borders were well-defined. FNA cytology was adenocarcinoma. She started preoperative/ neoadjuvant chemotherapy with FOLFIRINOX regimen in October 2022. She had a PET-CT 01/03/2023 which revealed mild FDG activity associated with pancreatic mass, SUV 4.7 no additional foci of abnormal activity in the abdomen, chest or bones. No yymphadenopathy. She received her last cycle of FOLFIRINOX, cycle 6 on 02/15/2023. MRI abdomen performed 03/02/2023 showed decrease in size of mass in pancreatic body, now measures 1.7 cm previously measured 2.3 cm. No lymphadenopathy. Restaging CT chest performed at [facility] was negative for metastatic disease. Right MediPort was removed by Dr. Loja because of malpositioning and reinserted in March 2023. She underwent laparoscopic pancreatectomy at [facility] on 04/19/2023. Pathological stage AJCC: YpT2N2. (8/27 LN pos) positive for vascular and perineural invasion. Anterior surface is focally involved by carcinoma, resection margins are negative for carcinoma. Eight of 27 lymph nodes positive for carcinoma. Tumor size 3.7 x 2.5 x 1.7 cm. Tumor extension confined to pancreas, pancreatic surface, anterior surface involved. Repeat PET-CT performed on 05/30/23 showed no evidence of residual or recurrent disease. Stable hepatic steatosis and interval partial pancreatectomy and splenectomy. Interval History Interval history: Patient is here in follow-up and scheduled treatment. She is tolerating treatment very well. She denies any nausea, diarrhea, leg swelling, cough, fever or chills. Her weight is stable. She noticed some discomfort on and off in the lower quadrant of the abdomen. She has an appointment with surgeon at [facility] tomorrow. Review of Systems - Constitutional Reports as per HPI, Denies excessive sweating, Denies fatigue, Denies lack of energy, Denies poor appetite - Cardiovascular Reports no additional cardiovascular complaints - Respiratory Reports no additional respiratory complaints - Gastrointestinal Reports no additional gastrointestinal complaints - Neurologic Denies weakness [facility] Medical History: Medical History (Last Updated 10/06/23 @ 15:35 by Shayla Riley RN) Acute pain of left knee Arthritis Depression Diabetes Family history of ovarian cancer GERD (gastroesophageal reflux disease) HTN (hypertension) Migraines OA (osteoarthritis) Overactive bladder Pancreatic mass Primary osteoarthritis, right hand Urinary urgency Weak urinary stream Family History: Family History (Last Reviewed 07/17/23 @ 16:20 by Opal Sanchez CMA) Father No problems noted. Mother Colon cancer Brother No problems noted. Brother No problems noted. Brother No problems noted. Sister Ovarian cancer Sister Breast cancer Sister No problems noted. Sister No problems noted. Daughter No problems noted. Daughter No problems noted. Surgical History: Surgical History (Last Updated 10/06/23 @ 15:39 by Shayla Riley RN) History of bladder suspension procedure History of pancreatectomy Onset Date: ~03/2023 History of tubal ligation Hx of colonoscopy Hx of esophagogastroduodenoscopy Social History: Social History (Last Reviewed 07/17/23 @ 16:20 by Opal Sanchez CMA) Living Situation History: Household Members: None Housing: Apartment Are you a primary personal carer to a significant other at home: No Do you presently have visiting nurse or other home services: No Tobacco History: Patient Tobacco Use Status: Never used Tobacco e-Cigarette/Vaping Use: Never Used Second Hand Smoke Exposure: No Advance Directives: Advance Directives Date on File: 03/11/20 Occupation Assessmet: service: No Current occupational status: retired 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 Current occupational exposures/hazards: No Sex/Gender Assessment: Gender identity: Female Home Medications and Allergies Current Medications: Current Medications Acetaminophen (Acetaminophen 325 Mg Tablet) 650 mg PO ONCE BAYLEE Stop: 11/13/23 23:59 Last Admin: 11/13/23 11:01 Dose: 650 mg Diphenhydramine HCl (Diphenhydramine Hcl 25 Mg Capsule) 25 mg PO ONCE BAYLEE Stop: 11/13/23 23:59 Last Admin: 11/13/23 11:01 Dose: 25 mg Famotidine (Famotidine 20 Mg Tablet) 20 mg PO ONCE BAYLEE Stop: 11/13/23 23:59 Last Admin: 11/13/23 11:01 Dose: 20 mg Heparin Sodium (Porcine) (Heparin Sodium,Porcine Flush 500 Unit/5 Ml Syringe) 500 unit IVFLUSH ONCE BAYLEE Stop: 11/13/23 23:59 Last Admin: 11/13/23 11:01 Dose: 500 unit Gemcitabine HCl 1,500 mg/ (Sodium Chloride) 289.474 mls @ 578.947 mls/hr IV ONCE [facility] Last Infusion: 08/21/23 12:50 Dose: Infused Paclitaxel/Albumin ( Nanoparticle) 190 mg/ IV Miscellaneous Supplies 38 mls @ 76 mls/hr IV ONCE BAYLEE Stop: 11/13/23 23:59 Last Admin: 11/13/23 11:36 Dose: 76 mls/hr Gemcitabine HCl 1,000 mg/Gemcitabine HCl 500 mg/ Sodium Chloride 289.4735 mls @ 578.947 mls/hr IV ONCE BAYLEE Stop: 11/13/23 23:59 Ondansetron HCl (Ondansetron Odt 8 Mg Tab.Rapdis) 8 mg TRANSLINGU ONCE BAYLEE Stop: 11/13/23 23:59 Last Admin: 11/13/23 11:01 Dose: 8 mg Home Medications ?Medication ?Instructions ?Recorded ?Confirmed ?Type magnesium 200 mg tablet 200 mg PO DAILY 12/07/22 09/29/23 History vitamin B complex 1 cap PO DAILY 12/07/22 09/29/23 History metformin 500 mg tablet 500 mg PO DAILY@1700 08/07/23 09/29/23 History pantoprazole 40 mg tablet,delayed 40 mg PO DAILY 10/06/23 10/06/23 History release Allergies Allergy/AdvReac Type Severity Reaction Status Date / Time No Known Allergies Allergy Verified 09/29/23 11:42 Exam Vital signs: Vital Signs Temp 97.7 F 11/13/23 10:09 Pulse 74 11/13/23 10:09 Resp 18 11/13/23 10:09 BP 166/70 H 11/13/23 10:09 Pulse Ox 98 11/13/23 10:09 O2 Del Method Room Air 11/13/23 10:09 Intake & Output 11/12/23 11/13/23 11/13/23 18:59 06:59 18:59 Other: Weight 56.7 kg Weight in Grams 62532 Weight 56.7 kg BMI result Body Mass Index 24.4 - Constitutional Present: no acute distress - Routine HEENT Exam Head: Present: normal inspection - Routine Neck Exam Absent: lymphadenopathy - Routine Respiratory Exam Absent: accessory muscle use - Routine Cardiovascular Exam Cardiovascular: Present: RRR, S1, S2 - Routine Abdominal Exam Present: soft, tenderness - Routine Extremities Exam Absent: pedal edema - Routine Skin Exam Present: intact - Routine Neurological Exam Present: alert, oriented X3 Data - Labs CBC & Chem 7: 09/01/23 11:04 09/01/23 11:04 Assessment and Plan Patient Active problem list reviewed?: Yes (1) Mass of pancreas Status: Resolved Assessment and plan: 1. This is a 62-year-old woman presenting with pancreatic adenocarcinoma diagnosed in October 2022. A CT abdomen and subsequently MRI of abdomen with contrast on 10/19/2022 demonstrated a 2.7 x 1.7 cm hypoattenuating mass centered in the pancreatic body. No lymphadenopathy or evidence of metastatic disease in the abdomen. CA 19 9 elevated, over 500 unit/mL. She started preoperative/ neoadjuvant chemotherapy with FOLFIRINOX from October to january 2023. Genetic assessment for inherited cancer syndrome submitted to [facility], 40 gene panel was negative. On 04/19/2023 patient underwent robotic assisted pancreatectomy with splenectomy at [facility] performed by Dr. Ilia Gunn. Pathology revealed residual pancreatic ductal adenocarcinoma, moderately differentiated. Pathological stage AJCC: YpT2N2. (01/22 LN pos) positive for vascular and perineural invasion. As she did not have any positive margins, she was advised against radiation referral by her surgeon at [facility]. 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 Negative for BRAF, GNAS, PIK3CA and VHL mutations. She started gemcitabine/Abraxane (Nab paclitaxel) for locally advanced pancreatic cancer on 06/12/2023. She is tolerating it well. CA 19 9 remains elevated, over 5000 unit/mL since June 2023. CT abdomen/pelvis with contrastPer[facility] showed sequelae of prior distal pancreatectomy and splenectomy with several nonspecific subcentimeter hepatic lesions, too small to characterize. Subcentimeter perigastric lymph node likely reactive. She is complaining of some lower quadrant abdominal pain. Her CA 19 9 is over 21,000. I am repeating CT abdomen/pelvis with contrast at this time. She completes 6 months of adjuvant treatment with gemcitabine/Abraxane as of today. Follow-up in 6-8 weeks. - Time Spent With Patient Time Spent with Patient (in minutes): 20
[2023-11-13] MEDS: GEMCITABINE HCL IV (12:54)
[2023-11-13] MEDS: SODIUM CHLORIDE 0.9% IV (12:54)
--- NOTE | 2023-11-13 14:14 | MHC.HEMONCMA ---
ordered CT abd pel w con
--- NOTE | 2023-11-13 17:31 | MHC.HEMONC ---
Pt arrived for C6D15 Paclitaxel (Protein-bound)/Gemcitabine, also Onc f/u appt, VSS, weight stable, reports feeling fine today. Pt had her blood drawn at main lab on Monday, results were reviewed. Nurse accessed pt's R chest implanted port, flushed w/ NS, found positive blood return. Nurse admin pre-meds: PO tylenol, PO benadryl, PO zofran, PO pepcid, then pt received IV Abraxane over 30 min, followed by IV Gemcitabine over 30 minutes, both tolerated well. Pt met w/ Dr. Jones, along w/ her dtr Alda, notified she'd completed 6 months of tx, will take a break and do scans, then re-assess plan. Pt's port was flushed w/ NS and heparin 500 units, then de-accessed. Pt was given d/c packet, to return in 2 months for f/u. Pt declined w/c for departure, was observed walking w/ even, steady gait.
--- NOTE | 2023-11-22 09:47 | MHC.HEMONC ---
Triage call- Jah PICHARDO from Dr Alfredo office [facility] called and left VM asking to speak to DR Jones. He stated he has an update to convey. Nurse called and left voice mail stating that Dr Jones is out of the office until Monday if you want to wait and speak with her otherwise Dr Villela is covering you can call us back and let us know either way.
--- NOTE | 2023-11-22 11:30 | MHC.HEMONC ---
I spoke with pt dtr and advised her that we are awaiting CT of abdomen authorization so that it can be done. Pt is aware that her tumor marker is going up and imaging was ordered.
--- NOTE | 2023-11-24 10:04 | HO.HEMONCPA ---
Addendum entered by Mariana Ruby 12/18/23 10:30: Approved and complete Original Note: Sent expedite PA request for CT ABD/Pelvis with contrast [id number] awaiting response from [facility]
--- NOTE | 2023-11-24 14:53 | MHC.HEMONCMA ---
called and spoke to pt for her scheduled appt CT abd luis tabares on November 30 at 10am, pt aware to fast 3 hours before appt time.
--- NOTE | 2023-11-29 11:39 | MHC.HEMONC ---
Pt daughter Ness called asking if her mom needed oral contrast with her CT on Monday. No oral contrast per Dr Jones. Confirmed with Radiology, NPO 3 hours prior and arrival time 10-10:15 no later. Ness notified.
--- NOTE | 2023-12-08 11:39 | MHC.HEMONC ---
Triage call: Received call from daughter requesting MRI results. MRI results have not been read. MRI done 11/30- notified and will follow up for reading. Daughter Alda would like call back from Dr. Jones.
--- NOTE | 2023-12-12 15:44 | MHC.HEMONC ---
Pt's elior Chelly called, said she's helping her mother, who has been trying to reach someone to get the results of her CT abd/pelvis scan from 12/01/23, said they're getting anxious. Nurse called her back, informed her that the CT has not been read yet, that unfortunately, there are sometimes too many to read and it takes weeks. Nurse called Radiology Crime Prevention Police Officer and requested expedited read of the scan, told yulia Spaulding that scan should be read in the next 1-2 days.
--- NOTE | 2023-12-13 10:14 | MHC.HEMONC ---
I called pt eliorChelly to schedule appt for this Monday for her mom to see Dr Jones to discuss recent imaging results. Daughter asked and I did tell her there shows mets in liver and adrenal. She reported that her mom feels well and just celebrated a birthday.
[2023-12-15 13:46] VITALS: BP 153/77; PULSE 80; TEMP 36.7; O2SAT 96; BMI 22.8
--- NOTE | 2023-12-15 14:24 | MHC.HEMONC ---
online referral made to [facility] per request of Dr Jones. Dr Anila Mtz requested. DtrAlda's contact information given on referral.
[2023-12-15 14:46] LABS: Hematocrit 29.3 % (37.0-47.0); Hemoglobin 9.9 g/dl (12.0-16.0); Mean Corpuscular HGB Conc 33.8 g/dl (31.0-35.0); Mean Corpuscular Hemoglobin 29.5 pg (27.0-33.0); Mean Corpuscular Volume 87.2 fL (80.0-98.0); Mean Platelet Volume 9.8 fL (9.4-12.3); Platelet Count 332 X10*3/uL (160-400); Red Blood Count 3.36 X10*6/uL (4.20-5.50); Red Cell Distribution Width 17.8 % (11.0-16.0); White Blood Count 10.9 X10*3/uL (4.8-10.8)
--- NOTE | 2023-12-15 14:53 | P.PNHO-ONC_ITS ---
Medical Summary - Medical Summary Date of Service: 12/15/23 Chief complaint: Weight loss Primary Care Provider: Cesar Driscoll MD Medical Summary: Diagnosis: Pancreatic adenocarcinoma 10/2022 She has a history of chronic abdominal pain and has been seen by GI specialists over the years. A workup with both endoscopy/colonoscopy in previous imaging with CT abdomen/pelvis in 2019 in 2020 were negative. On 10/13/2022 she [facility] with [facility] with complaints of abdominal pain, CT abdomen/pelvis with contrast showed a 1.2 cm lesion in the body of the pancreas, bulky appearance of pancreatic body with mild peripancreatic stranding. Prominent pancreatic duct measuring up to 3 mm. No lymphadenopathy. A CT abdomen and subsequently MRI of abdomen with contrast on 10/19/2022 demonstrated a 2.7 x 1.7 cm hypoattenuating mass centered in the pancreatic body. Distal to the mass few small cysts measuring up to 8 mm in the pancreatic head. No contact with the SMA, celiac axis or common hepatic artery. No contact with the portal vein or superior mesenteric vein. No tumor or bland thrombus or dilated venous collaterals. No lymphadenopathy or evidence of metastatic disease in the abdomen. CA 19 9 elevated, over 500 unit/mL. Staging CT chest [place] [facility] for [place] disease. She underwent endoscopic ultrasound by Dr. Munoz on 11/24/2022 at [facility] which revealed brown mass in the pancreatic body, hypoechoic measuring 13 mm x 24 mm. Borders were well-defined. FNA cytology was adenocarcinoma. She started preoperative/ neoadjuvant chemotherapy with FOLFIRINOX regimen in October 2022. She had a PET-CT 01/03/2023 which revealed mild FDG activity associated with pancreatic mass, SUV 4.7 no additional foci of abnormal activity in the abdomen, chest or bones. No yymphadenopathy. She received her last cycle of FOLFIRINOX, cycle 6 on 02/15/2023. MRI abdomen performed 03/02/2023 showed decrease in size of mass in pancreatic body, now measures 1.7 cm previously measured 2.3 cm. No lymphadenopathy. Restaging CT chest performed at [facility] was negative for metastatic disease. Right MediPort was removed by Dr. Loja because of malpositioning and reinserted in March 2023. She underwent laparoscopic pancreatectomy at [facility] on 04/19/2023. Pathological stage AJCC: YpT2N2. (8/27 LN pos) positive for vascular and perineural invasion. Anterior surface is focally involved by carcinoma, resection margins are negative for carcinoma. Eight of 27 lymph nodes positive for carcinoma. Tumor size 3.7 x 2.5 x 1.7 cm. Tumor extension confined to pancreas, pancreatic surface, anterior surface involved. Repeat PET-CT performed on 05/30/23 showed no evidence of residual or recurrent disease. Stable hepatic steatosis and interval partial pancreatectomy and splenectomy. Interval History Interval history: Patient is here in follow-up, she is accompanied by both her daughters today. They here to discuss results of imaging study. Patient reports continued weight loss although she is eating okay. She has no other complaints such as chest pain, shortness of breath, dizziness, nausea or emesis. No change in bowel habits. Review of Systems - Constitutional Reports as per HPI - Neurologic Denies weakness [facility] Medical History: Medical History (Last Reviewed 12/15/23 @ 13:45 by Oren Rosario) Acute pain of left knee Arthritis Depression Diabetes Family history of ovarian cancer GERD (gastroesophageal reflux disease) HTN (hypertension) Migraines OA (osteoarthritis) Overactive bladder Pancreatic mass Primary osteoarthritis, right hand Urinary urgency Weak urinary stream Family History: Family History (Last Reviewed 12/15/23 @ 13:45 by Oren Rosario) Father No problems noted. Mother Colon cancer Brother No problems noted. Brother No problems noted. Brother No problems noted. Sister Ovarian cancer Sister Breast cancer Sister No problems noted. Sister No problems noted. Daughter No problems noted. Daughter No problems noted. Surgical History: Surgical History (Last Reviewed 12/15/23 @ 13:45 by Oren Rosario) History of bladder suspension procedure History of pancreatectomy Onset Date: ~03/2023 History of tubal ligation Hx of colonoscopy Hx of esophagogastroduodenoscopy Social History: Social History (Last Reviewed 12/15/23 @ 13:45 by Oren Rosario) Living Situation History: Household Members: None Housing: Apartment Are you a primary director of home care hospice to a significant other at home: No Do you presently have visiting nurse or other home services: No Tobacco History: Patient Tobacco Use Status: Never used Tobacco e-Cigarette/Vaping Use: Never Used Second Hand Smoke Exposure: No Advance Directives: Advance Directives Date on File: 03/11/20 Occupation Assessmet: service: No Current occupational status: retired 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 Current occupational exposures/hazards: No Sex/Gender Assessment: Gender identity: Female Home Medications and Allergies Home Medications ?Medication ?Instructions ?Recorded ?Confirmed ?Type magnesium 200 mg tablet 200 mg PO DAILY 12/07/22 12/15/23 History vitamin B complex 1 cap PO DAILY 12/07/22 12/15/23 History pantoprazole 40 mg tablet,delayed 40 mg PO DAILY 10/06/23 12/15/23 History release bitter melon extract 750 mg tablet 450 mg PO .COMPLEX 12/06/23 12/15/23 History Allergies Allergy/AdvReac Type Severity Reaction Status Date / Time No Known Allergies Allergy Verified 12/15/23 13:46 Exam Vital signs: Vital Signs Temp 98.0 F 12/15/23 13:46 Pulse 80 12/15/23 13:46 Resp 18 11/13/23 10:09 BP 153/77 H 12/15/23 13:46 Pulse Ox 96 12/15/23 13:46 O2 Del Method Room Air 12/15/23 13:46 Intake & Output 12/14/23 12/15/23 12/15/23 18:59 06:59 18:59 Other: Weight 53 kg [place] Weight in Grams [id number] Weight 53 kg BMI result Body Mass Index 22.8 - Constitutional Present: no acute distress - Routine HEENT Exam Head: Present: normal inspection - Routine Neck Exam Absent: lymphadenopathy - Routine Respiratory Exam Absent: accessory muscle use - Routine Cardiovascular Exam Cardiovascular: Present: RRR, S1, S2 - Routine Abdominal Exam Present: soft, tenderness - Routine Extremities Exam Absent: pedal edema - Routine Skin Exam Present: intact - Routine Neurological Exam Present: alert, oriented X3 Data - Labs CBC & Chem 7: 12/15/23 14:35 09/01/23 11:04 Assessment and Plan Patient Active problem list reviewed?: Yes (1) Mass of pancreas Status: Resolved Assessment and plan: 1. This is a 62-year-old woman presenting with pancreatic adenocarcinoma diagnosed in October 2022. A CT abdomen and subsequently MRI of abdomen with contrast on 10/19/2022 demonstrated a 2.7 x 1.7 cm hypoattenuating mass centered in the pancreatic body. No lymphadenopathy or evidence of metastatic disease in the abdomen. CA 19 9 elevated, over 500 unit/mL. She underwent EUS/FNA of pancreatic mass at [facility] on 11/18/2022 which revealed adenocarcinoma. NGS testing revealed-positive for KRAS p.G12V and TP53 mutations. Negative for BRAF, GNAS, PIK3CA and VHL mutations. She started preoperative/ neoadjuvant chemotherapy with FOLFIRINOX from October to january 2023. Genetic assessment for inherited cancer syndrome submitted to [facility], 40 gene panel was negative. On 04/19/2023 patient underwent robotic assisted pancreatectomy with splenectomy at [facility] performed by Dr. Ilia Gunn. Pathology revealed residual pancreatic ductal adenocarcinoma, moderately differentiated. Pathological stage AJCC: YpT2N2. (01/22 LN pos) positive for vascular and perineural invasion. As she did not have any positive margins, she was advised against radiation referral by her surgeon at [facility]. She started gemcitabine/Abraxane (Nab paclitaxel) for locally advanced pancreatic cancer on 06/12/2023 in the adjuvant setting. CA 19 9 remained elevated, over 5000 unit/mL since June 2023. CT abdomen/pelvis with contrast performed that [facility] on 09/04/2023 showed sequelae of prior distal pancreatectomy and splenectomy with several nonspecific subcentimeter hepatic lesions, too small to characterize. Subcentimeter perigastric lymph node likely reactive. Her CA 19-9 was over 21,000 in [address]. Repeat [address] abdomen/pelvis with contrast performed 12/01/2023 revealed lesions in anterior right lobe measuring 2.4 x 1.7 cm, 2nd 1.2 cm in the dome of right lobe of liver and 7 mm left adrenal nodule all suspicious for metastasis. I discussed with the patient and family that she has progressive/metastatic disease. She has not responded to any of the above chemotherapy regimens. Patient and family had a lot of questions including questioning another biopsy to confirm that she has recurrent cancer. Explained to them that this is probably not needed. A PET scan has been ordered at this time. Further testing of tumor for MSI, NTRK, RET could probably be performed to see if she is eligible for any targeted therapies. Patient is being sent to [facility] for 2nd opinion as well as to see if she is eligible for any clinical trials. Follow-up in 3 weeks. - Time Spent With Patient Time Spent with Patient (in minutes): 35 Additional Coding: - Additional E/M codes Complex E/M visit Add On: CPT G2214
--- NOTE | 2023-12-15 15:22 | MHC.HEMONC ---
Follow up with Dr. Jones today- Labs ordered. Patient is due for port flush in December and requested to have labs done through port. Port to right chest wall accessed without difficulty- labs obtained. Port flushed with Heparin and de-accessed. Patient to return 01/14 for follow up with Dr. Jones. Calender provided. Next port flush moved to January.
[2023-12-15 15:26] LABS: Alanine Aminotransferase 14 U/L (0-31); Albumin Level 4.3 g/dL (3.5-5.0); Alkaline Phosphatase 130 U/L (39-117); Anion Gap 15 (12-20); Aspartate Amino Transferase 19 U/L (5-31); Bilirubin Total 0.4 mg/dL (0.0-1.0); Blood Urea Nitrogen 18 mg/dL (9-16); Carbon Dioxide 23 mmol/L (22-29); Chloride 106 mmol/L (96-108); Creatinine Clr Calc Pharmacy 56.6; Estimated Glomerular Filt Rate > 60; Glucose Random 140 mg/dL (60-115); Potassium 3.5 mmol/L (3.3-5.1); Sodium 140 mmol/L (135-145); Total Protein 7.6 g/dL (6.5-8.0)
--- NOTE | 2023-12-15 15:58 | MHC.HEMONCMA ---
pt was seen today for pancreatic mass f/u, vss,labs. pt willf/u with provider in 3 weeks.
--- NOTE | 2023-12-18 10:31 | HO.HEMONCPA ---
KYLEE APPROVED FOR PET/CT SKULL TO THIGH [id number] AUTH [id number] DOS 12/19/23 - 05/28/24
[2023-12-22 11:43] LABS: Carbohydrate Antigen 19-9 24216 U/mL (<34)
--- NOTE | 2023-12-25 14:28 | HO.HEMONCSCH ---
Patient scheduled for PETCT at [facility] Pet/CT ([facility]) for December 28 at 9am
--- NOTE | 2024-01-25 08:57 | HE.ONCSEC ---
No show letter sent
--- NOTE | 2024-02-14 08:40 | MHC.HEMONC ---
Dr Jones received communication from [facility] where pt is on [facility] that she would benefit from IV hydration close to home twice next week. I have put her on the Infusion schedule and called her dtrs with appt.
--- NOTE | 2024-02-15 11:28 | MHC.HEMONC ---
Patient's daughter called for port flush appointment. Pt has appointment on 02/19/24 at 10am for hydration and we will do port flush then. Pt also scheduled for hydration on 02/22/[address] Jones then.
[2024-02-22 13:24] VITALS: BP 131/58; PULSE 83; RESP 18; TEMP 36.7; O2SAT 98; BMI 22.8
[2024-02-22] MEDS: 0.9 % Sodium Chloride 1,000 ML 500 ML IV (13:45)
--- NOTE | 2024-02-22 13:49 | PM.HEMONCPN ---
Medical Summary - Medical Summary Date of Service: 02/22/24 Chief complaint: Follow-up Primary Care Provider: Cesar Driscoll MD Medical Summary: Diagnosis: Pancreatic adenocarcinoma 10/2022 She has a history of chronic abdominal pain and has been seen by GI specialists over the years. A workup with both endoscopy/colonoscopy in previous imaging with CT abdomen/pelvis in 2019 in 2020 were negative. On 10/13/2022 she presented with [facility] with complaints of abdominal pain, CT abdomen/pelvis with contrast showed a 1.2 cm lesion in the body of the pancreas, bulky appearance of pancreatic body with mild peripancreatic stranding. Prominent pancreatic duct measuring up to 3 mm. No lymphadenopathy. A CT abdomen and subsequently MRI of abdomen with contrast on 10/19/2022 demonstrated a 2.7 x 1.7 cm hypoattenuating mass centered in the pancreatic body. Distal to the mass few small cysts measuring up to 8 mm in the pancreatic head. No contact with the SMA, celiac axis or common hepatic artery. No contact with the portal vein or superior mesenteric vein. No tumor or bland thrombus or dilated venous collaterals. No lymphadenopathy or evidence of metastatic disease in the abdomen. CA 19 9 elevated, over 500 unit/mL. [place]aging CT chest and [place] [facility] [place] for [place] disease. She underwent endoscopic ultrasound by Dr. Munoz on 11/24/2022 at [facility] which revealed brown mass in the pancreatic body, hypoechoic measuring 13 mm x 24 mm. Borders were well-defined. FNA cytology was adenocarcinoma. She started preoperative/ neoadjuvant chemotherapy with FOLFIRINOX regimen in October 2022. She had a PET-CT 01/03/2023 which revealed mild FDG activity associated with pancreatic mass, SUV 4.7 no additional foci of abnormal activity in the abdomen, chest or bones. No yymphadenopathy. She received her last cycle of FOLFIRINOX, cycle 6 on 02/15/2023. MRI abdomen performed 03/02/2023 showed decrease in size of mass in pancreatic body, now measures 1.7 cm previously measured 2.3 cm. No lymphadenopathy. Restaging CT chest performed at [facility] was negative for metastatic disease. Right MediPort was removed by Dr. Loja because of malpositioning and reinserted in March 2023. She underwent laparoscopic pancreatectomy at [facility] on 04/19/2023. Pathological stage AJCC: YpT2N2. (8/27 LN pos) positive for vascular and perineural invasion. Anterior surface is focally involved by carcinoma, resection margins are negative for carcinoma. Eight of 27 lymph nodes positive for carcinoma. Tumor size 3.7 x 2.5 x 1.7 cm. Tumor extension confined to pancreas, pancreatic surface, anterior surface involved. Repeat PET-CT performed on 05/30/23 showed no evidence of residual or recurrent disease. Stable hepatic steatosis and interval partial pancreatectomy and splenectomy. Interval History Interval history: Patient is here in follow-up into receive IV hydration. She has been started on clinical trial in [facility] in receiving chemotherapy since beginning of the month. She reports fatigue or metallic taste and poor appetite. She has no other complaints such as chest pain, shortness of breath, dizziness, nausea or emesis. No change in bowel habits. She feels better after IV hydration. She has been recommended to come in twice a week for hydration. Review of Systems - Constitutional Reports as per HPI, Reports fatigue - Neurologic Denies weakness PMFSH Medical History: Medical History (Last Reviewed 01/03/24 @ 08:46 by Lalita Au MD) Acute pain of left knee Arthritis Depression Diabetes Family history of ovarian cancer GERD (gastroesophageal reflux disease) HTN (hypertension) Migraines OA (osteoarthritis) Overactive bladder Pancreatic mass Primary osteoarthritis, right hand Urinary urgency Weak urinary stream Family History: Family History (Last Reviewed 01/03/24 @ 08:46 by Lalita Au MD) Father No problems noted. Mother Colon cancer Brother No problems noted. Brother No problems noted. Brother No problems noted. Sister Ovarian cancer Sister Breast cancer Sister No problems noted. Sister No problems noted. Daughter No problems noted. Daughter No problems noted. Surgical History: Surgical History (Last Reviewed 01/03/24 @ 08:46 by Lalita Au MD) History of bladder suspension procedure History of pancreatectomy Onset Date: ~03/2023 History of tubal ligation Hx of colonoscopy Hx of esophagogastroduodenoscopy Social History: Social History (Last Reviewed 01/03/24 @ 08:46 by Lalita Au MD) Living Situation History: Household Members: None Housing: Apartment Are you a primary home health care physician to a significant other at home: No Do you presently have visiting nurse or other home services: No Tobacco History: Patient Tobacco Use Status: Never used Tobacco e-Cigarette/Vaping Use: Never Used Second Hand Smoke Exposure: No Advance Directives: Advance Directives Date on File: 03/11/20 Occupation Assessmet: service: No Current occupational status: retired 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 Current occupational exposures/hazards: No Sex/Gender Assessment: Gender identity: Female Home Medications and Allergies Home Medications ?Medication ?Instructions ?Recorded ?Confirmed ?Type magnesium 200 mg tablet 200 mg PO DAILY 12/07/22 02/14/24 History vitamin B complex 1 cap PO DAILY 12/07/22 02/14/24 History pantoprazole 40 mg tablet,delayed 40 mg PO DAILY 10/06/23 02/14/24 History release bitter melon extract 750 mg tablet 450 mg PO .COMPLEX 12/06/23 02/14/24 History insulin glargine 100 unit/mL (3 20 unit subcut QPM 02/14/24 02/14/24 History mL) subcutaneous pen (Lantus Solostar U-100 Insulin) Allergies Allergy/AdvReac Type Severity Reaction Status Date / Time No Known Allergies Allergy Verified 01/03/24 08:28 Exam Vital signs: Vital Signs Temp 98.0 F 02/22/24 13:24 Pulse 83 02/22/24 13:24 Resp 18 02/22/24 13:24 BP 131/58 L 02/22/24 13:24 Pulse Ox 98 02/22/24 13:24 O2 Del Method Room Air 02/22/24 13:24 Intake & Output 02/21/24 02/22/24 02/22/24 18:59 06:59 18:59 Other: Weight 53 kg Weight in Grams 59169 Weight 53 kg BMI result Body Mass Index 22.8 - Constitutional Present: no acute distress - Routine HEENT Exam Head: Present: normal inspection - Routine Neck Exam Absent: lymphadenopathy - Routine Respiratory Exam Absent: accessory muscle use - Routine Cardiovascular Exam Cardiovascular: Present: RRR, S1, S2 - Routine Abdominal Exam Present: soft, tenderness - Routine Extremities Exam Absent: pedal edema - Routine Skin Exam Present: intact - Routine Neurological Exam Present: alert, oriented X3 Data - Labs CBC & Chem 7: 12/15/23 14:35 12/15/23 14:35 Assessment and Plan Patient Active problem list reviewed?: Yes (1) Mass of pancreas Status: Resolved Assessment and plan: 1. This is a 63-year-old woman presenting with pancreatic adenocarcinoma diagnosed in October 2022. A CT abdomen and subsequently MRI of abdomen with contrast on 10/19/2022 demonstrated a 2.7 x 1.7 cm hypoattenuating mass centered in the pancreatic body. No lymphadenopathy or evidence of metastatic disease in the abdomen. CA 19 9 elevated, over 500 unit/mL. She underwent EUS/FNA of pancreatic mass at [facility] on 11/18/2022 which revealed adenocarcinoma. NGS testing revealed-positive for KRAS p.G12V and TP53 mutations. Negative for BRAF, GNAS, PIK3CA and VHL mutations. She started preoperative/ neoadjuvant chemotherapy with FOLFIRINOX from October to january 2023. Genetic assessment for inherited cancer syndrome submitted to [facility], 40 gene panel was negative. On 04/19/2023 patient underwent robotic assisted pancreatectomy with splenectomy at [facility] performed by Dr. Ilia Gunn. Pathology revealed residual pancreatic ductal adenocarcinoma, moderately differentiated. Pathological stage AJCC: YpT2N2. (01/22 LN pos) positive for vascular and perineural invasion. As she did not have any positive margins, she was advised against radiation referral by her surgeon at [facility]. She started gemcitabine/Abraxane (Nab paclitaxel) for locally advanced pancreatic cancer on 06/12/2023 in the adjuvant setting. CA 19 9 remained elevated, over 5000 unit/mL since June 2023. CT abdomen/pelvis with contrast performed that [facility] on 09/04/2023 showed sequelae of prior distal pancreatectomy and splenectomy with several nonspecific subcentimeter hepatic lesions, too small to characterize. Subcentimeter perigastric lymph node likely reactive. Her CA 19-9 was over 21,000 in October [address]. Repeat [address] abdomen/pelvis with contrast performed 12/01/2023 revealed lesions in anterior right lobe measuring 2.4 x 1.7 cm, 2nd 1.2 cm in the dome of right lobe of liver and 7 mm left adrenal nodule all suspicious for metastasis. Patient was sent to [facility] for 2nd opinion as well as to see if she is eligible for any clinical trials. Patient is now enrolled in a clinical study at [facility] [place] under the care of Dr. Mtz. She is receiving CD47/ CLDN18.2 bispecific antibody,( PT 886, DF/HCC protocol 23-337) since 01/31/24. Because of side effects she is receiving treatment every other week instead of once a week. She is here for IV hydration today. She has been recommended hydration twice a week for which she will come [place] [facility] [place] Follow-up in 4 weeks. - Time Spent With Patient Time Spent with Patient (in minutes): 15 Additional Coding: - Additional E/M codes Complex E/M visit Add On: CPT G2211
--- NOTE | 2024-02-22 15:19 | MHC.HEMONC ---
Pt here for IV hydration per instruction from [place] provider. Pt declines use of port for IV hydration. #22 angio inserted in left AC with blood return noted. 1000 ml 0.9% NS transfused over 2 hours-tolerated well. Peripheral IV removed-no edema or redness at site after removal of IV. Daughter to call provider in [place] to check on extra hydration for next week (pt does not have treatment next week per daughter) and will call our department back with update
--- NOTE | 2024-02-23 11:53 | MHC.HEMONC ---
Telephone call to pts daughter Ness to schedule pt to come in for IV hydration next week. Message left, waiting for call back.
--- NOTE | 2024-02-23 16:03 | MHC.HEMONC ---
Spoke with pts daughter Alda regarding IV hydration. Per [facility], pt to be scheduled for IV hydration on Monday and Monday next week. Pt scheduled for 02/25 and 03/01 at 1pm
--- NOTE | 2024-02-28 12:41 | MHC.HEMONC ---
Nurse returned t/c from pt's dtr, Chelly, who said her mom had been feeling too tired to come in when she cancelled her IV hydration appt on Mon, 02/25. She went on to say that her mom is now just planning to come for next IV hydration as scheduled, this 03/01/24, in advance of her next tx in [place].
[2024-03-01 13:02] VITALS: BP 122/70; PULSE 94; TEMP 36.6; O2SAT 97
[2024-03-01 13:11] VITALS: BP 139/74; PULSE 74; TEMP 37.1; O2SAT 95
[2024-03-01] MEDS: 0.9 % Sodium Chloride 1,000 ML 500 ML IV (13:13)
--- NOTE | 2024-03-01 13:31 | MHC.HEMONCMA ---
pt presents in the office today for IV hydration , vss.
--- NOTE | 2024-03-01 15:52 | MHC.HEMONC ---
IV hydration per recommendation from [place]. Port to right upper chest wall accessed without difficulty- positive blood return. 0.9% 1L NS transfused over 2 hours-tolerated well. Port flushed with Heparin and de-accessed. Patient to return Tuesdays and Fridays for hydration. Declined discharge packet.
[2024-03-06 13:19] VITALS: BP 104/64; PULSE 89; RESP 18; TEMP 36.6; O2SAT 95; BMI 22.9
[2024-03-06] MEDS: 0.9 % Sodium Chloride 1,000 ML 500 ML IV (13:37)
--- NOTE | 2024-03-06 17:41 | MHC.HEMONC ---
Pt arrived for scheduled IV hydration, nurse accessed pt's R chest implanted port, found positive blood return, no labs ordered, pt was infused 1 Liter IV NS over 2 hrs, then nurse flushed port w/ NS and heparin 500 units prior to de-accessing port. Pt tolerated this well. Pt received calendar, to return this Mon for next IV hydration appt.
--- NOTE | 2024-03-08 08:51 | MHC.HEMONC ---
[facility] call-received call from pt's daughter who states her mother was in severe abdominal pain last night and was seen in the ED. States she had a CT scan of her abdomen as well. Requesting pain medication-will notify Dr Jones
[2024-03-08 13:18] VITALS: BP 105/67; PULSE 85; RESP 18; TEMP 36.7; O2SAT 96
[2024-03-08] MEDS: 0.9 % Sodium Chloride 1,000 ML 500 ML IV (13:32)
--- NOTE | 2024-03-08 15:55 | MHC.HEMONC ---
1 L NS given over 2 hours via right chest port with good blood return. Pt aware of enxt appt.
[2024-03-12] MEDS: 0.9 % Sodium Chloride 1,000 ML 999 ML IV (13:16)
--- NOTE | 2024-03-12 15:37 | MHC.HEMONC ---
Pt here for IV hydration. Port accessed with blood return noted. 0.9% NS 1000ml infused over 2 hours-port flushed with heparin and de accessed. Next IV hydration scheduled-calendar given. Pt declined wheelchair for discharge. Gait steady on discharge
--- NOTE | 2024-03-14 08:53 | MHC.HEMONC ---
Addendum entered by Ingrid Dwyer RN 03/15/24 17:08: Daughter Alda did call back. Dr. Mtz's office ordered Oxycodone for pain however this is not alleviating the pain. Dr. Jones notified. Long acting Morphine ordered. Daughter is aware that these narcotics can cause constipation. Patient has started stool softeners. Original Note: Triage call: Late entry received call from daughter Alda requesting pain medication refill. Daughter did not specify what medication. Returned call to daughter and left voicemail x2. Awaiting call back.
[2024-03-19 10:05] VITALS: BP 126/60; PULSE 99; RESP 18; TEMP 36.4; O2SAT 98; BMI 22.1
--- NOTE | 2024-03-19 10:07 | PM.HEMONCPN ---
Medical Summary - Medical Summary Date of Service: 03/19/24 Chief complaint: Follow-up Primary Care Provider: Cesar Driscoll MD Medical Summary: Diagnosis: Pancreatic adenocarcinoma 10/2022 She has a history of chronic abdominal pain and has been seen by GI specialists over the years. A workup with both endoscopy/colonoscopy in previous imaging with CT abdomen/pelvis in 2019 in 2020 were negative. On 10/13/2022 she presented with [facility] with complaints of abdominal pain, CT abdomen/pelvis with contrast showed a 1.2 cm lesion in the body of the pancreas, bulky appearance of pancreatic body with mild peripancreatic stranding. Prominent pancreatic duct measuring up to 3 mm. No lymphadenopathy. A CT abdomen and subsequently MRI of abdomen with contrast on 10/19/2022 demonstrated a 2.7 x 1.7 cm hypoattenuating mass centered in the pancreatic body. Distal to the mass few small cysts measuring up to 8 mm in the pancreatic head. No contact with the SMA, celiac axis or common hepatic artery. No contact with the portal vein or superior mesenteric vein. No tumor or bland thrombus or dilated venous collaterals. No lymphadenopathy or evidence of metastatic disease in the abdomen. CA 19 9 elevated, over 500 unit/mL. Staging CT chest and bone scan performed at [facility] was negative for metastatic disease. She underwent endoscopic ultrasound by Dr. Munoz on 11/24/2022 at [facility] which revealed brown mass in the pancreatic body, hypoechoic measuring 13 mm x 24 mm. Borders were well-defined. FNA cytology was adenocarcinoma. She started preoperative/ neoadjuvant chemotherapy with FOLFIRINOX regimen in October 2022. She had a PET-CT 01/03/2023 which revealed mild FDG activity associated with pancreatic mass, SUV 4.7 no additional foci of abnormal activity in the abdomen, chest or bones. No yymphadenopathy. She received her last cycle of FOLFIRINOX, cycle 6 on 02/15/2023. MRI abdomen performed 03/02/2023 showed decrease in size of mass in pancreatic body, now measures 1.7 cm previously measured 2.3 cm. No lymphadenopathy. Restaging CT chest performed at [facility] was negative for metastatic disease. Right MediPort was removed by Dr. Loja because of malpositioning and reinserted in March 2023. She underwent laparoscopic pancreatectomy at [facility] on 04/19/2023. Pathological stage AJCC: YpT2N2. (8/27 LN pos) positive for vascular and perineural invasion. Anterior surface is focally involved by carcinoma, resection margins are negative for carcinoma. Eight of 27 lymph nodes positive for carcinoma. Tumor size 3.7 x 2.5 x 1.7 cm. Tumor extension confined to pancreas, pancreatic surface, anterior surface involved. Repeat PET-CT performed on 05/30/23 showed no evidence of residual or recurrent disease. Stable hepatic steatosis and interval partial pancreatectomy and splenectomy. Interval History Interval history: Patient is here in follow-up. In the last few days she has had increasing abdominal pain. She was in the emergency department a few days ago at [facility], she was told of worsening liver metastasis. Patient has now decided to come off clinical trial, she did not go last week for treatment to [facility] as she was not feeling well. She also reports some epigastric discomfort. No nausea, emesis or diarrhea. No fever or chills. Review of Systems - Constitutional Reports as per HPI, Denies fatigue, Denies fever(s), Denies malaise, Denies night sweats - Cardiovascular Reports no additional cardiovascular complaints - Respiratory Reports no additional respiratory complaints - Gastrointestinal Reports no additional gastrointestinal complaints - Neurologic Denies weakness PMFSH Medical History: Medical History (Last Reviewed 01/03/24 @ 08:46 by Lalita Au MD) Acute pain of left knee Arthritis Depression Diabetes Family history of ovarian cancer GERD (gastroesophageal reflux disease) HTN (hypertension) Migraines OA (osteoarthritis) Overactive bladder Pancreatic mass Primary osteoarthritis, right hand Urinary urgency Weak urinary stream Family History: Family History (Last Reviewed 01/03/24 @ 08:46 by Lalita Au MD) Father No problems noted. Mother Colon cancer Brother No problems noted. Brother No problems noted. Brother No problems noted. Sister Ovarian cancer Sister Breast cancer Sister No problems noted. Sister No problems noted. Daughter No problems noted. Daughter No problems noted. Surgical History: Surgical History (Last Reviewed 01/03/24 @ 08:46 by Lalita Au MD) History of bladder suspension procedure History of pancreatectomy Onset Date: ~03/2023 History of tubal ligation Hx of colonoscopy Hx of esophagogastroduodenoscopy Social History: Social History (Last Reviewed 01/03/24 @ 08:46 by Lalita Au MD) Living Situation History: Household Members: None Housing: Apartment Are you a primary medicare biller to a significant other at home: No Do you presently have visiting nurse or other home services: No Tobacco History: Patient Tobacco Use Status: Never used Tobacco e-Cigarette/Vaping Use: Never Used Second Hand Smoke Exposure: No Advance Directives: Advance Directives Date on File: 03/11/20 Occupation Assessmet: service: No Current occupational status: retired 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 Current occupational exposures/hazards: No Sex/Gender Assessment: Gender identity: Female Home Medications and Allergies Current Medications: Current Medications Sodium Chloride (Ns) 1,000 mls @ 500 mls/hr IV .Q2H BAYLEE Stop: 03/19/24 10:14 Home Medications ?Medication ?Instructions ?Recorded ?Confirmed ?Type magnesium 200 mg tablet 200 mg PO DAILY 12/07/22 02/14/24 History vitamin B complex 1 cap PO DAILY 12/07/22 02/14/24 History bitter melon extract 750 mg tablet 450 mg PO .COMPLEX 12/06/23 02/14/24 History insulin glargine 100 unit/mL (3 20 unit subcut QPM 02/14/24 02/14/24 History mL) subcutaneous pen (Lantus Solostar U-100 Insulin) Allergies Allergy/AdvReac Type Severity Reaction Status Date / Time No Known Allergies Allergy Verified 01/03/24 08:28 Exam Vital signs: Vital Signs Temp 97.5 F 03/19/24 10:05 Pulse 99 03/19/24 10:05 Resp 18 03/19/24 10:05 BP 126/60 03/19/24 10:05 Pulse Ox 98 03/19/24 10:05 O2 Del Method Room Air 03/19/24 10:05 Intake & Output 03/18/24 03/19/24 03/19/24 18:59 06:59 18:59 Other: Weight 51.4 kg Weight in Grams 68908 Weight 51.4 kg BMI result Body Mass Index 22.1 - Constitutional Present: no acute distress - Routine HEENT Exam Head: Present: normal inspection - Routine Neck Exam Absent: lymphadenopathy - Routine Respiratory Exam Absent: accessory muscle use - Routine Cardiovascular Exam Cardiovascular: Present: RRR, S1, S2 - Routine Abdominal Exam Present: soft, tenderness - Routine Extremities Exam Absent: pedal edema - Routine Skin Exam Present: intact - Routine Neurological Exam Present: alert, oriented X3 Data - Labs CBC & Chem 7: 12/15/23 14:35 12/15/23 14:35 Assessment and Plan Patient Active problem list reviewed?: Yes (1) Pancreatic adenocarcinoma Status: Chronic Assessment and plan: 1. This is a 63-year-old woman with pancreatic adenocarcinoma diagnosed in October 2022. A CT abdomen and subsequently MRI of abdomen with contrast on 10/19/2022 demonstrated a 2.7 x 1.7 cm hypoattenuating mass centered in the pancreatic body. No lymphadenopathy or evidence of metastatic disease in the abdomen. CA 19 9 elevated, over 500 unit/mL. She underwent EUS/FNA of pancreatic mass at [facility] on 11/18/2022 which revealed adenocarcinoma. NGS testing revealed-positive for KRAS p.G12V and TP53 mutations. Negative for BRAF, GNAS, PIK3CA and VHL mutations. She started preoperative/ neoadjuvant chemotherapy with FOLFIRINOX from October to january 2023. Genetic assessment for inherited cancer syndrome submitted to [facility], 40 gene panel was negative. On 04/19/2023 patient underwent robotic assisted pancreatectomy with splenectomy at [facility] performed by Dr. Ilia Gunn. Pathology revealed residual pancreatic ductal adenocarcinoma, moderately differentiated. Pathological stage AJCC: YpT2N2. (01/22 LN pos) positive for vascular and perineural invasion. As she did not have any positive margins, she was advised against radiation referral by her surgeon at [facility]. She started gemcitabine/Abraxane (Nab paclitaxel) for locally advanced pancreatic cancer on 06/12/2023 in the adjuvant setting. CA 19 9 remained elevated, over 5000 unit/mL since June 2023. CT abdomen/pelvis with contrast performed that [facility] on 09/04/2023 showed sequelae of prior distal pancreatectomy and splenectomy with several nonspecific subcentimeter hepatic lesions, too small to characterize. Subcentimeter perigastric lymph node likely reactive. Her CA 19-9 was over 21,000 in October [address]. Repeat CT abdomen/pelvis with contrast performed 12/01/2023 revealed lesions in anterior right lobe measuring 2.4 x 1.7 cm, 2nd 1.2 cm in the dome of right lobe of liver and 7 mm left adrenal nodule all suspicious for metastasis. Patient was sent to [facility] for 2nd opinion as well as to see if she is eligible for any clinical trials. Patient is now enrolled in a clinical study at [facility] under the care of Dr. Mtz. She is receiving CD47/ CLDN18.2 bispecific antibody,( PT 886, DF/HCC protocol 23-337) since 01/31/24. Patient has developed worsening abdominal pain. She was seen in [facility] emergency department where she underwent CT abdomen/pelvis with contrast. This demonstrated interval increase in size and number of liver Mets now measuring up to 4.9 cm. Increase in size of gastrohepatic lymph node as well. Most likely cause of worsening abdominal pain is worsening liver metastasis. For epigastric discomfort I have prescribed pantoprazole 40 mg once daily which she was on previously. For pain she is on oxycodone as well as MS Contin. At this time her pain is well controlled. She is planning to go back to [facility] for another follow-up. I will discuss hospice care if she decides to forego further treatment. Follow-up in 4 weeks. - Time Spent With Patient Time Spent with Patient (in minutes): 25 Additional Coding: - Additional E/M codes Complex E/M visit Add On: CPT G2211
[2024-03-19] MEDS: 0.9 % Sodium Chloride 1,000 ML 500 ML IV (10:15)
--- NOTE | 2024-03-19 15:13 | MHC.HEMONC ---
Pt here for scheduled IV hydration. States is feeling well. Her daughter is present. She states pt was told by [facility] that the trial is not working, and she has decided she does not want to continue with trial. Dr Jones in to see pt and she is aware. She will get report from [facility]. Port accessed with no blood return noted. Flushes well and no c/o discomfort at the site. IV fluid infusing well at 500cc/hr. After some time of IV fluids, good blood return noted. IV fluids infused over 2 hours as ordered. Port flushed with heparin and de-accessed. Scheduled to return Monday for IV hydration. Departed unit ambulatory with steady gait.
[2024-03-22 13:09] VITALS: BP 149/65; PULSE 88; RESP 18; TEMP 36.6; O2SAT 96
[2024-03-22] MEDS: 0.9 % Sodium Chloride 1,000 ML 500 ML IV (13:19)
--- NOTE | 2024-03-22 16:09 | MHC.HEMONC ---
Patient here for IV hydration. Patient reports feeling well. Port to right chest wall accessed without difficulty with positive blood return. 1L NS ordered and administered over 2 hours. Port flushed with Heparin and de-accessed. Patient aware of next appts. Patient declined calender.
--- NOTE | 2024-04-08 10:10 | MHC.HEMONC ---
Triage- [facility] RN called. RN wanted to verify the pain medications and dosage.
--- NOTE | 2024-04-08 15:31 | MHC.HEMONC ---
FAXED HCP to [facility] at request of [place] [id number] [facility] where pt is inpatient.
--- NOTE | 2024-04-29 10:17 | MHC.HEMONC ---
Pt to be admitted to [facility]. Dr Jones will sign orders. The MD at Hospice to order medications.
--- NOTE | 2024-05-13 12:46 | MHC.HEMONC ---
Triage call-received call from Alana Doss from [facility] who states patient has been admitted to Hospice.
== END 2024-07-04 13:02 | disposition home or self-care (01) ==
LOC: HO.ONC 13:00
PROVIDERS: PCP Family Medicine; Visit Provider Internal Medicine
DX: C25.1 Malignant neoplasm of body of pancreas (principal); C78.7 Secondary malignant neoplasm of liver and intrahepatic bile duct; Z79.891 Long term (current) use of opiate analgesic; Z90.411 Acquired partial absence of pancreas; Z90.81 Acquired absence of spleen
CPT/HCPCS: 36415; 36591; 80053; 83615; 83735; 85007; 85025; 85027; 85610; 86301; 86304; 86704; 86706; 87340; 96360; 96361; 96366; 96367; 96368; 96372; 96375; 96411; 96413; 96415; 96416; 96417; 99204; 99212; 99214; 99215; J0461; J0640; J1100; J1453; J1642; J2469; J2506; J2997; J9190; J9201; J9206; J9263; J9264

== ENCOUNTER 2024-03-27 15:01 | Outpatient (AMB) | payer OTHER, SELFPAY ==
--- NOTE | 2024-03-27 15:27 | MHC.AMDMED ---
Intake Intake Visit Reasons: 60 min-lvm Mult Au Matic Operator Services: Mult Au Matic Operator Offered & Declined Mult Au Matic Operator Name: Pt's Daughter Accompanied by: Daughter Allergies No Known Allergies Allergy (Verified 01/03/24 08:28) HPI Comprehensive Diabetes Asmnt Most Recent Diabetes Results: Hemoglobin A1c 5.7 % 08/06/19 Microalb/Creat Ratio 28.4 ug/mg cr 05/25/22 Cholesterol 197 mg/dL 05/25/22 HDL Cholesterol 53 mg/dL 05/25/22 Triglycerides 119 mg/dL 05/25/22 Creatinine 0.74 mg/dL (0.5-1.4) 12/15/23 Blood Urea Nitrogen 18 mg/dL (9-16) H 12/15/23 Sodium 140 mmol/L (135-145) 12/15/23 Potassium 3.5 mmol/L (3.3-5.1) 12/15/23 Chloride 106 mmol/L (96-108) 12/15/23 Carbon Dioxide 23 mmol/L (22-29) 12/15/23 Calcium 10.0 mg/dL (8.4-10.2) 12/15/23 AST 19 U/L (5-31) 12/15/23 ALT 14 U/L (0-31) 12/15/23 Total Protein 7.6 g/dL (6.5-8.0) 12/15/23 Albumin 4.3 g/dL (3.5-5.0) 12/15/23 [facility] Medical History Pancreatic mass Arthritis Depression Migraines HTN (hypertension) Diabetes GERD (gastroesophageal reflux disease) Family history of ovarian cancer Weak urinary stream Overactive bladder Urinary urgency Primary osteoarthritis, right hand Acute pain of left knee OA (osteoarthritis) Surgical History History of pancreatectomy (~03/2023) Hx of colonoscopy Hx of esophagogastroduodenoscopy History of bladder suspension procedure History of tubal ligation Family History Father No problems noted. Mother Colon cancer Brother No problems noted. Brother No problems noted. Brother No problems noted. Sister Ovarian cancer Sister Breast cancer Sister No problems noted. Sister No problems noted. Daughter No problems noted. Daughter No problems noted. 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 Current occupational exposures/hazards: No Gender identity: Female Cognitive needs: No Hearing needs: No Vision needs: Yes (Glasses) Female Reproductive History Menstrual Age of Menarche: 15 Assessment & Plan Assessment & Plan (1) Type 2 diabetes mellitus with hyperglycemia: Code(s): E11.65 - Type 2 diabetes mellitus with hyperglycemia Qualifiers: Diabetes mellitus intermediate manager insulin use: with [facility] use Qualified Code(s): E11.65 - Type 2 diabetes mellitus with hyperglycemia; Z79.4 - rn long term care (current) use of 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 Patient Assessment Assess patient education level/literacy/barriers, patient being treated for pancreatic cancer, has decided to stop treatment Patient questions/concerns, patient did not bring meter to today's visit. Patient has also declined CGM. Patient is currently taking Lantus 8 units, patient's daughter asked if this is an appropriate dose. I explained to patient in order to assess current insulin dose we need to see more glucose information. Patient denies symptoms of hypoglycemia. Does complain of dizziness which she believes is related to lisinopril. Message sent to provider regarding patient's questions about lisinopril The patient met all learning objectives and was able to verbalize understanding and provide teach back of education topics discussed . The patient was provided with the opportunity to ask questions and all questions were answered. Exercise Medical clearance Effect of exercise on blood sugar Start slowly and gradually increase pace/duration over time Goal amount of exercise Checking blood glucose/have a source of carbs with you Medications (If applicable) Name of medication Dosing/administration instructions Mechanism of action Potential side effects Potential adverse reaction and appropriate treatment Review onset, peak, duration Assess for concerns re: insurance coverage, cost, barriers to compliance Insulin/Injectables (If applicable) Storage/care of insulin Injection sites Site rotation Onset, peak, duration Drawing up insulin Injecting insulin/other injectables Sharps disposal Continuous blood glucose monitoring (if applicable) Hypoglycemia and Hyperglycemia Signs and symptoms Causes Treatment Preventing hypoglycemia When to seek medical attention Medical alert bracelet Lifestyle Work Travel Stress management Problem solving Know your goals A1C Blood sugar targets Blood pressure Cholesterol/LDL Urine microalbumin Smart Goal Assessment: Patient will very glucose checks, throughout the day to get a better picture for glucose numbers are other than fasting Pt met goal less than 25% New Goal:? Patient will bring glucose meter to every visit at endocrine center Educational Materials: The patient was provided with the following written educational materials: ADCES 7 Healthy Behaviors Reducing Risks handout Patient Response to instructions: Comprehension of Instructions: fair Readiness to make changes: Contemplation How confident they feel about making changes: Fair Letter of completion of diabetes Education program will be sent to referring provider Portions of this note were created using voice recognition software, please excuse any words or phrases that may have been misinterpreted. Patient Instructions: Include regular daily activity. ADA recommends 30 minutes of exercise 5 days a week. Weight loss talk to PCP or [place] Machinist before starting new plan. Test blood sugar as directed; Fasting and 2hpp largest meal. Watch trends in results. Utilize results and to assess how food, physical activity and medications affect blood sugar results. Bring glucometer or CGM to next visit. Be knowledgeable about diabetes medication, its action, side effects, efficacy, toxicity, prescribed dosage, appropriate timing and frequency of administration, effect of missed and delayed doses and instructions for storage, travel and safety. Problem solving techniques to monitor hypo/hyperglycemia episodes and treatments. Reduce risk reduction behaviors, smoking cessation, regular eye, foot and dental examinations. Incluir actividad diaria regular. ADA recomienda 30 minutos de ejercicio 5 d?as a la semana. P?rdida de peso, hable con el PCP o el cardi?logo antes de comenzar un nuevo plan. Mida el nivel de az?car en la alexia seg?n las indicaciones; Ayuno y comida m?s dotty de 2hpp. Observe las tendencias en los resultados. Utilice los resultados y eval?e c?mo los alimentos, la actividad f?cierra y los medicamentos afectan los resultados de az?car en la alexia. Lleve el gluc?metro o CGM a la pr?xima visita. Conocer los medicamentos para la diabetes, luong acci?n, los efectos secundarios, la eficacia, la toxicidad, la dosis prescrita, el momento y la frecuencia de administraci?n apropiados, el efecto de las dosis olvidadas y retrasadas y las instrucciones de almacenamiento, viaje y seguridad. T?cnicas de resoluci?n de problemas para el seguimiento de episodios de hipo/hiperglucemia y tratamientos. Reducir los comportamientos de reducci?n de riesgos, dejar de fumar, ex?menes regulares de ojos, pies y dentales. Coding Level of Care Code Est Pt Level 1 (94381) Diagnoses Type 2 diabetes mellitus with hyperglycemia, with long-term current use of insulin E11.65; Z79.4 Diabetes mellitus [facility] insulin use: with intermediate manager use
== END 2024-03-27 15:54 | disposition home or self-care (01) ==
LOC: HO.ENCR 15:01
PROVIDERS: PCP Family Medicine; Visit Provider Registered Nurse Diabetes Educator
DX: E11.65 Type 2 diabetes mellitus with hyperglycemia (principal); Z79.4 Long term (current) use of insulin

== ENCOUNTER → 2024-03-27 15:01 | Outpatient (BNVA) | payer OTHER, SELFPAY | PROVIDERS: PCP Family Medicine; Visit Provider Registered Nurse Diabetes Educator | DX: E11.65 Type 2 diabetes mellitus with hyperglycemia (principal); Z79.4 Long term (current) use of insulin | CPT/HCPCS: 99211 ==

== ENCOUNTER 2024-04-05 11:02 | Outpatient (AMB) | payer OTHER, SELFPAY ==
--- NOTE | 2024-04-05 11:09 | A.OFFPC_ITS ---
Vital Signs 04/05/24 11:16 Height 5 ft Weight 114 lb 2 oz BMI 22.3 BP 96/64 Blood Pressure Location Lt brachial Position Sitting Respiration 14 Pulse 93 Pulse Source Pulse Oximeter Pulse Oximetry (%) 96 Oxygen Delivery Method Room Air Intake Visit Reasons: Discharge [facility] on 03/28 Intake Note: f/u ed d/c Allergies No Known Allergies Allergy (Verified 04/05/24 11:13) Tobacco use date assessed: 07/17/23 Dental Screening Dental Screen Date: 11/24/23 HPI Discharge [facility] on 03/28 HPI Details 63 y/o female presents for a hospital [facility] visit 03/29/24, same day discharge. Was seen for abd. pain and constipation. CT scan did show constipation but did not show any dangerous complications. Was prescribed magnesium citrate and recommended MiraLax twice a day. Blood pressure today 96/64, 93p. She is on lisinopril 2.5mg daily. Notes she continues taking miralax which has been helping sometimes. [facility] Medical History Pancreatic mass Arthritis Depression Migraines HTN (hypertension) Diabetes GERD (gastroesophageal reflux disease) Family history of ovarian cancer Weak urinary stream Overactive bladder Urinary urgency Primary osteoarthritis, right hand Acute pain of left knee OA (osteoarthritis) Surgical History History of pancreatectomy (~03/2023) Hx of colonoscopy Hx of esophagogastroduodenoscopy History of bladder suspension procedure History of tubal ligation Family History Father No problems noted. Mother Colon cancer Brother No problems noted. Brother No problems noted. Brother No problems noted. Sister Ovarian cancer Sister Breast cancer Sister No problems noted. Sister No problems noted. Daughter No problems noted. Daughter No problems noted. 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 1. Little interest or pleasure in doing things: nearly every day 3. Trouble falling or staying asleep, or sleeping too much: not at all 4. Feeling tired or having little energy: nearly every day 5. Poor appetite or overeating: nearly every day 6. Feeling bad about yourself - or that you are a failure or have let yourself or your family down: not at all 7. Trouble concentrating on things, such as reading the newspaper or watching television: not at all 8. Moving or speaking so slowly that other people could have noticed. Or the opposite - being so fidgety or restless that you have been moving around a lot more than usual: nearly every day 9. Thoughts that you would be better off or of hurting yourself in some way: not at all Source: Developed by Drs. Bryce Sanches, [place] Moyer, Darnell Ruiz and colleagues, with an educational perlita from [employer]. Thrive Questionnaire Date Thrive assessed: 06/01/22 I am a: Patient What is your living situation today?: I have a steady place to live Within the past 12 months, did the food you bought not last and you didn't have the money to get more?: Never true Within the past 12 months, did you worry whether your food would run out before you got money to buy more?: Never true Do you have trouble paying for medicines?: No Do you have trouble getting transportation to medical appointments?: No Do you have trouble paying your heating and electricity bill?: No Do you have trouble taking care of your child, family member or friend?: No Do you have trouble with day-to-day activities such as bathing, preparing meals, shopping, managing finances, etc.?: Yes Are you currently unemployed and looking for a job?: No Are you interested in more education?: No Please select the resources that you would like help with: None Currently or been in a relationship where the following occur: No concerns reported THRIVE Score: 0 AUDIT C Alcohol Use Questionnaire (AUDIT-C) 1. How often do you have a drink containing alcohol?: Never Total Score: 0 ALFREDO-7 AMB Questionnaire ALFREDO-7 Date ALFREDO - 7 assessed: 06/01/22 Feeling nervous, anxious, or on edge: 2 = More than half the days Not being able to stop or control worryin = More than half the days Worrying too much about different things: 2 = More than half the days Trouble relaxin = Several days Being so restless that it is hard to sit still: 1 = Several days Becoming easily annoyed or irritable: 1 = Several days Feeling afraid as if something awful might happen: 0 = Not at all Total ALFREDO-7 score (0-4 normal; 5-9 mild; 10-14 moderate; 15-21 severe): 9 Source: Developed by Drs. Bryce Sanches, [place] Moyer, Darnell Ruiz and colleagues, with an educational perlita from [employer]. Review of Systems Const Denies chills, Denies fatigue, Denies fever(s), Denies headache(s) and Denies weakness ENT Denies dizziness and Denies headache(s) Card Denies dyspnea Resp Denies cough, Denies dyspnea, Denies wheezing and Denies other (shortness of breath) Musc Denies numbness and Denies tingling Neuro Denies dizziness, Denies headache(s), Denies numbness, Denies tingling and Denies weakness Psych Denies anxiety and Denies depression Endo Denies fatigue Aller/Immun Denies wheezing Physical exam (Primary Care) Vital Signs: Last Vital Signs Pulse 93 04/05/24 11:16 Resp 14 04/05/24 11:16 BP 96/64 04/05/24 11:16 Pulse Ox 96 04/05/24 11:16 Oxygen Delivery Method Room Air 04/05/24 11:16 BMI result Body Mass Index 22.3 Tobacco/Smoking Status: Tobacco use Status Tobacco use date assessed 07/17/23 04/05/24 11:11 Patient Tobacco Use Status Never used Tobacco 04/05/24 11:11 e-Cigarette/Vaping Use Never Used 04/05/24 11:11 Thrive Assessment: Date of Thrive Assessment Date Thrive assessed 06/01/22 04/05/24 11:11 Currently or been in a relationship where the following occur: No concerns reported Const General: well developed; No acute distress Nutritional Appearance: well nourished Orientation/consciousness: patient oriented x3 HENMT Head: Yes normocephalic and Yes atraumatic Eyes General: appearance normal, both eyes and all related structures Pupils: Equal, round and reactive pupils present EOM: EOMs intact bilaterally Resp Effort & Inspection: normal respiratory effort Auscultation: clear to auscultation bilaterally Cardio Rate: regular rate Rhythm: regular rhythm Heart sounds: S1 normal heart sound present, S2 normal heart sound present, no gallops, no murmurs and no rubs Neuro General: patient oriented x3 and gait normal Cranial nerves: Yes Equal, round and reactive pupils present Psych Affect: normal affect Coding Level of Care Code TCM Mod MDM <= 7 Days Diagnoses Abdominal pain R10.9 Constipation K59.00 Pancreatic adenocarcinoma C25.9 Hypertension I10 Anemia D64.9 Assessment & Plan Assessment & Plan (1) Abdominal pain: Code(s): R10.9 - Unspecified abdominal pain Category: Medical Plan: Recent?visit?to?emergency?department?at?[facility]?[place]?[facility]?a?week?ago?for ?abdominal?pain. ?Likely?worsened?due?to?constipation; patient?had?not?had?a?bowel?movement?for?a?couple?of?weeks Was?given magnesium?citrate?and?then?regimen?of?MiraLax. Constipation?likely?due?to?opioids?and?decreased water?intake Increase?hydration Continue?MiraLax (2) Constipation: Code(s): K59.00 - Constipation, unspecified Category: Medical Plan: as above (3) Pancreatic adenocarcinoma: Code(s): C25.9 - Malignant neoplasm of pancreas, unspecified Category: Surgical Plan: CT abdomen pelvis showed constipation without bowel obstruction. Increased size and number of hepatic metastases. Increased size of gastrohepatic lymph node. Followed?by??in[place] as?well?as??locally. Follow-up?with?Hematology-Oncology?as?recommended (4) Hypertension: Code(s): I10 - Essential (primary) hypertension Category: Medical Plan: Hypotension and still on some?lisinopril. Will?have?her?discontinue?this?for?now Increase?hydration?and?look?for?other?ways?to?get?fluids?in?such?as?Jell- O,?popsicles?or?ice?chips. (5) Anemia: Code(s): D64.9 - Anemia, unspecified Category: Medical Plan: Ongoing?anemia Recheck?CBC Close?follow-up?will?discuss?with?patient?and?family?at?soon?appointment?next ?week.??Will?call?if?action?is?required?sooner?than?that Orders: Orders Complete Blood Count Auto Diff Today D64.9 - Anemia, unspecified, Z00.00 - Encounter for general adult medical examination without abnormal findings TSH reflex Free T4 Today R63.4 - Abnormal weight loss, Z00.00 - Encounter for general adult medical examination without abnormal findings Comprehensive Met. Panel Today D64.9 - Anemia, unspecified Vitamin B12 and Folate Today D64.9 - Anemia, unspecified, E53.8 - Deficiency of other specified B group vitamins Vitamin D 25-OH Total Today E55.9 - Vitamin D deficiency, unspecified, R63.4 - Abnormal weight loss Medications: New bupropion HCl 75 mg PO BID 30 days 60 tabs 1RF
[2024-04-05 11:16] VITALS: BP 96/64; PULSE 93; RESP 14; O2SAT 96; BMI 22.3
== END 2024-04-05 11:51 | disposition home or self-care (01) ==
PROVIDERS: PCP Family Medicine; Visit Provider Family Medicine
DX: R10.9 Unspecified abdominal pain (principal); K59.00 Constipation, unspecified; C25.9 Malignant neoplasm of pancreas, unspecified; I10 Essential (primary) hypertension; D64.9 Anemia, unspecified

== ENCOUNTER → 2024-04-05 11:02 | Outpatient (BNVA) | payer OTHER, SELFPAY | PROVIDERS: PCP Family Medicine; Visit Provider Family Medicine | DX: R10.9 Unspecified abdominal pain (principal); K59.00 Constipation, unspecified; C25.9 Malignant neoplasm of pancreas, unspecified; I10 Essential (primary) hypertension; D64.9 Anemia, unspecified | CPT/HCPCS: 96127; 99212 ==

== ENCOUNTER 2024-04-12 13:49 | Outpatient (AMB) | payer OTHER, SELFPAY ==
--- NOTE | 2024-04-12 13:58 | MHC.PC.OV ---
Vital Signs 04/12/24 14:01 Height 5 ft Weight 110 lb BMI 21.5 BP 130/83 Blood Pressure Location Rt brachial Position Sitting Pulse 99 Pulse Source Pulse Oximeter Pulse Oximetry (%) 97 Oxygen Delivery Method Room Air Intake Visit Reasons: f/u anemia, hypertension, labs Intake Note: Patient is here to follow up on Anemia, HTN, Lab results. Pt decline flu shot today. 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 Name: Alda (daughter) Information Interpreted: non-clinical & clinical [employer] Dispatcher: Present Accompanied by: Daughter Allergies No Known Allergies Allergy (Verified 04/12/24 14:00) Medication List - Last Reconciled 04/12/24 by Cesar Driscoll MD apixaban (Eliquis) 10 mg PO BID bitter melon extract 450 mg orally; blood sugar diagnostic (FreeStyle Lite Strips) DX: E11.9, test blood sugar 2 times a day, 90 days blood sugar diagnostic (OneTouch Ultra Test strips) To Test Blood Sugar 4 times a day, As directed, 90 days blood-glucose meter (FreeStyle Lite Meter kit) DX: E11.9, test blood sugar 2 times a day, duration 999 days blood-glucose meter (OneTouch Ultra2 Meter) To test Blood sugar As directed, 999 days bupropion HCl 75 mg PO BID 30 days insulin glargine (Lantus Solostar U-100 Insulin) 20 units subcut QPM lancets (FreeStyle Lancets) As directed lancets (OneTouch Delica Plus Lancet) To Test Blood Sugar 4 times a day, As directed. 90 days lisinopril 2.5 mg PO DAILY magnesium 200 mg PO DAILY nut.tx.gluc.intol,lac-free,soy (Glucerna Advance oral liquid) 1 ea PO DAILY 30 days oxycodone 5 mg PO Q4-6H PRN oxycodone ER (OxyContin) 15 mg PO BID pantoprazole 40 mg PO DAILY pen needle, diabetic (BD Ultra-Fine Micro Pen Needle) To Treat blood sugar one x / day, 90 days pravastatin 10 mg PO BEDTIME prochlorperazine maleate mg PO Tobacco use date assessed: 04/12/24 Dental Screening Dental Screen Date: 11/24/23 HPI f/u anemia, hypertension, labs HPI Details 63 y/o female presents to f/u anemia, hypertension, labs. ED visit 04/06/24 for abd. pain. Labs were remarkable for leukocytosis WBC 17.7, mild anemia Hgb 10.6. CT abdomen/pelvis notable for numerous metastases in the liver. Was admitted for abd. pain d/t cancer metastases. She reports regular bowel movements. Ongoing abd. pain/constipation. Blood pressure today 130/83, 99p. Notes blood pressure in the morning have been a bit low. [facility] Medical History Pancreatic mass Arthritis Depression Migraines HTN (hypertension) Diabetes GERD (gastroesophageal reflux disease) Family history of ovarian cancer Weak urinary stream Overactive bladder Urinary urgency Primary osteoarthritis, right hand Acute pain of left knee OA (osteoarthritis) Surgical History History of pancreatectomy (~03/2023) Hx of colonoscopy Hx of esophagogastroduodenoscopy History of bladder suspension procedure History of tubal ligation Family History Father No problems noted. Mother Colon cancer Brother No problems noted. Brother No problems noted. Brother No problems noted. Sister Ovarian cancer Sister Breast cancer Sister No problems noted. Sister No problems noted. Daughter No problems noted. Daughter No problems noted. 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 2. Feeling down, depressed, or hopeless: not at all Source: Developed by Drs. Bryce [place] Roca Kurt Kroenke and colleagues, with an educational perlita from [employer]. Thrive Questionnaire Date Thrive assessed: 04/05/24 I am a: Patient What is your living situation today?: I have a steady place to live Within the past 12 months, did the food you bought not last and you didn't have the money to get more?: Never true Within the past 12 months, did you worry whether your food would run out before you got money to buy more?: Never true Do you have trouble paying for medicines?: No Do you have trouble getting transportation to medical appointments?: No Do you have trouble paying your heating and electricity bill?: No Do you have trouble taking care of your child, family member or friend?: No Do you have trouble with day-to-day activities such as bathing, preparing meals, shopping, managing finances, etc.?: Yes Are you currently unemployed and looking for a job?: No Are you interested in more education?: No Please select the resources that you would like help with: None Currently or been in a relationship where the following occur: No concerns reported THRIVE Score: 0 ALFREDO-7 AMB Questionnaire ALFREDO-7 Date ALFREDO - 7 assessed: 04/12/24 Feeling nervous, anxious, or on edge: 0 = Not at all Not being able to stop or control worryin = Not at all Worrying too much about different things: 0 = Not at all Trouble relaxin = Not at all Being so restless that it is hard to sit still: 0 = Not at all Becoming easily annoyed or irritable: 0 = Not at all Feeling afraid as if something awful might happen: 0 = Not at all Total ALFREDO-7 score (0-4 normal; 5-9 mild; 10-14 moderate; 15-21 severe): 0 Source: Developed by Drs. Bryce Sanches, Darnell Iyer and colleagues, with an educational perlita from [employer]. Review of Systems Const Denies chills, Denies fatigue, Denies fever(s), Denies headache(s) and Denies weakness ENT Denies dizziness and Denies headache(s) Card Denies dyspnea Resp Denies cough, Denies dyspnea, Denies wheezing and Denies other (shortness of breath) Musc Denies numbness and Denies tingling Neuro Denies dizziness, Denies headache(s), Denies numbness, Denies tingling and Denies weakness Psych Denies anxiety and Denies depression Endo Denies fatigue Aller/Immun Denies wheezing Physical exam (Primary Care) BMI result Body Mass Index 21.5 Tobacco/Smoking Status: Tobacco use Status Tobacco use date assessed 07/17/23 04/12/24 13:59 Patient Tobacco Use Status Never used Tobacco 04/12/24 13:59 e-Cigarette/Vaping Use Never Used 04/12/24 13:59 Thrive Assessment: Date of Thrive Assessment Date Thrive assessed 04/05/24 04/12/24 13:59 Currently or been in a relationship where the following occur: No concerns reported Const General: well developed; No acute distress Nutritional Appearance: well nourished Orientation/consciousness: patient oriented x3 HENMT Head: Yes normocephalic and Yes atraumatic Eyes General: appearance normal, both eyes and all related structures Pupils: Equal, round and reactive pupils present EOM: EOMs intact bilaterally Resp Effort & Inspection: normal respiratory effort Auscultation: clear to auscultation bilaterally Cardio Rate: regular rate Rhythm: regular rhythm Heart sounds: S1 normal heart sound present, S2 normal heart sound present, no gallops, no murmurs and no rubs GI Auscultation: normal bowel sounds Neuro General: patient oriented x3 and gait normal Cranial nerves: Yes Equal, round and reactive pupils present Psych Affect: normal affect Coding Level of Care Code Est Pt Level 4 ([id number]) Diagnoses Anemia D64.9 Abdominal pain R10.9 Hypertension I10 Constipation K59.00 Assessment & Plan Assessment & Plan (1) Anemia: Code(s): D64.9 - Anemia, unspecified Category: Medical Plan: Hemoglobin?9.5?at[facility]?2?weeks?ago. Patient?was?at?the?ED?for?abdominal?pain earlier?this?week?and?hemoglobin?was?still?9.5 Stable (2) Abdominal pain: Code(s): R10.9 - Unspecified abdominal pain Category: Medical Plan: Ongoing?abdominal?pain?and?constipation. Constipation?likely?due?to?opioid?pain?medication?that?she?needs?for?metastatic?disease?pain.??Also?constipation?exacerbated?by?poor?p.o.?intake?and?poor?hydration. Also?has?abdominal?pain?secondary?to?metastatic?disease. Encouraged?ongoing?hydration She?can?use?bisacodyl?and?MiraLax?as?needed (3) Hypertension: Code(s): I10 - Essential (primary) hypertension Category: Medical Plan: Blood?pressure?had?been?significantly?low?at?her?last?visit. Discontinued?lisinopril?2.5?mg?per?day Blood?pressure?now?improved.??Her?daughter?notes?that?blood?pressures?are?still?low?in?her?morning Encouraged?hydration Check?blood?pressures?throughout?day?to?ensure?that?they?are?okay?when?she?is?up?and?moving?around (4) Constipation: Code(s): K59.00 - Constipation, unspecified Category: Medical Plan: Hydrate?well Medication?as?described?above
[2024-04-12 14:01] VITALS: BP 130/83; PULSE 99; O2SAT 97; BMI 21.5
== END 2024-04-12 14:31 | disposition home or self-care (01) ==
PROVIDERS: PCP Family Medicine; Visit Provider Family Medicine
DX: D64.9 Anemia, unspecified (principal); R10.9 Unspecified abdominal pain; I10 Essential (primary) hypertension; K59.00 Constipation, unspecified

== ENCOUNTER → 2024-04-12 13:49 | Outpatient (BNVA) | payer OTHER, SELFPAY | PROVIDERS: PCP Family Medicine; Visit Provider Family Medicine | DX: D64.9 Anemia, unspecified (principal); R10.9 Unspecified abdominal pain; I10 Essential (primary) hypertension; K59.00 Constipation, unspecified | CPT/HCPCS: 99212 ==

== ENCOUNTER → 2024-05-01 23:59 | Outpatient (BNV) | payer OTHER, SELFPAY | PROVIDERS: PCP Family Medicine; Visit Provider Family Medicine | DX: C25.9 Malignant neoplasm of pancreas, unspecified (principal); E43 Unspecified severe protein-calorie malnutrition; I10 Essential (primary) hypertension | CPT/HCPCS: G0180 ==

== ENCOUNTER 2024-05-03 09:25 | Emergency (ER) | payer OTHER, SELFPAY ==
[2024-05-03 09:43] VITALS: BP 148/88; PULSE 83; RESP 16; TEMP 36.8; O2SAT 99; BMI 20.9
--- NOTE | 2024-05-03 14:17 | ED.GENADULT ---
HPI - General Adult General Chief complaint: Abdominal Pain Stated complaint: abd pain, hernia? 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: manufacturing team member Related Data Home Medications ?Medication ?Instructions ?Recorded ?Confirmed magnesium 200 mg tablet 200 mg PO DAILY 12/07/22 04/12/24 bitter melon extract 750 mg tablet 450 mg PO .COMPLEX 12/06/23 04/12/24 insulin glargine 100 unit/mL (3 20 unit subcut QPM 02/14/24 04/12/24 mL) subcutaneous pen (Lantus Solostar U-100 Insulin) oxycodone 15 mg tablet,crush 15 mg PO BID 04/05/24 04/12/24 resistant,extended release 12 hr (OxyContin) prochlorperazine maleate 10 mg mg PO 04/05/24 04/12/24 tablet apixaban 5 mg tablet (Eliquis) 10 mg PO BID 04/12/24 04/12/24 Previous Rx's ?Medication ?Instructions ?Recorded pen needle, diabetic 32 gauge x #100 ea 06/09/2306/01 (BD Ultra-Fine Micro Pen Needle) nut.tx.gluc.intol,lac-free,soy 1 ea PO DAILY 30 days #7,110 mL 07/17/23 (Glucerna Advance oral liquid) blood sugar diagnostic (FreeStyle #200 ea 07/19/23 Lite Strips) blood-glucose meter (FreeStyle #1 ea 07/19/23 Lite Meter kit) lancets 28 gauge (FreeStyle #200 ea 07/19/23 Lancets) blood sugar diagnostic (OneTouch #400 ea 09/29/23 Ultra Test strips) blood-glucose meter (OneTouch #1 ea 09/29/23 Ultra2 Meter) lancets 33 gauge (OneTouch Delica #400 ea 09/29/23 Plus Lancet) pravastatin 10 mg tablet 10 mg PO BEDTIME #90 tabs 12/06/23 lisinopril 2.5 mg tablet 2.5 mg PO DAILY #90 tabs 02/14/24 pantoprazole 40 mg tablet,delayed 40 mg PO DAILY #30 tabs 03/19/24 release oxycodone 5 mg tablet 5 mg PO Q4-6H PRN Pain (Scale 04/12/24 Score 7-10) #60 tabs bupropion HCl 75 mg tablet 75 mg PO BID 30 days #60 tabs 05/06/24 Allergies Allergy/AdvReac Type Severity Reaction Status Date / Time No Known Allergies Allergy Verified 05/03/24 09:47 [facility] Past Medical History Medical History Pancreatic mass Arthritis Depression Migraines HTN (hypertension) Diabetes GERD (gastroesophageal reflux disease) Family history of ovarian cancer Weak urinary stream Overactive bladder Urinary urgency Primary osteoarthritis, right hand Acute pain of left knee OA (osteoarthritis) Surgical History History of pancreatectomy (~03/2023) Hx of colonoscopy Hx of esophagogastroduodenoscopy History of bladder suspension procedure History of tubal ligation Family History Family History Father No problems noted. Mother Colon cancer Brother No problems noted. Brother No problems noted. Brother No problems noted. Sister Ovarian cancer Sister Breast cancer Sister No problems noted. Sister No problems noted. Daughter No problems noted. Daughter No problems noted. 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
== END 2024-05-03 14:50 | disposition left against medical advice (07) ==
PROVIDERS: Emergency Provider Emergency Medicine Emergency Medical Services; PCP Family Medicine
DX: R10.9 Unspecified abdominal pain (principal); E11.9 Type 2 diabetes mellitus without complications; I10 Essential (primary) hypertension; E78.00 Pure hypercholesterolemia, unspecified; Z79.4 Long term (current) use of insulin; Z79.899 Other long term (current) drug therapy; Z79.02 Long term (current) use of antithrombotics/antiplatelets; Z53.21 Procedure and treatment not carried out due to patient leaving prior to being seen by health care provider
CPT/HCPCS: 99282